=== PATIENT | male | born 1945 | race American Indian/Alaskan Native ===

== ENCOUNTER 2018-04-28 20:07 | Inpatient (IN) | payer MEDICARE, OTHER ==
--- NOTE | 2018-04-28 20:40 | ED PDOC ---
Arrival/HPI - General Chief Complaint: Weakness/Neurological Deficit Time Seen by Provider: 04/28/18 20:16 Historian: Patient, Family - History of Present Illness Narrative History of Present Illness (Text): 04/28/18 20:34 72 year old male, whose past medical history includes alzheimers disease and thyroid disease, who presents to the emergency department via EMS for evaluation of decreased appetite, poor oral intake, and generalized weakness. Patient's family states the patient has been losing weight. Patient family also notes patient saw his PMD earlier in the week, who said he might be dehydrated. Patient denies any fever, chills, chest pain, shortness of breath, nausea, vomiting, diarrhea, back pain, neck pain, headache, dizziness, or any other complaints. Symptom Onset: Gradual Symptom Course: Worsening Activities at Onset: Light Context: Home Past Medical History - Provider Review Nursing Documentation Reviewed: Yes - Cardiac Hx Cardiac Disorders: No - Pulmonary Hx Respiratory Disorders: No - Neurological Hx Neurological Disorder: Yes Hx Alzheimer's Disease: Yes - HEENT Hx HEENT Disorder: No - Renal Hx Renal Disorder: No - Endocrine/Metabolic Hx Endocrine Disorders: Yes Hx Hypothyroidism: Yes - Hematological/Oncological Hx Blood Disorders: No - Integumentary Hx Dermatological Disorder: No - Musculoskeletal/Rheumatological Hx Musculoskeletal Disorders: Yes Hx Falls: Yes - Gastrointestinal Hx Gastrointestinal Disorders: No - Genitourinary/Gynecological Hx Genitourinary Disorders: No - Psychiatric Hx Psychophysiologic Disorder: No Hx Substance Use: No Family/Social History - Physician Review Nursing Documentation Reviewed: Yes Family/Social History: Unknown Family HX Smoking Status: Former Smoker Hx Alcohol Use: Yes (former) Frequency of alcohol use: Socially Hx Substance Use: No Allergies/Home Meds Allergies/Adverse Reactions: Allergies No Known Allergies Allergy (Verified 04/28/18 20:15) Home Medications: Home Meds Medication Instructions Recorded Confirmed Unobtainable 04/28/18 04/28/18 Review of Systems - Physician Review All systems were reviewed & negative as marked: Yes - Review of Systems Constitutional: Fatigue Eyes: Normal ENT: Normal Respiratory: Normal. absent: SOB, Cough Cardiovascular: Normal. absent: Chest Pain Gastrointestinal: Normal. absent: Abdominal Pain, Diarrhea, Nausea, Vomiting Genitourinary Male: Normal. absent: Dysuria, Frequency, Hematuria, Urinary Output Changes Musculoskeletal: Normal. absent: Back Pain, Neck Pain Skin: Normal. absent: Rash Neurological: Normal. absent: Headache, Dizziness Endocrine: Normal Hemo/Lymphatic: Normal Psychiatric: Normal Physical Exam Vital Signs Reviewed: Yes Vital Signs Temp Pulse Resp BP Pulse Ox 04/28/18 20:16 98.1 F 87 18 104/67 97 Temperature: Afebrile Blood Pressure: Normal Pulse: Regular Respiratory Rate: Normal Appearance: Positive for: Well-Appearing, Non-Toxic, Comfortable Pain Distress: None Mental Status: Positive for: Alert and Oriented X 3 - Systems Exam Head: Present: Atraumatic, Normocephalic Pupils: Present: PERRL Extroacular Muscles: Present: EOMI Conjunctiva: Present: Normal Mouth: Present: Dry Neck: Present: Normal Range of Motion. No: Meningeal Signs, MIDLINE TENDERNESS Respiratory/Chest: Present: Clear to Auscultation, Good Air Exchange. No: Respiratory Distress, Accessory Muscle Use Cardiovascular: Present: Regular Rate and Rhythm, Normal S1, S2. No: Murmurs Abdomen: No: Tenderness, Distention, Peritoneal Signs Back: Present: Normal Inspection. No: CVA Tenderness, Midline Tenderness, Paraspinal Tenderness Upper Extremity: Present: Normal Inspection. No: Cyanosis, Edema Lower Extremity: Present: Normal Inspection. No: Edema Neurological: Present: GCS=15, CN II-XII Intact, Speech Normal Skin: Present: Warm, Dry, Normal Color. No: Rashes Psychiatric: Present: Alert, Oriented x 3, Normal Insight, Other (poor communication) Medical Decision Making ED Course and Treatment: 04/28/18 20:43 Impression: 72 year old male who presents to the emergency department via EMS for decreased appetite, poor oral intake, and generalized weakness. Plan: -- CT Head -- EKG -- Labs -- Chest X-ray -- Urinalysis -- Reassess and disposition Progress Notes: 04/28/18 20:55 EKG reviewed, shows NSR at [address]/T wave changes. Inferior lateral leads. Early repolarization. 04/28/18 21:41 Chest X-ray reviewed, shows no acute processes. 04/28/18 21:46 Case discussed with biomedical engineering internship food preparation kitchen aide, who is aware and agrees with plan. 04/28/18 21:[address] Townsend, who is aware and agrees with plan. Accepts pt in to hospitalist service. Pt will be admitted to [facility] for dehydration. 04/28/18 23:12 CT Head shows: Brain: Ventricles are mildly dilated. There is prominence of sulci and gyri. The. There is no midline shift. There is decreased attenuation in periventricular white matter. There is an old lacunar infarct in the right basal ganglia. There is a lacunar infarct in the genuine of the corpus callosum. There are no focal masses. There are no focal hemorrhages. Mcneal-white differentiation is visualized. Ventricles: See above Bones: Cranial vault is intact. Soft tissues: unremarkable Sinuses: There is no acute sinusitis. Ears and mastoids: Middle ears and mastoids are unremarkable. Orbits: Orbital contents are unremarkable. IMPRESSION: Atrophy and small vessel disease; lacunar infarcts in the basal ganglia corpus callosum; no bleed - Lab Interpretations Lab Results: 04/28/18 20:50 04/28/18 20:50 Lab Results 04/28/18 20:50: Iron 63, TIBC 231 L, % Saturation 27 04/28/18 20:50: Phosphorus 3.7, Magnesium 2.5 H, Ferritin Cancelled, Vitamin B12 Cancelled, Folate Cancelled 04/28/18 20:50: Free T4 1.13, TSH 3rd Generation 4.58 04/28/18 20:50: PT 14.2 H, INR 1.24 H, APTT 27.6 04/28/18 20:50: WBC 5.9, RBC 5.15, Hgb 11.9 L, Hct 35.8 L, MCV 69.5 L, MCH 23.1 L, MCHC 33.2, RDW 16.5 H, Plt Count 281 04/28/18 20:50: Sodium 145, Potassium 4.3, Chloride 101, Carbon Dioxide 32, Anion Gap 16, BUN 32 H, Creatinine 1.0, Est GFR ( Amer) > 60, Est GFR ( Non-Af Amer) > 60, Random Glucose 95, Calcium 9.0, Total Bilirubin 0.3, AST 45, ALT 31, Alkaline Phosphatase 53, Lactate Dehydrogenase 754 H, Total Creatine Kinase 470 H, CK-MB (CK-2) 1.7, CK-MB (CK-2) % Cancelled, Troponin I < 0.01, Total Protein 7.4, Albumin 4.0, Globulin 3.4, Albumin/Globulin Ratio 1.2 I have reviewed the lab results: Yes - RAD Interpretation Radiology Orders: 04/28/18 20:30 HEAD W/O CONTRAST [CT] Stat 04/28/18 20:31 CHEST PORTABLE [RAD] Stat Shuttle Spotter: ED Physician, Radiologist - EKG Interpretation Interpreted by ED Physician: Yes Type: 12 lead EKG - Medication Orders Current Medication Orders: Famotidine (Pepcid) 20 mg IVP DAILY NALDO Heparin Sodium (Porcine) (Heparin) 5,000 units SC Q12 NALDO PRN Reason: Protocol Sodium Chloride (Sodium Chloride 0.9%) 1,000 mls @ 150 mls/hr IV .Q6H40M NALDO Last Admin: 04/29/18 04:39 Dose: eMAR Start Stop Document 04/29/18 04:39 MP (Rec: 04/29/18 04:40 MP [facility] [id number][place] Intravenous Solution Start Date 04/29/18 Start Time 04:40 Discontinued Medications Famotidine (Pepcid) 40 mg PO HS NALDO Last Admin: 04/28/18 22:21 Dose: Sodium Chloride (Sodium Chloride 0.9%) 1,000 mls @ 100 mls/hr IV .Q10H NALDO Last Admin: 04/28/18 21:49 Dose: 100 mls/hr eMAR Start Stop Document 04/28/18 21:49 CNR (Rec: 04/28/18 21:49 CNR [id number]) Intravenous Solution Start Date 04/28/18 Start Time 21:49 Sodium Chloride (Sodium Chloride 0.9%) 500 mls @ 500 mls/hr IV .Q1H STA Stop: 04/28/18 22:47 Last Admin: 04/28/18 21:50 Dose: 500 mls/hr eMAR Start Stop Document 04/28/18 21:50 CNR (Rec: 04/28/18 21:50 CNR [id number]) Intravenous Solution Start Date 04/28/18 Start Time 21:50 - Scribe Statement The provider has reviewed the documentation as recorded by the Scribslim Kincaid All medical record entries made by the Scribe were at my direction and personally dictated by me. I have reviewed the chart and agree that the record accurately reflects my personal performance of the history, physical exam, medical decision making, and the department course for this patient. I have also personally directed, reviewed, and agree with the discharge instructions and disposition. Disposition/Present on Arrival - Present on Arrival Any Indicators Present on Arrival: No History of DVT/PE: No History of Uncontrolled Diabetes: No Urinary Catheter: No History of Decub. Ulcer: No History Surgical Site Infection Following: None - Disposition Have Diagnosis and Disposition been Completed?: Yes Diagnosis: Dehydration, Failure to thrive in adult Disposition: HOSPITALIZED Disposition Time: 21:55 Patient Plan: Admission, Observation Patient Problems: Current Active Problems Problem Status Onset Dehydration Acute Failure to thrive in adult Acute Condition: STABLE
[2018-04-28 21:07] LABS: HEMOGLOBIN 11.9 g/dL (14.0-18.0); MEAN CELL VOLUME 69.5 fl (80.0-105.0); MEAN CORPUSCULAR HEMOGLOBIN 23.1 pg (25.0-35.0); MEAN CORPUSCULAR HGB CONC 33.2 g/dl (31.0-37.0); PLATELET COUNT 281 10^3/uL (120.0-450.0); RBC 5.15 10^6/uL (3.5-6.1); RED CELL DISTRIBUTION WIDTH 16.5 % (11.5-14.5); WHITE BLOOD COUNT 5.9 10^3/ul (4.5-11.0)
[2018-04-28 21:17] LABS: ALB/GLOB RATIO 1.2 (1.1-1.8); ALT/SGPT 31 U/L (7-56); AST/SGOT 45 U/L (17-59); BLOOD UREA NITROGEN 32 mg/dL (7-21); GFR AFRICAN-AMERICAN > 60; GFR NON-AFRICAN AMERICAN > 60
[2018-04-28 21:22] LABS: INR 1.24 (0.93-1.08); PARTIAL THROMBOPLASTIN TIME 27.6 Seconds (25.1-36.5); PROTHROMBIN TIME 14.2 SECONDS (9.4-12.5)
[2018-04-28 21:28] LABS: TROPONIN I < 0.01 ng/mL
[2018-04-28 21:34] LABS: FREE T4 1.13 ng/dL (0.78-2.19)
[2018-04-28 21:41] LABS: CK-MB 1.7 ng/mL (0.0-3.6)
[2018-04-28] MEDS ORDERED: Sodium Chloride 0.9% 1,000 ML IV SCH (21:45)
[2018-04-28] MEDS ORDERED: Sodium Chloride 0.9% 500 ML IV STA (21:48)
--- NOTE | 2018-04-28 22:22 | CT ---
EXAM: CT Head Without Intravenous Contrast EXAM DATE/TIME: 04/28/2018 8:30 PM CLINICAL HISTORY: 72 years old, male; Signs and symptoms; Altered mental status/memory loss; Patient HX: Confused/hx. Alzheimers TECHNIQUE: Axial computed tomography images of the head/brain without intravenous contrast. All CT scans at this facility use one or more dose reduction techniques, viz.: automated exposure control; ma/kV adjustment per patient size (including targeted exams where dose is matched to indication; i.e. head); or iterative reconstruction technique. Coronal and sagittal reformatted images were created and reviewed. COMPARISON: There are no prior studies for comparison. FINDINGS: Brain: Ventricles are mildly dilated. There is prominence of sulci and gyri. The. There is no midline shift. There is decreased attenuation in periventricular white matter. There is an old lacunar infarct in the right basal ganglia. There is a lacunar infarct in the genuine of the corpus callosum. There are no focal masses. There are no focal hemorrhages. Mcneal-white differentiation is visualized. Ventricles: See above Bones: Cranial vault is intact. Soft tissues: unremarkable Sinuses: There is no acute sinusitis. Ears and mastoids: Middle ears and mastoids are unremarkable. Orbits: Orbital contents are unremarkable. IMPRESSION: Atrophy and small vessel disease; lacunar infarcts in the basal ganglia corpus callosum; no bleed
[2018-04-28 22:23] LABS: IRON 63 ug/dL (45-180)
[2018-04-28 22:32] LABS: % IRON SATURATION 27 % (20-55); TOTAL IRON BINDING CAPACITY 231 ug/dL (261-462)
[2018-04-28 23:25] LABS: URINE BILIRUBIN SMALL (NEGATIVE); URINE BLOOD TRACE-INTACT (NEGATIVE); URINE GLUCOSE (UA) NEGATIVE (NEGATIVE); URINE LEUKOCYTE ESTERASE NEGATIVE Leu/uL (NEGATIVE); URINE PROTEIN 30 mg/dL (<30 mg/dL)
[2018-04-28 23:46] LABS: BARBITURATES, UR NEGATIVE (NEGATIVE); BENZODIAZEPINES, UR POSITIVE (NEGATIVE); OPIATES, UR NEGATIVE (NEGATIVE); PHENCYCLIDINE, UR NEGATIVE (NEGATIVE)
[2018-04-28 23:58] LABS: URINE APPEARANCE SL CLOUDY (CLEAR); URINE COLOR YELLOW (YELLOW); URINE EPITHELIAL CELLS 0 - 2 /hpf (0-5); URINE RBC 0 - 2 /hpf (0-2); URINE WBC 0 - 2 /hpf (0-6)
[2018-04-28 23:59] VITALS: BMI 18.8
[2018-04-28 23:59] LABS: URINE BACTERIA FEW (NEG)
--- NOTE | 2018-04-29 00:28 | CP.PCM.HP ---
<Pito Robert - Last Filed: 04/29/18 01:16> History of Present Illness - History of Present Illness History of Present Illness: Mr. Parish is a 72 year old male with a past medical history significant for severe dementia, prior CVA, and hypothyroidism who presents with two months of baseline changes in functional capacity, dehydration and decreased PO intake. HPI obtained from patients sister and who were present at baseline as patient is uncooperative/disoriented. Patients sister reports that she is in town visiting from [place] and while here she has noticed that patient is refusing PO intake, both solid and liquid. She placed a call to Dr. Wilson for instructions and was instructed to bring him to the hospital for further evaluation. She also notes that patients is no longer able to meet the demands of day to day care for the patient, particularly over the past two months. Patients reports that over the course of the past two months the patient has had increasing weakness and worsening of his dementia symptoms. She notes several falls that have happened during that period that were medically unevaluated as well as several episodes of the patient leaving the house in the middle of the night and having to be returned by the police. She endorses that it is becoming increasingly difficult for her to manage his day to day care, citing worsening of her own medical conditions as the reason. She reports that the patient does not make any complaints and further ROS is unobtainable at this time due to patients disorientation/lack of cooperation. 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 Mena Present on Admission - Present on Admission Any Indicators Present on Admission: No Review of Systems - Review of Systems Systems not reviewed;Unavailable: Dementia, Uncooperative Past Patient History - Infectious Disease Hx of Infectious Diseases: None - Tetanus Immunizations Tetanus Immunization: Unknown - Past Social History Smoking Status: Former Smoker - CARDIAC Hx Cardiac Disorders: No Hx Angina: No Hx Cardia Arrhythmia: No Hx Circulatory Problems: No Hx Congestive Heart Failure: No Hx Heart Murmur: No Hx Heart Transplant: No Hx Hypercholesterolemia: No Hx Hypertension: No Hx Internal Defibrillator: No Hx Mitral Valve Prolapse: No Hx Pacemaker: No Hx Peripheral Edema: No Hx Peripheral Vascular Disease: No - PULMONARY Hx Respiratory Disorders: No Hx Asthma: No Hx Bronchitis: No Hx Chronic Obstructive Pulmonary Disease (COPD): No Hx Emphysema: No Hx Pneumonia: No Hx Respiratory Aspiration: No Hx Respiratory Tract Infection: No Hx Sleep Apnea: No Hx Tuberculosis: No - NEUROLOGICAL Hx Neurological Disorder: Yes Hx Alzheimer's Disease: Yes HX Cerebrovascular Accident: No Hx Dementia: No Hx Dizziness: No Hx Meningitis: No Hx Migraine: No Hx Parkinson's Disease: No Hx Seizures: No Hx Transient Ischemic Attacks (TIA): No - HEENT Hx HEENT Problems: No Hx Blind: No Hx Cataracts: Yes Hx Deafness: No Hx Difficulty Chewing: Yes Hx Epistaxis: No Hx Glaucoma: No Hx Macular Degeneration: No - RENAL Hx Chronic Kidney Disease: No Hx Dialysis: No Hx Kidney Stones: No Hx Neurogenic Bladder: No Hx Pyelonephritis: No Hx Renal (Kidney) Cancer: No Hx Renal Failure: No - ENDOCRINE/METABOLIC Hx Endocrine Disorders: No Hx Adrenal Cancer: No Hx Diabetes Insipidus: No Hx Diabetes Mellitus Type 1: No Hx Diabetes Mellitus Type 2: No Hx Systemic Lupus Erythematosus: No - HEMATOLOGICAL/ONCOLOGICAL Hx Blood Disorders: No Hx AIDS: No Hx Anemia: No Hx Cancer: No Hx Chemotherapy: No Hx Cirrhosis: No Hx Hemophilia: No Hx Hepatitis A: No Hx Hepatitis B: No Hx Hepatitis C: No Hx Human Immunodeficiency Virus (HIV): No Hx Metastesis: No Hx Shingles: No Hx Sickle Cell Disease: No Hx Unexplained Bleeding: No - INTEGUMENTARY Hx Dermatological Problems: No Hx Basil Cell: No Hx Eczema: No Hx Melanoma: No Hx Psoriasis: No Hx Squamous Cell: No - MUSCULOSKELETAL/RHEUMATOLOGICAL Hx Musculoskeletal Disorders: No Hx Arthritis: No Hx Back Pain: No Hx Degenerative Joint Disease: No Hx Falls: No Hx Fractures: No Hx Gout: No Hx Herniated Disk: No Hx Myasthenia Gravis: No Hx Osteoarthritis: No Hx Osteomyelitis: No Hx Osteoporosis: No Hx Rhabdomyolysis: No Hx Spinal Stenosis: No Hx Unsteady Gait: Yes Other/Comment: unsteady gait s/p fall at home x2 - GASTROINTESTINAL Hx Gastrointestinal Disorders: No Hx Colostomy: No Hx Crohn's Disease: No Hx Diverticulitis: No Hx Gall Bladder Disease: No Hx Gastroesophageal Reflux: No Hx Ileostomy: No Hx Liver Failure: No Hx Pancreatitis: No HX Swallowing Problems: No Hx Ulcer: No - GENITOURINARY/GYNECOLOGICAL Hx Genitourinary Disorders: No Hx Hematuria: No Hx Incontinence: No Hx Prostate Problems: No Hx Sexually Transmitted Disorders: No Hx Urinary Tract Infection: No - PSYCHIATRIC Hx Psychophysiologic Disorder: No Hx Anxiety: No Hx Bipolar Disorder: No Hx Depression: No Hx Emotional Abuse: No Hx Hallucinations: No Hx Panic Symptoms: No Hx Paranoia: No Hx Post Traumatic Stress Disorder: No Hx Psychosis: No Hx Physical Abuse: No Hx Schizophrenia: No Hx Sexual Abuse: No Hx Substance Use: No - SURGICAL HISTORY Hx Surgeries: No Hx Amputation: No Hx Appendectomy: No Hx Cardiac Catheterization: No Hx Cholecystectomy: No Hx Coronary Stent: No Hx Gastric Bypass Surgery: No Hx Hysterectomy: No Hx Joint Replacement: No Hx Kidney Transplant: No Hx Liver Transplant: No Hx Mastectomy: No Hx Musculoskeletal Surgery: No Hx Open Heart Surgery: No Hx Orthopedic Surgery: No Hx Splenectomy: No Hx Valve Replacement: No Meds Allergies/Adverse Reactions: Allergies Allergy/AdvReac Type Severity Reaction Status Date / Time No Known Allergies Allergy Verified 04/28/18 20:15 Physical Exam - Constitutional Appears: Confused - Head Exam Head Exam: ATRAUMATIC, NORMOCEPHALIC - Eye Exam Eye Exam: EOMI, Normal appearance, PERRL. absent: Conjunctival injection, Nystagmus, Periorbital swelling, Periorbital tenderness, Scleral icterus Pupil Exam: NORMAL ACCOMODATION, PERRL. absent: Fixed, Irregular, Miosis, Mydriatic, Unequal - ENT Exam ENT Exam: Mucous Membranes Dry - Neck Exam Neck exam: Positive for: Full Rom. Negative for: Lymphadenopathy, Meningismus, Tenderness, Thyromegaly - Respiratory Exam Respiratory Exam: Clear to Auscultation Bilateral, NORMAL BREATHING PATTERN. absent: Accessory Muscle Use, Chest Wall Tenderness, Decreased Breath Sounds, Prolonged Expiratory Phase, Rales, Rhonchi, Wheezes, Respiratory Distress, Stridor - Cardiovascular Exam Cardiovascular Exam: REGULAR RHYTHM, RRR, +S1, +S2. absent: Bradycardia, Tachycardia, Clicks, Diastolic murmur, Gallop, Irregular Rhythm, JVD, Rubs, +S4 , Systolic Murmur - GI/Abdominal Exam GI & Abdominal Exam: Normal Bowel Sounds, Soft. absent: Bruit, Diminished Bowel Sounds, Distended, Firm, Guarding, Hernia, Hyperactive Bowel Sounds, Hypoactive Bowel Sounds, Mass, Organomegaly, Pulsatile Mass, Rebound, Rigid, Tenderness - Extremities Exam Extremities exam: Positive for: full ROM, normal capillary refill, pedal pulses present. Negative for: calf tenderness, joint swelling, pedal edema, tenderness - Back Exam Back exam: absent: CVA tenderness (L), CVA tenderness (R) - Skin Skin Exam: Dry, Intact, Normal Color, Warm Results - Vital Signs Recent Vital Signs: Last Vital Signs Temp 98.2 F 04/28/18 23:36 Pulse 83 04/28/18 23:36 Resp 18 04/28/18 23:36 BP 124/73 04/28/18 23:36 Pulse Ox 97 04/28/18 23:13 - Labs Result Diagrams: 04/28/18 20:50 04/28/18 20:50 Labs: Laboratory Results - last 24 hr 04/28/18 04/28/18 23:00 23:00 Urine Color Yellow Urine Appearance Sl cloudy Urine pH 6.0 Ur Specific [place] 1.025 Urine Protein 30 H Urine Glucose (UA) Negative Urine Ketones 15 H Urine Blood Trace-intact H Urine Nitrate Negative Urine Bilirubin Small H Urine Urobilinogen 1.0 H Ur Leukocyte Esterase Negative Urine RBC 0 - 2 Urine WBC 0 - 2 Ur Epithelial Cells 0 - 2 Urine Bacteria Few Urine Opiates Screen Negative Urine Methadone Screen Negative Ur Barbiturates Screen Negative Ur Phencyclidine Scrn Negative Ur Amphetamines Screen Negative U Benzodiazepines Scrn Positive H U Oth Cocaine Metabols Negative U Cannabinoids Screen Negative Assessment & Plan - Assessment and Plan (Free Text) Assessment: 72 year old male with a past medical history significant for severe dementia, prior CVA, and hypothyroidism who presents with two months of baseline changes in functional capacity, dehydration and decreased PO intake. Patient was found to have changes consistent with possible pericardial pathology on repeat EKG in ED. Patient will be admitted for failure to thrive. Plan: 1. Failure to Thrive/Worsening Dementia -CT Head negative for acute pathology with chronic vascular changes and chronic lacunar infarcts -Chest X-Ray pending official pathology -CK elevated at 470 -Normal Saline at 150mls/hour -NPO Diet (failed nursing bedside swallow eval) -LADIES LOCKER ROOM ATTENDANT Swallow Evaluation and Treatment pending -Fall and Aspiration precautions -PT, OT and Index Clerk evaluations pending -SW/CM referral for discharge planning 2. EKG Changes -Initial EKG showing sinus arrhythmia -Repeat showed ST elevations suspicious for pericardial pathology -Initial troponin negative; Two Q6H serial repeats pending -Echo pending -EKG in AM pending -Cardiology consulted, all recommendations appreciated 3. Hypothyroidism -TSH and free T4 WNL - to bring home medication in the AM 4. Mild Microcytic Anemia -Negative EGD (one year ago) and Colonoscopy (five years ago) -Iron, TIBC, Ferritin, Transferrin, Vit. B12, and Folate pending -Daily CBC's GI Prophylaxis: Pepcid DVT Prophylaxis: Heparin Patient seen and case discussed with attending, Dr. Townsend. Chinyere PGY1 - Date & Time Date: 04/29/18 Time: 00:28 Decision To Admit - Pt Status Changed To: Hospital Disposition Of: Inpatient Admission - Admit Certification Admit to Inpatient:: After my assessment, the patient will require hospitalization for at least two midnights. This is because of the severity of symptoms shown, intensity of services needed, and/or the medical risk in this patient being treated as an outpatient. - . Bed Request Type: Med/Surg <Alea Townsend - Last Filed: 04/29/18 03:35> Results - Vital Signs Recent Vital Signs: Last Vital Signs Temp 98.2 F 04/28/18 23:36 Pulse 83 04/28/18 23:36 Resp 18 04/28/18 23:36 BP 124/73 04/28/18 23:36 Pulse Ox 97 04/28/18 23:13 - Labs Result Diagrams: 04/28/18 20:50 04/28/18 20:50 Labs: Laboratory Results - last 24 hr 04/28/18 04/28/18 23:00 23:00 Urine Color Yellow Urine Appearance Sl cloudy Urine pH 6.0 Ur Specific [place] 1.025 Urine Protein 30 H Urine Glucose (UA) Negative Urine Ketones 15 H Urine Blood Trace-intact H Urine Nitrate Negative Urine Bilirubin Small H Urine Urobilinogen 1.0 H Ur Leukocyte Esterase Negative Urine RBC 0 - 2 Urine WBC 0 - 2 Ur Epithelial Cells 0 - 2 Urine Bacteria Few Urine Opiates Screen Negative Urine Methadone Screen Negative Ur Barbiturates Screen Negative Ur Phencyclidine Scrn Negative Ur Amphetamines Screen Negative U Benzodiazepines Scrn Positive H U Oth Cocaine Metabols Negative U Cannabinoids Screen Negative Attending/Attestation - Attestation I have personally seen and examined this patient.: Yes I have fully participated in the care of the patient.: Yes I have reviewed all pertinent clinical information: Yes Notes (Text): 04/29/18 03:34 Patient was seen when he was in bed # 3 in the ER. Agree with history , physical examination, assessment and plan.
[2018-04-29] MEDS: Sodium Chloride 0.9% 1,000 ML IV SCH ×2 (01:09→04:39)
[2018-04-29 05:10] LABS: BASO # 0.05 K/mm3 (0.0-2.0); BASO % 0.8 % (0.0-3.0); EOS # 0.1 (0.0-0.7); EOS % 1.9 % (1.5-5.0); GRAN # 3.04 (1.4-6.5); GRAN % 48.9 % (50.0-68.0); HEMOGLOBIN 10.5 g/dL (14.0-18.0); LYMPH # 2.4 (1.2-3.4); LYMPH % 38.1 % (22.0-35.0); MEAN CELL VOLUME 69.8 fl (80.0-105.0); MEAN CORPUSCULAR HEMOGLOBIN 22.3 pg (25.0-35.0); MEAN PLATELET VOLUME 10.7 fl (7.0-11.0); MONO # 0.6 (0.1-0.6); MONO % 10.3 % (1.0-6.0); RBC 4.7 10^6/uL (3.5-6.1); RED CELL DISTRIBUTION WIDTH 16.5 % (11.5-14.5); WHITE BLOOD COUNT 6.2 10^3/ul (4.5-11.0)
[2018-04-29 05:15] LABS: ALB/GLOB RATIO 1.1 (1.1-1.8); ALBUMIN 3.3 g/dL (3.0-4.8); ALT/SGPT 33 U/L (7-56); AST/SGOT 36 U/L (17-59); BLOOD UREA NITROGEN 27 mg/dL (7-21); CALCIUM 8.5 mg/dL (8.4-10.5); GFR AFRICAN-AMERICAN > 60; GFR NON-AFRICAN AMERICAN > 60
[2018-04-29 09:12] LABS: HDL CHOLESTEROL 45 mg/dL (29-60)
[2018-04-29 09:23] LABS: LDL CHOLESTEROL 94 mg/dL (0-129)
--- NOTE | 2018-04-29 10:14 | RAD ---
HISTORY: Weakness COMPARISON: No prior. FINDINGS: LUNGS: Mild biapical pleural thickening. There may also be some linear atelectasis and or scarring changes in the left mid lung field. PLEURA: No significant pleural effusion identified, no pneumothorax apparent. CARDIOVASCULAR: Heart size upper limits of normal. OSSEOUS STRUCTURES: No significant abnormalities. VISUALIZED UPPER ABDOMEN: Normal. OTHER FINDINGS: None. IMPRESSION: Mild biapical pleural thickening. There may also be some linear atelectasis and or scarring changes in the left mid lung field.
[2018-04-29 12:03] LABS: FOLATE 4.8 ng/mL
--- NOTE | 2018-04-29 15:37 | CARD ---
APPROVED REPORT EKG Measurement Heart [id number] <Conclusion> Normal sinus rhythm Normal ECG
--- NOTE | 2018-04-29 15:43 | CARD ---
APPROVED REPORT EKG Measurement Heart [id number] <Conclusion> Normal sinus rhythm ST elevation, consider early repolarization, pericarditis, or injury Abnormal ECG
[2018-04-30 07:03] LABS: BASO # 0.04 K/mm3 (0.0-2.0); BASO % 0.7 % (0.0-3.0); EOS # 0.1 (0.0-0.7); EOS % 2.3 % (1.5-5.0); GRAN # 2.91 (1.4-6.5); GRAN % 47.2 % (50.0-68.0); HEMOGLOBIN 10.4 g/dL (14.0-18.0); LYMPH # 2.3 (1.2-3.4); LYMPH % 37.9 % (22.0-35.0); MEAN CELL VOLUME 69.6 fl (80.0-105.0); MEAN CORPUSCULAR HEMOGLOBIN 22.6 pg (25.0-35.0); MEAN CORPUSCULAR HGB CONC 32.4 g/dl (31.0-37.0); MEAN PLATELET VOLUME 10.4 fl (7.0-11.0); MONO # 0.7 (0.1-0.6); MONO % 11.9 % (1.0-6.0); RBC 4.61 10^6/uL (3.5-6.1); RED CELL DISTRIBUTION WIDTH 16.9 % (11.5-14.5); WHITE BLOOD COUNT 6.2 10^3/ul (4.5-11.0)
[2018-04-30 07:59] LABS: ALB/GLOB RATIO 1.1 (1.1-1.8); ALBUMIN 3.2 g/dL (3.0-4.8); ALT/SGPT 32 U/L (7-56); AST/SGOT 34 U/L (17-59); BLOOD UREA NITROGEN 11 mg/dL (7-21); CALCIUM 8.2 mg/dL (8.4-10.5); GFR AFRICAN-AMERICAN > 60; GFR NON-AFRICAN AMERICAN > 60
--- NOTE | 2018-04-30 09:26 | CON ---
DATE: 04/29/2018 REASON FOR CONSULTATION: Abnormal EKG. HISTORY OF PRESENT ILLNESS: The patient is a 72-year-old male, who has Alzheimer, who was brought in by EMS because of poor appetite and generalized weakness as well as progressive loss of weight as per the family. The patient was evaluated earlier by his primary physician and informed the family that the patient is dehydrated. There was no history obtained for fever or chills. At the time of my evaluation, the patient gave no reliable answers to me, and the was on her way to visit him. Consultation was called because of subtle diffuse ST elevation on EKG. SOCIAL HISTORY: The patient is , lives with his . MEDICATIONS: Aricept 5 mg at bedtime, heparin 5000 units subcutaneous twice a day, Namenda 5 mg once a day, Pepcid 20 mg daily, normal saline at 250 mL an hour. REVIEW OF SYSTEMS: No reported hypotension. No reported seizures, and no reported fever. HOME MEDICATIONS: Are unobtainable according to the hospital records. PHYSICAL EXAMINATION: GENERAL: The patient is an elderly male, who does not appear to be in acute distress. VITAL SIGNS: Blood pressure 124/76, heart rate 78, temperature 98, respirations 18. HEENT: Pale conjunctivae. CHEST: Diminished breath sounds bilaterally. HEART: S1 and S2 regular. ABDOMEN: Soft. EXTREMITIES: Significant muscle wasting. LABORATORY DATA: Urine drug screen is positive for benzodiazepines. SMA-7, sodium 146, potassium 4.1, chloride 107, CO2 of 30, glucose 92, BUN 27, creatinine 0.9. Three sets of troponins are negative. TSH level and free T4 are within normal limits. INR is 1.24, PTT 26.7. Hemoglobin and hematocrit 10.5 and 32.8; white count and platelet count are within normal limits. Chest x-ray was unremarkable. Head CT scan without contrast, atrophy, small vessel disease, lacunar infarcts in the basal ganglia, corpus callosum, no bleeding. EKG revealed sinus rhythm, ST elevation, repolarization, pericarditis, injury; however, in my opinion and in view of the clinical scenario, they are more consistent with early repolarization changes which is unusual for this patient's age. Subsequent EKG today revealed a similar picture with less of the ST elevation. ASSESSMENT: 1. Dehydration. 2. 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 3. Abnormal EKG with evidence of anterior ST elevation. There are no clinical evidence of pericarditis such as pericardial rub or other EKG changes. RECOMMENDATIONS: Continue current subcutaneous heparin, Aricept and intravenous hydration. Obtain culture, urine culture and an echocardiogram. Demarcus Rao MD
--- NOTE | 2018-04-30 11:15 | CP.PCM.PN ---
<Boom Cazares - Last Filed: 04/30/18 13:41> Subjective - Date & Time of Evaluation Date of Evaluation: 04/30/18 Time of Evaluation: 07:30 - Subjective Subjective: Patient seen and examined at bedside in no acute distress. Patient is unaware of his surroundings. Is able to state he has a and children as well as grandchildren. Denies abdominal pain, nausea, vomiting, diarrhea, fevers, chills , however review of systems is limited due to altered mental status and severe dementia. Objective - Vital Signs/Intake and Output Vital Signs (last 24 hours): Temp Pulse Resp BP Pulse Ox 97.7 F 69 18 100/65 100 04/30/18 06:00 04/30/18 06:00 04/30/18 06:00 04/30/18 06:00 04/30/18 06:00 Intake and Output: 04/30/18 04/30/18 06:59 18:59 Intake Total 2340 Balance 2340 - Medications Medications: Current Medications Aspirin (Ecotrin) 81 mg PO DAILY [facility] Last Admin: 04/30/18 09:48 Dose: 81 mg Atorvastatin Calcium (Lipitor) 10 mg PO DIN [facility] Donepezil HCl (Aricept) 5 mg PO HS [facility] Last Admin: 04/29/18 22:07 Dose: 5 mg Famotidine (Pepcid) 20 mg IVP DAILY [facility] Last Admin: 04/30/18 09:47 Dose: 20 mg Heparin Sodium (Porcine) (Heparin) 5,000 units SC Q12 [facility] PRN Reason: Protocol Last Admin: 04/30/18 09:47 Dose: 5,000 units Sodium Chloride (Sodium Chloride 0.9%) 1,000 mls @ 150 mls/hr IV .Q6H40M [facility] Last Admin: 04/29/18 04:39 Dose: Not Given Memantine (Namenda) 5 mg PO DAILY [facility] Last Admin: 04/30/18 09:48 Dose: 5 mg - Labs Labs: 04/30/18 06:40 04/30/18 06:40 PT 14.2 SECONDS (9.4-12.5) H 04/28/18 20:50 INR 1.24 (0.93-1.08) H 04/28/18 20:50 APTT 29.8 Seconds (25.1-36.5) 04/30/18 06:40 - Head Exam Head Exam: ATRAUMATIC, NORMAL INSPECTION, NORMOCEPHALIC - Eye Exam Eye Exam: EOMI, Normal appearance - ENT Exam ENT Exam: Mucous Membranes Moist, Normal Exam - Respiratory Exam Respiratory Exam: Clear to Ausculation Bilateral. absent: Rhonchi, Wheezes - Cardiovascular Exam Cardiovascular Exam: REGULAR RHYTHM, +S1, +S2 - GI/Abdominal Exam GI & Abdominal Exam: Soft, Normal Bowel Sounds - Neurological Exam Neurological Exam: Alert, Awake. absent: Oriented x3 - Psychiatric Exam Psychiatric exam: Normal Affect, Normal Mood - Skin Skin Exam: Intact, Normal Color, Warm Assessment and Plan - Assessment and Plan (Free Text) Assessment: 72 year old male with a past medical history significant for severe dementia, prior CVA, and hypothyroidism who presents with two months of baseline changes in functional capacity, dehydration and decreased PO intake admitted for failure to thrive and [facility] placement. Plan: 1. Failure to Thrive/Worsening Dementia -CT Head negative for acute pathology with chronic vascular changes and chronic lacunar infarcts -Chest X-Ray reveals mild biapical pleural thickening. There may also be some linear atelectasis and or scarring changes in the left mid lung field. -CK was initially elevated at 470, will repeat in morning; Normal Saline decreased to 100mls/hour -Change from NPO to thin liquids, pureed for solids. -As per Swallow Evaluation and Treatment;Pt. demonstrates moderate oropharyngeal dysphagia with risk for aspiration with recommended thin liquids for diet -Continue with Fall and Aspiration precautions, HOB during meals -PT, OT pending still, will follow up with SW once PT has recommendations -Follow up with SW/CM referral for discharge planning 2. EKG Changes -Initial EKG showing sinus arrhythmia -Repeat showed ST elevations suspicious for pericardial pathology; as per cardiology patient is cleared for acute pathology considering negative troponins -Echo pending 3. Hypothyroidism -TSH and free T4 WNL -Will discuss with regarding starting thyroid medication 4. Mild Microcytic Anemia -Negative past EGD and Colonoscopy -Continue to monitor H&H GI Prophylaxis: Pepcid DVT Prophylaxis: Heparin <Jessica Calle - Last Filed: 04/30/18 14:01> Objective - Vital Signs/Intake and Output Vital Signs (last 24 hours): Temp Pulse Resp BP Pulse Ox 97.7 F 69 18 100/65 100 04/30/18 06:00 04/30/18 06:00 04/30/18 06:00 04/30/18 06:00 04/30/18 06:00 Intake and Output: 04/30/18 04/30/18 06:59 18:59 Intake Total 2340 Balance 2340 - Medications Medications: Current Medications Aspirin (Ecotrin) 81 mg PO DAILY [facility] Last Admin: 04/30/18 09:48 Dose: 81 mg Atorvastatin Calcium (Lipitor) 10 mg PO DIN [facility] Donepezil HCl (Aricept) 5 mg PO HS [facility] Last Admin: 04/29/18 22:07 Dose: 5 mg Famotidine (Pepcid) 20 mg IVP DAILY [facility] Last Admin: 04/30/18 09:47 Dose: 20 mg Heparin Sodium (Porcine) (Heparin) 5,000 units SC Q12 [facility] PRN Reason: Protocol Last Admin: 04/30/18 09:47 Dose: 5,000 units Sodium Chloride (Sodium Chloride 0.9%) 1,000 mls @ 100 mls/hr IV .Q10H [facility] Last Admin: 04/30/18 11:35 Dose: 100 mls/hr Memantine (Namenda) 5 mg PO DAILY [facility] Last Admin: 04/30/18 09:48 Dose: 5 mg - Labs Labs: 04/30/18 06:40 04/30/18 06:40 PT 14.2 SECONDS (9.4-12.5) H 04/28/18 20:50 INR 1.24 (0.93-1.08) H 04/28/18 20:50 APTT 29.8 Seconds (25.1-36.5) 04/30/18 06:40 Attending/Attestation - Attestation I have personally seen and examined this patient.: Yes I have fully participated in the care of the patient.: Yes I have reviewed all pertinent clinical information, including history, physical exam and plan: Yes Notes (Text): 04/30/18 13:55 72 year old male with past medical history of dementia, CVA and hypothyroidism who presented worsening dementia and two month baseline changes in functional capacity as per family. CT head showed chronic vascular changes and chronic lacunar infarcts; negative for acute findings. Patient is on aricept and namenda. Continue with aspirin and statin. Awaiting for PT recommendations for possible rehab placement. Cardiology evaluation was also requested for EKG findings suggestive of possible pericarditis. Cardiac enzymes are negative. Patient denies any chest pain or shortness of breath. Case was discussed with Dr. Rao; awaiting echocardiogram. Jessica Calle MD Hospitalist.
[2018-04-30] MEDS: Sodium Chloride 0.9% 1,000 ML IV SCH ×2 (11:35→17:39)
--- NOTE | 2018-04-30 16:02 | PN ---
DATE: 04/30/2018 SUBJECTIVE: The patient is confused, unable to answer any question appropriately. He is sitting on a chair, does not appears to be in any respiratory distress. PHYSICAL EXAMINATION: VITAL SIGNS: Blood pressure 100/65, heart rate 69, temperature 97.7, respirations 18. HEENT: Normocephalic. CHEST: Clear. HEART: S1 and S2 regular. No pericardial rub. ABDOMEN: Soft. EXTREMITIES: No edema. LABORATORY DATA: Hemoglobin and hematocrit 10.4 and 32.1, white count and platelet count are within normal limits. Today's SMA-7 is within normal limits except for creatinine of 0.7, calcium slightly below normal at 8.2. ASSESSMENT: 1. Dehydration. 2. Multi-Infarct dementia. 3. Abnormal EKG with evidence of acute ST elevation, most likely consistent with early repolarization pattern which is untypical for this age. Less likely pericarditis. CONDITIONS: Continue current Aricept, aspirin, subcutaneous heparin 5000 units twice a day, Lipitor 10 mg once a day, Namenda 5 mg once a day, normal saline infusion at 100 mL an hour. I will follow echocardiographic study scheduled for today. Demarcus Rao MD
[2018-05-01] MEDS: Sodium Chloride 0.9% 1,000 ML IV SCH (05:54)
[2018-05-01 08:03] LABS: CK-MB 3.5 ng/mL (0.0-3.6)
--- NOTE | 2018-05-01 08:58 | CP.PCM.PN ---
<Boom Cazares - Last Filed: 05/01/18 13:38> Subjective - Date & Time of Evaluation Date of Evaluation: 05/01/18 Time of Evaluation: 08:55 - Subjective Subjective: Patient seen and examined at bedside in no acute distress. Patient repeating what I say to him. ROS limited due to severe dementia. No acute events overnight as per nursing staff. Objective - Vital Signs/Intake and Output Vital Signs (last 24 hours): Temp Pulse Resp BP Pulse Ox 97.8 F 64 18 123/76 98 05/01/18 06:00 05/01/18 06:00 05/01/18 06:00 05/01/18 06:00 05/01/18 06:00 Intake and Output: 05/01/18 05/01/18 06:59 18:59 Intake Total 360 Balance 360 - Medications Medications: Current Medications Aspirin (Ecotrin) 81 mg PO DAILY [facility] Last Admin: 04/30/18 09:48 Dose: 81 mg Atorvastatin Calcium (Lipitor) 10 mg PO DIN [facility] Last Admin: 04/30/18 17:36 Dose: 10 mg Donepezil HCl (Aricept) 5 mg PO HS [facility] Last Admin: 04/30/18 21:51 Dose: 5 mg Famotidine (Pepcid) 20 mg IVP DAILY [facility] Last Admin: 04/30/18 09:47 Dose: 20 mg Heparin Sodium (Porcine) (Heparin) 5,000 units SC Q12 [facility] PRN Reason: Protocol Last Admin: 04/30/18 21:50 Dose: 5,000 units Sodium Chloride (Sodium Chloride 0.9%) 1,000 mls @ 100 mls/hr IV .Q10H [facility] Last Admin: 05/01/18 05:54 Dose: 100 mls/hr Memantine (Namenda) 5 mg PO DAILY [facility] Last Admin: 04/30/18 09:48 Dose: 5 mg - Labs Labs: 04/30/18 06:40 04/30/18 06:40 PT 14.2 SECONDS (9.4-12.5) H 04/28/18 20:50 INR 1.24 (0.93-1.08) H 04/28/18 20:50 APTT 29.8 Seconds (25.1-36.5) 04/30/18 06:40 - Head Exam Head Exam: ATRAUMATIC, NORMAL INSPECTION, NORMOCEPHALIC - Eye Exam Eye Exam: EOMI - ENT Exam ENT Exam: Mucous Membranes Moist - Respiratory Exam Respiratory Exam: Clear to Ausculation Bilateral - Cardiovascular Exam Cardiovascular Exam: REGULAR RHYTHM, +S1, +S2 - GI/Abdominal Exam GI & Abdominal Exam: Soft, Normal Bowel Sounds - Neurological Exam Neurological Exam: Alert, Awake, Oriented x3 - Skin Skin Exam: Normal Color, Warm Assessment and Plan - Assessment and Plan (Free Text) Assessment: 72 year old male with a past medical history significant for severe dementia, prior CVA, and hypothyroidism who presents with two months of baseline changes in functional capacity, dehydration and decreased PO intake admitted for failure to thrive and 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 Plan: 1. Failure to Thrive/Worsening Dementia -CT Head negative for acute pathology with chronic vascular changes and chronic lacunar infarcts -Chest X-Ray reveals mild biapical pleural thickening. There may also be some linear atelectasis and or scarring changes in the left mid lung field. -CK was initially elevated at 470, now 239; will continue with IVF@100 -Continue with liquid diet -As per Swallow Evaluation and Treatment;Pt. demonstrates moderate oropharyngeal dysphagia with risk for aspiration with recommended thin liquids for diet -Continue with Fall and Aspiration precautions, HOB during meals 2. EKG Changes -Initial EKG showing sinus arrhythmia -Repeat showed ST elevations suspicious for pericardial pathology; as per cardiology patient is cleared for acute pathology considering negative troponins -Echo still pending 3. Hypothyroidism -TSH and free T4 WNL -Will start thyroid medication today 4. Mild Microcytic Anemia -Negative past EGD and Colonoscopy -Continue to monitor H&H GI Prophylaxis: Pepcid DVT Prophylaxis: Heparin <Jessica Calle - Last Filed: 05/01/18 16:02> Objective - Vital Signs/Intake and Output Vital Signs (last 24 hours): Temp Pulse Resp BP Pulse Ox 98 F 80 20 130/80 96 05/01/18 14:00 05/01/18 14:00 05/01/18 14:00 05/01/18 14:00 05/01/18 14:00 Intake and Output: 05/01/18 05/01/18 06:59 18:59 Intake Total 360 480 Balance 360 480 - Medications Medications: Current Medications Aspirin (Ecotrin) 81 mg PO DAILY [facility] Last Admin: 05/01/18 10:28 Dose: 81 mg Atorvastatin Calcium (Lipitor) 10 mg PO DIN [facility] Last Admin: 04/30/18 17:36 Dose: 10 mg Donepezil HCl (Aricept) 5 mg PO HS [facility] Last Admin: 04/30/18 21:51 Dose: 5 mg Famotidine (Pepcid) 20 mg PO DAILY [facility] Heparin Sodium (Porcine) (Heparin) 5,000 units SC Q12 [facility] PRN Reason: Protocol Last Admin: 05/01/18 10:28 Dose: 5,000 units Sodium Chloride (Sodium Chloride 0.9%) 1,000 mls @ 100 mls/hr IV .Q10H [facility] Last Admin: 05/01/18 05:54 Dose: 100 mls/hr Memantine (Namenda) 5 mg PO DAILY [facility] Last Admin: 05/01/18 10:29 Dose: 5 mg - Labs Labs: 04/30/18 06:40 04/30/18 06:40 PT 14.2 SECONDS (9.4-12.5) H 04/28/18 20:50 INR 1.24 (0.93-1.08) H 04/28/18 20:50 APTT 29.8 Seconds (25.1-36.5) 04/30/18 06:40 Attending/Attestation - Attestation I have personally seen and examined this patient.: Yes I have fully participated in the care of the patient.: Yes I have reviewed all pertinent clinical information, including history, physical exam and plan: Yes Notes (Text): 05/01/18 16:00 72 year old male with past medical history of dementia, CVA and hypothyroidism who presented worsening dementia and two month baseline changes in functional capacity as per family. CT head showed chronic vascular changes and chronic lacunar infarcts; negative for acute findings. Patient is on aricept and namenda. Continue with aspirin and statin. Will follow up with PT recommendations and discuss with the for possible rehab placement vs home with home services. Cardiology evaluation was appreciated EKG findings likely suggestive of early repolarization rather than pericarditis. Cardiac enzymes are negative. Patient denies any chest pain or shortness of breath. Echocardiogram was done with pending report. Jessica Calle MD Hospitalist.
--- NOTE | 2018-05-01 18:58 | CARD ---
APPROVED REPORT EXAM: Two-dimensional and M-mode echocardiogram with Doppler and color Doppler. INDICATION 2D DIMENSIONS IVSd1.1 (0.7-1.1cm)LVDd4.9 (3.9-5.9cm) PWd0.9 (0.7-1.1cm)LVDs3.1 (2.5-4.0cm) FS (%) 38.3 %LVEF (%)68.3 (>50%) M-Mode DIMENSIONS Left Atrium (MM)3.30 (2.5-4.0cm)Aortic Root3.10 (2.2-3.7cm) Aortic Cusp Exc.1.30 (1.5-2.0cm) Aortic Valve AoV Peak Ahcttmig882.0cm/Kelsey Peak GR.7mmHg Mitral Valve MV E Rqxpkatx74.5cm/sMV A Pnvkrlwt80.1cm/sE/A ratio1.1 TDI Lateral E' Peak V8.66cm/sMedial E' Peak V6.63cm/sE/Lateral E'10.3 E/Medial E'13.5 Tricuspid Valve TR Peak [id number]/sRAP [id number] Peak Gr.30mmHg [id number] LEFT VENTRICLE The left ventricle is normal size. There is normal left ventricular wall thickness. The left ventricular function is normal. The left ventricular ejection fraction is within the normal range. There is normal LV segmental wall motion. RIGHT VENTRICLE The right ventricle is normal size. The right ventricular systolic function is normal. ATRIA The left atrium size is normal. The right atrium size is normal. The interatrial septum is intact with no evidence for an atrial septal defect. AORTIC VALVE The aortic valve is normal in structure. No aortic regurgitation is present. There is no aortic valvular stenosis. MITRAL VALVE The mitral valve is normal in structure. Mitral regurgitation is mild. TRICUSPID VALVE The tricuspid valve is normal in structure. There is moderate tricuspid regurgitation. PULMONIC VALVE The pulmonary valve is normal in structure. There is trace pulmonic valvular regurgitation. GREAT VESSELS The aortic root is normal in size. The IVC is normal in size and collapses >50% with inspiration. PERICARDIAL EFFUSION There is no pleural effusion. There is no pericardial effusion. <Conclusion> Normal chamber size. Normal LV systolic function. Mild mitral regurgitation. Moderate tricuspid regurgitation.
[2018-05-01 23:20] VITALS: RESP 18
[2018-05-02 07:10] LABS: BASO # 0.06 K/mm3 (0.0-2.0); BASO % 0.9 % (0.0-3.0); EOS # 0.3 (0.0-0.7); EOS % 4.4 % (1.5-5.0); GRAN # 2.98 (1.4-6.5); GRAN % 45.5 % (50.0-68.0); HEMOGLOBIN 11.1 g/dL (14.0-18.0); LYMPH # 2.5 (1.2-3.4); LYMPH % 37.3 % (22.0-35.0); MEAN CELL VOLUME 68.8 fl (80.0-105.0); MEAN CORPUSCULAR HEMOGLOBIN 22.2 pg (25.0-35.0); MEAN CORPUSCULAR HGB CONC 32.3 g/dl (31.0-37.0); MONO # 0.8 (0.1-0.6); MONO % 11.9 % (1.0-6.0); PLATELET COUNT 312 10^3/uL (120.0-450.0); WHITE BLOOD COUNT 6.6 10^3/ul (4.5-11.0)
[2018-05-02 07:42] LABS: ALB/GLOB RATIO 1.1 (1.1-1.8); ALBUMIN 3.4 g/dL (3.0-4.8); ALT/SGPT 36 U/L (7-56); AST/SGOT 48 U/L (17-59); BLOOD UREA NITROGEN 6 mg/dL (7-21); CALCIUM 8.7 mg/dL (8.4-10.5); GFR AFRICAN-AMERICAN > 60; GFR NON-AFRICAN AMERICAN > 60
[2018-05-02 08:39] VITALS: BP 146/88; PULSE 64; TEMP 98; O2SAT 100
--- NOTE | 2018-05-04 05:07 | CP.PCM.DIS ---
<Boom Cazares - Last Filed: 05/04/18 05:08> Provider - Provider Date of Admission: 04/28/18 21:51 Attending physician: Jessica Calle MD Primary care physician: Debra Wilson Time Spent in preparation of Discharge (in minutes): 60 Diagnosis - Discharge Diagnosis (1) Dementia Status: Chronic Priority: High (2) Failure to thrive in adult Status: Acute Priority: Medium Hospital Course - Lab Results Lab Results: Micro Results 04/29/18 13:10 Blood-Venous Blood Culture - Preliminary NO GROWTH AFTER 4 DAYS Most Recent Lab Values WBC 6.6 10^3/ul (4.5-11.0) 05/02/18 06:40 RBC 5.00 10^6/uL (3.5-6.1) 05/02/18 06:40 Hgb 11.1 g/dL (14.0-18.0) L 05/02/18 06:40 Hct 34.4 % (42.0-52.0) L 05/02/18 06:40 MCV 68.8 fl (80.0-105.0) L 05/02/18 06:40 MCH 22.2 pg (25.0-35.0) L 05/02/18 06:40 MCHC 32.3 g/dl (31.0-37.0) 05/02/18 06:40 RDW 17.0 % (11.5-14.5) H 05/02/18 06:40 Plt Count 312 10^3/uL (120.0-450.0) 05/02/18 06:40 MPV 10.4 fl (7.0-11.0) 04/30/18 06:40 Gran % 45.5 % (50.0-68.0) L 05/02/18 06:40 Lymph % (Auto) 37.3 % (22.0-35.0) H 05/02/18 06:40 [place] % (Auto) 11.9 % (1.0-6.0) H 05/02/18 06:40 Eos % (Auto) 4.4 % (1.5-5.0) 05/02/18 06:40 Baso % (Auto) 0.9 % (0.0-3.0) 05/02/18 06:40 Gran # 2.98 (1.4-6.5) 05/02/18 06:40 Lymph # (Auto) 2.5 (1.2-3.4) 05/02/18 06:40 [place] # (Auto) 0.8 (0.1-0.6) H 05/02/18 06:40 Eos # (Auto) 0.3 (0.0-0.7) 05/02/18 06:40 Baso # (Auto) 0.06 K/mm3 (0.0-2.0) 05/02/18 06:40 PT 14.2 SECONDS (9.4-12.5) H 04/28/18 20:50 INR 1.24 (0.93-1.08) H 04/28/18 20:50 APTT 29.8 Seconds (25.1-36.5) 04/30/18 06:40 Sodium 140 mmol/L (132-148) 05/02/18 06:40 Potassium 4.1 mmol/L (3.6-5.0) 05/02/18 06:40 Chloride 101 mmol/L (98-107) 05/02/18 06:40 Carbon Dioxide 31 mmol/L (21-33) 05/02/18 06:40 Anion Gap 12 (10-20) 05/02/18 06:40 BUN 6 mg/dL (7-21) L 05/02/18 06:40 Creatinine 0.7 mg/dl (0.8-1.5) L 05/02/18 06:40 Est GFR ( Amer) > 60 05/02/18 06:40 Est GFR (Non-Af Amer) > 60 05/02/18 06:40 Random Glucose 95 mg/dL (70-110) 05/02/18 06:40 Calcium 8.7 mg/dL (8.4-10.5) 05/02/18 06:40 Phosphorus 3.7 mg/dL (2.5-4.5) 04/28/18 20:50 Magnesium 2.5 mg/dL (1.7-2.2) H 04/28/18 20:50 Iron 63 ug/dL (45-180) 04/28/18 20:50 TIBC 231 ug/dL (261-462) L 04/28/18 20:50 % Saturation 27 % (20-55) 04/28/18 20:50 Transferrin 140.63 mg/dL (206-381) L 04/29/18 05:00 Ferritin 271.0 ng/mL 04/29/18 05:00 Total Bilirubin 0.2 mg/dL (0.2-1.3) 05/02/18 06:40 AST 48 U/L (17-59) 05/02/18 06:40 ALT 36 U/L (7-56) 05/02/18 06:40 Alkaline Phosphatase 48 U/L (38-126) 05/02/18 06:40 Lactate Dehydrogenase 754 U/L (333-699) H 04/28/18 20:50 Total Creatine Kinase 239 U/L (35-230) H 05/01/18 06:30 CK-MB (CK-2) 3.5 ng/mL (0.0-3.6) 05/01/18 06:30 CK-MB (CK-2) % Cancelled 04/28/18 20:50 Troponin I < 0.01 ng/mL 04/29/18 08:15 Total Protein 6.7 g/dL (5.8-8.3) 05/02/18 06:40 Albumin 3.4 g/dL (3.0-4.8) 05/02/18 06:40 Globulin 3.2 gm/dL 05/02/18 06:40 Albumin/Globulin Ratio 1.1 (1.1-1.8) 05/02/18 06:40 Triglycerides 61 mg/dL (35-160) 04/29/18 08:50 Cholesterol 166 mg/dL (130-200) 04/29/18 08:50 LDL Cholesterol Direct 94 mg/dL (0-129) 04/29/18 08:50 HDL Cholesterol 45 mg/dL (29-60) 04/29/18 08:50 Vitamin B12 919 pg/mL (239-931) 04/29/18 05:00 Folate 4.8 ng/mL 04/29/18 05:00 Free T4 1.13 ng/dL (0.78-2.19) 04/28/18 20:50 TSH 3rd Generation 4.58 mIU/mL (0.46-4.68) 04/28/18 20:50 Urine Color Yellow (YELLOW) 04/28/18 23:00 Urine Appearance Sl cloudy (CLEAR) 04/28/18 23:00 Urine pH 6.0 (4.7-8.0) 04/28/18 23:00 Ur Specific [place] 1.025 (1.005-1.035) 04/28/18 23:00 Urine Protein 30 mg/dL (<30 mg/dL) H 04/28/18 23:00 Urine Glucose (UA) Negative mg/dL (NEGATIVE) 04/28/18 23:00 Urine Ketones 15 mg/dL (NEGATIVE) H 04/28/18 23:00 Urine Blood Trace-intact (NEGATIVE) H 04/28/18 23:00 Urine Nitrate Negative (NEGATIVE) 04/28/18 23:00 Urine Bilirubin Small (NEGATIVE) H 04/28/18 23:00 Urine Urobilinogen 1.0 E.U./dL (<1 E.U./dL) H 04/28/18 23:00 Ur Leukocyte Esterase Negative Renny/uL (NEGATIVE) 04/28/18 23:00 Urine RBC 0 - 2 /hpf (0-2) 04/28/18 23:00 Urine WBC 0 - 2 /hpf (0-6) 04/28/18 23:00 Ur Epithelial Cells 0 - 2 /hpf (0-5) 04/28/18 23:00 Urine Bacteria Few (NEG) 04/28/18 23:00 Urine Opiates Screen Negative (NEGATIVE) 04/28/18 23:00 Urine Methadone Screen Negative (NEGATIVE) 04/28/18 23:00 Ur Barbiturates Screen Negative (NEGATIVE) 04/28/18 23:00 Ur Phencyclidine Scrn Negative (NEGATIVE) 04/28/18 23:00 Ur Amphetamines Screen Negative (NEGATIVE) 04/28/18 23:00 U Benzodiazepines Scrn Positive (NEGATIVE) H 04/28/18 23:00 U Oth Cocaine Metabols Negative (NEGATIVE) 04/28/18 23:00 U Cannabinoids Screen Negative (NEGATIVE) 04/28/18 23:00 - Hospital Course Hospital Course: Mr. Parish is a 72 year old male with a past medical history significant for severe dementia, prior CVA, and hypothyroidism who presents with two months of baseline changes in functional capacity, dehydration and decreased PO intake. As per patient's , she is no longer able to take care of patient on her own. Patient's then went to Dr. Wilson, the PMD for further assistance who recommended bringing the patient to the emergency department for further evaluation. CT head showed chronic vascular changes and chronic lacunar infarcts ; negative for acute findings. However labs revealed a mild rhabdomyolysis for which patient was admitted and treated with aggressive fluids. During course of hospital stay patient was evaluated by physical therapy which recommended home with services. Medication list was verified with pharmacy and synthroid prescription was given since she did not fill this at the pharmacy. was in agreement with plan and patient was then discharged. Case discussed with Dr. Luc Cazares PGY1 Discharge Exam - Head Exam Head Exam: ATRAUMATIC, NORMAL INSPECTION, NORMOCEPHALIC - Eye Exam Eye Exam: Normal appearance Pupil Exam: NORMAL ACCOMODATION - ENT Exam ENT Exam: Normal Exam - Neck Exam Neck exam: Normal Inspection - Respiratory Exam Respiratory Exam: NORMAL BREATHING PATTERN, UNREMARKABLE - Cardiovascular Exam Cardiovascular Exam: REGULAR RHYTHM, +S1, +S2 - GI/Abdominal Exam GI & Abdominal Exam: Normal Bowel Sounds, Unremarkable - Extremities Exam Extremities exam: normal inspection - Back Exam Back exam: NORMAL INSPECTION - Neurological Exam Neurological exam: Alert - Psychiatric Exam Psychiatric exam: Normal Affect, Normal Mood - Skin Skin Exam: Normal Color, Warm Discharge Plan - Discharge Medications Prescriptions: Levothyroxine [Synthroid] 50 mcg PO DAILY #14 tab - Follow Up Plan Condition: STABLE Disposition: HOME/ ROUTINE Instructions: Dementia (Including Alzheimer Disease), Dehydration, Adult (DC), Failure to Thrive, Adult Additional Instructions: Follow up with primary care Doctor within one week Take medications as prescribed: Synthroid 1 tab Daily If symptoms worsen or return please come back to the ED Referrals: Debra Wilson MD [Primary Care Provider] - <Jessica Calle - Last Filed: 05/04/18 07:56> Provider - Provider Date of Admission: 04/28/18 21:51 Attending physician: Jessica Calle MD Primary care physician: Debra Wilson [facility] Course - Lab Results Lab Results: Micro Results 04/29/18 13:10 Blood-Venous Blood Culture - Preliminary NO GROWTH AFTER 4 DAYS Most Recent Lab Values WBC 6.6 10^3/ul (4.5-11.0) 05/02/18 06:40 RBC 5.00 10^6/uL (3.5-6.1) 05/02/18 06:40 Hgb 11.1 g/dL (14.0-18.0) L 05/02/18 06:40 Hct 34.4 % (42.0-52.0) L 05/02/18 06:40 MCV 68.8 fl (80.0-105.0) L 05/02/18 06:40 MCH 22.2 pg (25.0-35.0) L 05/02/18 06:40 MCHC 32.3 g/dl (31.0-37.0) 05/02/18 06:40 RDW 17.0 % (11.5-14.5) H 05/02/18 06:40 Plt Count 312 10^3/uL (120.0-450.0) 05/02/18 06:40 MPV 10.4 fl (7.0-11.0) 04/30/18 06:40 Gran % 45.5 % (50.0-68.0) L 05/02/18 06:40 Lymph % (Auto) 37.3 % (22.0-35.0) H 05/02/18 06:40 [place] % (Auto) 11.9 % (1.0-6.0) H 05/02/18 06:40 Eos % (Auto) 4.4 % (1.5-5.0) 05/02/18 06:40 Baso % (Auto) 0.9 % (0.0-3.0) 05/02/18 06:40 Gran # 2.98 (1.4-6.5) 05/02/18 06:40 Lymph # (Auto) 2.5 (1.2-3.4) 05/02/18 06:40 [place] # (Auto) 0.8 (0.1-0.6) H 05/02/18 06:40 Eos # (Auto) 0.3 (0.0-0.7) 05/02/18 06:40 Baso # (Auto) 0.06 K/mm3 (0.0-2.0) 05/02/18 06:40 PT 14.2 SECONDS (9.4-12.5) H 04/28/18 20:50 INR 1.24 (0.93-1.08) H 04/28/18 20:50 APTT 29.8 Seconds (25.1-36.5) 04/30/18 06:40 Sodium 140 mmol/L (132-148) 05/02/18 06:40 Potassium 4.1 mmol/L (3.6-5.0) 05/02/18 06:40 Chloride 101 mmol/L (98-107) 05/02/18 06:40 Carbon Dioxide 31 mmol/L (21-33) 05/02/18 06:40 Anion Gap 12 (10-20) 05/02/18 06:40 BUN 6 mg/dL (7-21) L 05/02/18 06:40 Creatinine 0.7 mg/dl (0.8-1.5) L 05/02/18 06:40 Est GFR ( Amer) > 60 05/02/18 06:40 Est GFR (Non-Af Amer) > 60 05/02/18 06:40 Random Glucose 95 mg/dL (70-110) 05/02/18 06:40 Calcium 8.7 mg/dL (8.4-10.5) 05/02/18 06:40 Phosphorus 3.7 mg/dL (2.5-4.5) 04/28/18 20:50 Magnesium 2.5 mg/dL (1.7-2.2) H 04/28/18 20:50 Iron 63 ug/dL (45-180) 04/28/18 20:50 TIBC 231 ug/dL (261-462) L 04/28/18 20:50 % Saturation 27 % (20-55) 04/28/18 20:50 Transferrin 140.63 mg/dL (206-381) L 04/29/18 05:00 Ferritin 271.0 ng/mL 04/29/18 05:00 Total Bilirubin 0.2 mg/dL (0.2-1.3) 05/02/18 06:40 AST 48 U/L (17-59) 05/02/18 06:40 ALT 36 U/L (7-56) 05/02/18 06:40 Alkaline Phosphatase 48 U/L (38-126) 05/02/18 06:40 Lactate Dehydrogenase 754 U/L (333-699) H 04/28/18 20:50 Total Creatine Kinase 239 U/L (35-230) H 05/01/18 06:30 CK-MB (CK-2) 3.5 ng/mL (0.0-3.6) 05/01/18 06:30 CK-MB (CK-2) % Cancelled 04/28/18 20:50 Troponin I < 0.01 ng/mL 04/29/18 08:15 Total Protein 6.7 g/dL (5.8-8.3) 05/02/18 06:40 Albumin 3.4 g/dL (3.0-4.8) 05/02/18 06:40 Globulin 3.2 gm/dL 05/02/18 06:40 Albumin/Globulin Ratio 1.1 (1.1-1.8) 05/02/18 06:40 Triglycerides 61 mg/dL (35-160) 04/29/18 08:50 Cholesterol 166 mg/dL (130-200) 04/29/18 08:50 LDL Cholesterol Direct 94 mg/dL (0-129) 04/29/18 08:50 HDL Cholesterol 45 mg/dL (29-60) 04/29/18 08:50 Vitamin B12 919 pg/mL (239-931) 04/29/18 05:00 Folate 4.8 ng/mL 04/29/18 05:00 Free T4 1.13 ng/dL (0.78-2.19) 04/28/18 20:50 TSH 3rd Generation 4.58 mIU/mL (0.46-4.68) 04/28/18 20:50 Urine Color Yellow (YELLOW) 04/28/18 23:00 Urine Appearance Sl cloudy (CLEAR) 04/28/18 23:00 Urine pH 6.0 (4.7-8.0) 04/28/18 23:00 Ur Specific [place] 1.025 (1.005-1.035) 04/28/18 23:00 Urine Protein 30 mg/dL (<30 mg/dL) H 04/28/18 23:00 Urine Glucose (UA) Negative mg/dL (NEGATIVE) 04/28/18 23:00 Urine Ketones 15 mg/dL (NEGATIVE) H 04/28/18 23:00 Urine Blood Trace-intact (NEGATIVE) H 04/28/18 23:00 Urine Nitrate Negative (NEGATIVE) 04/28/18 23:00 Urine Bilirubin Small (NEGATIVE) H 04/28/18 23:00 Urine Urobilinogen 1.0 E.U./dL (<1 E.U./dL) H 04/28/18 23:00 Ur Leukocyte Esterase Negative Renny/uL (NEGATIVE) 04/28/18 23:00 Urine RBC 0 - 2 /hpf (0-2) 04/28/18 23:00 Urine WBC 0 - 2 /hpf (0-6) 04/28/18 23:00 Ur Epithelial Cells 0 - 2 /hpf (0-5) 04/28/18 23:00 Urine Bacteria Few (NEG) 04/28/18 23:00 Urine Opiates Screen Negative (NEGATIVE) 04/28/18 23:00 Urine Methadone Screen Negative (NEGATIVE) 04/28/18 23:00 Ur Barbiturates Screen Negative (NEGATIVE) 04/28/18 23:00 Ur Phencyclidine Scrn Negative (NEGATIVE) 04/28/18 23:00 Ur Amphetamines Screen Negative (NEGATIVE) 04/28/18 23:00 U Benzodiazepines Scrn Positive (NEGATIVE) H 04/28/18 23:00 U Oth Cocaine Metabols Negative (NEGATIVE) 04/28/18 23:00 U Cannabinoids Screen Negative (NEGATIVE) 04/28/18 23:00 Attending/Attestation - Attestation I have personally seen and examined this patient.: Yes I have fully participated in the care of the patient.: Yes I have reviewed all pertinent clinical information, including history, physical exam and plan: Yes Notes (Text): 05/02/18 72 year old male with past medical history of dementia, CVA and hypothyroidism who presented worsening dementia and two month baseline changes in functional capacity as per family. CT head showed chronic vascular changes and chronic lacunar infarcts; negative for acute findings. Patient was on aricept and namenda. He was on aspirin and statin. He was seen by PT who recommended home with services. He was seen by cardiology for EKG findings likely suggestive of early repolarization rather than pericarditis. Cardiac enzymes were negative. Echocardiogram was reviewed. Patient is discharged home with home services. Follow up with pmd. Jessica Calle MD Hospitalist.
== END 2018-05-02 20:30 | disposition home or self-care (01) | DRG 641 ==
LOC: ED 20:07 → MERGE 21:51 → ERH 21:51 → 5RSO 23:18
PROVIDERS: ADMIT Internal Medicine; ATTEND Internal Medicine
DX: E86.0 Dehydration (principal); R62.7 Adult failure to thrive; G30.9 Alzheimer's disease, unspecified; F02.80 Dementia in other diseases classified elsewhere, unspecified severity, without behavioral disturbance, psychotic disturbance, mood disturbance, and anxiety; F01.50 Vascular dementia, unspecified severity, without behavioral disturbance, psychotic disturbance, mood disturbance, and anxiety; I69.311 Memory deficit following cerebral infarction; E03.9 Hypothyroidism, unspecified; R13.12 Dysphagia, oropharyngeal phase; D50.9 Iron deficiency anemia, unspecified

== ENCOUNTER 2018-06-25 17:37 | Inpatient (IN) | payer MEDICARE, OTHER ==
[2018-06-25] MEDS ORDERED: Sodium Chloride 0.9% 1,000 ML IV STA (17:52)
[2018-06-25 18:11] VITALS: BMI 14.9
--- NOTE | 2018-06-25 18:13 | ED PDOC ---
Arrival/HPI - General Time Seen by Provider: 06/25/18 17:42 Historian: Spouse EM Caveat: Other (Alzheimer's disease) - History of Present Illness Narrative History of Present Illness (Text): 06/25/18 18:11 A 73 year old male, whose past medical history includes Alzheimer's disease and thyroid disease is brought into the emergency department via EMS with for decreased PO intake and inability to ambulate. As per his , the patient has been eating and drinking less than he usually does. She also notes that he can not stand or walk on his own like he used to. She also reports that the patient has a decubitus ulcer on the left that is getting worse and red. The patient is a poor historian. HPI/ROS is limited due to Alzheimer's disease . PMD: Dr. Wilson Time/Duration: Other (Several Days) Symptom Onset: Sudden Symptom Course: Unchanged Activities at Onset: Rest, Light Context: Home Past Medical History - Provider Review Nursing Documentation Reviewed: Yes - Infectious Disease Hx of Infectious Diseases: None - Tetanus Immunization Tetanus Immunization: Unknown - Cardiac Hx Cardiac Disorders: No - Pulmonary Hx Respiratory Disorders: No - Neurological Hx Neurological Disorder: Yes Hx Alzheimer's Disease: Yes - HEENT Hx HEENT Disorder: No - Renal Hx Renal Disorder: No - Endocrine/Metabolic Hx Hypothyroidism: Yes - Hematological/Oncological Hx Blood Disorders: No - Integumentary Hx Dermatological Disorder: No - Musculoskeletal/Rheumatological Hx Musculoskeletal Disorders: Yes Hx Falls: Yes - Gastrointestinal Hx Gastrointestinal Disorders: No - Genitourinary/Gynecological Hx Genitourinary Disorders: No - Psychiatric Hx Psychophysiologic Disorder: No Hx Substance Use: No - Surgical History Hx Amputation: No Hx Appendectomy: No Hx Cardiac Catheterization: No Hx Cholecystectomy: No Hx Coronary Stent: No Hx Gastric Bypass Surgery: No Hx Hysterectomy: No Hx Joint Replacement: No Hx Kidney Transplant: No Hx Liver Transplant: No Hx Mastectomy: No Hx Musculoskeletal Surgery: No Hx Open Heart Surgery: No Hx Orthopedic Surgery: No Hx Splenectomy: No Hx Valve Replacement: No - Anesthesia Hx Anesthesia: No Family/Social History - Physician Review Nursing Documentation Reviewed: Yes Family/Social History: No Known Family HX Smoking Status: Unknown If Ever Smoked Hx Alcohol Use: No Hx Substance Use: No Allergies/Home Meds Allergies/Adverse Reactions: Allergies No Known Allergies Allergy (Unverified 02/06/18 14:18) Review of Systems - Physician Review All systems were reviewed & negative as marked: Yes - Review of Systems Systems not reviewed;Unavailable: Other (Alzheimer's disease) Physical Exam - Physical Exam Physical Exam Limitations: Other (Alzheimer's disease) Vital Signs Reviewed: Yes Vital Signs Temp Pulse Resp BP Pulse Ox 06/25/18 20:26 89 18 110/73 99 06/25/18 18:19 98.7 F 06/25/18 17:56 104 H 18 101/56 L 100 Temperature: Afebrile Blood Pressure: Hypotensive Pulse: Tachycardic Respiratory Rate: Normal Appearance: Positive for: Non-Toxic, Comfortable, Other (Dehydrated) Pain Distress: None Mental Status: Positive for: Confused. No: Alert and Oriented X 3 (Alert to name) - Systems Exam Head: Present: Atraumatic, Normocephalic Pupils: Present: PERRL Extroacular Muscles: Present: EOMI Conjunctiva: Present: Normal Mouth: Present: Dry Neck: Present: Normal Range of Motion Respiratory/Chest: Present: Clear to Auscultation, Good Air Exchange. No: Respiratory Distress, Accessory Muscle Use Cardiovascular: Present: Regular Rate and Rhythm, Normal S1, S2. No: Murmurs Abdomen: No: Tenderness, Distention, Peritoneal Signs Back: Present: Normal Inspection, Decubitus Ulcer (left sided with redness and mild warmth) Upper Extremity: Present: Normal Inspection. No: Cyanosis, Edema Lower Extremity: Present: Normal Inspection. No: Edema Neurological: Present: GCS=15, CN II-XII Intact, Speech Normal Skin: Present: Warm, Dry, Normal Color, Other (Skin tenting). No: Rashes Psychiatric: Present: Alert (Alert to name), Normal Insight, Normal Concentration Medical Decision Making ED Course and Treatment: 06/25/18 18:15 Impression: A 73 year old male is brought into the emergency department with for complaint of decreased PO intake and inability to stand/ambulate on his own. Also a left decubitus ulcer probably cellulitic Plan: -- EKG -- Chest X-ray -- Labs -- Blood/ Urine Culture -- Urinalysis -- IV Fluids -- Reassess and disposition Progress Notes: EKG: Ordered, reviewed, and independently interpreted the EKG. Rate : 100 BPM Rhythm : NSR 06/25/18 19:59: Chest X-ray read and interpreted by me shows no acute findings. 06/25/18 22:08: Patient noted to have elevated WBC. CXR nl. UA negative. Consider left decubitus ulcer as source so will give Vancomycin IV. Also consider that WBC elevation could be from dehydration. Case discussed in detail with Dr. Campos who accepts patient to the hospitalist's service. Will come evaluate patient in the emergency department. - Lab Interpretations Lab Results: 06/25/18 18:15 06/25/18 18:45 Lab Results 06/25/18 21:18: Urine Color Yellow, Urine Appearance Clear, Urine pH 6.0, Ur Specific [place] 1.025, Urine Protein 30 H, Urine Glucose (UA) Negative, Urine Ketones Trace H, Urine Blood Trace-lysed H, Urine Nitrate Negative, Urine Bilirubin Negative, Urine Urobilinogen 4.0 H, Ur Leukocyte Esterase Negative, Urine RBC 5 - 10, Urine WBC 2 - 5, Ur Epithelial Cells 6 - 8 06/25/18 18:45: Sodium 141, Chloride 100, Potassium 4.6, Carbon Dioxide 32, Anion Gap 14, BUN 19, Creatinine 0.8, Est GFR ( Amer) > 60, Est GFR (Non- Af Amer) > 60, Random Glucose 130 H, Calcium 9.1, Phosphorus 4.1, Magnesium 2.3 H, Total Bilirubin 0.4, AST 77 H D, ALT 30, Alkaline Phosphatase 51, Total Protein 6.7, Albumin 3.4, Globulin 3.3, Albumin/Globulin Ratio 1.0 L 06/25/18 18:15: pO2 33, VBG pH 7.37, VBG pCO2 56.0, VBG HCO3 32.4 H, VBG Total CO2 34.1 H, VBG O2 Sat (Calc) 66.6 H, VBG Base Excess 5.5 H, VBG Potassium 4.5, Sodium 138.0, Chloride 103.0, Glucose 130 H, Lactate 2.0, FiO2 21.0, Venous Blood Potassium 4.5 06/25/18 18:15: PT 14.8, INR 1.29, APTT 24.6 06/25/18 18:15: WBC 12.3 H D, RBC 4.37, Hgb 9.8 L, Hct 29.9 L, MCV 68.4 L, MCH 22.4 L, MCHC 32.8, RDW 17.0 H, Plt Count 513 H, MPV 9.8, Gran % 73.6 H, Lymph % (Auto) 17.3 L, [place] % (Auto) 8.2 H, Eos % (Auto) 0.7 L, Baso % (Auto) 0.2, Gran # 9.03 H, Lymph # (Auto) 2.1, [place] # (Auto) 1.0 H, Eos # (Auto) 0.1, Baso # ( Auto) 0.03 I have reviewed the lab results: Yes - RAD Interpretation Radiology Orders: 06/25/18 17:51 CHEST PORTABLE [RAD] Stat - EKG Interpretation Interpreted by ED Physician: Yes Type: 12 lead EKG - Medication Orders Current Medication Orders: Aspirin (Ecotrin) 81 mg PO DAILY NALDO Atorvastatin Calcium (Lipitor) 10 mg PO DIN NALDO Donepezil HCl (Aricept) 5 mg PO HS NALDO Vancomycin HCl (Vancomycin 1gm) 1 gm in 250 mls @ 167 mls/hr IVPB STAT STA PRN Reason: Protocol Stop: 06/25/18 23:37 Sodium Chloride (Sodium Chloride 0.9%) 1,000 mls @ 100 mls/hr IV .Q10H NALDO Levothyroxine Sodium (Synthroid) 50 mcg PO DAILY NALDO Memantine (Namenda) 5 mg PO BID NALDO Discontinued Medications Sodium Chloride (Sodium Chloride 0.9%) 1,000 mls @ 999 mls/hr IV .Q1H1M STA Stop: 06/25/18 18:52 Last Admin: 06/25/18 18:49 Dose: 999 mls/hr eMAR Start Stop Document 06/25/18 18:49 [facility] (Rec: 06/25/18 18:49 [facility] [id number]) Intravenous Solution Start Date 06/25/18 Start Time 18:49 End Date 06/25/18 End time 19:50 Total Infusion Time 61 - Scribe Statement The provider has reviewed the documentation as recorded by the Justin Lopez Provider Scribe Attestation: All medical record entries made by the Scribe were at my direction and personally dictated by me. I have reviewed the chart and agree that the record accurately reflects my personal performance of the history, physical exam, medical decision making, and the department course for this patient. I have also personally directed, reviewed, and agree with the discharge instructions and disposition. Disposition/Present on Arrival - Present on Arrival Any Indicators Present on Arrival: Yes History of DVT/PE: No History of Uncontrolled Diabetes: No Urinary Catheter: No History of Decub. Ulcer: Yes History Surgical Site Infection Following: None - Disposition Have Diagnosis and Disposition been Completed?: Yes Diagnosis: Dehydration, Failure to thrive in adult, Sacral decubitus ulcer, stage II, Cellulitis Disposition Time: 22:09 Patient Plan: Admission Condition: FAIR
[2018-06-25 18:52] LABS: VENOUS BLOOD GAS BASE EXCESS 5.5 mmol/L (0.0-2.0); VENOUS BLOOD GAS PO2 33 mm/Hg (30-55); VENOUS BLOOD PH 7.37 (7.32-7.43)
[2018-06-25 18:59] LABS: BASO # 0.03 K/mm3 (0.0-2.0); BASO % 0.2 % (0.0-3.0); EOS # 0.1 (0.0-0.7); EOS % 0.7 % (1.5-5.0); GRAN # 9.03 (1.4-6.5); GRAN % 73.6 % (50.0-68.0); HEMOGLOBIN 9.8 g/dL (14.0-18.0); LYMPH # 2.1 (1.2-3.4); LYMPH % 17.3 % (22.0-35.0); MEAN CELL VOLUME 68.4 fl (80.0-105.0); MEAN CORPUSCULAR HEMOGLOBIN 22.4 pg (25.0-35.0); MEAN CORPUSCULAR HGB CONC 32.8 g/dl (31.0-37.0); MEAN PLATELET VOLUME 9.8 fl (7.0-11.0); MONO % 8.2 % (1.0-6.0); RBC 4.37 10^6/uL (3.5-6.1); WHITE BLOOD COUNT 12.3 10^3/ul (4.5-11.0)
[2018-06-25 19:07] LABS: INR 1.29; PROTHROMBIN TIME 14.8 SECONDS
[2018-06-25 19:10] LABS: PARTIAL THROMBOPLASTIN TIME 24.6 Seconds
[2018-06-25 19:41] LABS: ALBUMIN 3.4 g/dL (3.0-4.8); ALT/SGPT 30 U/L (7-56); AST/SGOT 77 U/L (17-59); BLOOD UREA NITROGEN 19 mg/dL (7-21); CALCIUM 9.1 mg/dL (8.4-10.5); GFR AFRICAN-AMERICAN > 60; GFR NON-AFRICAN AMERICAN > 60
[2018-06-25 21:46] LABS: URINE BILIRUBIN NEGATIVE (NEGATIVE); URINE BLOOD TRACE-LYSED (NEGATIVE); URINE GLUCOSE (UA) NEGATIVE (NEGATIVE); URINE LEUKOCYTE ESTERASE NEGATIVE Leu/uL (NEGATIVE); URINE PROTEIN 30 mg/dL (<30 mg/dL)
[2018-06-25 21:48] LABS: URINE APPEARANCE CLEAR (CLEAR); URINE COLOR YELLOW (YELLOW)
[2018-06-25] MEDS ORDERED: Vancomycin 1gm in NS 250ml 1 GM/250 ML BAG IVPB STA (22:08)
[2018-06-25 22:29] LABS: VENOUS BLOOD GAS BASE EXCESS 5.1 mmol/L (0.0-2.0); VENOUS BLOOD GAS PO2 43 mm/Hg (30-55); VENOUS BLOOD PH 7.42 (7.32-7.43)
[2018-06-25] MEDS ORDERED: Sodium Chloride 0.9% 1,000 ML IV SCH (22:30)
[2018-06-25] MEDS: Dextrose 5%/0.9% NS 1,000 ML IV SCH (23:15)
--- NOTE | 2018-06-25 23:23 | CP.PCM.HP ---
<Reed Campos P - Last Filed: 06/26/18 03:59> Meds Allergies/Adverse Reactions: Allergies Allergy/AdvReac Type Severity Reaction Status Date / Time No Known Allergies Allergy Unverified 01/02/18 14:18 Results - Vital Signs Recent Vital Signs: Last Vital Signs Temp 99.4 F 06/25/18 22:50 Pulse 67 06/26/18 01:03 Resp 14 06/26/18 01:03 BP 107/72 06/26/18 01:03 Pulse Ox 100 06/26/18 01:03 - Labs Result Diagrams: 06/25/18 18:15 06/25/18 18:45 Labs: Laboratory Results - last 24 hr 06/25/18 22:21 pO2 43 VBG pH 7.42 VBG pCO2 47.0 VBG HCO3 30.5 H VBG Total CO2 31.9 H VBG O2 Sat (Calc) 82.0 H VBG Base Excess 5.1 H VBG Potassium 4.1 Sodium 139.0 Chloride 106.0 Glucose 99 Lactate 1.0 FiO2 21.0 Venous Blood Potassium 4.1 Attending/Attestation - Attestation I have personally seen and examined this patient.: Yes I have fully participated in the care of the patient.: Yes I have reviewed all pertinent clinical information: Yes Notes (Text): 06/26/18 03:59 Assessment Failure to thrive, poor intake, dehydration from advanced dementia Cachexia Left trochanteric decubti early stage 2 infection with surrounding cellulitis, clear drainage Alzheimer's vs multiinfarct dementia Plan D/w family goals of care Recommend palliative care due to advanced dementia If not above feeding tube may prevent recurrent episodes Empiric abx for the decub Palliative care consult, social service consult, swallow eval DVT prophylaxis. <Evan Villalba - Last Filed: 06/26/18 08:05> History of Present Illness - History of Present Illness History of Present Illness: HISTORY & PHYSICAL NOTE FOR HOSPITALIST TEAM Evan Villalba PGY1 CC: Decreased appetite, cellulitis and decubitus ulcer HPI: 73 y/o M pmhx alzheimers dementia, CVA, hypothyroidism brought to ED by for decreased po intake, difficulty ambulating, decrease in functional capacity. Pt is a poor historian, history obtained per chart and . Per , pt has been eating less than usual, can not stand or walk. Pt has sacral decubitus ulcer and L hip ulcer. He was found in ED to have mild leukocytosis. ROS is limited due to dementia. 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; Lives at home on first floor in two story condo with and two grandchildren Meds: See MAR Present on Admission - Present on Admission Any Indicators Present on Admission: Yes Decubitus Ulcer Present: Yes Decubitus Ulcer Stage: II Past Patient History - Infectious Disease Hx of Infectious Diseases: None - Tetanus Immunizations Tetanus Immunization: Unknown - Past Medical History & Family History Past Medical History?: No - Past Social History Smoking Status: Unknown If Ever Smoked - CARDIAC Hx Cardiac Disorders: No - PULMONARY Hx Respiratory Disorders: No - NEUROLOGICAL Hx Neurological Disorder: Yes Hx Alzheimer's Disease: Yes - HEENT Hx HEENT Problems: No - RENAL Hx Chronic Kidney Disease: No - ENDOCRINE/METABOLIC Hx Hypothyroidism: Yes - HEMATOLOGICAL/ONCOLOGICAL Hx Blood Disorders: No - INTEGUMENTARY Hx Dermatological Problems: No - MUSCULOSKELETAL/RHEUMATOLOGICAL Hx Musculoskeletal Disorders: Yes Hx Falls: Yes - GASTROINTESTINAL Hx Gastrointestinal Disorders: No - GENITOURINARY/GYNECOLOGICAL Hx Genitourinary Disorders: No - PSYCHIATRIC Hx Psychophysiologic Disorder: No Hx Substance Use: No - SURGICAL HISTORY Hx Amputation: No Hx Appendectomy: No Hx Cardiac Catheterization: No Hx Cholecystectomy: No Hx Coronary Stent: No Hx Gastric Bypass Surgery: No Hx Hysterectomy: No Hx Joint Replacement: No Hx Kidney Transplant: No Hx Liver Transplant: No Hx Mastectomy: No Hx Musculoskeletal Surgery: No Hx Open Heart Surgery: No Hx Orthopedic Surgery: No Hx Splenectomy: No Hx Valve Replacement: No - ANESTHESIA Hx Anesthesia: No Results - Vital Signs Recent Vital Signs: Last Vital Signs Temp 98.7 F 06/25/18 18:19 Pulse 108 H 06/25/18 21:41 Resp 18 06/25/18 21:41 BP 127/52 L 06/25/18 21:41 Pulse Ox 97 06/25/18 21:41 - Labs Result Diagrams: 06/26/18 07:00 06/26/18 07:00 Labs: Laboratory Results - last 24 hr 06/25/18 22:21 pO2 43 VBG pH 7.42 VBG pCO2 47.0 VBG HCO3 30.5 H VBG Total CO2 31.9 H VBG O2 Sat (Calc) 82.0 H VBG Base Excess 5.1 H VBG Potassium 4.1 Sodium 139.0 Chloride 106.0 Glucose 99 Lactate 1.0 FiO2 21.0 Venous Blood Potassium 4.1 Assessment & Plan - Assessment and Plan (Free Text) Assessment: 73 y/o M presents to ED with leukocytosis, L hip cellulitis, stage 2 sacral decubitus ulcer Plan: Failure to thrive, poor intake, dehydration deconditioning - PT/OT eval, speech/swallow eval, palliative care consult, social service - Discuss goals of care with family. Recommend palliative care due to advanced dementia - Palliative care consult, social service consult - feeding tube may be necessary Leukocytosis - Likekly secondary to stage 2 sacral decubitus ulcer- wound care consulted, will appreciate recommendations - L trochanteric hip cellulitis w/ clear drainage. Empiric antibiotics, ID Consult: Draper - Chest xray normal Hypothyroidism - continue home levothyroxine Alzheimers Dementia - Continue home Namenda, Donepezil Hyperlipidemia - continue home atorvastatin Diet: Liquid DVT: Heparin SC Q12h Patient seen, case reviewed and plan approved by attending physician, Dr. Campos
[2018-06-26 07:38] LABS: BASO # 0.03 K/mm3 (0.0-2.0); BASO % 0.3 % (0.0-3.0); EOS # 0.2 (0.0-0.7); EOS % 2.5 % (1.5-5.0); GRAN # 6.15 (1.4-6.5); GRAN % 67.6 % (50.0-68.0); HEMOGLOBIN 9.2 g/dL (14.0-18.0); LYMPH % 21.4 % (22.0-35.0); MEAN CELL VOLUME 68.4 fl (80.0-105.0); MEAN CORPUSCULAR HEMOGLOBIN 22.4 pg (25.0-35.0); MEAN CORPUSCULAR HGB CONC 32.7 g/dl (31.0-37.0); MEAN PLATELET VOLUME 8.9 fl (7.0-11.0); MONO # 0.8 (0.1-0.6); MONO % 8.2 % (1.0-6.0); RBC 4.11 10^6/uL (3.5-6.1); RED CELL DISTRIBUTION WIDTH 16.8 % (11.5-14.5); WHITE BLOOD COUNT 9.1 10^3/ul (4.5-11.0)
[2018-06-26 07:51] LABS: ALB/GLOB RATIO 0.9 (1.1-1.8); ALBUMIN 2.9 g/dL (3.0-4.8); ALT/SGPT 35 U/L (7-56); AST/SGOT 48 U/L (17-59); BLOOD UREA NITROGEN 13 mg/dL (7-21); CALCIUM 8.4 mg/dL (8.4-10.5); GFR AFRICAN-AMERICAN > 60; GFR NON-AFRICAN AMERICAN > 60
[2018-06-26] MEDS ORDERED: Sodium Chloride 0.9% 1,000 ML IV SCH (09:00)
--- NOTE | 2018-06-26 09:05 | CARD ---
APPROVED REPORT Date of service: 06/25/2018 EKG Measurement Heart [id number] <Conclusion> Poor data quality, interpretation may be adversely affected Normal sinus rhythm Normal ECG
[2018-06-26] MEDS ORDERED: cefTRIAXone 1 gm 1 GM/100 ML BAG IVPB SCH (10:00)
--- NOTE | 2018-06-26 10:20 | RAD ---
Date of service: 06/25/2018 HISTORY: Sepsis Patient COMPARISON: 04/28/2018 FINDINGS: LUNGS: No active pulmonary disease. PLEURA: No significant pleural effusion identified, no pneumothorax apparent. CARDIOVASCULAR: Normal. OSSEOUS STRUCTURES: No significant abnormalities. VISUALIZED UPPER ABDOMEN: Normal. OTHER FINDINGS: None. IMPRESSION: No active disease.
--- NOTE | 2018-06-26 10:59 | CP.PCM.CON ---
History of Present Illness - History of Present Illness History of Present Illness: Palliative consult requested by Dr. Lance Calle Reason: Goals of care and Advance Care Planning 73 year old male with history of HTN, Alzheimer's dementia, thyroid disease who cme form home with decreased oral intake and difficulty ambulating. Family reports that patient was able to stand and ambulate on his own but getting progressively weaker. Also has left hip decubiti stage 2. family denied nausea, vomiting,chills, diarrhea, chest/abdominal pain. Chest x ray showed no active disease. PMHx: Alzheimer dementia, hypothyroidism,CVA,deconditioning. Social History:Former smoker, no alcohol or drug use. Lives with spouse. Family History: Non contributory. Advance Care Planning: The patient does not have an Advanced Directive. Review of Systems: As per HPI, unable to obtain review patient is altered. Vital Signs: T 97.7, P 77, BP 140/82, R 18, 02 sat 99% on room air. Past Patient History - Infectious Disease Hx of Infectious Diseases: None - Tetanus Immunizations Tetanus Immunization: Unknown - Past Medical History & Family History Past Medical History?: No - Past Social History Smoking Status: Unknown If Ever Smoked - CARDIAC Hx Cardiac Disorders: No - PULMONARY Hx Respiratory Disorders: No - NEUROLOGICAL Hx Neurological Disorder: Yes Hx Alzheimer's Disease: Yes - HEENT Hx HEENT Problems: No - RENAL Hx Chronic Kidney Disease: No - ENDOCRINE/METABOLIC Hx Hypothyroidism: Yes - HEMATOLOGICAL/ONCOLOGICAL Hx Blood Disorders: No - INTEGUMENTARY Hx Dermatological Problems: No - MUSCULOSKELETAL/RHEUMATOLOGICAL Hx Musculoskeletal Disorders: Yes Hx Falls: Yes - GASTROINTESTINAL Hx Gastrointestinal Disorders: No - GENITOURINARY/GYNECOLOGICAL Hx Genitourinary Disorders: No - PSYCHIATRIC Hx Psychophysiologic Disorder: No Hx Substance Use: No - SURGICAL HISTORY Hx Amputation: No Hx Appendectomy: No Hx Cardiac Catheterization: No Hx Cholecystectomy: No Hx Coronary Stent: No Hx Gastric Bypass Surgery: No Hx Hysterectomy: No Hx Joint Replacement: No Hx Kidney Transplant: No Hx Liver Transplant: No Hx Mastectomy: No Hx Musculoskeletal Surgery: No Hx Open Heart Surgery: No Hx Orthopedic Surgery: No Hx Splenectomy: No Hx Valve Replacement: No - ANESTHESIA Hx Anesthesia: No Meds Allergies/Adverse Reactions: Allergies Allergy/AdvReac Type Severity Reaction Status Date / Time No Known Allergies Allergy Unverified 01/02/18 14:18 - Medications Medications: Current Medications Aspirin (Ecotrin) 81 mg PO DAILY [facility] Atorvastatin Calcium (Lipitor) 10 mg PO DIN [facility] Donepezil HCl (Aricept) 5 mg PO HS [facility] Heparin Sodium (Porcine) (Heparin) 5,000 units SC Q12 [facility] PRN Reason: Protocol Dextrose/Sodium Chloride (Dextrose 5%/0.9% Ns 1000 Ml) 1,000 mls @ 100 mls/hr IV .Q10H [facility] Last Admin: 06/25/18 23:15 Dose: 100 mls/hr Ceftriaxone Sodium (Rocephin 1 Gram Ivpb) 1 gm in 100 mls @ 100 mls/hr IVPB DAILY [facility] PRN Reason: Protocol Vancomycin HCl (Vancomycin 750 Mg In Ns) 750 mg in 250 mls @ 167 mls/hr IVPB Q12H [facility] PRN Reason: Protocol Potassium Chloride (Potassium Chloride 20 Meq/100 Ml) 20 meq in 100 mls @ 50 mls/hr IVPB Q2H [facility] Stop: 06/26/18 12:44 Sodium Chloride (Sodium Chloride 0.9%) 1,000 mls @ 100 mls/hr IV .Q10H [facility] Levothyroxine Sodium (Synthroid) 50 mcg PO DAILY [facility] Memantine (Namenda) 5 mg PO BID [facility] Physical Exam - Constitutional Appears: Cachectic, Chronically Ill - Head Exam Head Exam: NORMAL INSPECTION - Eye Exam Eye Exam: Normal appearance, PERRL - ENT Exam ENT Exam: Mucous Membranes Moist, Normal Oropharynx - Neck Exam Neck exam: Positive for: Normal Inspection - Respiratory Exam Respiratory Exam: Decreased Breath Sounds, NORMAL BREATHING PATTERN - Cardiovascular Exam Cardiovascular Exam: REGULAR RHYTHM, +S1, +S2 - GI/Abdominal Exam GI & Abdominal Exam: Hypoactive Bowel Sounds, Soft - Extremities Exam Extremities exam: Positive for: pedal pulses present - Neurological Exam Neurological exam: Alert Additional comments: oriented to self - Skin Skin Exam: Dry, Warm - Additional Findings Additional findings: Palliative performance scale rating 40% Results - Vital Signs Recent Vital Signs: Last Vital Signs Temp 97.7 F 06/26/18 08:12 Pulse 77 06/26/18 08:12 Resp 20 06/26/18 08:12 BP 138/80 06/26/18 08:12 Pulse Ox 99 06/26/18 08:12 - Labs Result Diagrams: 06/26/18 07:00 06/26/18 07:00 Labs: Laboratory Results - last 24 hr 06/25/18 06/26/18 06/26/18 22:21 07:00 07:00 WBC 9.1 D RBC 4.11 Hgb 9.2 L Hct 28.1 L MCV 68.4 L MCH 22.4 L MCHC 32.7 RDW 16.8 H Plt Count 468 H MPV 8.9 Gran % 67.6 Lymph % (Auto) 21.4 L Wright % (Auto) 8.2 H Eos % (Auto) 2.5 Baso % (Auto) 0.3 Gran # 6.15 Lymph # (Auto) 2.0 Wright # (Auto) 0.8 H Eos # (Auto) 0.2 Baso # (Auto) 0.03 pO2 43 VBG pH 7.42 VBG pCO2 47.0 VBG HCO3 30.5 H VBG Total CO2 31.9 H VBG O2 Sat (Calc) 82.0 H VBG Base Excess 5.1 H VBG Potassium 4.1 Sodium 139.0 141 Chloride 106.0 105 Glucose 99 Lactate 1.0 FiO2 21.0 Potassium 3.4 L Carbon Dioxide 30 Anion Gap 10 BUN 13 Creatinine 0.6 L Est GFR ( Amer) > 60 Est GFR (Non-Af Amer) > 60 Random Glucose 112 H Calcium 8.4 Phosphorus 3.4 Magnesium 2.0 Total Bilirubin 0.4 AST 48 ALT 35 Alkaline Phosphatase 44 Total Protein 6.1 Albumin 2.9 L Globulin 3.2 Albumin/Globulin Ratio 0.9 L Venous Blood Potassium 4.1 Assessment & Plan - Assessment and Plan (Free Text) Assessment: 73 year old male with history of advanced dementia, hypothyroidism, HTN and CVA who is admitted with failure to thrive,left hip decubiti, anorexia, cachexia and deconditioning. The patient is alert, oriented to self. Offers no complaints. I spoke with patients Svitlana via phone. Briefly discussed goals of care and advanced care planning. states she is interested in advance care planning but unable to continue conversation today because she is not feeling well. She intends to visit he tomorrow and intends to meet with me for further discussion regarding goals of care at that time. Alaina spent in goals of care discussion with family member, 10 minutes. Plan: Failure to thrive: Dietary consult, supplements, swallow eval? Left Hip Decubiti: Wound care, on Rocephin and Vancomycin ,ID following . Dementia; Continue Namenda and Aricept. Deconditioning: PT/OT Hypothyroidism: Check TSH, T3,T4. Continue Synthroid may need to adjust dosing. Goals of care and advance care palnning
[2018-06-26] MEDS: Levothyroxine 50 MCG TAB PO SCH (12:03)
[2018-06-26] MEDS: Vancomycin 750mg 750 MG/250 ML BAG IVPB SCH ×2 (13:11→22:18)
--- NOTE | 2018-06-26 16:57 | CP.PCM.PN ---
<Luís Holt - Last Filed: 06/26/18 17:39> Subjective - Date & Time of Evaluation Date of Evaluation: 06/26/18 Time of Evaluation: 08:00 - Subjective Subjective: Luís Holt PGY-1 Progress Note for Hospitalist Service Patient seen and evaluated at bedside. Patient denies acute pain currently. Patient is somnolent but arousable. Objective - Vital Signs/Intake and Output Vital Signs (last 24 hours): Temp Pulse Resp BP Pulse Ox 97.7 F 77 20 138/80 99 06/26/18 08:12 06/26/18 08:12 06/26/18 08:12 06/26/18 08:12 06/26/18 08:12 - Medications Medications: Current Medications Aspirin (Ecotrin) 81 mg PO DAILY [facility] Last Admin: 06/26/18 12:03 Dose: 81 mg Atorvastatin Calcium (Lipitor) 10 mg PO DIN [facility] Donepezil HCl (Aricept) 5 mg PO HS [facility] Heparin Sodium (Porcine) (Heparin) 5,000 units SC Q12 [facility] PRN Reason: Protocol Last Admin: 06/26/18 12:03 Dose: 5,000 units Dextrose/Sodium Chloride (Dextrose 5%/0.9% Ns 1000 Ml) 1,000 mls @ 100 mls/hr IV .Q10H [facility] Last Admin: 06/25/18 23:15 Dose: 100 mls/hr Vancomycin HCl (Vancomycin 750 Mg In Ns) 750 mg in 250 mls @ 167 mls/hr IVPB Q12H [facility] PRN Reason: Protocol Last Admin: 06/26/18 13:11 Dose: 167 mls/hr Sodium Chloride (Sodium Chloride 0.9%) 1,000 mls @ 100 mls/hr IV .Q10H [facility] Levothyroxine Sodium (Synthroid) 50 mcg PO DAILY [facility] Last Admin: 06/26/18 12:03 Dose: 50 mcg Memantine (Namenda) 5 mg PO BID [facility] Last Admin: 06/26/18 12:03 Dose: 5 mg - Labs Labs: 06/26/18 07:00 06/26/18 07:00 PT 14.8 SECONDS 06/25/18 18:15 INR 1.29 06/25/18 18:15 APTT 24.6 Seconds 06/25/18 18:15 - Constitutional Appears: No Acute Distress, Cachectic - Head Exam Head Exam: ATRAUMATIC, NORMOCEPHALIC - Eye Exam Eye Exam: EOMI, Normal appearance Pupil Exam: PERRL - ENT Exam ENT Exam: Mucous Membranes Dry - Respiratory Exam Respiratory Exam: Decreased Breath Sounds, Clear to Ausculation Bilateral. absent: Chest Wall Tenderness, Respiratory Distress - Cardiovascular Exam Cardiovascular Exam: RRR, +S1, +S2 - GI/Abdominal Exam GI & Abdominal Exam: Soft, Normal Bowel Sounds. absent: Tenderness - Extremities Exam Extremities Exam: absent: Calf Tenderness, Joint Swelling, Pedal Edema - Neurological Exam Neurological Exam: Alert, Awake Additional comments: [id number] - Psychiatric Exam Psychiatric exam: Flat Affect - Skin Additional comments: L posterior hip sacral ulcer- unstageable with eschar present Assessment and Plan - Assessment and Plan (Free Text) Assessment: Assessment: 73 y/o M presents with leukocytosis, L hip cellulitis, unstageable sacral decubitus ulcer. Plan: Failure to thrive, poor intake, dehydration deconditioning - OT eval, f/u speech/swallow eval - Discuss goals of care with family - Palliative care consult, social service consult - feeding tube may be necessary. f/u telecommunications technician referral and calorie count - f/u blood and urine cx - not a candidate for PT at this time per PT recs - f/u AM labs Leukocytosis - Likekly secondary to unstageable sacral decubitus ulcer- wound care consulted , will appreciate recommendations - L trochanteric hip cellulitis w/ clear drainage. Vanc 750 BID per ID Consult Dr. Gutierrez - f/u recommendations - Chest xray normal Hypothyroidism - TSH 8.8 - f/u repeat TSH and free T4 in AM - continue home levothyroxine Alzheimers Dementia - Continue home Namenda, Donepezil Hyperlipidemia - continue home atorvastatin Diet: Liquid DVT: Heparin SC Q12h Disposition: f/u medicaid application Patient seen, case reviewed and plan discussed with Dr. Calle. Luís Holt, PGY-1 <Jessica Calle - Last Filed: 06/26/18 18:41> Objective - Vital Signs/Intake and Output Vital Signs (last 24 hours): Temp Pulse Resp BP Pulse Ox 97.6 F 78 20 140/76 98 06/26/18 16:55 06/26/18 16:55 06/26/18 16:55 06/26/18 16:55 06/26/18 16:55 - Medications Medications: Current Medications Aspirin (Ecotrin) 81 mg PO DAILY [facility] Last Admin: 06/26/18 12:03 Dose: 81 mg Atorvastatin Calcium (Lipitor) 10 mg PO DIN [facility] Donepezil HCl (Aricept) 5 mg PO HS [facility] Heparin Sodium (Porcine) (Heparin) 5,000 units SC Q12 [facility] PRN Reason: Protocol Last Admin: 06/26/18 12:03 Dose: 5,000 units Dextrose/Sodium Chloride (Dextrose 5%/0.9% Ns 1000 Ml) 1,000 mls @ 100 mls/hr IV .Q10H [facility] Last Admin: 06/25/18 23:15 Dose: 100 mls/hr Vancomycin HCl (Vancomycin 750 Mg In Ns) 750 mg in 250 mls @ 167 mls/hr IVPB Q12H [facility] PRN Reason: Protocol Last Admin: 06/26/18 13:11 Dose: 167 mls/hr Sodium Chloride (Sodium Chloride 0.9%) 1,000 mls @ 100 mls/hr IV .Q10H [facility] Levothyroxine Sodium (Synthroid) 50 mcg PO DAILY [facility] Last Admin: 06/26/18 12:03 Dose: 50 mcg Memantine (Namenda) 5 mg PO BID [facility] Last Admin: 06/26/18 12:03 Dose: 5 mg - Labs Labs: 06/26/18 07:00 06/26/18 07:00 PT 14.8 SECONDS 06/25/18 18:15 INR 1.29 06/25/18 18:15 APTT 24.6 Seconds 06/25/18 18:15 Attending/Attestation - Attestation I have personally seen and examined this patient.: Yes I have fully participated in the care of the patient.: Yes I have reviewed all pertinent clinical information, including history, physical exam and plan: Yes Notes (Text): 06/26/18 18:36 73 year old male with past medical history of dementia, hypothyroidism and dyslipidemia who is admitted with left hip cellulitis and sacral decubitus ulcer. Continue with iv antibiotics. Leukocytosis has improved. ID evaluation was requested. He also presented with poor po intake as per family. Dietitian/nutrition evaluation requested. Palliative care evaluation was appreciated. Will also discuss with family goals of care. Continue with synthroid for hypothyroidism. TSH and free T4 ordered for AM. Continue with home medications for dementia and dyslipidemia. Jessica Calle MD Hospitalist.
--- NOTE | 2018-06-27 01:27 | CON ---
Copied To: Raul Mo MD Attending MD: Raul Mo MD. DATE: 06/26/2018 LOCATION: The patient is seen in room 368, bed 1. CHIEF COMPLAINT: Weakness times several days. HISTORY OF PRESENT ILLNESS: This is a 73-year-old male, who has past medical history of Alzheimer's and thyroid disease, who was brought in by his to the emergency room because of poor eating and unable to drink and failure to thrive. The patient is a poor historian, able to communicate somewhat. There has been no fevers and chills reported. No nausea and vomiting. No abdominal pain or diarrhea. No dysuria or frequency. No headaches or blurred vision. PAST MEDICAL HISTORY: Significant for Alzheimer's dementia, thyroid disease, cerebrovascular accident, . PAST SURGICAL HISTORY: Noncontributory. ALLERGIES: THE PATIENT HAS NO KNOWN ALLERGIES. MEDICATIONS AT HOME: Include Pepcid, Namenda, Synthroid, Aricept, Lipitor, aspirin. PHYSICAL EXAMINATION: VITAL SIGNS: The patient's temperature is 99.4; pulse of 63, it was up to 104; respiratory rate of 16, it was up to 20; blood pressure is 107/78; the patient's oxygenation on room air 97% to 100%. HEENT: Unremarkable. NECK: Supple. LUNGS: Have decreased breath sounds. HEART: Normal S1, S2. ABDOMEN: Soft, nontender. No rebound or guarding. EXTREMITIES: Examination of the left hip, there is mild erythema. Minimal discharge. Warm to touch. LABORATORY DATA: Laboratory examination reveals a white count of 12,300, hemoglobin of 9, platelets of 513, 73% granulocytosis. BUN of 19, creatinine of 0.8. Urinalysis is noted, unremarkable. AST 77. The patient had a chest x-ray with no active disease. Lucretia Brown's consultation is appreciated, who states that the advanced care planning is noted. history and physical examination is reviewed. ER documentation by Dr. Néstor Vogel is reviewed. ASSESSMENT AND PLAN: This is a 73-year-old male with Alzheimer's, thyroid disease, dementia, cerebrovascular accident, high cholesterol with low-grade fevers, mild tachycardia and leukocytosis and mild erythema of the left hip area with number one is sepsis with left hip area cellulitis. We will treat the patient with vancomycin, may be able to switch to switch to p.o. upon discharge. No need for ceftriaxone. We will discontinue ceftriaxone. Recommend a vancomycin trough level on the fourth dose. Wound cultures from the left hip area. Supportive care in this patient. Raul Mo MD
[2018-06-27] MEDS: Dextrose 5%/0.9% NS 1,000 ML IV SCH ×2 (01:43→17:04)
[2018-06-27 07:06] LABS: ALT/SGPT 26 U/L (7-56); AST/SGOT 36 U/L (17-59); BLOOD UREA NITROGEN 8 mg/dL (7-21); CALCIUM 8.6 mg/dL (8.4-10.5); GFR AFRICAN-AMERICAN > 60; GFR NON-AFRICAN AMERICAN > 60
[2018-06-27 07:08] LABS: FREE T4 1.17 ng/dL (0.78-2.19)
[2018-06-27 07:58] LABS: BASO # 0.05 K/mm3 (0.0-2.0); BASO % 0.6 % (0.0-3.0); EOS # 0.2 (0.0-0.7); EOS % 2.8 % (1.5-5.0); GRAN # 4.9 (1.4-6.5); GRAN % 58.7 % (50.0-68.0); HEMOGLOBIN 9.5 g/dL (14.0-18.0); LYMPH # 2.6 (1.2-3.4); LYMPH % 30.7 % (22.0-35.0); MEAN CELL VOLUME 68.9 fl (80.0-105.0); MEAN CORPUSCULAR HEMOGLOBIN 22.4 pg (25.0-35.0); MEAN CORPUSCULAR HGB CONC 32.5 g/dl (31.0-37.0); MEAN PLATELET VOLUME 9.3 fl (7.0-11.0); MONO # 0.6 (0.1-0.6); MONO % 7.2 % (1.0-6.0); RBC 4.24 10^6/uL (3.5-6.1); WHITE BLOOD COUNT 8.3 10^3/ul (4.5-11.0)
[2018-06-27] MEDS: Levothyroxine 50 MCG TAB PO SCH (10:10)
[2018-06-27] MEDS: Vancomycin 750mg 750 MG/250 ML BAG IVPB SCH ×2 (10:10→21:16)
--- NOTE | 2018-06-27 10:34 | PN ---
Copied To: Raul Mo MD Attending MD: Raul Mo MD DATE: 06/27/2018 SUBJECTIVE: The patient is in bed, in no acute distress, nontoxic. PHYSICAL EXAMINATION: VITAL SIGNS: On exam, temperature is 97, blood pressure is 140/70, respiratory rate 20. HEENT: Examination of HEENT is unremarkable. NECK: Supple. LUNGS: Have decreased breath sounds. HEART: Normal S1, S2. ABDOMEN: Soft. LABORATORY DATA: Laboratory examination reveals a white count of 9.1, hemoglobin of 9.2, platelets of 468. BUN of 8, creatinine of 0.5 and chemistries are noted. Urinalysis is noted. Microbiology reveals the blood cultures are negative. The hip culture is pending. ASSESSMENT AND PLAN: A 73-year-old male with Alzheimer's, thyroid disease, dementia, cerebrovascular accident, high cholesterol, low-grade fevers, mild tachycardia, leukocytosis, mild erythema of the left hip, sepsis with left hip area cellulitis, on vancomycin, and we will check on the wound culture, may be able to switch to p.o. antibiotics. Raul Mo MD
--- NOTE | 2018-06-27 20:34 | CP.PCM.PN ---
<Luís Holt - Last Filed: 06/27/18 20:31> Subjective - Date & Time of Evaluation Date of Evaluation: 06/27/18 Time of Evaluation: 09:00 - Subjective Subjective: Luís Holt PGY-1 Progress Note for Hospitalist Service Patient seen and evaluated at bedside. Patient opened eyes but responds to questions inappropriately. Patient seems to be at his baseline. Patient ate breakfast without issue. Objective - Vital Signs/Intake and Output Vital Signs (last 24 hours): Temp Pulse Resp BP Pulse Ox 97.4 F L 86 18 131/80 95 06/27/18 17:15 06/27/18 17:15 06/27/18 17:15 06/27/18 17:15 06/27/18 17:15 Intake and Output: 06/27/18 06/28/18 18:59 06:59 Intake Total 2170 Output Total 0 Balance 2170 - Medications Medications: Current Medications Aspirin (Ecotrin) 81 mg PO DAILY [facility] Last Admin: 06/27/18 10:09 Dose: 81 mg Atorvastatin Calcium (Lipitor) 10 mg PO DIN [facility] Last Admin: 06/27/18 17:06 Dose: 10 mg Donepezil HCl (Aricept) 5 mg PO HS [facility] Last Admin: 06/26/18 22:17 Dose: 5 mg Heparin Sodium (Porcine) (Heparin) 5,000 units SC Q12 [facility] PRN Reason: Protocol Last Admin: 06/27/18 10:09 Dose: 5,000 units Dextrose/Sodium Chloride (Dextrose 5%/0.9% Ns 1000 Ml) 1,000 mls @ 100 mls/hr IV .Q10H [facility] Last Admin: 06/27/18 17:04 Dose: 100 mls/hr Vancomycin HCl (Vancomycin 750 Mg In Ns) 750 mg in 250 mls @ 167 mls/hr IVPB Q12H [facility] PRN Reason: Protocol Last Admin: 06/27/18 10:10 Dose: 167 mls/hr Levothyroxine Sodium (Synthroid) 50 mcg PO DAILY [facility] Last Admin: 06/27/18 10:10 Dose: 50 mcg Memantine (Namenda) 5 mg PO BID [facility] Last Admin: 06/27/18 17:06 Dose: 5 mg - Labs Labs: 06/27/18 06:15 06/27/18 06:15 PT 14.8 SECONDS 06/25/18 18:15 INR 1.29 06/25/18 18:15 APTT 24.6 Seconds 06/25/18 18:15 - Constitutional Appears: No Acute Distress, Cachectic - Head Exam Head Exam: ATRAUMATIC, NORMOCEPHALIC - Eye Exam Eye Exam: EOMI, Normal appearance Pupil Exam: PERRL - ENT Exam ENT Exam: Mucous Membranes Dry - Respiratory Exam Respiratory Exam: Decreased Breath Sounds, Clear to Ausculation Bilateral. absent: Chest Wall Tenderness, Respiratory Distress - Cardiovascular Exam Cardiovascular Exam: RRR, +S1, +S2 - GI/Abdominal Exam GI & Abdominal Exam: Soft, Normal Bowel Sounds. absent: Tenderness - Extremities Exam Extremities Exam: absent: Calf Tenderness, Joint Swelling, Pedal Edema - Neurological Exam Neurological Exam: Alert, Awake Additional comments: [id number] - Psychiatric Exam Psychiatric exam: Flat Affect - Skin Additional comments: L posterior trochanteric ulcer- unstageable with eschar present Assessment and Plan - Assessment and Plan (Free Text) Assessment: Assessment: 73 y/o M presents with leukocytosis, L hip cellulitis, unstageable sacral decubitus ulcer. Plan: Failure to thrive, poor intake, dehydration deconditioning - Discuss goals of care with family - Palliative care consult, social service consult - feeding tube may be necessary. f/u scale agent referral and calorie count - Hgb 9.5 and albumin 3.0 - will monitor and follow up Leukocytosis- improving - 8.3 today (9.1 yesterday) - Likely secondary to unstageable sacral decubitus ulcer- wound care consulted, will appreciate recommendations - L trochanteric hip cellulitis w/ clear drainage. Vanc 750 BID day [address] Mo - f/u Vanc trough in AM - blood cx neg 2/ day 2 - urine cx negative final - Wound cx + for gram negative rods, f/u final read - Chest xray normal - f/u AM labs Hypothyroidism - TSH 6.85 today (8.8 yesterday) - Free T4 1.17 - continue home levothyroxine - will monitor Alzheimers Dementia - Continue home Namenda, Donepezil Hyperlipidemia - continue home atorvastatin Diet: Heart healthy, pureed thin Liquid diet DVT: Heparin SC Q12h Disposition: f/u medicaid application. Per notes, patient is not candidate for PT or OT services. Patient seen, case reviewed and plan discussed with Dr. Calle. Luís Holt, PGY-1 <Jessica Calle - Last Filed: 06/28/18 07:10> Objective - Vital Signs/Intake and Output Vital Signs (last 24 hours): Temp Pulse Resp BP Pulse Ox 97.4 F L 86 18 131/80 95 06/27/18 17:15 06/27/18 17:15 06/27/18 17:15 06/27/18 17:15 06/27/18 17:15 Intake and Output: 06/28/18 06/28/18 06:59 18:59 Intake Total 1440 Balance 1440 - Medications Medications: Current Medications Aspirin (Ecotrin) 81 mg PO DAILY [facility] Last Admin: 06/27/18 10:09 Dose: 81 mg Atorvastatin Calcium (Lipitor) 10 mg PO DIN [facility] Last Admin: 06/27/18 17:06 Dose: 10 mg Donepezil HCl (Aricept) 5 mg PO HS [facility] Last Admin: 06/27/18 21:15 Dose: 5 mg Heparin Sodium (Porcine) (Heparin) 5,000 units SC Q12 [facility] PRN Reason: Protocol Last Admin: 06/27/18 21:15 Dose: 5,000 units Dextrose/Sodium Chloride (Dextrose 5%/0.9% Ns 1000 Ml) 1,000 mls @ 100 mls/hr IV .Q10H [facility] Last Admin: 06/28/18 04:37 Dose: 100 mls/hr Vancomycin HCl (Vancomycin 750 Mg In Ns) 750 mg in 250 mls @ 167 mls/hr IVPB Q12H [facility] PRN Reason: Protocol Last Admin: 06/27/18 21:16 Dose: 167 mls/hr Levothyroxine Sodium (Synthroid) 50 mcg PO DAILY [facility] Last Admin: 06/27/18 10:10 Dose: 50 mcg Memantine (Namenda) 5 mg PO BID [facility] Last Admin: 06/27/18 17:06 Dose: 5 mg - Labs Labs: 06/28/18 06:00 06/28/18 06:00 PT 14.8 SECONDS 06/25/18 18:15 INR 1.29 06/25/18 18:15 APTT 24.6 Seconds 06/25/18 18:15 Attending/Attestation - Attestation I have personally seen and examined this patient.: Yes I have fully participated in the care of the patient.: Yes I have reviewed all pertinent clinical information, including history, physical exam and plan: Yes Notes (Text): 06/27/18 73 year old male with past medical history of dementia, hypothyroidism and dyslipidemia who is admitted with left hip cellulitis and sacral decubitus ulcer. Continue with iv antibiotics. Leukocytosis has improved. ID is following. Wound culture is growing gram negative rods. He also presented with poor po intake as per family. Dietitian/nutrition evaluation requested. Palliative care evaluation was appreciated. Will also discuss with family goals of care. Continue with synthroid for hypothyroidism. TSH was elevated with normal Free T4. Recommended to repeat in 4-6 weeks. Continue with home medications for dementia and dyslipidemia. Jessica Calle MD Hospitalist.
[2018-06-28] MEDS: Dextrose 5%/0.9% NS 1,000 ML IV SCH ×2 (04:37→21:37)
[2018-06-28 06:24] LABS: BASO # 0.06 K/mm3 (0.0-2.0); BASO % 0.6 % (0.0-3.0); EOS # 0.2 (0.0-0.7); EOS % 2.3 % (1.5-5.0); GRAN # 5.39 (1.4-6.5); GRAN % 58.1 % (50.0-68.0); HEMOGLOBIN 9.1 g/dL (14.0-18.0); LYMPH # 2.7 (1.2-3.4); MEAN CELL VOLUME 68.3 fl (80.0-105.0); MEAN CORPUSCULAR HEMOGLOBIN 22.8 pg (25.0-35.0); MEAN CORPUSCULAR HGB CONC 33.3 g/dl (31.0-37.0); MEAN PLATELET VOLUME 9.3 fl (7.0-11.0); MONO # 0.9 (0.1-0.6); RED CELL DISTRIBUTION WIDTH 17.1 % (11.5-14.5); WHITE BLOOD COUNT 9.3 10^3/ul (4.5-11.0)
[2018-06-28 06:56] LABS: ALB/GLOB RATIO 0.9 (1.1-1.8); ALBUMIN 2.8 g/dL (3.0-4.8); ALT/SGPT 33 U/L (7-56); AST/SGOT 33 U/L (17-59); BLOOD UREA NITROGEN 5 mg/dL (7-21); CALCIUM 8.4 mg/dL (8.4-10.5); GFR AFRICAN-AMERICAN > 60; GFR NON-AFRICAN AMERICAN > 60
[2018-06-28] MEDS ORDERED: Potassium Chloride 20 mEq ER Tab PO STA (07:05)
[2018-06-28 08:38] VITALS: RESP 20
[2018-06-28] MEDS: Levothyroxine 50 MCG TAB PO SCH (11:16)
--- NOTE | 2018-06-28 11:45 | PN ---
Copied To: Raul Mo MD Attending MD: Raul Mo MD DATE: 06/28/2018 SUBJECTIVE: The patient is in bed, in no acute distress, nontoxic. PHYSICAL EXAMINATION: VITAL SIGNS: Temperature is 98, blood pressure is 140/80, respiratory rate of 20. HEENT: Examination of HEENT is unremarkable. NECK: Supple. LUNGS: Have decreased breath sounds. HEART: Normal S1, S2. ABDOMEN: Soft. LABORATORY DATA: Laboratory examination reveals a white count of 9.3, hemoglobin of 9, platelets of 495. Chemistries reveals a BUN of 5, creatinine of 0.5, procalcitonin is 0.23. Urinalysis is noted. Vanco trough is 11.9. Microbiology reveals a gram-negative antonella from the hip. The blood cultures are negative. Urine cultures are negative. ASSESSMENT AND PLAN: A 73-year-old male, seen in [facility], bed 1, who has Alzheimer's and thyroid disease, dementia, cerebrovascular accident, high cholesterol, low-grade fevers, mild tachycardia, leukocytosis with sepsis with the left hip area cellulitis actually is improved with gram-negative antonella. Waiting for the identification of gram-negative antonella. The patient's leukocytosis is resolved. The wound is much improved and just local wound care. We will discontinue the vancomycin. Most likely the gram-negative antonella is a colonizer, not a true pathogen, not requiring treatment. We will check on the identification and sensitivity. We will discontinue vancomycin. Local wound care. No further intravenous antibiotics at this point. We will follow with you. Raul Mo MD
--- NOTE | 2018-06-28 14:24 | CP.PCM.PN ---
<Luís Holt - Last Filed: 06/28/18 14:21> Subjective - Date & Time of Evaluation Date of Evaluation: 06/28/18 Time of Evaluation: 07:30 - Subjective Subjective: Luís Holt PGY-1 Progress Note for Hospitalist Service Patient seen and evaluated at bedside. Patient was arousable but mumbled responses to my questions. Patient seems to be at baseline. Nursing reports no acute complaints overnight. No documented bowel movements over last 3 days. Objective - Vital Signs/Intake and Output Vital Signs (last 24 hours): Temp Pulse Resp BP Pulse Ox 98.2 F 87 20 143/83 95 06/28/18 08:37 06/28/18 08:37 06/28/18 08:37 06/28/18 08:37 06/28/18 08:37 Intake and Output: 06/28/18 06/28/18 06:59 18:59 Intake Total 1440 Balance 1440 - Medications Medications: Current Medications Aspirin (Ecotrin) 81 mg PO DAILY [facility] Last Admin: 06/28/18 11:16 Dose: 81 mg Atorvastatin Calcium (Lipitor) 10 mg PO DIN [facility] Last Admin: 06/27/18 17:06 Dose: 10 mg Donepezil HCl (Aricept) 5 mg PO HS [facility] Last Admin: 06/27/18 21:15 Dose: 5 mg Heparin Sodium (Porcine) (Heparin) 5,000 units SC Q12 [facility] PRN Reason: Protocol Last Admin: 06/28/18 11:16 Dose: 5,000 units Dextrose/Sodium Chloride (Dextrose 5%/0.9% Ns 1000 Ml) 1,000 mls @ 100 mls/hr IV .Q10H [facility] Last Admin: 06/28/18 04:37 Dose: 100 mls/hr Levothyroxine Sodium (Synthroid) 50 mcg PO DAILY [facility] Last Admin: 06/28/18 11:16 Dose: 50 mcg Memantine (Namenda) 5 mg PO BID [facility] Last Admin: 06/28/18 11:16 Dose: 5 mg - Labs Labs: 06/28/18 06:00 06/28/18 06:00 PT 14.8 SECONDS 06/25/18 18:15 INR 1.29 06/25/18 18:15 APTT 24.6 Seconds 06/25/18 18:15 - Constitutional Appears: No Acute Distress, Cachectic - Head Exam Head Exam: ATRAUMATIC, NORMOCEPHALIC - Eye Exam Eye Exam: Patient unwilling to open eyes this morning. Normal appearance Pupil Exam: Unable to ascertain - ENT Exam ENT Exam: Mucous Membranes Dry - Respiratory Exam Respiratory Exam: Decreased Breath Sounds, Clear to Ausculation Bilateral. absent: Chest Wall Tenderness, Respiratory Distress - Cardiovascular Exam Cardiovascular Exam: RRR, +S1, +S2 - GI/Abdominal Exam GI & Abdominal Exam: Soft, Normal Bowel Sounds. absent: Tenderness - Extremities Exam Extremities Exam: absent: Calf Tenderness, Joint Swelling, Pedal Edema - Neurological Exam Neurological Exam: Alert, Awake Additional comments: [id number] - Psychiatric Exam Psychiatric exam: Flat Affect - Skin Additional comments: L posterior trochanteric ulcer- unstageable with eschar present Assessment and Plan - Assessment and Plan (Free Text) Assessment: Assessment: 73 y/o M presents with leukocytosis, L posterior trochnateric unstageable ulcer and dementia for failure to thrive and leukocytosis. 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 Vanc discontinued per ID Dr. Mo - Vanc trough 11.9 - appropriate - blood cx neg 2/2 day 2 - urine cx negative final - Wound cx + for Pseudomonas, resistant to cefazolin. Appreciate ID recs - Chest xray normal - f/u AM labs Constipation No BM over last few days started on colace 100 daily will monitor Hypothyroidism - TSH 6.85 - Free T4 1.17 - continue home levothyroxine - f/u TSH in 4-6 weeks Alzheimers Dementia - Continue home Namenda, Donepezil Hyperlipidemia - continue home atorvastatin Diet: Heart healthy, pureed thin Liquid diet DVT: Heparin SC Q12h Disposition: f/u medicaid application. Per notes, patient is not candidate for PT or OT services. Patient seen, case reviewed and plan discussed with Dr. Calle. Luís Holt, PGY-1 <Jessica Calle - Last Filed: 06/29/18 06:34> Objective - Vital Signs/Intake and Output Vital Signs (last 24 hours): Temp Pulse Resp BP Pulse Ox 97.4 F L 80 20 148/80 97 06/28/18 18:00 18 18:00 06/28/18 18:00 06/28/18 18:00 06/28/18 18:00 - Medications Medications: Current Medications Aspirin (Ecotrin) 81 mg PO DAILY [facility] Last Admin: 06/28/18 11:16 Dose: 81 mg Atorvastatin Calcium (Lipitor) 10 mg PO DIN [facility] Last Admin: 06/28/18 18:15 Dose: 10 mg Docusate Sodium (Colace) 100 mg PO DAILY [facility] Last Admin: 06/28/18 15:42 Dose: 100 mg Donepezil HCl (Aricept) 5 mg PO HS [facility] Last Admin: 06/28/18 21:27 Dose: 5 mg Heparin Sodium (Porcine) (Heparin) 5,000 units SC Q12 [facility] PRN Reason: Protocol Last Admin: 06/28/18 21:27 Dose: 5,000 units Dextrose/Sodium Chloride (Dextrose 5%/0.9% Ns 1000 Ml) 1,000 mls @ 100 mls/hr IV .Q10H [facility] Last Admin: 06/28/18 21:37 Dose: 100 mls/hr Levothyroxine Sodium (Synthroid) 50 mcg PO DAILY [facility] Last Admin: 06/28/18 11:16 Dose: 50 mcg Memantine (Namenda) 5 mg PO BID [facility] Last Admin: 06/28/18 18:15 Dose: 5 mg - Labs Labs: 06/28/18 06:00 06/28/18 06:00 PT 14.8 SECONDS 06/25/18 18:15 INR 1.29 06/25/18 18:15 APTT 24.6 Seconds 06/25/18 18:15 Attending/Attestation - Attestation I have personally seen and examined this patient.: Yes I have fully participated in the care of the patient.: Yes I have reviewed all pertinent clinical information, including history, physical exam and plan: Yes Notes (Text): 06/28/18 73 year old male with past medical history of dementia, hypothyroidism and dyslipidemia who was admitted with left hip cellulitis and sacral decubitus ulcer. Cellulitis and leukocytosis improved with iv antibiotics. ID is following. He also presented with poor po intake as per family. Will follow up with dietitian/nutrition recommendations. Palliative care evaluation was appreciated. Will also discuss with family goals of care. Continue with synthroid for hypothyroidism. TSH was elevated with normal Free T4. Recommended to repeat in 4-6 weeks. Continue with home medications for dementia and dyslipidemia. Will discuss with family and upper caser regarding d/c planning. Jessica Calle MD Hospitalist.
--- NOTE | 2018-06-28 15:57 | CP.PCM.PN ---
<Lyn Uriarte - Last Filed: 06/28/18 16:02> Subjective - Date & Time of Evaluation Date of Evaluation: 06/28/18 Time of Evaluation: 14:50 - Subjective Subjective: Palliative care progress note for Lucretia Kevin. Mr Parish is lying comfortably on the hospital bed, not in any acute distress. No acute overnight events. Patient is drowsy, and sleepy, however is arousable to verbal commands. Patient with no significant complaints. No fever or chills, No complaints of pain, tolerating puree diet. Objective - Vital Signs/Intake and Output Vital Signs (last 24 hours): Temp Pulse Resp BP Pulse Ox 98.2 F 87 20 143/83 95 06/28/18 08:37 06/28/18 08:37 06/28/18 08:37 06/28/18 08:37 06/28/18 08:37 Intake and Output: 06/28/18 06/28/18 06:59 18:59 Intake Total 1440 Balance 1440 - Medications Medications: Current Medications Aspirin (Ecotrin) 81 mg PO DAILY [facility] Last Admin: 06/28/18 11:16 Dose: 81 mg Atorvastatin Calcium (Lipitor) 10 mg PO DIN [facility] Last Admin: 06/27/18 17:06 Dose: 10 mg Docusate Sodium (Colace) 100 mg PO DAILY [facility] Last Admin: 06/28/18 15:42 Dose: 100 mg Donepezil HCl (Aricept) 5 mg PO HS [facility] Last Admin: 06/27/18 21:15 Dose: 5 mg Heparin Sodium (Porcine) (Heparin) 5,000 units SC Q12 [facility] PRN Reason: Protocol Last Admin: 06/28/18 11:16 Dose: 5,000 units Dextrose/Sodium Chloride (Dextrose 5%/0.9% Ns 1000 Ml) 1,000 mls @ 100 mls/hr IV .Q10H [facility] Last Admin: 06/28/18 04:37 Dose: 100 mls/hr Levothyroxine Sodium (Synthroid) 50 mcg PO DAILY [facility] Last Admin: 06/28/18 11:16 Dose: 50 mcg Memantine (Namenda) 5 mg PO BID [facility] Last Admin: 06/28/18 11:16 Dose: 5 mg - Labs Labs: 06/28/18 06:00 08/02/18 06:00 PT 14.8 SECONDS 06/25/18 18:15 INR 1.29 06/25/18 18:15 APTT 24.6 Seconds 06/25/18 18:15 - Constitutional Appears: No Acute Distress, Cachectic, Chronically Ill - Head Exam Head Exam: ATRAUMATIC, NORMAL INSPECTION, NORMOCEPHALIC - Eye Exam Eye Exam: Normal appearance - ENT Exam ENT Exam: Mucous Membranes Moist - Neck Exam Neck Exam: Normal Inspection - Respiratory Exam Respiratory Exam: Clear to Ausculation Bilateral, NORMAL BREATHING PATTERN. absent: Rhonchi, Wheezes, Respiratory Distress, Stridor - Cardiovascular Exam Cardiovascular Exam: REGULAR RHYTHM, +S1, +S2 - GI/Abdominal Exam GI & Abdominal Exam: Soft, Normal Bowel Sounds. absent: Distended, Firm, Guarding, Rigid, Tenderness - Extremities Exam Extremities Exam: absent: Pedal Edema - Neurological Exam Additional comments: Drowsy, awaken to verbal command. - Psychiatric Exam Psychiatric exam: Normal Affect, Normal Mood - Skin Additional comments: + unstagable left hip wound, with erythema, black eschar. Assessment and Plan - Assessment and Plan (Free Text) Assessment: Patient is a 73 y/o with pmhx of advanced dementia, hypothyroidism, HTN and CVA who is admitted with failure to thrive, left hip decubiti, anorexia, cachexia and deconditioning. Palliative care was consulted for goal of care planning and advance directives. Patient's and other family members were at the bed side today, Mrs Brown had discussion with the regarding goal of care and advance directive, however patient's is doesn't want to talk about the advance directives right now. is more worried about how she's not going to be able to take of the patient at home when he gets discharged. Plan: Goals of care and advance care: Patient's not receptive to advance directives at this time. Palliative care will continue to be available for the patient and family, and help with any questions and future care plans. Failure to thrive: Continue with puree diet and nutritional supplements Left Hip Decubiti: wound culture growing pseudomona. Continue with wound care, off of antibiotics as per ID. Dementia: Continue Namenda and Aricept. Hypothyroidism: Continue Synthroid Pending placement. Patient seen, examined and case discussed with Lucretia Brown. <Lucretia Brown F - Last Filed: 06/29/18 10:32> Objective - Vital Signs/Intake and Output Vital Signs (last 24 hours): Temp Pulse Resp BP Pulse Ox 98.3 F 92 H 20 128/83 100 06/29/18 07:39 06/29/18 07:39 06/29/18 07:39 06/29/18 07:39 06/29/18 07:39 Intake and Output: 06/29/18 06/29/18 06:59 18:59 Intake Total 120 Balance 120 - Medications Medications: Current Medications Aspirin (Ecotrin) 81 mg PO DAILY [facility] Last Admin: 06/29/18 09:52 Dose: 81 mg Atorvastatin Calcium (Lipitor) 10 mg PO DIN [facility] Last Admin: 06/28/18 18:15 Dose: 10 mg Docusate Sodium (Colace) 100 mg PO DAILY [facility] Last Admin: 06/29/18 09:51 Dose: 100 mg Donepezil HCl (Aricept) 5 mg PO HS [facility] Last Admin: 06/28/18 21:27 Dose: 5 mg Heparin Sodium (Porcine) (Heparin) 5,000 units SC Q12 [facility] PRN Reason: Protocol Last Admin: 06/29/18 09:52 Dose: 5,000 units Dextrose/Sodium Chloride (Dextrose 5%/0.9% Ns 1000 Ml) 1,000 mls @ 100 mls/hr IV .Q10H [facility] Last Admin: 06/29/18 09:52 Dose: 100 mls/hr Levothyroxine Sodium (Synthroid) 50 mcg PO DAILY [facility] Last Admin: 06/29/18 09:52 Dose: 50 mcg Memantine (Namenda) 5 mg PO BID [facility] Last Admin: 06/29/18 09:52 Dose: 5 mg - Labs Labs: 06/29/18 05:30 06/29/18 05:30 PT 14.8 SECONDS 06/25/18 18:15 INR 1.29 06/25/18 18:15 APTT 24.6 Seconds 06/25/18 18:15 Attending/Attestation - Attestation I have personally seen and examined this patient.: Yes I have fully participated in the care of the patient.: Yes I have reviewed all pertinent clinical information, including history, physical exam and plan: Yes
[2018-06-29 06:30] LABS: BASO # 0.05 K/mm3 (0.0-2.0); BASO % 0.6 % (0.0-3.0); EOS # 0.3 (0.0-0.7); EOS % 3.6 % (1.5-5.0); GRAN # 4.79 (1.4-6.5); GRAN % 58.8 % (50.0-68.0); HEMOGLOBIN 9.6 g/dL (14.0-18.0); LYMPH # 2.4 (1.2-3.4); LYMPH % 28.8 % (22.0-35.0); MEAN CELL VOLUME 68.8 fl (80.0-105.0); MEAN CORPUSCULAR HEMOGLOBIN 22.7 pg (25.0-35.0); MEAN PLATELET VOLUME 9.6 fl (7.0-11.0); MONO # 0.7 (0.1-0.6); MONO % 8.2 % (1.0-6.0); RBC 4.23 10^6/uL (3.5-6.1); RED CELL DISTRIBUTION WIDTH 17.1 % (11.5-14.5); WHITE BLOOD COUNT 8.2 10^3/ul (4.5-11.0)
[2018-06-29 07:05] LABS: ALBUMIN 3.1 g/dL (3.0-4.8); ALT/SGPT 26 U/L (7-56); AST/SGOT 31 U/L (17-59); BLOOD UREA NITROGEN 7 mg/dL (7-21); CALCIUM 8.4 mg/dL (8.4-10.5); GFR AFRICAN-AMERICAN > 60; GFR NON-AFRICAN AMERICAN > 60
[2018-06-29 07:40] VITALS: BP 128/83; PULSE 92; TEMP 98.3; O2SAT 100
[2018-06-29] MEDS: Dextrose 5%/0.9% NS 1,000 ML IV SCH (09:52)
[2018-06-29] MEDS: Levothyroxine 50 MCG TAB PO SCH (09:52)
--- NOTE | 2018-06-29 15:21 | CP.PCM.PN ---
Subjective - Date & Time of Evaluation Date of Evaluation: 06/29/18 Time of Evaluation: 12:35 - Subjective Subjective: Comfortable, no fevers. Objective - Vital Signs/Intake and Output Vital Signs (last 24 hours): Temp Pulse Resp BP Pulse Ox 98.3 F 92 H 20 128/83 100 06/29/18 07:39 06/29/18 07:39 06/29/18 07:39 06/29/18 07:39 06/29/18 07:39 Intake and Output: 06/29/18 06/29/18 06:59 18:59 Intake Total 120 Balance 120 - Medications Medications: Current Medications Aspirin (Ecotrin) 81 mg PO DAILY [facility] Last Admin: 06/29/18 09:52 Dose: 81 mg Atorvastatin Calcium (Lipitor) 10 mg PO DIN [facility] Last Admin: 06/28/18 18:15 Dose: 10 mg Docusate Sodium (Colace) 100 mg PO DAILY [facility] Last Admin: 06/29/18 09:51 Dose: 100 mg Donepezil HCl (Aricept) 5 mg PO HS [facility] Last Admin: 06/28/18 21:27 Dose: 5 mg Heparin Sodium (Porcine) (Heparin) 5,000 units SC Q12 [facility] PRN Reason: Protocol Last Admin: 06/29/18 09:52 Dose: 5,000 units Dextrose/Sodium Chloride (Dextrose 5%/0.9% Ns 1000 Ml) 1,000 mls @ 100 mls/hr IV .Q10H [facility] Last Admin: 06/29/18 09:52 Dose: 100 mls/hr Levothyroxine Sodium (Synthroid) 50 mcg PO DAILY [facility] Last Admin: 06/29/18 09:52 Dose: 50 mcg Memantine (Namenda) 5 mg PO BID [facility] Last Admin: 06/29/18 09:52 Dose: 5 mg - Labs Labs: 06/29/18 05:30 06/29/18 05:30 PT 14.8 SECONDS 06/25/18 18:15 INR 1.29 06/25/18 18:15 APTT 24.6 Seconds 06/25/18 18:15 - Constitutional Appears: Chronically Ill - Head Exam Head Exam: NORMAL INSPECTION - Respiratory Exam Respiratory Exam: Decreased Breath Sounds - Cardiovascular Exam Cardiovascular Exam: +S1, +S2 - GI/Abdominal Exam GI & Abdominal Exam: Soft. absent: Tenderness Assessment and Plan - Assessment and Plan (Free Text) Plan: Assessment S/P treatment for left hip area cellulitis, with Pseudomonas as a probable colonizer on the wound dementia CVA thyroid disease Plan Continue to monitor off antibiotics and continue local wound care
--- NOTE | 2018-06-29 16:08 | CP.PCM.DIS ---
<Luís Holt - Last Filed: 06/29/18 17:25> Provider - Provider Date of Admission: 06/25/18 22:09 Attending physician: Jessica Calle MD Primary care physician: None Consults: ID: [email or web address] Time Spent in preparation of Discharge (in minutes): 45 Hospital Course - Lab Results Lab Results: Micro Results 06/26/18 15:20 Hip - Left Gram Stain - Final 06/26/18 15:20 Hip - Left Wound Culture - Final Pseudomonas Aeruginosa Most Recent Lab Values WBC 8.2 10^3/ul (4.5-11.0) 06/29/18 05:30 RBC 4.23 10^6/uL (3.5-6.1) 06/29/18 05:30 Hgb 9.6 g/dL (14.0-18.0) L 06/29/18 05:30 Hct 29.1 % (42.0-52.0) L 06/29/18 05:30 MCV 68.8 fl (80.0-105.0) L 06/29/18 05:30 MCH 22.7 pg (25.0-35.0) L 06/29/18 05:30 MCHC 33.0 g/dl (31.0-37.0) 06/29/18 05:30 RDW 17.1 % (11.5-14.5) H 06/29/18 05:30 Plt Count 459 10^3/uL (120.0-450.0) H 06/29/18 05:30 MPV 9.6 fl (7.0-11.0) 06/29/18 05:30 Gran % 58.8 % (50.0-68.0) 06/29/18 05:30 Lymph % (Auto) 28.8 % (22.0-35.0) 06/29/18 05:30 [place] % (Auto) 8.2 % (1.0-6.0) H 06/29/18 05:30 Eos % (Auto) 3.6 % (1.5-5.0) 06/29/18 05:30 Baso % (Auto) 0.6 % (0.0-3.0) 06/29/18 05:30 Gran # 4.79 (1.4-6.5) 06/29/18 05:30 Lymph # (Auto) 2.4 (1.2-3.4) 06/29/18 05:30 [place] # (Auto) 0.7 (0.1-0.6) H 06/29/18 05:30 Eos # (Auto) 0.3 (0.0-0.7) 06/29/18 05:30 Baso # (Auto) 0.05 K/mm3 (0.0-2.0) 06/29/18 05:30 PT 14.8 SECONDS 06/25/18 18:15 INR 1.29 06/25/18 18:15 APTT 24.6 Seconds 06/25/18 18:15 pO2 43 mm/Hg (30-55) 06/25/18 22:21 VBG pH 7.42 (7.32-7.43) 06/25/18 22:21 VBG pCO2 47.0 (40-60) 06/25/18 22:21 VBG HCO3 30.5 mmol/l (21-28) H 06/25/18 22:21 VBG Total CO2 31.9 mmol.L (22-28) H 06/25/18 22:21 VBG O2 Sat (Calc) 82.0 % (40-65) H 06/25/18 22:21 VBG Base Excess 5.1 mmol/L (0.0-2.0) H 06/25/18 22:21 VBG Potassium 4.1 mmol/L (3.6-5.2) 06/25/18 22:21 Sodium 139.0 mmol/L (132-148) 06/25/18 22:21 Chloride 106.0 mmol/L (98-107) 06/25/18 22:21 Glucose 99 mg/dl (75-110) 06/25/18 22:21 Lactate 1.0 mmol/L (0.7-2.1) 06/25/18 22:21 FiO2 21.0 % 06/25/18 22:21 Sodium 139 mmol/L (132-148) 06/29/18 05:30 Potassium 3.7 mmol/L (3.6-5.0) 06/29/18 05:30 Chloride 103 mmol/L (98-107) 06/29/18 05:30 Carbon Dioxide 29 mmol/L (21-33) 06/29/18 05:30 Anion Gap 11 (10-20) 06/29/18 05:30 BUN 7 mg/dL (7-21) 06/29/18 05:30 Creatinine 0.5 mg/dl (0.8-1.5) L 06/29/18 05:30 Est GFR ( Amer) > 60 06/29/18 05:30 Est GFR (Non-Af Amer) > 60 06/29/18 05:30 Random Glucose 91 mg/dL (70-110) 06/29/18 05:30 Calcium 8.4 mg/dL (8.4-10.5) 06/29/18 05:30 Phosphorus 3.4 mg/dL (2.5-4.5) 06/26/18 07:00 Magnesium 2.0 mg/dL (1.7-2.2) 06/26/18 07:00 Total Bilirubin 0.3 mg/dL (0.2-1.3) 06/29/18 05:30 AST 31 U/L (17-59) 06/29/18 05:30 ALT 26 U/L (7-56) 06/29/18 05:30 Alkaline Phosphatase 48 U/L (38-126) 06/29/18 05:30 Total Protein 6.3 g/dL (5.8-8.3) 06/29/18 05:30 Albumin 3.1 g/dL (3.0-4.8) 06/29/18 05:30 Globulin 3.1 gm/dL 06/29/18 05:30 Albumin/Globulin Ratio 1.0 (1.1-1.8) L 06/29/18 05:30 Procalcitonin 0.23 NG/ML (0.19-0.49) 06/25/18 18:15 Free T4 1.17 ng/dL (0.78-2.19) 06/27/18 06:15 TSH 3rd Generation 6.85 mIU/mL (0.46-4.68) H 06/27/18 06:15 Venous Blood Potassium 4.1 mmol/L (3.6-5.2) 06/25/18 22:21 Urine Color Yellow (YELLOW) 06/25/18 21:18 Urine Appearance Clear (CLEAR) 06/25/18 21:18 Urine pH 6.0 (4.7-8.0) 06/25/18 21:18 Ur Specific [place] 1.025 (1.005-1.035) 06/25/18 21:18 Urine Protein 30 mg/dL (<30 mg/dL) H 06/25/18 21:18 Urine Glucose (UA) Negative mg/dL (NEGATIVE) 06/25/18 21:18 Urine Ketones Trace mg/dL (NEGATIVE) H 06/25/18 21:18 Urine Blood Trace-lysed (NEGATIVE) H 06/25/18 21:18 Urine Nitrate Negative (NEGATIVE) 06/25/18 21:18 Urine Bilirubin Negative (NEGATIVE) 06/25/18 21:18 Urine Urobilinogen 4.0 E.U./dL (<1 E.U./dL) H 06/25/18 21:18 Ur Leukocyte Esterase Negative Renny/uL (NEGATIVE) 06/25/18 21:18 Urine RBC 5 - 10 /hpf (0-2) 06/25/18 21:18 Urine WBC 2 - 5 /hpf (0-6) 06/25/18 21:18 Ur Epithelial Cells 6 - 8 /hpf (0-5) 06/25/18 21:18 Vancomycin Trough 11.9 ug/mL (5.0-10.0) H 06/28/18 06:00 - Hospital Course Hospital Course: Luís Holt, PGY-1 Discharge Summary for Hospitalist Service Admitting Diagnosis: Decreased appetite, cellulitis and decubitus ulcer Discharge Diagnosis: Failure to thrive, poor intake, cellulitis History of Present Illness: 73 y/o M pmhx alzheimers dementia, CVA, hypothyroidism brought to ED by for decreased po intake, difficulty ambulating, decrease in functional capacity. Pt is a poor historian, history obtained per chart and . Per , pt has been eating less than usual, can not stand or walk and is demented at baseline. Patient has L hip ulcer. He was found in ED to have mild leukocytosis. ROS is limited due to dementia. Hospital Course: This is a 73 year old male patient with past medical history of dementia (AAox1) , hypothyroidism and dyslipidemia who was admitted with left hip cellulitis and sacral decubitus ulcer. He was febrile and showed signs of confusion. We discussed the goals of care with family, as well as consulted palliative care and bilingual social worker. Patients leukocytosis was likely secondary to unstageable trochanteric ulcer. ID was consulted and wound cultures came back positive for Cefazolin resistant pseudomonas aeruginosa. Patient was put on vancomycin and finished his 3 day course. Patients blood and urine cultures came back negative, and chest x-rays were normal. Patient hadnt had bowel movements over few days, and was started on Colace 100 daily. Original TSH was 8.80, and follow up TSH and T4 were 6.85 and 1.17 respectively, for which the patient is on Levothyroxine for his hypothyroidism. The patients Alzheimers dementia was treated with Namenda and Donepezil. In order to treat his hyperlipidemia, patient was instructed to continue with his home medication Atorvastatin. We also had the patient on a DVT prophylaxis which includes Heparin SC Q12. Upon discharge, patient was found to be somewhat conversant and at his normal baseline. Leukocytosis had resolved, patient was off antibiotics, and calorie count came back with 2000 showing appropriate intake and appetite. Patient was not a candidate for physical therapy. Communication was made with and daughter regarding transfer home and nursing services for care of unstageable ulcer with Syntal, optifoam, serial cleanings and tape. Discharge Medications: Famotidine 20mg PO, Memantine 5mg PO, Levothyroxine 50mcg PO, Donepezil 5mg PO, Atorvastatin 10mg PO, Aspirin 81mg PO, Syntal 15 units BID. Patient seen, case reviewed, and plan discussed with Dr. Calle. Discharge Exam - Head Exam Head Exam: NORMAL INSPECTION, NORMOCEPHALIC - Eye Exam Eye Exam: EOMI, Normal appearance - ENT Exam ENT Exam: Mucous Membranes Moist - Neck Exam Neck exam: Normal Inspection - Respiratory Exam Respiratory Exam: NORMAL BREATHING PATTERN, UNREMARKABLE. absent: Chest Wall Tenderness, Prolonged Expiratory Phase, Respiratory Distress, Stridor - Cardiovascular Exam Cardiovascular Exam: REGULAR RHYTHM, RRR, +S1, +S2 - GI/Abdominal Exam GI & Abdominal Exam: Normal Bowel Sounds, Soft, Unremarkable. absent: Distended , Firm, Guarding, Tenderness - Extremities Exam Additional comments: L hip unstageable ulcer with clear discharge. Bandaged. Discharge Plan - Discharge Medications Prescriptions: Collagenase [Santyl] 15 units EXT DAILY #1 tube - Follow Up Plan Condition: FAIR Disposition: HOME/ ROUTINE Patient education suggested?: Yes Instructions: Dehydration, Adult (DC), How to Prevent Pressure Sores, Failure to Thrive, Adult, Cellulitis (DC), Cellulitis (GEN) Additional Instructions: Patient should take all medications as prescribed. Patient should follow up in [facility] clinic in [facility] on July 06 at 3 pm. Left hip wound should be cleaned three multiple times a day with NS, Santyl applied twice a day. Dressing Santyl, Guaze, Paper Tape. Please keep surrounding area clean and dry. Should symptoms reoccur or worsen, please return to your closest emergency department. [place] [facility] [place] [facility] [place] <Jessica Calle - Last Filed: 06/30/18 08:19> Provider - Provider Date of Admission: 06/25/18 22:09 Attending physician: Jessica Calle MD Hospital Course - Lab Results Lab Results: Micro Results 06/26/18 15:20 Hip - Left Gram Stain - Final 06/26/18 15:20 Hip - Left Wound Culture - Final Pseudomonas Aeruginosa Most Recent Lab Values WBC 8.2 10^3/ul (4.5-11.0) 06/29/18 05:30 RBC 4.23 10^6/uL (3.5-6.1) 06/29/18 05:30 Hgb 9.6 g/dL (14.0-18.0) L 06/29/18 05:30 Hct 29.1 % (42.0-52.0) L 06/29/18 05:30 MCV 68.8 fl (80.0-105.0) L 06/29/18 05:30 MCH 22.7 pg (25.0-35.0) L 06/29/18 05:30 MCHC 33.0 g/dl (31.0-37.0) 06/29/18 05:30 RDW 17.1 % (11.5-14.5) H 06/29/18 05:30 Plt Count 459 10^3/uL (120.0-450.0) H 06/29/18 05:30 MPV 9.6 fl (7.0-11.0) 06/29/18 05:30 Gran % 58.8 % (50.0-68.0) 06/29/18 05:30 Lymph % (Auto) 28.8 % (22.0-35.0) 06/29/18 05:30 [place] % (Auto) 8.2 % (1.0-6.0) H 06/29/18 05:30 Eos % (Auto) 3.6 % (1.5-5.0) 06/29/18 05:30 Baso % (Auto) 0.6 % (0.0-3.0) 06/29/18 05:30 Gran # 4.79 (1.4-6.5) 06/29/18 05:30 Lymph # (Auto) 2.4 (1.2-3.4) 06/29/18 05:30 [place] # (Auto) 0.7 (0.1-0.6) H 06/29/18 05:30 Eos # (Auto) 0.3 (0.0-0.7) 06/29/18 05:30 Baso # (Auto) 0.05 K/mm3 (0.0-2.0) 06/29/18 05:30 PT 14.8 SECONDS 06/25/18 18:15 INR 1.29 06/25/18 18:15 APTT 24.6 Seconds 06/25/18 18:15 pO2 43 mm/Hg (30-55) 06/25/18 22:21 VBG pH 7.42 (7.32-7.43) 06/25/18 22:21 VBG pCO2 47.0 (40-60) 06/25/18 22:21 VBG HCO3 30.5 mmol/l (21-28) H 06/25/18 22:21 VBG Total CO2 31.9 mmol.L (22-28) H 06/25/18 22:21 VBG O2 Sat (Calc) 82.0 % (40-65) H 06/25/18 22:21 VBG Base Excess 5.1 mmol/L (0.0-2.0) H 06/25/18 22:21 VBG Potassium 4.1 mmol/L (3.6-5.2) 06/25/18 22:21 Sodium 139.0 mmol/L (132-148) 06/25/18 22:21 Chloride 106.0 mmol/L (98-107) 06/25/18 22:21 Glucose 99 mg/dl (75-110) 06/25/18 22:21 Lactate 1.0 mmol/L (0.7-2.1) 06/25/18 22:21 FiO2 21.0 % 06/25/18 22:21 Sodium 139 mmol/L (132-148) 06/29/18 05:30 Potassium 3.7 mmol/L (3.6-5.0) 06/29/18 05:30 Chloride 103 mmol/L (98-107) 06/29/18 05:30 Carbon Dioxide 29 mmol/L (21-33) 06/29/18 05:30 Anion Gap 11 (10-20) 06/29/18 05:30 BUN 7 mg/dL (7-21) 06/29/18 05:30 Creatinine 0.5 mg/dl (0.8-1.5) L 06/29/18 05:30 Est GFR ( Amer) > 60 06/29/18 05:30 Est GFR (Non-Af Amer) > 60 06/29/18 05:30 Random Glucose 91 mg/dL (70-110) 06/29/18 05:30 Calcium 8.4 mg/dL (8.4-10.5) 06/29/18 05:30 Phosphorus 3.4 mg/dL (2.5-4.5) 06/26/18 07:00 Magnesium 2.0 mg/dL (1.7-2.2) 06/26/18 07:00 Total Bilirubin 0.3 mg/dL (0.2-1.3) 06/29/18 05:30 AST 31 U/L (17-59) 06/29/18 05:30 ALT 26 U/L (7-56) 06/29/18 05:30 Alkaline Phosphatase 48 U/L (38-126) 06/29/18 05:30 Total Protein 6.3 g/dL (5.8-8.3) 06/29/18 05:30 Albumin 3.1 g/dL (3.0-4.8) 06/29/18 05:30 Globulin 3.1 gm/dL 06/29/18 05:30 Albumin/Globulin Ratio 1.0 (1.1-1.8) L 06/29/18 05:30 Procalcitonin 0.23 NG/ML (0.19-0.49) 06/25/18 18:15 Free T4 1.17 ng/dL (0.78-2.19) 06/27/18 06:15 TSH 3rd Generation 6.85 mIU/mL (0.46-4.68) H 06/27/18 06:15 Venous Blood Potassium 4.1 mmol/L (3.6-5.2) 06/25/18 22:21 Urine Color Yellow (YELLOW) 06/25/18 21:18 Urine Appearance Clear (CLEAR) 06/25/18 21:18 Urine pH 6.0 (4.7-8.0) 06/25/18 21:18 Ur Specific [place] 1.025 (1.005-1.035) 06/25/18 21:18 Urine Protein 30 mg/dL (<30 mg/dL) H 06/25/18 21:18 Urine Glucose (UA) Negative mg/dL (NEGATIVE) 06/25/18 21:18 Urine Ketones Trace mg/dL (NEGATIVE) H 06/25/18 21:18 Urine Blood Trace-lysed (NEGATIVE) H 06/25/18 21:18 Urine Nitrate Negative (NEGATIVE) 06/25/18 21:18 Urine Bilirubin Negative (NEGATIVE) 06/25/18 21:18 Urine Urobilinogen 4.0 E.U./dL (<1 E.U./dL) H 06/25/18 21:18 Ur Leukocyte Esterase Negative Renny/uL (NEGATIVE) 06/25/18 21:18 Urine RBC 5 - 10 /hpf (0-2) 06/25/18 21:18 Urine WBC 2 - 5 /hpf (0-6) 06/25/18 21:18 Ur Epithelial Cells 6 - 8 /hpf (0-5) 06/25/18 21:18 Vancomycin Trough 11.9 ug/mL (5.0-10.0) H 06/28/18 06:00 Attending/Attestation - Attestation I have personally seen and examined this patient.: Yes I have fully participated in the care of the patient.: Yes I have reviewed all pertinent clinical information, including history, physical exam and plan: Yes Notes (Text): 06/29/18 73 year old male with past medical history of dementia, hypothyroidism and dyslipidemia who was admitted with left hip cellulitis and sacral decubitus ulcer. H e was started on iv antibiotics with improvement of cellulitis and leukocytosis. He was being followed by ID and antibiotics were discontinued. He also initially had poor po intake as per family which also improved during hospital stay. Patient is discharged home with home services. Follow up with pmd. Continue with wound care. Recommend to repeat TFTs in 4-6 weeks. Jessica Calle MD Hospitalist.
== END 2018-06-29 18:28 | disposition home health service (06) | DRG 872 ==
LOC: ED 17:37 → ERH 22:09 → 3RNO 06-26 01:18
PROVIDERS: ADMIT Hospitalist; ATTEND Internal Medicine
DX: A41.9 Sepsis, unspecified organism (principal); L03.116 Cellulitis of left lower limb; R64 Cachexia; L89.220 Pressure ulcer of left hip, unstageable; L89.152 Pressure ulcer of sacral region, stage 2; R62.7 Adult failure to thrive; Z86.73 Personal history of transient ischemic attack (TIA), and cerebral infarction without residual deficits; G30.9 Alzheimer's disease, unspecified; F02.80 Dementia in other diseases classified elsewhere, unspecified severity, without behavioral disturbance, psychotic disturbance, mood disturbance, and anxiety; E86.0 Dehydration; E78.5 Hyperlipidemia, unspecified; E03.9 Hypothyroidism, unspecified; E78.00 Pure hypercholesterolemia, unspecified; I10 Essential (primary) hypertension; Z51.5 Encounter for palliative care; Z87.891 Personal history of nicotine dependence; B96.5 Pseudomonas (aeruginosa) (mallei) (pseudomallei) as the cause of diseases classified elsewhere; R40.2412 Glasgow coma scale score 13-15, at arrival to emergency department

== ENCOUNTER 2018-08-08 21:26 | Inpatient (IN) | payer MEDICARE, OTHER ==
--- NOTE | 2018-08-08 21:40 | ED PDOC ---
Arrival/HPI - General Time Seen by Provider: 08/08/18 21:37 Historian: Patient - History of Present Illness Narrative History of Present Illness (Text): 08/08/18 21:40 Jem Camilo is a 73 year old male, whose past medical history includes Alzheimer's dementia, CVA, hypothyroidism, and decubitus ulcer, who presents to the Emergency department brought in by EMS accompanied by family complaining of generalized weakness. As per daughter, patient has not been eating today and has been experiencing associated generalized weakness. Daughter notes the patient's visiting nurse advised patient be brought in for further evaluation. Limited HPI and ROS secondary to patient's dementia. PMD: Dr. Wilson Symptom Onset: Gradual Symptom Course: Unchanged Activities at Onset: Light Context: Home Past Medical History - Provider Review Nursing Documentation Reviewed: Yes - Infectious Disease Hx of Infectious Diseases: None - Tetanus Immunization Tetanus Immunization: Unknown - Cardiac Hx Cardiac Disorders: No - Pulmonary Hx Respiratory Disorders: No - Neurological Hx Neurological Disorder: Yes Hx Alzheimer's Disease: Yes - HEENT Hx HEENT Disorder: No - Renal Hx Renal Disorder: No - Endocrine/Metabolic Hx Hypothyroidism: Yes - Hematological/Oncological Hx Blood Disorders: No - Integumentary Hx Dermatological Disorder: No - Musculoskeletal/Rheumatological Hx Musculoskeletal Disorders: Yes Hx Falls: Yes - Gastrointestinal Hx Gastrointestinal Disorders: No - Genitourinary/Gynecological Hx Genitourinary Disorders: No - Psychiatric Hx Psychophysiologic Disorder: No Hx Substance Use: No - Surgical History Hx Amputation: No Hx Appendectomy: No Hx Cardiac Catheterization: No Hx Cholecystectomy: No Hx Coronary Stent: No Hx Gastric Bypass Surgery: No Hx Hysterectomy: No Hx Joint Replacement: No Hx Kidney Transplant: No Hx Liver Transplant: No Hx Mastectomy: No Hx Musculoskeletal Surgery: No Hx Open Heart Surgery: No Hx Orthopedic Surgery: No Hx Splenectomy: No Hx Valve Replacement: No - Anesthesia Hx Anesthesia: No Family/Social History - Physician Review Nursing Documentation Reviewed: Yes Family/Social History: Unknown Family HX Smoking Status: Unknown If Ever Smoked Hx Alcohol Use: No Hx Substance Use: No Allergies/Home Meds Allergies/Adverse Reactions: Allergies No Known Allergies Allergy (Unverified 01/02/18 14:18) Home Medications: Home Meds Medication Instructions Recorded Confirmed Unobtainable 08/09/18 08/09/18 Review of Systems - Review of Systems Systems not reviewed;Unavailable: Dementia Constitutional: Other (+generalized weakness) Gastrointestinal: Appetite Changes (+decreased appetite) Physical Exam Vital Signs Reviewed: Yes Vital Signs Temp Pulse Resp BP Pulse Ox 08/09/18 00:24 106 H 18 112/76 100 08/08/18 21:34 98.6 F 166 H 18 130/89 100 Temperature: Afebrile Blood Pressure: Normal Pulse: Tachycardic Respiratory Rate: Normal Appearance: Positive for: Non-Toxic Mental Status: Positive for: Lethargic - Systems Exam Head: Present: Atraumatic, Normocephalic Pupils: Present: PERRL Extroacular Muscles: Present: EOMI Conjunctiva: Present: Normal Mouth: Present: Moist Mucous Membranes Neck: Present: Normal Range of Motion. No: Meningeal Signs, MIDLINE TENDERNESS , Paraspinal Tenderness Respiratory/Chest: Present: Clear to Auscultation, Good Air Exchange. No: Respiratory Distress, Accessory Muscle Use Cardiovascular: Present: Regular Rate and Rhythm, Normal S1, S2. No: Murmurs Abdomen: No: Tenderness, Distention, Peritoneal Signs Back: Present: Decubitus Ulcer (Decubitus ulcers to bilateral hips and sacrum). No: CVA Tenderness, Midline Tenderness, Paraspinal Tenderness Upper Extremity: Present: Normal Inspection. No: Cyanosis, Edema Lower Extremity: Present: Normal Inspection. No: Edema Neurological: Present: GCS=15, CN II-XII Intact Skin: Present: Warm, Dry, Normal Color. No: Rashes Psychiatric: Present: Lethargic Medical Decision Making ED Course and Treatment: 08/08/18 21:40 Impression: 73 year old male brought in for generalized weakness and decreased appetite. Plan: -- EKG -- Chest X-ray -- Labs, troponin, blood cultures -- Urinalysis, urine cultures -- IV fluids -- Reassess and disposition Prior Visits: Notes and results from previous visits were reviewed. Progress Notes: Reviewed EKG, sinus tachycardia at [address]/T wave changes. 08/08/18 22:29 Chest X-ray reviewed, shows no acute processes. 08/08/18 23:33 Case discussed with medical transport specialist juvenile court liaison, who is aware and agrees with plan. 08/08/18 23:[address] Joy De Dios, house physician, who is aware and agrees with plan. Accepts pt in to hospitalist service. Pt will be admitted to [facility] for sacral decubitus and dehydration. - Lab Interpretations Microbiology Results: Microbiology Results 08/08/18 22:21 Blood-Venous Blood Culture - Preliminary NO GROWTH AFTER 3 DAYS 08/08/18 22:00 Blood-Venous Blood Culture - Preliminary NO GROWTH AFTER 3 DAYS Lab Results: 08/08/18 21:59 08/08/18 21:59 Lab Results 08/08/18 21:59: Sodium 143, Potassium 5.0, Chloride 103, Carbon Dioxide 32, Anion Gap 13, BUN 37 H, Creatinine 0.8, Est GFR ( Amer) > 60, Est GFR ( Non-Af Amer) > 60, Random Glucose 110, Calcium 9.6, Total Bilirubin 0.3, AST 57 , ALT 11, Alkaline Phosphatase 63, Troponin I < 0.01, Total Protein 8.1, Albumin 3.8, Globulin 4.3, Albumin/Globulin Ratio 0.9 L 08/08/18 21:59: WBC 16.2 H D, RBC 4.45, Hgb 10.2 L, Hct 30.9 L, MCV 69.4 L, MCH 22.9 L, MCHC 33.0, RDW 15.5 H, Plt Count 632 H, MPV 9.5, Gran % 79.6 H, Lymph % (Auto) 14.8 L, [place] % (Auto) 5.2, Eos % (Auto) 0.2 L, Baso % (Auto) 0.2, Gran # 12.90 H, Lymph # (Auto) 2.4, [place] # (Auto) 0.8 H, Eos # (Auto) 0.0, Baso # (Auto ) 0.03 08/08/18 21:32: POC Glucose (mg/dL) 95 I have reviewed the lab results: Yes - RAD Interpretation Radiology Orders: 08/08/18 21:51 CHEST PORTABLE [RAD] Stat Senior Case Manager: ED Physician - EKG Interpretation Interpreted by ED Physician: Yes Type: 12 lead EKG - Medication Orders Current Medication Orders: Acetaminophen (Tylenol 325mg Tab) 650 mg PO Q6H PRN PRN Reason: Fever >100.4 F Atorvastatin Calcium (Lipitor) 10 mg PO DIN [facility] Last Admin: 08/12/18 17:41 Dose: 10 mg Collagenase (Santyl) 1 gm TOP BID NALDO Last Admin: 08/12/18 17:42 Dose: 1 gm Donepezil HCl (Aricept) 5 mg PO HS NALDO Last Admin: 08/11/18 21:39 Dose: 5 mg Famotidine (Pepcid) 20 mg PO DAILY [facility] Last Admin: 08/12/18 09:36 Dose: 20 mg Vancomycin HCl (Vancomycin 1gm) 1 gm in 250 mls @ 167 mls/hr IVPB Q12H NALDO PRN Reason: Protocol Last Admin: 08/12/18 10:18 Dose: 167 mls/hr eMAR Start Stop Document 08/12/18 10:18 DL (Rec: 08/12/18 10:19 DL [id number]) Intravenous Solution Start Date 08/12/18 Start Time 10:19 Meropenem (Merrem Iv 1 Gm Premix) 50 mls @ 100 mls/hr IVPB Q8 NALDO PRN Reason: Protocol Stop: 08/16/18 14:01 Last Admin: 08/12/18 13:35 Dose: 100 mls/hr eMAR Start Stop Document 08/12/18 13:35 DL (Rec: 08/12/18 13:35 DL [id number]) Intravenous Solution Start Date 08/12/18 Start Time 13:35 Levothyroxine Sodium (Synthroid) 50 mcg PO DAILY [facility] Last Admin: 08/12/18 09:36 Dose: 50 mcg Memantine (Namenda) 5 mg PO BID [facility] Last Admin: 08/12/18 17:42 Dose: 5 mg Silver Sulfadiazine (Silvadene 1% 25 Gm) 1 gm TP BID [facility] Last Admin: 08/12/18 17:42 Dose: 1 gm Discontinued Medications Sodium Chloride (Sodium Chloride 0.9%) 1,000 mls @ 100 mls/hr IV .Q10H [facility] Last Admin: 08/08/18 22:19 Dose: 100 mls/hr eMAR Start Stop Document 08/08/18 22:19 SS (Rec: 08/08/18 22:19 SS [id number]) Intravenous Solution Start Date 08/08/18 Start Time 22:09 Vancomycin HCl (Vancomycin 1gm) 1 gm in 250 mls @ 167 mls/hr IVPB STAT STA PRN Reason: Protocol Stop: 08/09/18 01:09 Last Admin: 08/09/18 01:05 Dose: 167 mls/hr eMAR Start Stop Document 08/09/18 01:05 DOCUMENT CONTROLLER (Rec: 08/09/18 01:05 DOCUMENT CONTRO[place]ER [facility] [id number] Intravenous Solution Start Date 08/09/18 Start Time 01:05 End Date 08/09/18 Piperacillin Sod/Tazobactam Sod (Zosyn 3.375 In Ns 100ml) 100 mls @ 200 mls/hr IVPB STAT STA PRN Reason: Protocol Stop: 08/09/18 00:10 Last Admin: 08/09/18 00:24 Dose: 200 mls/hr eMAR Start Stop Document 08/09/18 00:24 SS (Rec: 08/09/18 00:24 SS [id number]) Intravenous Solution Start Date 08/09/18 Start Time 00:24 End Date 08/09/18 End time 00:54 Total Infusion Time 30 Lactated Ringer's (Lactated Ringer's) 1,000 mls @ 100 mls/hr IV .Q10H NALDO Last Admin: 08/09/18 21:23 Dose: 100 mls/hr eMAR Start Stop Document 08/09/18 21:23 MAD (Rec: 08/09/18 21:23 MAD [id number]) Intravenous Solution Start Date 08/09/18 Start Time 21:23 Potassium Chloride (Potassium Chloride Oral Soln) 20 meq PO STAT STA Stop: 08/10/18 08:53 Last Admin: 08/10/18 10:40 Dose: 20 meq Comments: Barcode not scanning Potassium Chloride (Klor-Con 10) 10 meq PO BRK NALDO Potassium Chloride (Klor-Con 10) 10 meq PO BRK NALDO Last Admin: 08/12/18 08:22 Dose: 10 meq Potassium Chloride (Klor-Con 10) 10 meq PO ONCE ONE Stop: 08/11/18 09:03 Last Admin: 08/11/18 10:43 Dose: 10 meq Potassium Chloride (Potassium Chloride Oral Soln) 40 meq PO ONCE ONE Stop: 08/11/18 10:37 Last Admin: 08/11/18 10:42 Dose: 40 meq - Scribe Statement The provider has reviewed the documentation as recorded by the Scribe Bridget Sheets Provider Scribe Attestation: All medical record entries made by the Scribe were at my direction and personally dictated by me. I have reviewed the chart and agree that the record accurately reflects my personal performance of the history, physical exam, medical decision making, and the department course for this patient. I have also personally directed, reviewed, and agree with the discharge instructions and disposition. Disposition/Present on Arrival - Present on Arrival Any Indicators Present on Arrival: No History of DVT/PE: No History of Uncontrolled Diabetes: No Urinary Catheter: No History Surgical Site Infection Following: None - Disposition Have Diagnosis and Disposition been Completed?: Yes Diagnosis: Dementia, Dehydration Disposition: HOSPITALIZED Disposition Time: 23:40 Condition: FAIR
[2018-08-08] MEDS ORDERED: Sodium Chloride 0.9% 1,000 ML IV SCH (22:00)
[2018-08-08 22:29] LABS: BASO # 0.03 K/mm3 (0.0-2.0); BASO % 0.2 % (0.0-3.0); EOS % 0.2 % (1.5-5.0); GRAN # 12.9 (1.4-6.5); GRAN % 79.6 % (50.0-68.0); HEMOGLOBIN 10.2 g/dL (14.0-18.0); LYMPH # 2.4 (1.2-3.4); LYMPH % 14.8 % (22.0-35.0); MEAN CELL VOLUME 69.4 fl (80.0-105.0); MEAN CORPUSCULAR HEMOGLOBIN 22.9 pg (25.0-35.0); MEAN PLATELET VOLUME 9.5 fl (7.0-11.0); MONO # 0.8 (0.1-0.6); MONO % 5.2 % (1.0-6.0); RBC 4.45 10^6/uL (3.5-6.1); RED CELL DISTRIBUTION WIDTH 15.5 % (11.5-14.5); WHITE BLOOD COUNT 16.2 10^3/ul (4.5-11.0)
[2018-08-08 22:37] LABS: ALB/GLOB RATIO 0.9 (1.1-1.8); ALBUMIN 3.8 g/dL (3.0-4.8); ALT/SGPT 11 U/L (7-56); AST/SGOT 57 U/L (17-59); BLOOD UREA NITROGEN 37 mg/dL (7-21); CALCIUM 9.6 mg/dL (8.4-10.5); GFR NON-AFRICAN AMERICAN > 60
[2018-08-08 22:53] LABS: TROPONIN I < 0.01 ng/mL
[2018-08-08] MEDS ORDERED: Vancomycin 1gm in NS 250ml 1 GM/250 ML BAG IVPB STA (23:40)
[2018-08-08] MEDS ORDERED: Piperacillin/Tazobact 3.375 gm 100 ML IVPB STA (23:41)
[2018-08-09 00:17] LABS: VENOUS BLOOD GAS BASE EXCESS 5.7 mmol/L (0.0-2.0); VENOUS BLOOD GAS PO2 36 mm/Hg (30-55); VENOUS BLOOD PH 7.39 (7.32-7.43)
[2018-08-09 00:22] LABS: URINE BILIRUBIN NEGATIVE (NEGATIVE); URINE BLOOD NEGATIVE (NEGATIVE); URINE GLUCOSE (UA) NEGATIVE (NEGATIVE); URINE LEUKOCYTE ESTERASE NEGATIVE Leu/uL (NEGATIVE); URINE PROTEIN 30 mg/dL (<30 mg/dL)
[2018-08-09 00:24] LABS: URINE APPEARANCE SL CLOUDY (CLEAR); URINE COLOR YELLOW (YELLOW)
[2018-08-09 00:37] LABS: URINE RBC 0 - 2 /hpf (0-2)
[2018-08-09 00:38] LABS: URINE BACTERIA RARE (NEG)
--- NOTE | 2018-08-09 00:52 | CP.PCM.HP ---
History of Present Illness - History of Present Illness History of Present Illness: Katie Michelle, PGY-1 H&P for Hospitalist Service This is a 73 year old male with PMH of 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 Patient has severe dementia and is poor historian at this time. Family not at bedside. ROS limited due to patient status. In the ED, CXR was negative for acute disease (interpreted by me), EKG showed sinus tachycardia at 132bpm with no ST changes and leukocytosis of 16. Patient started on NS @ 100cc/hr and given vancomycin and zosyn. Of note, patient admitted to the hospital on 04/29/18 and 06/26/18 for similar complaints of generalized weakness. Patient will be admitted for failure to thrive and leukocytosis. PMD: Dr. 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 Lives at home with and two grandchildren. Wears diapers and cannot perform ADL's independently Sx: per chart review, negative EGD one year ago and negative colonoscopy five years ago All: none FH: per chart review, sister has leukemia Meds: per MAR Present on Admission - Present on Admission Any Indicators Present on Admission: Yes Decubitus Ulcer Present: Yes Decubitus Ulcer Location: left hip, right hip and sacrum Decubitus Ulcer Stage: IV Past Patient History - Infectious Disease Hx of Infectious Diseases: None - Tetanus Immunizations Tetanus Immunization: Unknown - Past Medical History & Family History Past Medical History?: No - Past Social History Smoking Status: Unknown If Ever Smoked - CARDIAC Hx Cardiac Disorders: No - PULMONARY Hx Respiratory Disorders: No - NEUROLOGICAL Hx Neurological Disorder: Yes Hx Alzheimer's Disease: Yes - HEENT Hx HEENT Problems: No - RENAL Hx Chronic Kidney Disease: No - ENDOCRINE/METABOLIC Hx Hypothyroidism: Yes - HEMATOLOGICAL/ONCOLOGICAL Hx Blood Disorders: No - INTEGUMENTARY Hx Dermatological Problems: No - MUSCULOSKELETAL/RHEUMATOLOGICAL Hx Musculoskeletal Disorders: Yes Hx Falls: Yes - GASTROINTESTINAL Hx Gastrointestinal Disorders: No - GENITOURINARY/GYNECOLOGICAL Hx Genitourinary Disorders: No - PSYCHIATRIC Hx Psychophysiologic Disorder: No Hx Substance Use: No - SURGICAL HISTORY Hx Amputation: No Hx Appendectomy: No Hx Cardiac Catheterization: No Hx Cholecystectomy: No Hx Coronary Stent: No Hx Gastric Bypass Surgery: No Hx Hysterectomy: No Hx Joint Replacement: No Hx Kidney Transplant: No Hx Liver Transplant: No Hx Mastectomy: No Hx Musculoskeletal Surgery: No Hx Open Heart Surgery: No Hx Orthopedic Surgery: No Hx Splenectomy: No Hx Valve Replacement: No - ANESTHESIA Hx Anesthesia: No Meds Allergies/Adverse Reactions: Allergies Allergy/AdvReac Type Severity Reaction Status Date / Time No Known Allergies Allergy Unverified 01/02/18 14:18 Physical Exam - Constitutional Appears: No Acute Distress, Cachectic - Head Exam Head Exam: ATRAUMATIC, NORMAL INSPECTION - Eye Exam Eye Exam: EOMI Pupil Exam: PERRL - ENT Exam ENT Exam: Mucous Membranes Dry - Neck Exam Neck exam: Positive for: Normal Inspection - Respiratory Exam Respiratory Exam: Clear to Auscultation Bilateral. absent: Accessory Muscle Use , Respiratory Distress - Cardiovascular Exam Cardiovascular Exam: Tachycardia, REGULAR RHYTHM, +S1, +S2 - GI/Abdominal Exam GI & Abdominal Exam: Normal Bowel Sounds. absent: Firm, Guarding - Extremities Exam Extremities exam: Positive for: normal inspection, pedal pulses present. Negative for: calf tenderness - Back Exam Back exam: NORMAL INSPECTION - Neurological Exam Neurological exam: Alert, Altered Additional comments: Alert to name, not place or time - Skin Skin Exam: Dry, Normal Color, Warm Additional comments: Left hip decubitus ulcer stage 4 measuring 3 x 4 cm that is draining pus with necrotic central tissue noted and erythematous margins. Right hip decubitus ulcer stage 2 that is not bleeding/draining. Results - Vital Signs Recent Vital Signs: Last Vital Signs Temp 98.6 F 08/08/18 21:34 Pulse 106 H 08/09/18 00:24 Resp 18 08/09/18 00:24 BP 112/76 08/09/18 00:24 Pulse Ox 100 08/09/18 00:24 - Labs Result Diagrams: 08/08/18 21:59 08/08/18 21:59 Labs: Laboratory Results - last 24 hr 08/08/18 08/09/18 23:44 00:14 pO2 36 VBG pH 7.39 VBG pCO2 53.0 VBG HCO3 32.1 H VBG Total CO2 33.7 H VBG O2 Sat (Calc) 69.2 H VBG Base Excess 5.7 H VBG Potassium 4.3 Sodium 142.0 Chloride 106.0 Glucose 111 H Lactate 1.3 FiO2 21.0 Venous Blood Potassium 4.3 Urine Color Yellow Urine Appearance Sl cloudy Urine pH 6.0 Ur Specific [place] 1.025 Urine Protein 30 H Urine Glucose (UA) Negative Urine Ketones Trace H Urine Blood Negative Urine Nitrate Negative Urine Bilirubin Negative Urine Urobilinogen 1.0 H Ur Leukocyte Esterase Negative Urine RBC 0 - 2 Urine WBC 1 - 3 Ur Epithelial Cells 1 - 3 Urine Bacteria Rare Urine Other Mucus Assessment & Plan - Assessment and Plan (Free Text) Assessment: This is a 73 year old male with PMH of chronic non-healing stage 4 left hip decubitus ulcer, alzheimer's dementia, hypothyroidism, CVA and failure to thrive presenting to the hospital for management of generalized weakness likely 2/2 poor oral intake and failure to thrive. Plan: Failure to thrive -multiple recent admissions for generalized weakness and poor oral intake -VBG shows pH/pCO2/HCO3 7.39/53/32 indicating chronic primary respiratory acidosis -social service consult -palliative care consult -swallow eval -PT for deconditioning -Mg, phosphorous pending -sewer inspector referral, liquid diet for now -fall and aspiration precautions Leukocytosis likely 2/2 left hip decubitus ulcer stage 4 -elevated WBC on admission, afebrile -CXR shows no active disease (interpreted by me) -U/A shows trace ketones, otherwise unremarkable -chronic stage 4 ulcer on left hip that is draining -blood culture, urine culture, wound culture pending -currently on vanc -General surgery on consult, Dr. Hopper -ID on consult, Dr. Stewart Microcytic anemia -low hemoglobin on admission with low MCV and elevated RDW -concerning for anemia of chronic disease vs iron deficiency -Iron studies, B12, folate pending -peripheral smear pending -retic count pending Dehydration -normotensive, tachycardic -elevated BUN -NS @ 100cc/hr Alzheimer's dementia -continue home aricept, namenda Hypothyroidism -TSH, T4 pending -continue home synthroid PPX with pepcid. Holding DVT ppx at this time due to possibility of surgery. Patient seen and case discussed with attending, Dr. Anjum Michelle, PGY-1
--- NOTE | 2018-08-09 02:00 | CP.PCM.CON ---
<Caity Ayala - Last Filed: 08/09/18 02:13> History of Present Illness - History of Present Illness History of Present Illness: General surgery consult for Dr. Hopper Consulted for: BL hip and sacral pressure ulcer Pt unable to communicate. HPI taken from chart and via phone Pt is a 73 y/o bed bound M with PMH including chronic left hip ulcer, alzheimers dementia, and CVA on ASA at home who presented to the ER from home for a few days of decreased appetite and increased somnolence and worsened left hip ulcer. Patient has been admitted to [facility] 2 times in 3 months for failure to thrive, dehydration, and left hip wound. 2 months ago patient was discharged to home with home nursing visits. Patient's was contacted via telephone and stated she has been performing daily dressing changes with santyl, but it is difficult for her to tend to the wounds and clean him d/t her own physical ailments. She reports patient has been hot to the touch, but did not take temperature, states that patient appears to be in pain during dressing changes and has had a nocturnal cough, but denies any SOB, diarrhea, or any other symptoms. Patient is non-verbal but appears comfortable. PMH: chronic left hip ulcer, alzheimers dementia, CVA, HLD PSH: none ALL: NKDA Social: remote history of 2-3 years of 1PPD cigarette use, remote history of drinking >2servings of beer or liquor/day for 10 years, no illicit drugs Review of Systems - Review of Systems All systems: reviewed and no additional remarkable complaints except (as per hpi ) Past Patient History - Infectious Disease Hx of Infectious Diseases: None - Tetanus Immunizations Tetanus Immunization: Unknown - Past Medical History & Family History Past Medical History?: No Past Family History: Reviewed and not pertinent - Past Social History Smoking Status: Former Smoker Alcohol: Other (former heavy drinker) Drugs: Denies Home Situation {Lives}: With Family - CARDIAC Hx Cardiac Disorders: No - PULMONARY Hx Respiratory Disorders: No - NEUROLOGICAL Hx Neurological Disorder: Yes Hx Alzheimer's Disease: Yes - HEENT Hx HEENT Problems: No - RENAL Hx Chronic Kidney Disease: No - ENDOCRINE/METABOLIC Hx Hypothyroidism: Yes - HEMATOLOGICAL/ONCOLOGICAL Hx Blood Disorders: No - INTEGUMENTARY Hx Dermatological Problems: No - MUSCULOSKELETAL/RHEUMATOLOGICAL Hx Musculoskeletal Disorders: Yes Hx Falls: Yes - GASTROINTESTINAL Hx Gastrointestinal Disorders: No - GENITOURINARY/GYNECOLOGICAL Hx Genitourinary Disorders: No - PSYCHIATRIC Hx Psychophysiologic Disorder: No Hx Substance Use: No - SURGICAL HISTORY Hx Amputation: No Hx Appendectomy: No Hx Cardiac Catheterization: No Hx Cholecystectomy: No Hx Coronary Stent: No Hx Gastric Bypass Surgery: No Hx Hysterectomy: No Hx Joint Replacement: No Hx Kidney Transplant: No Hx Liver Transplant: No Hx Mastectomy: No Hx Musculoskeletal Surgery: No Hx Open Heart Surgery: No Hx Orthopedic Surgery: No Hx Splenectomy: No Hx Valve Replacement: No - ANESTHESIA Hx Anesthesia: No Meds Allergies/Adverse Reactions: Allergies Allergy/AdvReac Type Severity Reaction Status Date / Time No Known Allergies Allergy Unverified 01/02/18 14:18 - Medications Medications: Current Medications Aspirin (Ecotrin) 81 mg PO DAILY [facility] Atorvastatin Calcium (Lipitor) 10 mg PO DIN [facility] Collagenase (Santyl) 1 gm TOP BID [facility] Donepezil HCl (Aricept) 5 mg PO HS [facility] Famotidine (Pepcid) 20 mg PO DAILY [facility] Heparin Sodium (Porcine) (Heparin) 5,000 units SC Q12 [facility] PRN Reason: Protocol Vancomycin HCl (Vancomycin 1gm) 1 gm in 250 mls @ 167 mls/hr IVPB Q12H [facility] PRN Reason: Protocol Lactated Ringer's (Lactated Ringer's) 1,000 mls @ 100 mls/hr IV .Q10H [facility] Levothyroxine Sodium (Synthroid) 50 mcg PO DAILY [facility] Memantine (Namenda) 5 mg PO BID [facility] Silver Sulfadiazine (Silvadene 1% 25 Gm) 1 gm TP BID [facility] Physical Exam - Constitutional Appears: Well, Non-toxic, No Acute Distress - Head Exam Head Exam: ATRAUMATIC, NORMOCEPHALIC - Eye Exam Eye Exam: Normal appearance. absent: Conjunctival injection, Scleral icterus - ENT Exam ENT Exam: Mucous Membranes Dry - Respiratory Exam Respiratory Exam: NORMAL BREATHING PATTERN. absent: Accessory Muscle Use, Respiratory Distress - Cardiovascular Exam Cardiovascular Exam: Tachycardia, REGULAR RHYTHM - GI/Abdominal Exam GI & Abdominal Exam: Soft. absent: Distended, Tenderness - Extremities Exam Extremities exam: Negative for: calf tenderness, pedal edema Additional comments: no pedal wounds, feet normal color and temperature Left hip with inferior ulcer stage 4 with necrotic tissue present, foul smell, approximately 2cm in diameter, with undermining in the superior aspect. Second unstageable ulcer approximately 4cm superior on the left hip. Purulent drainage expressed into the inferior ulcer when pressure applied to intact tissue between the ulcers, Minimal surrounding erythema, no palpable crepitus. right hip with 2 stage two pressure ulcers with no crepitus, surrounding erythema, or palpable fluctuance - Back Exam Back exam: absent: CVA tenderness (L), CVA tenderness (R) Additional comments: 6cm x 3cm stage 3 sacral ulcer with no erythema, drainage, or fluctuance - Neurological Exam Neurological exam: Alert, Altered - Psychiatric Exam Psychiatric exam: Normal Affect, Normal Mood - Skin Skin Exam: Dry, Normal Color, Warm Results - Vital Signs Recent Vital Signs: Last Vital Signs Temp 98.6 F 08/08/18 21:34 Pulse 106 H 08/09/18 00:24 Resp 18 08/09/18 00:24 BP 112/76 08/09/18 00:24 Pulse Ox 99 08/09/18 00:49 - Labs Result Diagrams: 08/08/18 21:59 08/08/18 21:59 Labs: Laboratory Results - last 24 hr 08/08/18 08/09/18 23:44 00:14 pO2 36 VBG pH 7.39 VBG pCO2 53.0 VBG HCO3 32.1 H VBG Total CO2 33.7 H VBG O2 Sat (Calc) 69.2 H VBG Base Excess 5.7 H VBG Potassium 4.3 Sodium 142.0 Chloride 106.0 Glucose 111 H Lactate 1.3 FiO2 21.0 Venous Blood Potassium 4.3 Urine Color Yellow Urine Appearance Sl cloudy Urine pH 6.0 Ur Specific [place] 1.025 Urine Protein 30 H Urine Glucose (UA) Negative Urine Ketones Trace H Urine Blood Negative Urine Nitrate Negative Urine Bilirubin Negative Urine Urobilinogen 1.0 H Ur Leukocyte Esterase Negative Urine RBC 0 - 2 Urine WBC 1 - 3 Ur Epithelial Cells 1 - 3 Urine Bacteria Rare Urine Other Mucus Assessment & Plan - Assessment and Plan (Free Text) Assessment: 73M with leukocytosis, dehydration, Stage 4 and unstageable ulcer of the left hip, stage 3 sacral ulcer, and stage 2 right hip ulcer x2. Plan: Trend CBC, CMP, mag, and phos F/U wound culture F/U ID recs Left hip stage 4 ulcer packed with gauze at bedside: BID dressing change with santyl left hip, silvadene right hip and sacral ulcers Possible OR or further bedside debridement in the AM Continue IV antibiotics Continue IVF Air mattress, turn Q2, nutritional consult NPO pending further surgical planning Will discuss with Dr. Hopper, further recommendations per him Caity Ayala, PYG2 <Minh Hopper - Last Filed: 08/09/18 17:18> Meds - Medications Medications: Current Medications Atorvastatin Calcium (Lipitor) 10 mg PO DIN [facility] Collagenase (Santyl) 1 gm TOP BID [facility] Last Admin: 08/09/18 11:13 Dose: Not Given Donepezil HCl (Aricept) 5 mg PO HS [facility] Famotidine (Pepcid) 20 mg PO DAILY [facility] Last Admin: 08/09/18 11:12 Dose: Not Given Vancomycin HCl (Vancomycin 1gm) 1 gm in 250 mls @ 167 mls/hr IVPB Q12H [facility] PRN Reason: Protocol Last Admin: 08/09/18 11:22 Dose: 167 mls/hr Lactated Ringer's (Lactated Ringer's) 1,000 mls @ 100 mls/hr IV .Q10H [facility] Last Admin: 08/09/18 02:09 Dose: 100 mls/hr Meropenem (Merrem Iv 1 Gm Premix) 50 mls @ 100 mls/hr IVPB Q8 [facility] PRN Reason: Protocol Stop: 08/16/18 14:01 Last Admin: 08/09/18 14:04 Dose: 100 mls/hr Levothyroxine Sodium (Synthroid) 50 mcg PO DAILY [facility] Last Admin: 08/09/18 11:18 Dose: Not Given Memantine (Namenda) 5 mg PO BID [facility] Last Admin: 08/09/18 11:12 Dose: Not Given Silver Sulfadiazine (Silvadene 1% 25 Gm) 1 gm TP BID [facility] Last Admin: 08/09/18 11:18 Dose: Not Given Results - Vital Signs Recent Vital Signs: Last Vital Signs Temp 98.4 F 08/09/18 14:00 Pulse 76 08/09/18 14:00 Resp 16 08/09/18 14:00 BP 108/71 08/09/18 14:00 Pulse Ox 94 L 08/09/18 14:00 - Labs Result Diagrams: 08/09/18 06:15 08/09/18 06:15 Labs: Laboratory Results - last 24 hr 08/08/18 08/09/18 08/09/18 23:44 00:14 06:15 WBC 15.7 H RBC 3.80 Hgb 8.5 L Hct 26.1 L MCV 68.7 L MCH 22.4 L MCHC 32.6 RDW 15.5 H Plt Count 531 H MPV 9.3 Gran % 79.8 H Lymph % (Auto) 11.2 L Ector % (Auto) 7.9 H Eos % (Auto) 0.8 L Baso % (Auto) 0.3 Gran # 12.50 H Lymph # (Auto) 1.8 Ector # (Auto) 1.2 H Eos # (Auto) 0.1 Baso # (Auto) 0.04 Differential Comment Cancelled ESR Retic Count 1.01 PT INR APTT pO2 36 VBG pH 7.39 VBG pCO2 53.0 VBG HCO3 32.1 H VBG Total CO2 33.7 H VBG O2 Sat (Calc) 69.2 H VBG Base Excess 5.7 H VBG Potassium 4.3 Sodium 142.0 Chloride 106.0 Glucose 111 H Lactate 1.3 FiO2 21.0 Potassium Carbon Dioxide Anion Gap BUN Creatinine Est GFR ( Amer) Est GFR (Non-Af Amer) Random Glucose Calcium Phosphorus Magnesium Iron TIBC % Saturation Total Bilirubin AST ALT Alkaline Phosphatase C-Reactive Protein Total Protein Albumin Globulin Albumin/Globulin Ratio Prealbumin Vitamin B12 Folate Free T4 Thyroxine (T4) TSH 3rd Generation Venous Blood Potassium 4.3 Urine Color Yellow Urine Appearance Sl cloudy Urine pH 6.0 Ur Specific [place] 1.025 Urine Protein 30 H Urine Glucose (UA) Negative Urine Ketones Trace H Urine Blood Negative Urine Nitrate Negative Urine Bilirubin Negative Urine Urobilinogen 1.0 H Ur Leukocyte Esterase Negative Urine RBC 0 - 2 Urine WBC 1 - 3 Ur Epithelial Cells 1 - 3 Urine Bacteria Rare Urine Other Mucus 08/09/18 08/09/18 08/09/18 06:15 06:15 06:15 WBC RBC Hgb Hct MCV MCH MCHC RDW Plt Count MPV Gran % Lymph % (Auto) Ector % (Auto) Eos % (Auto) Baso % (Auto) Gran # Lymph # (Auto) Ector # (Auto) Eos # (Auto) Baso # (Auto) Differential Comment ESR Retic Count PT INR APTT pO2 VBG pH VBG pCO2 VBG HCO3 VBG Total CO2 VBG O2 Sat (Calc) VBG Base Excess VBG Potassium Sodium 141 Chloride 107 Glucose Lactate FiO2 Potassium 3.8 Carbon Dioxide 29 Anion Gap 9 L BUN 32 H Creatinine 0.6 L Est GFR ( Amer) > 60 Est GFR (Non-Af Amer) > 60 Random Glucose 102 Calcium 9.1 Phosphorus 4.7 H Magnesium 2.3 H Iron 24 L TIBC 193 L % Saturation 13 L Total Bilirubin 0.3 AST 31 ALT 16 Alkaline Phosphatase 53 C-Reactive Protein Total Protein 6.9 Albumin 3.2 Globulin 3.7 Albumin/Globulin Ratio 0.9 L Prealbumin 8.4 L Vitamin B12 860 Folate 6.0 Free T4 Thyroxine (T4) 5.6 TSH 3rd Generation 5.09 H Venous Blood Potassium Urine Color Urine Appearance Urine pH Ur Specific [place] Urine Protein Urine Glucose (UA) Urine Ketones Urine Blood Urine Nitrate Urine Bilirubin Urine Urobilinogen Ur Leukocyte Esterase Urine RBC Urine WBC Ur Epithelial Cells Urine Bacteria Urine Other 08/09/18 08/09/18 08/09/18 06:15 08:00 08:00 WBC RBC Hgb Hct MCV MCH MCHC RDW Plt Count MPV Gran % Lymph % (Auto) Ector % (Auto) Eos % (Auto) Baso % (Auto) Gran # Lymph # (Auto) Ector # (Auto) Eos # (Auto) Baso # (Auto) Differential Comment ESR 70 H Retic Count PT 16.5 H INR 1.42 APTT 25.4 pO2 VBG pH VBG pCO2 VBG HCO3 VBG Total CO2 VBG O2 Sat (Calc) VBG Base Excess VBG Potassium Sodium Chloride Glucose Lactate FiO2 Potassium Carbon Dioxide Anion Gap BUN Creatinine Est GFR ( Amer) Est GFR (Non-Af Amer) Random Glucose Calcium Phosphorus Magnesium Iron TIBC % Saturation Total Bilirubin AST ALT Alkaline Phosphatase C-Reactive Protein 154.10 H Total Protein Albumin Globulin Albumin/Globulin Ratio Prealbumin Vitamin B12 Folate Free T4 Thyroxine (T4) TSH 3rd Generation Venous Blood Potassium Urine Color Urine Appearance Urine pH Ur Specific [place] Urine Protein Urine Glucose (UA) Urine Ketones Urine Blood Urine Nitrate Urine Bilirubin Urine Urobilinogen Ur Leukocyte Esterase Urine RBC Urine WBC Ur Epithelial Cells Urine Bacteria Urine Other 08/09/18 12:00 WBC RBC Hgb Hct MCV MCH MCHC RDW Plt Count MPV Gran % Lymph % (Auto) Ector % (Auto) Eos % (Auto) Baso % (Auto) Gran # Lymph # (Auto) Ector # (Auto) Eos # (Auto) Baso # (Auto) Differential Comment ESR Retic Count PT INR APTT pO2 VBG pH VBG pCO2 VBG HCO3 VBG Total CO2 VBG O2 Sat (Calc) VBG Base Excess VBG Potassium Sodium Chloride Glucose Lactate FiO2 Potassium Carbon Dioxide Anion Gap BUN Creatinine Est GFR ( Amer) Est GFR (Non-Af Amer) Random Glucose Calcium Phosphorus Magnesium Iron TIBC % Saturation Total Bilirubin AST ALT Alkaline Phosphatase C-Reactive Protein Total Protein Albumin Globulin Albumin/Globulin Ratio Prealbumin Vitamin B12 Folate Free T4 1.40 Thyroxine (T4) TSH 3rd Generation Venous Blood Potassium Urine Color Urine Appearance Urine pH Ur Specific [place] Urine Protein Urine Glucose (UA) Urine Ketones Urine Blood Urine Nitrate Urine Bilirubin Urine Urobilinogen Ur Leukocyte Esterase Urine RBC Urine WBC Ur Epithelial Cells Urine Bacteria Urine Other Assessment & Plan - Assessment and Plan (Free Text) Plan: I personally saw and examined the patient with the resident staff, reviewed the available diagnostic CT images and imaging reports and agree with the above.73 male progressive dementia, bed bound, admitted with bilateral trochanteric and sacral decubitus ulcers, stages 2-3/4. Left hip debridement at bedside with eschar removal, f/u tissue cultures. Collegenase to other sites. Wound care therapist consult for local wound care. Continue Vanc.Zosyn. Nutrition - Date & Time Date: 08/09/18 Time: 09:00
[2018-08-09 02:03] VITALS: BMI 18.6
[2018-08-09] MEDS: Lactated Ringer's 1,000 ML IV SCH ×2 (02:09→21:23)
[2018-08-09 06:46] LABS: BASO # 0.04 K/mm3 (0.0-2.0); BASO % 0.3 % (0.0-3.0); EOS # 0.1 (0.0-0.7); EOS % 0.8 % (1.5-5.0); GRAN % 79.8 % (50.0-68.0); HEMOGLOBIN 8.5 g/dL (14.0-18.0); LYMPH # 1.8 (1.2-3.4); LYMPH % 11.2 % (22.0-35.0); MEAN CELL VOLUME 68.7 fl (80.0-105.0); MEAN CORPUSCULAR HEMOGLOBIN 22.4 pg (25.0-35.0); MEAN CORPUSCULAR HGB CONC 32.6 g/dl (31.0-37.0); MEAN PLATELET VOLUME 9.3 fl (7.0-11.0); MONO # 1.2 (0.1-0.6); MONO % 7.9 % (1.0-6.0); PLATELET COUNT 531 10^3/uL (120.0-450.0); RED CELL DISTRIBUTION WIDTH 15.5 % (11.5-14.5); WHITE BLOOD COUNT 15.7 10^3/ul (4.5-11.0)
[2018-08-09 06:49] LABS: INR 1.42; PARTIAL THROMBOPLASTIN TIME 25.4 Seconds (25.1-36.5); PROTHROMBIN TIME 16.5 SECONDS (9.4-12.5)
[2018-08-09 06:57] LABS: IRON 24 ug/dL (45-180)
[2018-08-09 07:06] LABS: % IRON SATURATION 13 % (20-55); TOTAL IRON BINDING CAPACITY 193 ug/dL (261-462)
[2018-08-09 07:13] LABS: T4 5.6 ug/dL (5.5-11.0)
[2018-08-09 07:16] LABS: ALB/GLOB RATIO 0.9 (1.1-1.8); ALBUMIN 3.2 g/dL (3.0-4.8); ALT/SGPT 16 U/L (7-56); AST/SGOT 31 U/L (17-59); BLOOD UREA NITROGEN 32 mg/dL (7-21); CALCIUM 9.1 mg/dL (8.4-10.5); GFR NON-AFRICAN AMERICAN > 60
[2018-08-09] MEDS ORDERED: Iohexol 350 MG/100 ML VIAL ONE (07:23)
--- NOTE | 2018-08-09 08:58 | CT ---
Date of service: 08/09/2018 PROCEDURE: CT Pelvis with PO contrast HISTORY: multiple pressure ulcer COMPARISON: None available. TECHNIQUE: Contiguous axial images of the pelvis following administration of Oral contrast. No intravenous contrast given. Coronal and sagittal reformats generated. Radiation dose: Total exam DLP = 158 mGy-cm. This CT exam was performed using one or more of the following dose reduction techniques: Automated exposure control, adjustment of the mA and/or kV according to patient size, and/or use of iterative reconstruction technique. FINDINGS: BLADDER: Unremarkable. No mass. REPRODUCTIVE ORGANS: Unremarkable. VISUALIZED BOWEL: Unremarkable. PERITONEUM: Unremarkable, as visualized. No free fluid. No free air. LYMPH NODES: Unremarkable. No enlarged lymph nodes. BONES: No fracture or focal lesion. No evidence of osteomyelitis VASCULATURE: Unremarkable. OTHER FINDINGS: Multiple fluid and air collections are seen consistent with abscess formation. There is diffuse subcutaneous edema There is a fluid and gas collection near the tip of the coccyx measuring 2 cm in diameter There is a 2 x 6 cm fluid and air collection lateral to the left hip. On the right side inferior and posterior to the ischium there is a 2.3 x 5.7 cm collection with an enhancing rim. There is no air in this collection. There is a smaller collection in a similar location on the left side measuring 1.8 x 2.5 cm. IMPRESSION: Multiple subcutaneous fluid and air collections consistent with abscess. No evidence of osteomyelitis
--- NOTE | 2018-08-09 09:22 | RAD ---
Date of service: 08/08/2018 HISTORY: weakness COMPARISON: Portable chest 06/25/2018. FINDINGS: LUNGS: No active pulmonary disease. PLEURA: No significant pleural effusion identified, no pneumothorax apparent. CARDIOVASCULAR: Normal. OSSEOUS STRUCTURES: No significant abnormalities. VISUALIZED UPPER ABDOMEN: Normal. OTHER FINDINGS: None. IMPRESSION: No interval acute cardiopulmonary disease appreciated.
--- NOTE | 2018-08-09 09:46 | CARD ---
APPROVED REPORT Date of service: 08/08/2018 EKG Measurement Heart [id number] <Conclusion> Sinus tachycardia with premature atrial complexes Otherwise normal ECG
[2018-08-09] MEDS: Collagenase 250 Units/gm Ointment(30 gm) TOP SCH ×2 (11:13→17:57)
[2018-08-09] MEDS: Silver Sulfadiazine 1% Cream (25 gm) TP SCH ×2 (11:18→17:57)
[2018-08-09] MEDS: Levothyroxine 50 MCG TAB PO SCH (11:18)
[2018-08-09] MEDS: Vancomycin 1gm in NS 250ml 1 GM/250 ML BAG IVPB SCH ×2 (11:22→22:48)
--- NOTE | 2018-08-09 11:40 | PCM.SURG1 ---
Surgeon's Initial Post Op Note - Surgeon's Notes Surgeon: Dr. Hopper Ciaio Counter Molder: Dr. Swanson PGY3 Type of Anesthesia: Local Pre-Operative Diagnosis: Left Hip/Gluteal Infected Decubitus Ulcer Operative Findings: Necrotic tissue and purulence Post-Operative Diagnosis: Infected Left hip decubitus ulcer Operation Performed: Debridment of left hip decubitus ulcer with 15 blade Specimen/Specimens Removed: Necrotic tissue Estimated Blood Loss: EBL {In ML}: 1 Blood Products Given: N/A Drains Used: No Drains Post-Op Condition: Good Date of Surgery/Procedure: 08/09/18 Time of Surgery/Procedure: 11:40
[2018-08-09 12:15] LABS: PREALBUMIN 8.4 mg/dL (17.6-36.0)
[2018-08-09] MEDS ORDERED: Piperacillin/Tazobact 3.375 gm 100 ML IVPB SCH (12:22)
[2018-08-09] MEDS: Meropenem IV 1 gm in NS 50 ML IVPB SCH ×2 (14:04→21:24)
--- NOTE | 2018-08-09 21:23 | CON ---
DATE: 08/09/2018 LOCATION: The patient is seen earlier today in 567, bed 2. CHIEF COMPLAINT: Wound infection times several days. HISTORY OF PRESENT ILLNESS: This is a 73-year-old male who appears much older than stated age with Alzheimer's dementia, thyroid disease, cerebrovascular accident, had recently been in the hospital had Pseudomonas from the wound infection, now is readmitted with tachycardia, leukocytosis and drainage from the wound in purulent odor. REVIEW OF SYSTEMS: Reveals the patient has no fevers and no chills. No abdominal pain, diarrhea or constipation. No bright red blood per rectum. No melena. No dysuria or frequency. No headaches and blurred vision. A 12-point review of systems was performed. PAST MEDICAL HISTORY: Significant for Alzheimer's dementia, thyroid disease, cerebrovascular accident and recent Pseudomonas colonizer in his wound. PAST SURGICAL HISTORY: Noncontributory. ALLERGIES: THE PATIENT HAS NO KNOWN ALLERGIES. PHYSICAL EXAMINATION: VITAL SIGNS: The patient's temperature is 98, heart rate of 110, respiratory rate of 18, blood pressure 112/63. HEENT: Unremarkable. NECK: Supple. LUNGS: Have decreased breath sounds. HEART: Normal S1, S2. ABDOMEN: Soft, nontender. SKIN: Examination of the sacrum exam with the surgical team had necrotic tissue foul odorous, purulent material. LABORATORY EXAMINATION: Reveals a white count of 16,200. Chemistries are noted to have negative urinalysis. Chemistries reveals a BUN of 32, creatinine 0.6. The LFTs are normal. No bandemia. However, 79% granulocytosis. ASSESSMENT AND PLAN: This is a 73-year-old male who is cachectic and chronically ill with a body mass index of 18, presenting with sepsis with a left decubitus cellulitis and necrotic tissue foul odorous. We will start the patient on vancomycin, meropenem, local wound cultures, blood cultures. The patient is to be taken to the OR for debridement. We will check on a debridement cultures and we will make further recommendation, must rule out underlying osteomyelitis. We will follow with you. Raul Mo MD
[2018-08-10] MEDS: Meropenem IV 1 gm in NS 50 ML IVPB SCH ×3 (06:03→22:01)
--- NOTE | 2018-08-10 06:21 | CP.PCM.PN ---
<Susana Rush - Last Filed: 08/10/18 17:41> Subjective - Date & Time of Evaluation Date of Evaluation: 08/10/18 Time of Evaluation: 07:40 - Subjective Subjective: PGY-1 Susana Rush D.O. Medicine progress note for Dr. Hopper's service: Patient is seen and examined this morning. Patient had some urinary retention yesterday (bladder scan 480cc), and Madrigal cath was inserted. Patient is now on air mattress for his pressure ulcers. He is eating and drinking fairly well. He denies pain. Rest of speech is soft and unintelligible. Objective - Vital Signs/Intake and Output Vital Signs (last 24 hours): Temp Pulse Resp BP Pulse Ox 99.4 F 115 H 2 L 108/66 98 08/09/18 22:35 08/09/18 22:35 08/09/18 22:35 08/09/18 22:35 08/09/18 22:35 - Medications Medications: Current Medications Atorvastatin Calcium (Lipitor) 10 mg PO DIN [facility] Last Admin: 08/09/18 17:57 Dose: 10 mg Collagenase (Santyl) 1 gm TOP BID [facility] Last Admin: 08/09/18 17:57 Dose: 1 gm Donepezil HCl (Aricept) 5 mg PO HS [facility] Last Admin: 08/09/18 21:24 Dose: 5 mg Famotidine (Pepcid) 20 mg PO DAILY [facility] Last Admin: 08/09/18 11:12 Dose: Not Given Vancomycin HCl (Vancomycin 1gm) 1 gm in 250 mls @ 167 mls/hr IVPB Q12H [facility] PRN Reason: Protocol Last Admin: 08/09/18 22:48 Dose: 167 mls/hr Lactated Ringer's (Lactated Ringer's) 1,000 mls @ 100 mls/hr IV .Q10H [facility] Last Admin: 08/09/18 21:23 Dose: 100 mls/hr Meropenem (Merrem Iv 1 Gm Premix) 50 mls @ 100 mls/hr IVPB Q8 [facility] PRN Reason: Protocol Stop: 08/16/18 14:01 Last Admin: 08/10/18 06:03 Dose: 100 mls/hr Levothyroxine Sodium (Synthroid) 50 mcg PO DAILY [facility] Last Admin: 08/09/18 11:18 Dose: Not Given Memantine (Namenda) 5 mg PO BID [facility] Last Admin: 08/09/18 17:57 Dose: 5 mg Silver Sulfadiazine (Silvadene 1% 25 Gm) 1 gm TP BID [facility] Last Admin: 08/09/18 17:57 Dose: 1 gm - Labs Labs: 08/09/18 06:15 08/09/18 06:15 PT 16.5 SECONDS (9.4-12.5) H 08/09/18 06:15 INR 1.42 08/09/18 06:15 APTT 25.4 Seconds (25.1-36.5) 08/09/18 06:15 - Constitutional Appears: No Acute Distress, Older Than Stated Age, Cachectic, Chronically Ill - Head Exam Head Exam: ATRAUMATIC, NORMAL INSPECTION, NORMOCEPHALIC - Eye Exam Eye Exam: EOMI, Normal appearance, PERRL - ENT Exam ENT Exam: Mucous Membranes Moist - Neck Exam Neck Exam: Normal Inspection - Respiratory Exam Respiratory Exam: Clear to Ausculation Bilateral, NORMAL BREATHING PATTERN - Cardiovascular Exam Cardiovascular Exam: Tachycardia (120s), REGULAR RHYTHM, +S1, +S2 - GI/Abdominal Exam GI & Abdominal Exam: Soft, Normal Bowel Sounds. absent: Tenderness - Rectal Exam Rectal Exam: Deferred - Exam Additional comments: Madrigal cath in place and draining yellow urine - Extremities Exam Extremities Exam: absent: Pedal Edema - Neurological Exam Neurological Exam: Alert, Awake. absent: Normal Gait (unable to ambulate), Oriented x3 - Psychiatric Exam Psychiatric exam: Flat Affect - Skin Additional comments: Left hip decubitus ulcer stage 4 measuring 3 x 4 cm that is draining pus with necrotic central tissue noted and erythematous margins. Right hip decubitus ulcer stage 2 that is not bleeding/draining. Assessment and Plan - Assessment and Plan (Free Text) Assessment: Patient is a 73 yo male with a history of dementia, CVAs, and hypothyroidism who presented due to decreased oral intake and generalized weakness. He has multiple pressure ulcers. He appears very cachetic. Family would like placement in NH/rehab. 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 Hopper- I&D on 08/09 -ID on consult, Dr. Stewart- probable Pseudomonas Microcytic anemia, worsening-concerning for anemia of chronic disease vs iron deficiency -low hemoglobin on admission with low MCV and elevated RDW -B12 wnl (860), folate wnl (6) -Iron low (24), TIBC low (193), % sat low (13) -peripheral smear- microcytic, hypochronic, mild anisopoikilocytosis, few target cells. few ovalocytes, few schistocytes, large Plts -retic count 1 -FOBT negative Dehydration- normotensive, tachycardic (sinus) -elevated BUN -UA ketones -given IVF (NS) on admission Dementia- previously diagnosed as Alzheimer's -continue home aricept, namenda Hypothyroidism -TSH high (5.09) -T4 wnl (1.4) -continue home synthroid 50 mcg PO daily PPX with pepcid. Holding DVT ppx. PT- ENID IVF: not indicated GI ppx: Pepcid 20 mg PO daily VTE ppx: Diet: pureed diet/nectar thick liquids, 3 Ensure Enlive daily Code status: full code- f/u palliative Case discussed with attending, Dr. Hopper. <Adelaida Hopper R - Last Filed: 08/11/18 18:09> Objective - Vital Signs/Intake and Output Vital Signs (last 24 hours): Temp Pulse Resp BP Pulse Ox 100.4 F H 65 18 105/67 95 08/11/18 14:00 08/11/18 14:00 08/11/18 14:00 08/11/18 14:00 08/11/18 14:00 - Medications Medications: Current Medications Atorvastatin Calcium (Lipitor) 10 mg PO DIN [facility] Last Admin: 08/11/18 17:49 Dose: 10 mg Collagenase (Santyl) 1 gm TOP BID [facility] Last Admin: 08/11/18 17:31 Dose: 1 gm Donepezil HCl (Aricept) 5 mg PO HS [facility] Last Admin: 08/10/18 22:01 Dose: 5 mg Famotidine (Pepcid) 20 mg PO DAILY [facility] Last Admin: 08/11/18 10:42 Dose: 20 mg Vancomycin HCl (Vancomycin 1gm) 1 gm in 250 mls @ 167 mls/hr IVPB Q12H [facility] PRN Reason: Protocol Last Admin: 08/11/18 13:02 Dose: 167 mls/hr Meropenem (Merrem Iv 1 Gm Premix) 50 mls @ 100 mls/hr IVPB Q8 [facility] PRN Reason: Protocol Stop: 08/16/18 14:01 Last Admin: 08/11/18 13:02 Dose: 100 mls/hr Levothyroxine Sodium (Synthroid) 50 mcg PO DAILY [facility] Last Admin: 08/11/18 10:42 Dose: 50 mcg Memantine (Namenda) 5 mg PO BID [facility] Last Admin: 08/11/18 17:49 Dose: 5 mg Potassium Chloride (Klor-Con 10) 10 meq PO BRK [facility] Silver Sulfadiazine (Silvadene 1% 25 Gm) 1 gm TP BID [facility] Last Admin: 08/11/18 17:32 Dose: 1 gm - Labs Labs: 08/11/18 07:00 08/11/18 07:00 PT 16.5 SECONDS (9.4-12.5) H 08/09/18 06:15 INR 1.42 08/09/18 06:15 APTT 25.4 Seconds (25.1-36.5) 08/09/18 06:15 Attending/Attestation - Attestation I have personally seen and examined this patient.: Yes I have fully participated in the care of the patient.: Yes I have reviewed all pertinent clinical information, including history, physical exam and plan: Yes Notes (Text): Patient seen and examined by me at 11:30AM with resident 08/10/18. Case including HPI, physical exam, and assessment and plan discussed with resident. Agree with above with following additions/corrections. Patient is 73-year-old male with past medical history significant for nonhealing stage IV left hip decubitus ulcer, multivitamin dementia, hypothyroidism, CVA, and failure to thrive that presented to emergency room with generalized weakness and decreased appetite. Patient with dementia. Patient is not answering questions appropriately. Unable to obtain any history from patient. No new issues per nurse. Patient is afebrile. Physical exam: General: Awake and alert lying in bed in no acute distress, very cachectic appearing HEENT: Normocephalic atraumatic. Pupils equal reactive. No scleral icterus. Oropharynx is pink. Positive dry mucous membranes. Poor dentition. Neck is supple. Cardiovascular: Normal rhythm. Normal S1, S2. No murmurs, rubs or gallops appreciated Pulmonary: Normal respiratory effort. No rhonchi, rales or wheezing appreciated. Patient does not take in deep breaths when asked to. Gastrointestinal: Soft, nondistended. Nontender. Positive bowel sounds all 4 quadrants, no guarding. Musculoskeletal: Moves all extremities, no calf tenderness. Central nervous system: Awake and alert. Patient not following commands. Dermatologic: Skin warm and dry. Left hip ulcer dressing clean dry and intact. Right hip stage II pressure ulcers with dressing intact Assessment and plan: Patient is 73-year-old male with past medical history significant for nonhealing stage IV left hip decubitus ulcer, multivitamin dementia, hypothyroidism, CVA, and failure to thrive that presented to emergency room with generalized weakness and decreased appetite. 1. Multiple sacral ulcers present on admission. Surgery following, recommendations appreciated. Patient is status post left hip debridement at bedside with a eschar removal. Continue Santyl. ID following, recommendations appreciated. Continue meropenem and vancomycin. Continue silver sulfadiazine. Wound cultures pending. Cultures with no growth. Patient afebrile. Leukocytosis downtrending. Pelvis CT per radiologist shows multiple subcutaneous fluid and air collections consistent with abscess, no evidence of ulcer osteomyelitis. 2. Failure to thrive. PT eval and treat. Dietitian consult. Continue dysphagia diet. Continue aspiration precautions. 3. Microcytic anemia. H&H downtrending. Stool for occult blood negative. May be dilutional. No signs of acute bleeding. Follow up CT abd/pelvis. Continue to monitor CBC 4. Dehydration. Status post IV fluids. BUN improved. Encouarge PO intake. 5. Hypothyroidism. Continue Synthroid. 6. Dementia. Continue Aricept and Namenda 7. Code status. Unsure. Palliative care consulted.
[2018-08-10 07:14] LABS: BASO # 0.07 K/mm3 (0.0-2.0); BASO % 0.5 % (0.0-3.0); EOS # 0.3 (0.0-0.7); EOS % 2.1 % (1.5-5.0); GRAN # 11.84 (1.4-6.5); GRAN % 78.9 % (50.0-68.0); HEMOGLOBIN 7.8 g/dL (14.0-18.0); LYMPH # 1.9 (1.2-3.4); LYMPH % 12.3 % (22.0-35.0); MEAN CELL VOLUME 69.4 fl (80.0-105.0); MEAN CORPUSCULAR HEMOGLOBIN 22.1 pg (25.0-35.0); MEAN CORPUSCULAR HGB CONC 31.8 g/dl (31.0-37.0); MONO # 0.9 (0.1-0.6); MONO % 6.2 % (1.0-6.0); RBC 3.53 10^6/uL (3.5-6.1); RED CELL DISTRIBUTION WIDTH 15.4 % (11.5-14.5)
[2018-08-10 07:42] LABS: ALB/GLOB RATIO 0.8 (1.1-1.8); ALBUMIN 2.8 g/dL (3.0-4.8); ALT/SGPT 16 U/L (7-56); AST/SGOT 38 U/L (17-59); BLOOD UREA NITROGEN 22 mg/dL (7-21); CALCIUM 8.7 mg/dL (8.4-10.5); GFR NON-AFRICAN AMERICAN > 60
--- NOTE | 2018-08-10 08:09 | CP.PCM.PN ---
Subjective - Date & Time of Evaluation Date of Evaluation: 08/10/18 Time of Evaluation: 06:50 - Subjective Subjective: Evangelist Higginbotham DO, PGY-1 Surgery Progress Note for Dr. Hopper Patient was seen and examined at bedside with surgery team. No acute events overnight. He is mostly non-verbal but was able to acknowledge that he is not in significant pain. He appeared uncomfortable during wound dressing changes. Objective - Vital Signs/Intake and Output Vital Signs (last 24 hours): Temp Pulse Resp BP Pulse Ox 99.4 F 115 H 2 L 108/66 98 08/09/18 22:35 08/09/18 22:35 08/09/18 22:35 08/09/18 22:35 08/09/18 22:35 - Medications Medications: Current Medications Atorvastatin Calcium (Lipitor) 10 mg PO DIN [facility] Last Admin: 08/09/18 17:57 Dose: 10 mg Collagenase (Santyl) 1 gm TOP BID [facility] Last Admin: 08/09/18 17:57 Dose: 1 gm Donepezil HCl (Aricept) 5 mg PO HS [facility] Last Admin: 08/09/18 21:24 Dose: 5 mg Famotidine (Pepcid) 20 mg PO DAILY [facility] Last Admin: 08/09/18 11:12 Dose: Not Given Vancomycin HCl (Vancomycin 1gm) 1 gm in 250 mls @ 167 mls/hr IVPB Q12H [facility] PRN Reason: Protocol Last Admin: 08/09/18 22:48 Dose: 167 mls/hr Lactated Ringer's (Lactated Ringer's) 1,000 mls @ 100 mls/hr IV .Q10H [facility] Last Admin: 08/09/18 21:23 Dose: 100 mls/hr Meropenem (Merrem Iv 1 Gm Premix) 50 mls @ 100 mls/hr IVPB Q8 [facility] PRN Reason: Protocol Stop: 08/16/18 14:01 Last Admin: 08/10/18 06:03 Dose: 100 mls/hr Levothyroxine Sodium (Synthroid) 50 mcg PO DAILY [facility] Last Admin: 08/09/18 11:18 Dose: Not Given Memantine (Namenda) 5 mg PO BID [facility] Last Admin: 08/09/18 17:57 Dose: 5 mg Silver Sulfadiazine (Silvadene 1% 25 Gm) 1 gm TP BID [facility] Last Admin: 08/09/18 17:57 Dose: 1 gm - Labs Labs: 08/10/18 06:45 08/10/18 06:45 PT 16.5 SECONDS (9.4-12.5) H 08/09/18 06:15 INR 1.42 08/09/18 06:15 APTT 25.4 Seconds (25.1-36.5) 08/09/18 06:15 - Constitutional Appears: Cachectic, Chronically Ill - Head Exam Head Exam: ATRAUMATIC, NORMAL INSPECTION - Eye Exam Eye Exam: Normal appearance - ENT Exam ENT Exam: Mucous Membranes Dry - Neck Exam Neck Exam: Full ROM - Respiratory Exam Respiratory Exam: absent: Accessory Muscle Use, Respiratory Distress - Cardiovascular Exam Cardiovascular Exam: +S1, +S2 - GI/Abdominal Exam GI & Abdominal Exam: absent: Distended, Firm, Guarding, Rebound - Extremities Exam Additional comments: Stage 4, 2cm diameter, inferior ulcer on left hip with less necrotic tissue than yesterday s/p debridement. Second, stage 4 ulcer located approximately 4 cm superior to other ulcer on L hip s/p debridement. Both ulcers still with minimal surrounding erythema and no palpable crepitus. Subcutaneous tracking between the two ulcers. - Neurological Exam Neurological Exam: Altered, Awake - Psychiatric Exam Psychiatric exam: Flat Affect - Skin Skin Exam: Dry, Warm Assessment and Plan - Assessment and Plan (Free Text) Assessment: 73M with multiple decubitus ulcers including two Stage 4 ulcers of the left hip , stage 3 sacral ulcer, and stage 2 right hip ulcer x2. Plan: S/p debridement at bedside yesterday morning at 1140 Wounds appear improved from yesterday with less necrotic tissue Electrolytes including Mg and phos stable Trend CBC, BMP Replete electrolytes as needed F/u final result of cultures No further surgical intervention indicated at this time Will continue to monitor wounds Left hip stage 4 ulcer packed with gauze at bedside: continue BID dressing change with santyl left hip, silvadene right hip and santyl on sacral ulcer Continue IV antibiotics per ID Air mattress obtained, continue Q2 turns Case and plan discussed with Dr. Ward Higginbotham, DO IM Resident PGY-1
[2018-08-10] MEDS ORDERED: Potassium Chloride 20 mEq/15 ml LIQ UD PO STA (08:52)
[2018-08-10] MEDS ORDERED: Barium Sulfate Susp 2.1% w/v, 2.0% w/w 450 mL Bottle PO ONE (09:40)
[2018-08-10] MEDS ORDERED: Iohexol 350 MG/100 ML VIAL ONE (09:43)
[2018-08-10] MEDS: Levothyroxine 50 MCG TAB PO SCH (10:31)
[2018-08-10] MEDS: Silver Sulfadiazine 1% Cream (25 gm) TP SCH ×2 (10:58→17:32)
[2018-08-10] MEDS: Collagenase 250 Units/gm Ointment(30 gm) TOP SCH ×2 (11:00→17:31)
[2018-08-10] MEDS: Vancomycin 1gm in NS 250ml 1 GM/250 ML BAG IVPB SCH ×2 (12:00→23:17)
--- NOTE | 2018-08-10 14:46 | CT ---
Date of service: 08/10/2018 PROCEDURE: CT Abdomen and Pelvis with contrast HISTORY: r/o abd mass COMPARISON: None. TECHNIQUE: Contrast dose: 100 mL Omnipaque 350. Axial and reformatted coronal and sagittal CT images of the abdomen and pelvis were obtained after IV and oral contrast administration. Radiation dose: Total exam DLP = 262.9 mGy-cm. This CT exam was performed using one or more of the following dose reduction techniques: Automated exposure control, adjustment of the mA and/or kV according to patient size, and/or use of iterative reconstruction technique. FINDINGS: LOWER THORAX: Unremarkable. LIVER: No evidence of enhancing mass lesion in the liver. The portal vein is patent. GALLBLADDER AND BILE DUCTS: Unremarkable. PANCREAS: Unremarkable. No gross lesion or ductal dilatation. SPLEEN: Unremarkable. ADRENALS: Unremarkable. No mass. KIDNEYS AND URETERS: Slightly heterogeneous enhancement of the renal cortex noted. No evidence of enhancing mass lesion. No evidence of hydronephrosis. VASCULATURE: Unremarkable. No aortic aneurysm. BOWEL: [id number] constipation. . No obstruction. No gross mural thickening. APPENDIX: No evidence of appendicitis. PERITONEUM: Unremarkable. No free fluid. No free air. LYMPH NODES: Unremarkable. No enlarged lymph nodes. BLADDER: Madrigal catheter in the bladder. REPRODUCTIVE: The prostate and seminal vesicles are normal in size. BONES: No acute fracture. OTHER FINDINGS: There is large decubitus ulcer noted at the left posterior buttocks and left posterior or pelvic wall. IMPRESSION: Slightly heterogeneous enhancement of the kidneys noted. Correlate clinically for possible pyelonephritis. Otherwise no CT evidence of mass lesion or acute pathology in the abdomen and pelvis. Large left posterior buttock decubitus ulcer.
--- NOTE | 2018-08-10 16:51 | CP.PCM.PN ---
Subjective - Date & Time of Evaluation Date of Evaluation: 08/10/18 Time of Evaluation: 13:55 - Subjective Subjective: No fevers, not in distress, no diarrhea. Objective - Vital Signs/Intake and Output Vital Signs (last 24 hours): Temp Pulse Resp BP Pulse Ox 98.2 F 100 H 18 100/61 98 08/10/18 06:00 08/10/18 06:00 08/10/18 06:00 08/10/18 06:00 08/10/18 06:00 - Medications Medications: Current Medications Atorvastatin Calcium (Lipitor) 10 mg PO DIN [facility] Last Admin: 08/09/18 17:57 Dose: 10 mg Collagenase (Santyl) 1 gm TOP BID [facility] Last Admin: 08/09/18 17:57 Dose: 1 gm Donepezil HCl (Aricept) 5 mg PO HS [facility] Last Admin: 08/09/18 21:24 Dose: 5 mg Famotidine (Pepcid) 20 mg PO DAILY [facility] Last Admin: 08/10/18 10:31 Dose: 20 mg Vancomycin HCl (Vancomycin 1gm) 1 gm in 250 mls @ 167 mls/hr IVPB Q12H [facility] PRN Reason: Protocol Last Admin: 08/09/18 22:48 Dose: 167 mls/hr Meropenem (Merrem Iv 1 Gm Premix) 50 mls @ 100 mls/hr IVPB Q8 [facility] PRN Reason: Protocol Stop: 08/16/18 14:01 Last Admin: 08/10/18 06:03 Dose: 100 mls/hr Levothyroxine Sodium (Synthroid) 50 mcg PO DAILY [facility] Last Admin: 08/10/18 10:31 Dose: 50 mcg Memantine (Namenda) 5 mg PO BID [facility] Last Admin: 08/10/18 10:31 Dose: 5 mg Silver Sulfadiazine (Silvadene 1% 25 Gm) 1 gm TP BID [facility] Last Admin: 08/10/18 10:58 Dose: 1 gm - Labs Labs: 08/10/18 06:45 08/10/18 06:45 PT 16.5 SECONDS (9.4-12.5) H 08/09/18 06:15 INR 1.42 08/09/18 06:15 APTT 25.4 Seconds (25.1-36.5) 08/09/18 06:15 - Constitutional Appears: Chronically Ill - Head Exam Head Exam: NORMAL INSPECTION - ENT Exam ENT Exam: Mucous Membranes Moist - Respiratory Exam Respiratory Exam: Decreased Breath Sounds - Cardiovascular Exam Cardiovascular Exam: +S1, +S2 - GI/Abdominal Exam GI & Abdominal Exam: Soft. absent: Tenderness Assessment and Plan - Assessment and Plan (Free Text) Plan: Assessment sepsis due to left hip infected decubitus ulcer with skin and skin structure infection S/P debridement history of treatment for left hip area cellulitis, with Pseudomonas as a probable colonizer on the wound dementia CVA thyroid disease Plan Continue Vancomycin and Merrem day 2 pending wound cultures and will continue to monitor clinically
[2018-08-11] MEDS: Meropenem IV 1 gm in NS 50 ML IVPB SCH ×3 (05:48→21:40)
--- NOTE | 2018-08-11 06:36 | CP.PCM.PN ---
<Susana Rush - Last Filed: 08/11/18 16:50> Subjective - Date & Time of Evaluation Date of Evaluation: 08/11/18 Time of Evaluation: 07:20 - Subjective Subjective: PGY-1 Susana Rush D.O. Medicine progress note for Dr. Hopper's service: Patient is seen and examined this morning. No events reported over night. Patient is on air mattress for his pressure ulcers. He is eating and drinking fairly well. He denies pain. Rest of speech is soft and unintelligible. Objective - Vital Signs/Intake and Output Vital Signs (last 24 hours): Temp Pulse Resp BP Pulse Ox 98.8 F 111 H 16 103/72 98 08/10/18 23:19 08/10/18 23:19 08/10/18 23:19 08/10/18 23:19 08/10/18 23:19 - Medications Medications: Current Medications Atorvastatin Calcium (Lipitor) 10 mg PO DIN [facility] Last Admin: 08/10/18 17:32 Dose: 10 mg Collagenase (Santyl) 1 gm TOP BID [facility] Last Admin: 08/10/18 17:31 Dose: 1 gm Donepezil HCl (Aricept) 5 mg PO HS [facility] Last Admin: 08/10/18 22:01 Dose: 5 mg Famotidine (Pepcid) 20 mg PO DAILY [facility] Last Admin: 08/10/18 10:31 Dose: 20 mg Vancomycin HCl (Vancomycin 1gm) 1 gm in 250 mls @ 167 mls/hr IVPB Q12H [facility] PRN Reason: Protocol Last Admin: 08/10/18 23:17 Dose: 167 mls/hr Meropenem (Merrem Iv 1 Gm Premix) 50 mls @ 100 mls/hr IVPB Q8 [facility] PRN Reason: Protocol Stop: 08/16/18 14:01 Last Admin: 08/11/18 05:48 Dose: 100 mls/hr Levothyroxine Sodium (Synthroid) 50 mcg PO DAILY [facility] Last Admin: 08/10/18 10:31 Dose: 50 mcg Memantine (Namenda) 5 mg PO BID [facility] Last Admin: 08/10/18 17:32 Dose: 5 mg Silver Sulfadiazine (Silvadene 1% 25 Gm) 1 gm TP BID [facility] Last Admin: 08/10/18 17:32 Dose: 1 gm - Labs Labs: 08/10/18 06:45 08/10/18 06:45 PT 16.5 SECONDS (9.4-12.5) H 08/09/18 06:15 INR 1.42 08/09/18 06:15 APTT 25.4 Seconds (25.1-36.5) 08/09/18 06:15 - Constitutional Appears: No Acute Distress, Older Than Stated Age, Cachectic, Chronically Ill - Head Exam Head Exam: ATRAUMATIC, NORMAL INSPECTION, NORMOCEPHALIC - Eye Exam Eye Exam: EOMI, Normal appearance - ENT Exam ENT Exam: Mucous Membranes Moist - Neck Exam Neck Exam: Normal Inspection - Respiratory Exam Respiratory Exam: Clear to Ausculation Bilateral, NORMAL BREATHING PATTERN - Cardiovascular Exam Cardiovascular Exam: Tachycardia, +S1, +S2 - GI/Abdominal Exam GI & Abdominal Exam: Soft, Normal Bowel Sounds. absent: Tenderness - Rectal Exam Rectal Exam: Deferred - Extremities Exam Extremities Exam: Normal Inspection. absent: Pedal Edema - Back Exam Back Exam: NORMAL INSPECTION - Neurological Exam Neurological Exam: Abnormal Gait (unable to ambulate), Alert, Awake - Psychiatric Exam Psychiatric exam: Flat Affect - Skin Additional comments: Left hip decubitus ulcer stage 4 measuring 3 x 4 cm that is draining pus with necrotic central tissue noted and erythematous margins. Right hip decubitus ulcer stage 2 that is not bleeding/draining. Assessment and Plan - Assessment and Plan (Free Text) Assessment: Patient is a 73 yo male with a history of dementia, CVAs, and hypothyroidism who presented due to decreased oral intake and generalized weakness. He has multiple pressure ulcers. He appears very cachetic. Family would like placement in NH/rehab. Case management is working on insurance issues. Plan: Failure to thrive- multiple recent admissions for generalized weakness and poor oral intake -VBG shows pH/pCO2/HCO3 7.39/53/32 indicating chronic primary respiratory acidosis -social service consult -palliative care consult -PT for deconditioning -rust proofer referral -fall and aspiration precautions -CT A/P with PO contrast: negative Leukocytosis- likely 2/2 left hip and sacral decubitus ulcers stage 4 -elevated WBC persistent, afebrile -HIV negative -CXR: no active disease -UA: trace ketones, otherwise unremarkable -chronic stage 4 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 sacrum that is draining -blood culture no growth >48hrs -urine culture negative -wound culture (L hip): Proteus, Klebsiella, Enterococcus -currently on vanc, lina (started 08/09) -air mattress -turns q2hrs -General surgery on consult, Dr. Hopper- I&D on 08/09 -ID on consult, Dr. Stewart Microcytic anemia, worsening-concerning for anemia of chronic disease vs iron deficiency -low hemoglobin on admission with low MCV and elevated RDW -B12 wnl (860), folate wnl (6) -Iron low (24), TIBC low (193), % sat low (13) -peripheral smear- microcytic, hypochronic, mild anisopoikilocytosis, few target cells. few ovalocytes, few schistocytes, large Plts -retic count 1 -FOBT negative Dehydration- normotensive, tachycardic (sinus) -elevated BUN -UA ketones -given IVF (NS) on admission Dementia- previously diagnosed as Alzheimer's -continue home aricept, namenda Hypothyroidism -TSH high (5.09) -T4 wnl (1.4) -continue home synthroid 50 mcg PO daily PT- ENID IVF: not indicated GI ppx: Pepcid 20 mg PO daily VTE ppx: SCDs Diet: pureed diet/nectar thick liquids, 3 Ensure Enlive daily Code status: full code- f/u palliative Case discussed with attending, Dr. Hopper. <Adelaida Hopper R - Last Filed: 08/11/18 18:15> Objective - Vital Signs/Intake and Output Vital Signs (last 24 hours): Temp Pulse Resp BP Pulse Ox 100.4 F H 65 18 105/67 95 08/11/18 14:00 08/11/18 14:00 08/11/18 14:00 08/11/18 14:00 08/11/18 14:00 - Medications Medications: Current Medications Atorvastatin Calcium (Lipitor) 10 mg PO DIN [facility] Last Admin: 08/11/18 17:49 Dose: 10 mg Collagenase (Santyl) 1 gm TOP BID [facility] Last Admin: 08/11/18 17:31 Dose: 1 gm Donepezil HCl (Aricept) 5 mg PO HS [facility] Last Admin: 08/10/18 22:01 Dose: 5 mg Famotidine (Pepcid) 20 mg PO DAILY [facility] Last Admin: 08/11/18 10:42 Dose: 20 mg Vancomycin HCl (Vancomycin 1gm) 1 gm in 250 mls @ 167 mls/hr IVPB Q12H [facility] PRN Reason: Protocol Last Admin: 08/11/18 13:02 Dose: 167 mls/hr Meropenem (Merrem Iv 1 Gm Premix) 50 mls @ 100 mls/hr IVPB Q8 [facility] PRN Reason: Protocol Stop: 08/16/18 14:01 Last Admin: 08/11/18 13:02 Dose: 100 mls/hr Levothyroxine Sodium (Synthroid) 50 mcg PO DAILY [facility] Last Admin: 08/11/18 10:42 Dose: 50 mcg Memantine (Namenda) 5 mg PO BID [facility] Last Admin: 08/11/18 17:49 Dose: 5 mg Potassium Chloride (Klor-Con 10) 10 meq PO BRK [facility] Silver Sulfadiazine (Silvadene 1% 25 Gm) 1 gm TP BID [facility] Last Admin: 08/11/18 17:32 Dose: 1 gm - Labs Labs: 08/11/18 07:00 08/11/18 07:00 PT 16.5 SECONDS (9.4-12.5) H 08/09/18 06:15 INR 1.42 08/09/18 06:15 APTT 25.4 Seconds (25.1-36.5) 08/09/18 06:15 Attending/Attestation - Attestation I have personally seen and examined this patient.: Yes I have fully participated in the care of the patient.: Yes I have reviewed all pertinent clinical information, including history, physical exam and plan: Yes Notes (Text): Patient seen and examined by me at 10:40AM with resident. Case including HPI, physical exam, and assessment and plan discussed with resident. Agree with above with following additions/corrections. Patient is 73-year-old male with past medical history significant for nonhealing stage IV left hip decubitus ulcer, multivitamin dementia, hypothyroidism, CVA, and failure to thrive that presented to emergency room with generalized weakness and decreased appetite. Patient with dementia. Unable to obtain review of systems from patient. Patient not answering questions appropriately. No new issues overnight per nurse. Patient is afebrile. Physical exam: General: Awake and alert sitting up in bed in no acute distress, cachectic appearing HEENT: Normocephalic atraumatic. Pupils equal reactive. No scleral icterus. Oropharynx is pink. Positive dry mucous membranes. Poor dentition. Neck is supple. Cardiovascular: Normal rhythm. Normal S1, S2. No murmurs, rubs or gallops appreciated Pulmonary: Normal respiratory effort. No rhonchi, rales or wheezing appreciated. Patient does not take in deep breaths when asked to. Gastrointestinal: Soft, nondistended. Nontender. Positive bowel sounds all 4 quadrants, no guarding. Musculoskeletal: Moves all extremities, no calf tenderness. Central nervous system: Awake and alert. Patient not following commands. Dermatologic: Skin warm and dry. Left hip ulcer dressing clean dry and intact. Right hip stage II pressure ulcers with dressing intact Assessment and plan: Patient is 73-year-old male with past medical history significant for nonhealing stage IV left hip decubitus ulcer, multivitamin dementia, hypothyroidism, CVA, and failure to thrive that presented to emergency room with generalized weakness and decreased appetite. 1. Multiple sacral ulcers present on admission. Surgery following, recommendations appreciated. Patient is status post left hip debridement at bedside with a eschar removal. Continue Santyl. ID following, recommendations appreciated. Continue meropenem and vancomycin. Continue silver sulfadiazine. Wound cultures positive for Proteus, Klebsiella pneumoniae, Enterococcus faecalis. Blood cultures with no growth. Patient afebrile. Leukocytosis uptrending today. Pelvis CT per radiologist shows multiple subcutaneous fluid and air collections consistent with abscess, no evidence of ulcer osteomyelitis. 2. Failure to thrive. Moderate to severe malnutrition. PT eval and treat. Dietitian consulted Continue dysphagia diet. Continue aspiration precautions. Continue oral supplements 3. Microcytic anemia. H&H stable today. Stool for occult blood negative. May be dilutional. No signs of acute bleeding. CT abdomen and pelvis per radiologist shows slightly heterogeneous enhancement of the kidneys noted, possible pyelonephritis, large left posterior buttock decubitus ulcer. Continue to monitor CBC 4. Possible pyelonephritis on CT abdomen and pelvis. ID following, recommendations appreciated. Continue meropenem and vancomycin. Urine culture no growth. 5. Dehydration. Status post IV fluids. BUN improved. Encouarge PO intake. 6. Hypothyroidism. Continue Synthroid. 7. Dementia. Continue Aricept and Namenda 8. Code status. Unsure. Palliative care consulted.
[2018-08-11 08:08] LABS: BASO # 0.04 K/mm3 (0.0-2.0); BASO % 0.2 % (0.0-3.0); EOS # 0.1 (0.0-0.7); EOS % 0.7 % (1.5-5.0); GRAN # 15.59 (1.4-6.5); GRAN % 85.1 % (50.0-68.0); HEMOGLOBIN 7.6 g/dL (14.0-18.0); LYMPH # 1.5 (1.2-3.4); LYMPH % 8.1 % (22.0-35.0); MEAN CORPUSCULAR HEMOGLOBIN 21.8 pg (25.0-35.0); MEAN CORPUSCULAR HGB CONC 31.7 g/dl (31.0-37.0); MEAN PLATELET VOLUME 9.3 fl (7.0-11.0); MONO # 1.1 (0.1-0.6); MONO % 5.9 % (1.0-6.0); RBC 3.48 10^6/uL (3.5-6.1); RED CELL DISTRIBUTION WIDTH 15.3 % (11.5-14.5); WHITE BLOOD COUNT 18.3 10^3/ul (4.5-11.0)
[2018-08-11 08:22] LABS: ALB/GLOB RATIO 0.9 (1.1-1.8); ALBUMIN 2.8 g/dL (3.0-4.8); ALT/SGPT 21 U/L (7-56); AST/SGOT 29 U/L (17-59); BLOOD UREA NITROGEN 16 mg/dL (7-21); CALCIUM 8.3 mg/dL (8.4-10.5); GFR NON-AFRICAN AMERICAN > 60
[2018-08-11] MEDS ORDERED: Potassium Chloride 10 mEq ER Tab PO ONE (09:02)
[2018-08-11] MEDS ORDERED: Potassium Chloride 10 mEq ER Tab PO SCH (09:15)
--- NOTE | 2018-08-11 09:35 | CP.PCM.PN ---
Subjective - Date & Time of Evaluation Date of Evaluation: 08/11/18 Time of Evaluation: 09:32 - Subjective Subjective: General Surgery Dr. Hopper Pt S&E @bedside. no acute events overnight. pt w/ dementia, nonverbal. ROS unobtainable. Objective - Vital Signs/Intake and Output Vital Signs (last 24 hours): Temp Pulse Resp BP Pulse Ox 97.9 F 100 H 18 108/67 99 08/11/18 06:00 08/11/18 06:00 08/11/18 06:00 08/11/18 06:00 08/11/18 06:00 - Medications Medications: Current Medications Atorvastatin Calcium (Lipitor) 10 mg PO DIN [facility] Last Admin: 08/10/18 17:32 Dose: 10 mg Collagenase (Santyl) 1 gm TOP BID [facility] Last Admin: 08/10/18 17:31 Dose: 1 gm Donepezil HCl (Aricept) 5 mg PO HS [facility] Last Admin: 08/10/18 22:01 Dose: 5 mg Famotidine (Pepcid) 20 mg PO DAILY [facility] Last Admin: 08/10/18 10:31 Dose: 20 mg Vancomycin HCl (Vancomycin 1gm) 1 gm in 250 mls @ 167 mls/hr IVPB Q12H [facility] PRN Reason: Protocol Last Admin: 08/10/18 23:17 Dose: 167 mls/hr Meropenem (Merrem Iv 1 Gm Premix) 50 mls @ 100 mls/hr IVPB Q8 [facility] PRN Reason: Protocol Stop: 08/16/18 14:01 Last Admin: 08/11/18 05:48 Dose: 100 mls/hr Levothyroxine Sodium (Synthroid) 50 mcg PO DAILY [facility] Last Admin: 08/10/18 10:31 Dose: 50 mcg Memantine (Namenda) 5 mg PO BID [facility] Last Admin: 08/10/18 17:32 Dose: 5 mg Potassium Chloride (Klor-Con 10) 10 meq PO BRK [facility] Silver Sulfadiazine (Silvadene 1% 25 Gm) 1 gm TP BID [facility] Last Admin: 08/10/18 17:32 Dose: 1 gm - Labs Labs: 08/11/18 07:00 08/11/18 07:00 PT 16.5 SECONDS (9.4-12.5) H 08/09/18 06:15 INR 1.42 08/09/18 06:15 APTT 25.4 Seconds (25.1-36.5) 08/09/18 06:15 - Constitutional Appears: Non-toxic, No Acute Distress, Chronically Ill - Head Exam Head Exam: NORMAL INSPECTION - Eye Exam Eye Exam: Normal appearance - ENT Exam ENT Exam: Mucous Membranes Moist - Respiratory Exam Respiratory Exam: NORMAL BREATHING PATTERN. absent: Accessory Muscle Use, Respiratory Distress - Cardiovascular Exam Cardiovascular Exam: absent: Bradycardia, Tachycardia - GI/Abdominal Exam GI & Abdominal Exam: Soft. absent: Distended, Tenderness - Back Exam Additional comments: Stage 4, 2cm diameter, inferior ulcer on left hip w/ less necrotic tissue than yesterday s/p debridement. Stage 4, ulcer located approx 4 cm superior to other ulcer on L hip s/p debridement. Both ulcers still with minimal surrounding erythema and no palpable crepitus. Subcutaneous tracking between the two ulcers. - Neurological Exam Neurological Exam: Awake - Psychiatric Exam Psychiatric exam: Normal Affect, Normal Mood - Skin Skin Exam: Dry, Warm Assessment and Plan - Assessment and Plan (Free Text) Assessment: 73 y/o M w/ multiple decubitus ulcers including two Stage 4 ulcers of the left hip, stage 3 sacral ulcer, and stage 2 right hip ulcer x2. - s/p debridement @bedside - Replete electrolytes as needed - F/u final result of cultures - No further surgical intervention indicated at this time - Left hip stage 4 ulcer packed w/ gauze at bedside; cont BID dressing change w / santyl left hip, silvadene right hip and santyl on sacral ulcer - Cont IV antibiotics per ID - Air mattress obtained - cont Q2 turns Will discuss w/ Dr. Ward Felton DO PGY3
[2018-08-11] MEDS: Collagenase 250 Units/gm Ointment(30 gm) TOP SCH ×2 (10:00→17:31)
[2018-08-11] MEDS: Silver Sulfadiazine 1% Cream (25 gm) TP SCH ×2 (10:00→17:32)
[2018-08-11] MEDS ORDERED: Potassium Chloride 40 mEq/30 ml LIQ UD PO ONE (10:36)
[2018-08-11] MEDS: Levothyroxine 50 MCG TAB PO SCH (10:42)
[2018-08-11] MEDS: Vancomycin 1gm in NS 250ml 1 GM/250 ML BAG IVPB SCH ×2 (13:02→22:18)
--- NOTE | 2018-08-11 18:09 | PN ---
DATE: 08/11/2018 SUBJECTIVE: The patient is in bed, in no acute distress, nontoxic. PHYSICAL EXAMINATION: VITAL SIGNS: Temperature is 98, blood pressure is 103/70, respiratory rate of 16. HEENT: Unremarkable. NECK: Supple. LUNGS: Have decreased breath sounds. HEART: Normal S1, S2. ABDOMEN: Soft, nontender. No rebound or guarding. LABORATORY EXAMINATION: Reveals a white count of 18,000. Chemistries are noted and urinalysis is noted and serology is negative and cultures are noted, Proteus, Klebsiella, and Enterococcus. Sensitivity is reviewed for sensitive Proteus, sensitive Enterobacter, and ampicillin sensitive Klebsiella. Review of orders reveals the patient to be on meropenem and vancomycin. The patient had a CAT scan of the abdomen and pelvis, which has noted large decubitus. ASSESSMENT AND PLAN: He is a 73-year-old with sepsis due to left hip decubitus ulcers with skin and skin structure. Wound debridement, and with Pseudomonas as the probable colonizer, on vancomycin and meropenem. Continue local wound care. We will follow up with you. Raul Mo MD
[2018-08-12] MEDS: Meropenem IV 1 gm in NS 50 ML IVPB SCH ×3 (05:40→21:28)
--- NOTE | 2018-08-12 06:41 | CP.PCM.PN ---
<Susana Rush - Last Filed: 08/12/18 13:27> Subjective - Date & Time of Evaluation Date of Evaluation: 08/12/18 Time of Evaluation: 09:50 - Subjective Subjective: PGY-1 Susana Rush D.O. Medicine progress note for Dr. Hopper's service: Patient is seen and examined this morning. He had a temperature of 100.4 yesterday afternoon. He is presently afebrile. Patient is on air mattress for his pressure ulcers. He does not appear in acute distress. His speech is very soft and unintelligible. Objective - Vital Signs/Intake and Output Vital Signs (last 24 hours): Temp Pulse Resp BP Pulse Ox 98.8 F 111 H 16 103/72 98 08/11/18 21:04 08/11/18 21:04 08/11/18 21:04 08/11/18 21:04 08/11/18 21:04 Intake and Output: 08/11/18 08/12/18 18:59 06:59 Intake Total 920 Output Total 400 Balance 520 - Medications Medications: Current Medications Atorvastatin Calcium (Lipitor) 10 mg PO DIN [facility] Last Admin: 08/11/18 17:49 Dose: 10 mg Collagenase (Santyl) 1 gm TOP BID [facility] Last Admin: 08/11/18 17:31 Dose: 1 gm Donepezil HCl (Aricept) 5 mg PO HS [facility] Last Admin: 08/11/18 21:39 Dose: 5 mg Famotidine (Pepcid) 20 mg PO DAILY [facility] Last Admin: 08/11/18 10:42 Dose: 20 mg Vancomycin HCl (Vancomycin 1gm) 1 gm in 250 mls @ 167 mls/hr IVPB Q12H [facility] PRN Reason: Protocol Last Admin: 08/11/18 22:18 Dose: 167 mls/hr Meropenem (Merrem Iv 1 Gm Premix) 50 mls @ 100 mls/hr IVPB Q8 [facility] PRN Reason: Protocol Stop: 08/16/18 14:01 Last Admin: 08/12/18 05:40 Dose: 100 mls/hr Levothyroxine Sodium (Synthroid) 50 mcg PO DAILY [facility] Last Admin: 08/11/18 10:42 Dose: 50 mcg Memantine (Namenda) 5 mg PO BID [facility] Last Admin: 08/11/18 17:49 Dose: 5 mg Potassium Chloride (Klor-Con 10) 10 meq PO BRK [facility] Silver Sulfadiazine (Silvadene 1% 25 Gm) 1 gm TP BID [facility] Last Admin: 08/11/18 17:32 Dose: 1 gm - Labs Labs: 08/11/18 07:00 08/11/18 07:00 PT 16.5 SECONDS (9.4-12.5) H 08/09/18 06:15 INR 1.42 08/09/18 06:15 APTT 25.4 Seconds (25.1-36.5) 08/09/18 06:15 - Constitutional Appears: No Acute Distress, Older Than Stated Age, Cachectic, Chronically Ill - Head Exam Head Exam: ATRAUMATIC, NORMAL INSPECTION - Eye Exam Eye Exam: EOMI, Normal appearance, PERRL - ENT Exam ENT Exam: Mucous Membranes Moist, Normal Exam - Neck Exam Neck Exam: Normal Inspection - Respiratory Exam Respiratory Exam: Clear to Ausculation Bilateral, NORMAL BREATHING PATTERN - Cardiovascular Exam Cardiovascular Exam: REGULAR RHYTHM, +S1, +S2 - GI/Abdominal Exam GI & Abdominal Exam: Soft, Normal Bowel Sounds. absent: Tenderness - Rectal Exam Rectal Exam: Deferred - Extremities Exam Extremities Exam: absent: Pedal Edema Additional comments: thin - Back Exam Back Exam: NORMAL INSPECTION - Neurological Exam Neurological Exam: Alert, Awake. absent: Normal Gait (unable to ambulate), Oriented x3 - Psychiatric Exam Psychiatric exam: Flat Affect - Skin Additional comments: 3 sacral ulcers with clean and dry bandages- sacrum, b/l hips Assessment and Plan - Assessment and Plan (Free Text) Assessment: Patient is a 73 yo male with a history of dementia, CVAs, and hypothyroidism who presented due to decreased oral intake and generalized weakness. He has multiple pressure ulcers. He appears very cachetic. Family would like placement in NH/rehab. Case management is working on insurance issues. Plan: Failure to thrive- multiple recent admissions for generalized weakness and poor oral intake - VBG shows pH/pCO2/HCO3 7.39/53/32 indicating chronic primary respiratory acidosis - Fall and aspiration precautions - CT A/P with PO contrast: negative - PT for deconditioning - Social work consult - Palliative care consult - Risk Intern referral Left hip and sacral decubitus ulcers- stage 4 and Right hip- stage 2 - Leukocytosis worsening (16.2-20.1) - 100.4 F 08/11 - Tylenol 650 mg PO q6hrs PRN - HIV negative - CXR: no active disease - UA: trace ketones, otherwise unremarkable - Chronic stage 4 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 sacrum- I&D 08/09 - Blood culture no growth >48hrs - Urine culture negative - Wound culture (L hip): Proteus, Klebsiella, Enterococcus - Vancomycin 1g IV q12hrs (started 08/09) - Meropenem 1g IV q8hrs (started 08/09) - Air mattress - Turns q2hrs - Wound care - Daily packing changes - Collagenase 1g topical BID to L hip and sacrum - Silver sulfadiazine 1g topical BID to R hip - General surgery consulted (Ward)- I&D on 08/09, further debridement L hip - ID consulted (Terry) Microcytic anemia, worsening-concerning for anemia of chronic disease vs iron deficiency - Hgb (10.2->8.6) with low MCV and elevated RDW - B12 wnl (860), folate wnl (6) - Iron low (24), TIBC low (193), % sat low (13) - Peripheral smear- microcytic, hypochronic, mild anisopoikilocytosis, few target cells. few ovalocytes, few schistocytes, large Plts - Reticulocyte count 1 - FOBT negative Dehydration- normotensive, tachycardic (sinus) - Elevated BUN - UA ketones - Given IVF (NS) on admission Dementia- previously diagnosed as Alzheimer's - Aricept 5 mg PO QHS - Namenda 5 mg PO BID Hypothyroidism - TSH high (5.09) - T4 wnl (1.4) - Synthroid 50 mcg PO daily Hyperlipidemia - Lipitor 10 mg PO QHS PT- ENID IVF: not indicated GI ppx: Pepcid 20 mg PO daily VTE ppx: SCDs Diet: pureed diet/nectar thick liquids, 3 Ensure Enlive daily Code status: full code- f/u palliative Case discussed with attending, Dr. Hopper. <Adelaida Hopper - Last Filed: 08/12/18 16:27> Objective - Vital Signs/Intake and Output Vital Signs (last 24 hours): Temp Pulse Resp BP Pulse Ox 98.0 F 84 18 106/69 100 08/12/18 14:00 08/12/18 14:00 08/12/18 14:00 08/12/18 14:00 08/12/18 14:00 Intake and Output: 08/12/18 08/12/18 06:59 18:59 Intake Total 920 Output Total 400 Balance 520 - Medications Medications: Current Medications Acetaminophen (Tylenol 325mg Tab) 650 mg PO Q6H PRN PRN Reason: Fever >100.4 F Atorvastatin Calcium (Lipitor) 10 mg PO DIN [facility] Last Admin: 08/11/18 17:49 Dose: 10 mg Collagenase (Santyl) 1 gm TOP BID [facility] Last Admin: 08/12/18 09:31 Dose: Not Given Donepezil HCl (Aricept) 5 mg PO HS [facility] Last Admin: 08/11/18 21:39 Dose: 5 mg Famotidine (Pepcid) 20 mg PO DAILY [facility] Last Admin: 08/12/18 09:36 Dose: 20 mg Vancomycin HCl (Vancomycin 1gm) 1 gm in 250 mls @ 167 mls/hr IVPB Q12H [facility] PRN Reason: Protocol Last Admin: 08/12/18 10:18 Dose: 167 mls/hr Meropenem (Merrem Iv 1 Gm Premix) 50 mls @ 100 mls/hr IVPB Q8 [facility] PRN Reason: Protocol Stop: 08/16/18 14:01 Last Admin: 08/12/18 13:35 Dose: 100 mls/hr Levothyroxine Sodium (Synthroid) 50 mcg PO DAILY [facility] Last Admin: 08/12/18 09:36 Dose: 50 mcg Memantine (Namenda) 5 mg PO BID [facility] Last Admin: 08/12/18 09:36 Dose: 5 mg Silver Sulfadiazine (Silvadene 1% 25 Gm) 1 gm TP BID [facility] Last Admin: 08/12/18 09:36 Dose: 1 gm - Labs Labs: 08/12/18 06:30 08/12/18 06:30 PT 16.5 SECONDS (9.4-12.5) H 08/09/18 06:15 INR 1.42 08/09/18 06:15 APTT 25.4 Seconds (25.1-36.5) 08/09/18 06:15 Attending/Attestation - Attestation I have personally seen and examined this patient.: Yes I have fully participated in the care of the patient.: Yes I have reviewed all pertinent clinical information, including history, physical exam and plan: Yes Notes (Text): Patient seen and examined by me at 11AM with resident. Case including HPI, physical exam, and assessment and plan discussed with resident. Agree with above with following additions/corrections. Patient is 73-year-old male with past medical history significant for nonhealing stage IV left hip decubitus ulcer, Alzheimer's dementia, hypothyroidism, CVA, and failure to thrive that presented to emergency room with generalized weakness and decreased appetite. Patient with dementia. Not oriented. Not answering questions appropriately. Unable to obtain review of systems from patient. No new issues overnight per nurse. Patient had one episode of low grade fever yesterday. Afebrile today. Physical exam: General: Awake and alert sitting up in bed in no acute distress, cachectic appearing HEENT: Normocephalic atraumatic. Pupils equal reactive. No scleral icterus. Oropharynx is pink. Positive dry mucous membranes. Poor dentition. Neck is supple. Cardiovascular: Normal rhythm. Normal S1, S2. No murmurs, rubs or gallops appreciated Pulmonary: Normal respiratory effort. No rhonchi, rales or wheezing appreciated. Patient does not take in deep breaths when asked to. Gastrointestinal: Soft, nondistended. Nontender. Positive bowel sounds all 4 quadrants, no guarding. Musculoskeletal: Moves all extremities, no calf tenderness. Central nervous system: Awake and alert. Patient not following commands. Dermatologic: Skin warm and dry. Left hip ulcer dressing clean dry and intact. Right hip stage II pressure ulcers with dressing intact Assessment and plan: Patient is 73-year-old male with past medical history significant for nonhealing stage IV left hip decubitus ulcer, Alzheimer's dementia, hypothyroidism, CVA, and failure to thrive that presented to emergency room with generalized weakness and decreased appetite. 1. Multiple sacral ulcers present on admission. Surgery following, recommendations appreciated. Patient is status post left hip debridement at bedside with a eschar removal. Continue Santyl. ID following, recommendations appreciated. Leukocytosis uptrending. One episode of low grade fever yesterday. Continue meropenem and vancomycin. Continue silver sulfadiazine. Wound cultures positive for Proteus, Klebsiella pneumoniae, Enterococcus faecalis. Blood cultures with no growth. Pelvis CT per radiologist shows multiple subcutaneous fluid and air collections consistent with abscess, no evidence of ulcer osteomyelitis. 2. Failure to thrive. Moderate to severe malnutrition. PT eval and treat. Dietitian consulted Continue dysphagia diet. Continue aspiration precautions. Continue oral supplements 3. Microcytic anemia. H&H uptrending. Stool for occult blood negative. May be dilutional. No signs of acute bleeding. CT abdomen and pelvis per radiologist shows slightly heterogeneous enhancement of the kidneys noted, possible pyelonephritis, large left posterior buttock decubitus ulcer. Continue to monitor CBC 4. Possible pyelonephritis on CT abdomen and pelvis. ID following, recommendations appreciated. Continue meropenem and vancomycin. Urine culture no growth. 5. Dehydration. Status post IV fluids. Elevated BUN resolved. Encouarge PO intake. 6. Hypothyroidism. Continue Synthroid. 7. Dementia. Continue Aricept and Namenda 8. Code status. Unsure. Palliative care consulted.
[2018-08-12 06:56] LABS: BASO # 0.04 K/mm3 (0.0-2.0); BASO % 0.2 % (0.0-3.0); EOS # 0.3 (0.0-0.7); EOS % 1.3 % (1.5-5.0); GRAN # 16.74 (1.4-6.5); GRAN % 83.4 % (50.0-68.0); HEMOGLOBIN 8.6 g/dL (14.0-18.0); MEAN CELL VOLUME 69.6 fl (80.0-105.0); MEAN CORPUSCULAR HEMOGLOBIN 22.3 pg (25.0-35.0); MEAN CORPUSCULAR HGB CONC 32.1 g/dl (31.0-37.0); MEAN PLATELET VOLUME 8.9 fl (7.0-11.0); MONO % 5.1 % (1.0-6.0); RBC 3.85 10^6/uL (3.5-6.1); RED CELL DISTRIBUTION WIDTH 15.4 % (11.5-14.5); WHITE BLOOD COUNT 20.1 10^3/ul (4.5-11.0)
[2018-08-12 07:22] LABS: ALB/GLOB RATIO 0.8 (1.1-1.8); ALT/SGPT 22 U/L (7-56); AST/SGOT 30 U/L (17-59); BLOOD UREA NITROGEN 13 mg/dL (7-21); CALCIUM 8.7 mg/dL (8.4-10.5); GFR NON-AFRICAN AMERICAN > 60
[2018-08-12] MEDS ORDERED: Potassium Chloride 10 mEq ER Tab PO SCH (08:00)
--- NOTE | 2018-08-12 09:00 | CP.PCM.PN ---
Subjective - Date & Time of Evaluation Date of Evaluation: 08/12/18 Time of Evaluation: 08:53 - Subjective Subjective: General Surgery Dr. Hopper Pt S&E @bedside. No acute events overnight. Pt has no complaints. pt turned to inspect sacral wound, L hip wound, and R hip wound. pt tolerated well. tolerating dysphagia diet. Objective - Vital Signs/Intake and Output Vital Signs (last 24 hours): Temp Pulse Resp BP Pulse Ox 98.6 F 90 16 118/77 95 08/12/18 06:00 08/12/18 06:00 08/12/18 06:00 08/12/18 06:00 08/12/18 06:00 Intake and Output: 08/12/18 08/12/18 06:59 18:59 Intake Total 920 Output Total 400 Balance 520 - Medications Medications: Current Medications Atorvastatin Calcium (Lipitor) 10 mg PO DIN [facility] Last Admin: 08/11/18 17:49 Dose: 10 mg Collagenase (Santyl) 1 gm TOP BID [facility] Last Admin: 08/11/18 17:31 Dose: 1 gm Donepezil HCl (Aricept) 5 mg PO HS [facility] Last Admin: 08/11/18 21:39 Dose: 5 mg Famotidine (Pepcid) 20 mg PO DAILY [facility] Last Admin: 08/11/18 10:42 Dose: 20 mg Vancomycin HCl (Vancomycin 1gm) 1 gm in 250 mls @ 167 mls/hr IVPB Q12H [facility] PRN Reason: Protocol Last Admin: 08/11/18 22:18 Dose: 167 mls/hr Meropenem (Merrem Iv 1 Gm Premix) 50 mls @ 100 mls/hr IVPB Q8 [facility] PRN Reason: Protocol Stop: 08/16/18 14:01 Last Admin: 08/12/18 05:40 Dose: 100 mls/hr Levothyroxine Sodium (Synthroid) 50 mcg PO DAILY [facility] Last Admin: 08/11/18 10:42 Dose: 50 mcg Memantine (Namenda) 5 mg PO BID [facility] Last Admin: 08/11/18 17:49 Dose: 5 mg Potassium Chloride (Klor-Con 10) 10 meq PO BRK [facility] Last Admin: 08/12/18 08:22 Dose: 10 meq Silver Sulfadiazine (Silvadene 1% 25 Gm) 1 gm TP BID [facility] Last Admin: 08/11/18 17:32 Dose: 1 gm - Labs Labs: 08/12/18 06:30 08/12/18 06:30 PT 16.5 SECONDS (9.4-12.5) H 08/09/18 06:15 INR 1.42 08/09/18 06:15 APTT 25.4 Seconds (25.1-36.5) 08/09/18 06:15 - Constitutional Appears: Non-toxic, No Acute Distress, Cachectic, Chronically Ill - Head Exam Head Exam: NORMAL INSPECTION - Eye Exam Eye Exam: Normal appearance - ENT Exam ENT Exam: Mucous Membranes Moist - Respiratory Exam Respiratory Exam: NORMAL BREATHING PATTERN. absent: Accessory Muscle Use, Respiratory Distress - Cardiovascular Exam Cardiovascular Exam: absent: Bradycardia, Tachycardia - GI/Abdominal Exam GI & Abdominal Exam: Soft. absent: Distended, Tenderness - Extremities Exam Additional comments: L hip stage 4 pressure ulcer w/ purulen drainage noted from 10 o'clock and 1 o' clock of upper wound and 6-7 o'clock of lower wound. TTP. cardoza, fibrinous wound belly w/ stable, small necrotic edges along lower wound Sacral stage 2/3 pressure ulcer. no drainage noted. grossly unchanged from admission R hip skin avulsion w/ no purulent drainage. - Neurological Exam Neurological Exam: Alert, Awake - Psychiatric Exam Psychiatric exam: Normal Affect, Normal Mood - Skin Skin Exam: Dry, Warm Assessment and Plan - Assessment and Plan (Free Text) Assessment: 73 y/o M w/ multiple pressure ulcers of various stages and worsening leukocytosis - L hip wound further debrided this AM at bedside. - daily packing changes to L hip by Surgery Residents - santyl to L hip and sacrum; silvadene to R hip as per PMD - daily labs --> trend leukocytosis and electrolytes - cont IV Abx per ID - f/u Wound care recs - cont air mattress - turn Q2 - off loading - f/u SW/CM for NH placement Pt discussed w/ Dr. Ward Felton DO PGY3
[2018-08-12] MEDS: Collagenase 250 Units/gm Ointment(30 gm) TOP SCH ×2 (09:31→17:42)
[2018-08-12] MEDS: Silver Sulfadiazine 1% Cream (25 gm) TP SCH ×2 (09:36→17:42)
[2018-08-12] MEDS: Levothyroxine 50 MCG TAB PO SCH (09:36)
[2018-08-12] MEDS: Vancomycin 1gm in NS 250ml 1 GM/250 ML BAG IVPB SCH ×2 (10:18→22:03)
--- NOTE | 2018-08-12 15:21 | PN ---
DATE: 08/12/2018 SUBJECTIVE: The patient is in bed, no acute distress. He has been afebrile now for almost 24 hours. PHYSICAL EXAMINATION: VITAL SIGNS: On exam, temperature is 98, blood pressure is 118/70, respiratory rate of 18. HEENT: Examination of HEENT is unremarkable. NECK: Supple. LUNGS: Have decreased breath sounds. HEART: Normal S1, S2. ABDOMEN: Soft. LABORATORY DATA: Laboratory examination reveals a white count of 20,000, hemoglobin of 8. Chemistries are noted. BUN of 14, creatinine of 0.5. Urinalysis is noted. HIV is negative. Microbiology is negative. Blood cultures are no growth. The hip culture, skin culture is noted to have Proteus, Klebsiella and Enterococcus. Another culture from left hip is Proteus mirabilis, Klebsiella pneumoniae and Enterococcus in relatively heavy growth and relatively pansensitive organisms. Currently on meropenem and vancomycin. ASSESSMENT AND PLAN: A 73-year-old male with sepsis, left hip decubitus ulcers, skin and skin structure, wound debridement, Pseudomonas. Now with Proteus, Klebsiella and Enterococcus. On vancomycin, meropenem. Local wound care. We will continue with the antibiotics. Overall prognosis is quite poor. Raul Mo MD
[2018-08-13] MEDS: Meropenem IV 1 gm in NS 50 ML IVPB SCH ×3 (05:25→21:19)
--- NOTE | 2018-08-13 05:46 | CP.PCM.PN ---
<Susana Rush - Last Filed: 08/13/18 15:15> Subjective - Date & Time of Evaluation Date of Evaluation: 08/13/18 Time of Evaluation: 07:30 - Subjective Subjective: PGY-1 Susana Rush D.O. Medicine progress note for Dr. Mchugh's service: Patient is seen and examined this morning. No over night events reported. Patient is more lethargic today. He does not speak/answer questions. He does not appear in acute distress. He now has a wound vac in the L hip ulcer. Objective - Vital Signs/Intake and Output Vital Signs (last 24 hours): Temp Pulse Resp BP Pulse Ox 98.0 F 84 18 106/69 100 08/12/18 14:00 08/12/18 14:00 08/12/18 14:00 08/12/18 14:00 08/12/18 14:00 Intake and Output: 08/12/18 08/13/18 18:59 06:59 Intake Total 500 Output Total 1200 Balance -700 - Medications Medications: Current Medications Acetaminophen (Tylenol 325mg Tab) 650 mg PO Q6H PRN PRN Reason: Fever >100.4 F Atorvastatin Calcium (Lipitor) 10 mg PO DIN [facility] Last Admin: 08/12/18 17:41 Dose: 10 mg Collagenase (Santyl) 1 gm TOP BID [facility] Last Admin: 08/12/18 17:42 Dose: 1 gm Donepezil HCl (Aricept) 5 mg PO HS [facility] Last Admin: 08/12/18 21:28 Dose: 5 mg Famotidine (Pepcid) 20 mg PO DAILY [facility] Last Admin: 08/12/18 09:36 Dose: 20 mg Vancomycin HCl (Vancomycin 1gm) 1 gm in 250 mls @ 167 mls/hr IVPB Q12H [facility] PRN Reason: Protocol Last Admin: 08/12/18 22:03 Dose: 167 mls/hr Meropenem (Merrem Iv 1 Gm Premix) 50 mls @ 100 mls/hr IVPB Q8 [facility] PRN Reason: Protocol Stop: 08/16/18 14:01 Last Admin: 08/13/18 05:25 Dose: 100 mls/hr Levothyroxine Sodium (Synthroid) 50 mcg PO DAILY [facility] Last Admin: 08/12/18 09:36 Dose: 50 mcg Memantine (Namenda) 5 mg PO BID [facility] Last Admin: 08/12/18 17:42 Dose: 5 mg Silver Sulfadiazine (Silvadene 1% 25 Gm) 1 gm TP BID [facility] Last Admin: 08/12/18 17:42 Dose: 1 gm - Labs Labs: 08/12/18 06:30 08/12/18 06:30 PT 16.5 SECONDS (9.4-12.5) H 08/09/18 06:15 INR 1.42 08/09/18 06:15 APTT 25.4 Seconds (25.1-36.5) 08/09/18 06:15 - Constitutional Appears: Non-toxic, No Acute Distress, Cachectic, Chronically Ill - Head Exam Head Exam: ATRAUMATIC, NORMAL INSPECTION, NORMOCEPHALIC - Eye Exam Eye Exam: EOMI, Normal appearance, PERRL - ENT Exam ENT Exam: Mucous Membranes Moist, Normal Exam - Neck Exam Neck Exam: Full ROM, Normal Inspection - Respiratory Exam Respiratory Exam: Clear to Ausculation Bilateral, NORMAL BREATHING PATTERN - Cardiovascular Exam Cardiovascular Exam: REGULAR RHYTHM, +S1, +S2 - GI/Abdominal Exam GI & Abdominal Exam: Soft, Normal Bowel Sounds. absent: Tenderness - Rectal Exam Rectal Exam: Deferred - Extremities Exam Extremities Exam: absent: Pedal Edema Additional comments: thin - Back Exam Back Exam: NORMAL INSPECTION - Neurological Exam Neurological Exam: Alert, Awake. absent: Motor Sensory Deficit, Normal Gait, Oriented x3 - Psychiatric Exam Psychiatric exam: Flat Affect - Skin Skin Exam: Normal Color, Warm Additional comments: 3 sacral ulcers with clean and dry bandages- sacrum, b/l hips Assessment and Plan - Assessment and Plan (Free Text) Assessment: Patient is a 73 yo male with a history of dementia, CVAs, and hypothyroidism who presented due to decreased oral intake and generalized weakness. He has multiple pressure ulcers. He appears very cachetic. Family would like placement in NH/rehab. Case management/social work is working on insurance issues. Plan: Failure to thrive- multiple recent admissions for generalized weakness and poor oral intake - VBG shows pH/pCO2/HCO3 7.39/53/32 indicating chronic primary respiratory acidosis - Fall and aspiration precautions - CT A/P with PO contrast: negative - PT for deconditioning - Social work consult - Palliative care consult - [employer] Specialist referral Left hip and sacral decubitus ulcers- stage 4 and Right hip- stage 2 - Leukocytosis stable (16.2-20.1) - 100.4 F 08/11 - Tylenol 650 mg PO q6hrs PRN - HIV negative - CXR: no active disease - UA: trace ketones, otherwise unremarkable - Chronic stage 4 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 sacrum- I&D 08/09 - Blood culture no growth >4 days - Urine culture negative - Wound culture (L hip): Proteus, Klebsiella, Enterococcus - Vancomycin 1g IV q12hrs (started 08/09) - Meropenem 1g IV q8hrs (started 08/09) - Air mattress - Turns q2hrs - Wound care - Wound vac in L hip 08/13 - Daily packing changes - Collagenase 1g topical BID to L hip - Silver sulfadiazine 1g topical BID to R hip, sacrum - General surgery consulted (Ward)- I&D L hip on 08/09, further debridement L hip 08/12 - ID consulted (Terry) Microcytic anemia, worsening-concerning for anemia of chronic disease vs iron deficiency - Hgb (10.2->8.6) with low MCV and elevated RDW - B12 wnl (860), folate wnl (6) - Iron low (24), TIBC low (193), % sat low (13) - Peripheral smear- microcytic, hypochronic, mild anisopoikilocytosis, few target cells. few ovalocytes, few schistocytes, large Plts - Reticulocyte count 1 - FOBT negative Dehydration, improving- normotensive, tachycardic (sinus) - Elevated BUN on admission (37)- resolved - UA ketones - Given IVF (NS) on admission Dementia- previously diagnosed as Alzheimer's - Aricept 5 mg PO QHS - Namenda 5 mg PO BID Hypothyroidism - TSH high (5.09) - T4 wnl (1.4) - Synthroid 50 mcg PO daily Hyperlipidemia - Lipitor 10 mg PO QHS PT- rec ENID IVF: not indicated GI ppx: Pepcid 20 mg PO daily VTE ppx: SCDs Diet: pureed diet/thin liquids, 3 Ensure Enlive daily Code status: full code- f/u palliative Case discussed with attending, Dr. Mchugh. <Amador Mchugh - Last Filed: 08/16/18 15:39> Objective - Vital Signs/Intake and Output Vital Signs (last 24 hours): Temp Pulse Resp BP Pulse Ox 97.5 F L 104 H 18 119/69 98 08/16/18 14:00 08/16/18 14:00 08/16/18 14:00 08/16/18 14:00 08/16/18 14:00 Intake and Output: 08/16/18 08/16/18 06:59 18:59 Intake Total 800 Output Total 2200 Balance -1400 - Medications Medications: Current Medications Acetaminophen (Tylenol 325mg Tab) 650 mg PO Q6H PRN PRN Reason: Fever >100.4 F Atorvastatin Calcium (Lipitor) 10 mg PO DIN [facility] Last Admin: 08/15/18 17:16 Dose: 10 mg Collagenase (Santyl) 1 gm TOP BID [facility] Last Admin: 08/16/18 10:31 Dose: 1 gm Donepezil HCl (Aricept) 5 mg PO HS [facility] Last Admin: 08/15/18 21:50 Dose: 5 mg Enoxaparin Sodium (Lovenox) 40 mg SC DAILY [facility] PRN Reason: Protocol Last Admin: 08/16/18 10:31 Dose: 40 mg Famotidine (Pepcid) 20 mg PO DAILY [facility] Last Admin: 08/16/18 10:31 Dose: 20 mg Meropenem (Merrem Iv 1 Gm Premix) 50 mls @ 100 mls/hr IVPB Q8 [facility] PRN Reason: Protocol Stop: 08/23/18 14:01 Last Admin: 08/16/18 14:29 Dose: 100 mls/hr Vancomycin HCl (Vancomycin 750 Mg In Ns) 750 mg in 250 mls @ 167 mls/hr IVPB Q12H [facility] PRN Reason: Protocol Last Admin: 08/16/18 11:30 Dose: 167 mls/hr Levothyroxine Sodium (Synthroid) 50 mcg PO DAILY [facility] Last Admin: 08/16/18 10:31 Dose: 50 mcg Memantine (Namenda) 5 mg PO BID [facility] Last Admin: 08/16/18 10:31 Dose: 5 mg Silver Sulfadiazine (Silvadene 1% 25 Gm) 1 gm TP BID [facility] Last Admin: 08/16/18 10:33 Dose: 1 gm - Labs Labs: 08/16/18 06:45 08/16/18 06:45 PT 16.5 SECONDS (9.4-12.5) H 08/09/18 06:15 INR 1.42 08/09/18 06:15 APTT 25.4 Seconds (25.1-36.5) 08/09/18 06:15 Attending/Attestation - Attestation I have personally seen and examined this patient.: Yes I have fully participated in the care of the patient.: Yes I have reviewed all pertinent clinical information, including history, physical exam and plan: Yes Notes (Text): 08/16/18 15:31 Attending note; Patient seen and examined with resident. Patient is alert and awake. History of dementia. Able to follow commands. Has Madrigal catheter. Wound VAC in place. Patient is 73-year-old male with past medical history significant for nonhealing stage IV left hip decubitus ulcer, Alzheimer's dementia, hypothyroidism, CVA, and failure to thrive that presented to emergency room with generalized weakness and decreased appetite. 1. Multiple sacral ulcers; status post wound VAC after debridement . Surgery evaluation appreciated . Patient is afebrile and nontoxic . Continue dressing change for surgery. Continue meropenem and vancomycin. Continue silver sulfadiazine. Wound cultures positive for Proteus, Klebsiella pneumoniae, Enterococcus faecalis. Blood cultures with no growth. Pelvis CT per radiologist shows multiple subcutaneous fluid and air collections consistent with abscess, no evidence of ulcer osteomyelitis. 2. Failure to thrive. Dietitian evaluation appreciated. Continue dysphagia diet. Continue aspiration precautions. 3. Microcytic anemia. H Stool for occult blood negative. CT abdomen and pelvis shows slightly heterogeneous enhancement of the kidneys noted, possible pyelonephritis, large left posterior buttock decubitus ulcer. 4.Hypothyroidism. Continue Synthroid. 5.Dementia. Continue Aricept and Namenda Continue to monitor closely. Palliative care evaluation requested for advanced directive. Case discussed with counter caser in detail for discharge planning. Upon discharge the patient will follow up with PMD .
[2018-08-13 07:14] LABS: BASO # 0.05 K/mm3 (0.0-2.0); BASO % 0.3 % (0.0-3.0); EOS # 0.4 (0.0-0.7); EOS % 2.5 % (1.5-5.0); GRAN # 13.77 (1.4-6.5); GRAN % 78.4 % (50.0-68.0); HEMOGLOBIN 7.9 g/dL (14.0-18.0); LYMPH # 2.1 (1.2-3.4); LYMPH % 11.8 % (22.0-35.0); MEAN CELL VOLUME 69.4 fl (80.0-105.0); MEAN CORPUSCULAR HEMOGLOBIN 21.9 pg (25.0-35.0); MEAN CORPUSCULAR HGB CONC 31.6 g/dl (31.0-37.0); MEAN PLATELET VOLUME 9.2 fl (7.0-11.0); MONO # 1.2 (0.1-0.6); RBC 3.6 10^6/uL (3.5-6.1); RED CELL DISTRIBUTION WIDTH 15.3 % (11.5-14.5); WHITE BLOOD COUNT 17.6 10^3/ul (4.5-11.0)
[2018-08-13 07:53] LABS: ALB/GLOB RATIO 0.8 (1.1-1.8); ALBUMIN 2.8 g/dL (3.0-4.8); ALT/SGPT 17 U/L (7-56); AST/SGOT 45 U/L (17-59); BLOOD UREA NITROGEN 11 mg/dL (7-21); CALCIUM 8.1 mg/dL (8.4-10.5); GFR NON-AFRICAN AMERICAN > 60
--- NOTE | 2018-08-13 08:56 | CP.PCM.PN ---
Subjective - Date & Time of Evaluation Date of Evaluation: 08/13/18 Time of Evaluation: 08:52 - Subjective Subjective: Surgery Note for Dr Hopper Pt seen and examined at bedside. Pt has limited verbal response, baseline dementia. Packing removed and Wound-Vac started today on L side Ischial ulcer. Pt responds non verbally to painful stimuli. vital stable overnight, no acute events per nursing. Objective - Vital Signs/Intake and Output Vital Signs (last 24 hours): Temp Pulse Resp BP Pulse Ox 98.1 F 65 18 118/84 93 L 08/13/18 08:03 08/13/18 08:03 08/13/18 08:03 08/13/18 08:03 08/13/18 08:03 Intake and Output: 08/13/18 08/13/18 06:59 18:59 Intake Total 1300 Output Total 1200 Balance 100 - Medications Medications: Current Medications Acetaminophen (Tylenol 325mg Tab) 650 mg PO Q6H PRN PRN Reason: Fever >100.4 F Atorvastatin Calcium (Lipitor) 10 mg PO DIN [facility] Last Admin: 08/12/18 17:41 Dose: 10 mg Collagenase (Santyl) 1 gm TOP BID [facility] Last Admin: 08/12/18 17:42 Dose: 1 gm Donepezil HCl (Aricept) 5 mg PO HS [facility] Last Admin: 08/12/18 21:28 Dose: 5 mg Famotidine (Pepcid) 20 mg PO DAILY [facility] Last Admin: 08/12/18 09:36 Dose: 20 mg Vancomycin HCl (Vancomycin 1gm) 1 gm in 250 mls @ 167 mls/hr IVPB Q12H [facility] PRN Reason: Protocol Last Admin: 08/12/18 22:03 Dose: 167 mls/hr Meropenem (Merrem Iv 1 Gm Premix) 50 mls @ 100 mls/hr IVPB Q8 [facility] PRN Reason: Protocol Stop: 08/16/18 14:01 Last Admin: 08/13/18 05:25 Dose: 100 mls/hr Levothyroxine Sodium (Synthroid) 50 mcg PO DAILY [facility] Last Admin: 08/12/18 09:36 Dose: 50 mcg Memantine (Namenda) 5 mg PO BID [facility] Last Admin: 08/12/18 17:42 Dose: 5 mg Silver Sulfadiazine (Silvadene 1% 25 Gm) 1 gm TP BID [facility] Last Admin: 08/12/18 17:42 Dose: 1 gm - Labs Labs: 08/13/18 06:45 08/13/18 06:45 PT 16.5 SECONDS (9.4-12.5) H 08/09/18 06:15 INR 1.42 08/09/18 06:15 APTT 25.4 Seconds (25.1-36.5) 08/09/18 06:15 - Additional Findings Additional findings: - Constitutional Appears: Non-toxic, No Acute Distress, Cachectic, Chronically Ill - Head Exam Head Exam: NORMAL INSPECTION - Eye Exam Eye Exam: Normal appearance - ENT Exam ENT Exam: Mucous Membranes Moist - Respiratory Exam Respiratory Exam: NORMAL BREATHING PATTERN. absent: Accessory Muscle Use, Respiratory Distress - Cardiovascular Exam Cardiovascular Exam: absent: Bradycardia, Tachycardia - GI/Abdominal Exam GI & Abdominal Exam: Soft. absent: Distended, Tenderness - Extremities Exam Additional comments: L hip stage 4 pressure ulcer w/ purulent drainage noted from 10 o'clock and 1 o' clock of upper wound and 6-7 o'clock of lower wound. TTP. cardoza, fibrinous wound belly w/ stable, small necrotic edges along lower wound Sacral stage 2/3 pressure ulcer. no drainage noted. grossly unchanged from admission R hip skin avulsion w/ no purulent drainage. - Neurological Exam Neurological Exam: Alert, Awake - Psychiatric Exam Psychiatric exam: Normal Affect, Normal Mood - Skin Skin Exam: Dry, Warm Assessment and Plan - Assessment and Plan (Free Text) Assessment: 73 y/o M w/ multiple pressure ulcers of various stages and worsening leukocytosis Plan: - L ischium woundvac started, further debrided this AM at bedside. - santyl to sacrum; silvadene to R hip as per PMD - daily labs --> trend leukocytosis and electrolytes - cont IV Abx per ID - f/u Wound care recs - cont air mattress - turn Q2 - off loading - f/u SW/CM for NH placement Pt will be discussed w/ Dr. Wrad Eddy PGY1
[2018-08-13] MEDS: Vancomycin 1gm in NS 250ml 1 GM/250 ML BAG IVPB SCH ×2 (10:07→22:01)
[2018-08-13] MEDS: Levothyroxine 50 MCG TAB PO SCH (10:08)
[2018-08-13] MEDS: Silver Sulfadiazine 1% Cream (25 gm) TP SCH ×2 (10:09→18:11)
[2018-08-13] MEDS: Collagenase 250 Units/gm Ointment(30 gm) TOP SCH ×2 (10:09→18:11)
--- NOTE | 2018-08-13 14:28 | CP.PCM.PN ---
Subjective - Date & Time of Evaluation Date of Evaluation: 08/13/18 Time of Evaluation: 13:50 - Subjective Subjective: No fevers, not in distress, comfortable in bed. Objective - Vital Signs/Intake and Output Vital Signs (last 24 hours): Temp Pulse Resp BP Pulse Ox 98.1 F 65 18 118/84 93 L 08/13/18 08:03 08/13/18 08:03 08/13/18 08:03 08/13/18 08:03 08/13/18 08:03 Intake and Output: 08/13/18 08/13/18 06:59 18:59 Intake Total 1300 Output Total 1200 Balance 100 - Medications Medications: Current Medications Acetaminophen (Tylenol 325mg Tab) 650 mg PO Q6H PRN PRN Reason: Fever >100.4 F Atorvastatin Calcium (Lipitor) 10 mg PO DIN [facility] Last Admin: 08/12/18 17:41 Dose: 10 mg Collagenase (Santyl) 1 gm TOP BID [facility] Last Admin: 08/12/18 17:42 Dose: 1 gm Donepezil HCl (Aricept) 5 mg PO HS [facility] Last Admin: 08/12/18 21:28 Dose: 5 mg Famotidine (Pepcid) 20 mg PO DAILY [facility] Last Admin: 08/12/18 09:36 Dose: 20 mg Vancomycin HCl (Vancomycin 1gm) 1 gm in 250 mls @ 167 mls/hr IVPB Q12H [facility] PRN Reason: Protocol Last Admin: 08/12/18 22:03 Dose: 167 mls/hr Meropenem (Merrem Iv 1 Gm Premix) 50 mls @ 100 mls/hr IVPB Q8 [facility] PRN Reason: Protocol Stop: 08/16/18 14:01 Last Admin: 08/13/18 05:25 Dose: 100 mls/hr Levothyroxine Sodium (Synthroid) 50 mcg PO DAILY [facility] Last Admin: 08/12/18 09:36 Dose: 50 mcg Memantine (Namenda) 5 mg PO BID [facility] Last Admin: 08/12/18 17:42 Dose: 5 mg Silver Sulfadiazine (Silvadene 1% 25 Gm) 1 gm TP BID [facility] Last Admin: 08/12/18 17:42 Dose: 1 gm - Labs Labs: 08/13/18 06:45 08/13/18 06:45 PT 16.5 SECONDS (9.4-12.5) H 08/09/18 06:15 INR 1.42 08/09/18 06:15 APTT 25.4 Seconds (25.1-36.5) 08/09/18 06:15 - Constitutional Appears: Chronically Ill - Head Exam Head Exam: NORMAL INSPECTION - Respiratory Exam Respiratory Exam: Decreased Breath Sounds - Cardiovascular Exam Cardiovascular Exam: +S1, +S2 - GI/Abdominal Exam GI & Abdominal Exam: Soft. absent: Tenderness Assessment and Plan - Assessment and Plan (Free Text) Plan: Assessment sepsis due to left hip infected decubitus ulcer with skin and skin structure infection S/P debridement, growing E. faecalis, Klebsiella, Proteus history of treatment for left hip area cellulitis, with Pseudomonas as a probable colonizer on the wound dementia CVA thyroid disease Plan Continue Vancomycin and Merrem day 5 pending wound cultures and will continue to monitor clinically
[2018-08-14] MEDS: Meropenem IV 1 gm in NS 50 ML IVPB SCH ×3 (05:58→22:00)
[2018-08-14 07:26] LABS: BASO # 0.06 K/mm3 (0.0-2.0); BASO % 0.4 % (0.0-3.0); EOS # 0.4 (0.0-0.7); EOS % 2.3 % (1.5-5.0); GRAN # 11.2 (1.4-6.5); HEMOGLOBIN 8.8 g/dL (14.0-18.0); LYMPH # 3.4 (1.2-3.4); LYMPH % 20.7 % (22.0-35.0); MEAN CELL VOLUME 68.3 fl (80.0-105.0); MEAN CORPUSCULAR HEMOGLOBIN 23.2 pg (25.0-35.0); MONO # 1.2 (0.1-0.6); MONO % 7.6 % (1.0-6.0); RBC 3.79 10^6/uL (3.5-6.1); RED CELL DISTRIBUTION WIDTH 15.4 % (11.5-14.5); WHITE BLOOD COUNT 16.2 10^3/ul (4.5-11.0)
[2018-08-14 07:46] LABS: ALB/GLOB RATIO 0.8 (1.1-1.8); ALBUMIN 2.8 g/dL (3.0-4.8); ALT/SGPT 23 U/L (7-56); AST/SGOT 21 U/L (17-59); BLOOD UREA NITROGEN 10 mg/dL (7-21); CALCIUM 8.5 mg/dL (8.4-10.5); GFR NON-AFRICAN AMERICAN > 60
[2018-08-14] MEDS: Levothyroxine 50 MCG TAB PO SCH (10:39)
[2018-08-14] MEDS: Silver Sulfadiazine 1% Cream (25 gm) TP SCH (10:40)
[2018-08-14] MEDS: Collagenase 250 Units/gm Ointment(30 gm) TOP SCH (10:40)
[2018-08-14] MEDS: Vancomycin 1gm in NS 250ml 1 GM/250 ML BAG IVPB SCH ×2 (12:00→22:01)
--- NOTE | 2018-08-14 14:26 | CP.PCM.PN ---
<Susana Rush - Last Filed: 08/14/18 14:23> Subjective - Date & Time of Evaluation Date of Evaluation: 08/14/18 Time of Evaluation: 09:15 - Subjective Subjective: PGY-1 Susana Rush D.O. Medicine progress note for Dr. Mchugh's service: Patient is seen and examined this morning. No over night events reported. Patient denied any pain. He was able to state his name. The rest of of his speech is unintelligible. He is able to nod yes or no. Patient is pointing to the bottle of Ensure and indicated he wanted a drink. He drank the entire bottle of Ensure Enlive. Objective - Vital Signs/Intake and Output Vital Signs (last 24 hours): Temp Pulse Resp BP Pulse Ox 98 F 91 H 18 110/71 100 08/14/18 06:00 08/14/18 06:00 08/14/18 06:00 08/14/18 06:00 08/14/18 06:00 Intake and Output: 08/14/18 08/14/18 06:59 18:59 Intake Total 1160 Output Total 1300 Balance -140 - Medications Medications: Current Medications Acetaminophen (Tylenol 325mg Tab) 650 mg PO Q6H PRN PRN Reason: Fever >100.4 F Atorvastatin Calcium (Lipitor) 10 mg PO DIN [facility] Last Admin: 08/13/18 18:10 Dose: 10 mg Collagenase (Santyl) 1 gm TOP BID [facility] Last Admin: 08/14/18 10:40 Dose: 1 gm Donepezil HCl (Aricept) 5 mg PO HS [facility] Last Admin: 08/13/18 21:18 Dose: 5 mg Famotidine (Pepcid) 20 mg PO DAILY [facility] Last Admin: 08/14/18 10:39 Dose: 20 mg Vancomycin HCl (Vancomycin 1gm) 1 gm in 250 mls @ 167 mls/hr IVPB Q12H [facility] PRN Reason: Protocol Last Admin: 08/13/18 22:01 Dose: 167 mls/hr Meropenem (Merrem Iv 1 Gm Premix) 50 mls @ 100 mls/hr IVPB Q8 [facility] PRN Reason: Protocol Stop: 08/16/18 14:01 Last Admin: 08/14/18 05:58 Dose: 100 mls/hr Levothyroxine Sodium (Synthroid) 50 mcg PO DAILY [facility] Last Admin: 08/14/18 10:39 Dose: 50 mcg Memantine (Namenda) 5 mg PO BID [facility] Last Admin: 08/14/18 10:39 Dose: 5 mg Silver Sulfadiazine (Silvadene 1% 25 Gm) 1 gm TP BID [facility] Last Admin: 08/14/18 10:40 Dose: 1 gm - Labs Labs: 08/14/18 07:00 08/14/18 07:00 PT 16.5 SECONDS (9.4-12.5) H 08/09/18 06:15 INR 1.42 08/09/18 06:15 APTT 25.4 Seconds (25.1-36.5) 08/09/18 06:15 - Constitutional Appears: Non-toxic, No Acute Distress, Older Than Stated Age, Cachectic - Head Exam Head Exam: ATRAUMATIC, NORMAL INSPECTION - Eye Exam Eye Exam: EOMI, Normal appearance - ENT Exam ENT Exam: Mucous Membranes Moist, Normal Exam - Neck Exam Neck Exam: Normal Inspection - Respiratory Exam Respiratory Exam: Clear to Ausculation Bilateral, NORMAL BREATHING PATTERN - Cardiovascular Exam Cardiovascular Exam: REGULAR RHYTHM, +S1, +S2 - GI/Abdominal Exam GI & Abdominal Exam: Soft, Normal Bowel Sounds. absent: Tenderness - Rectal Exam Rectal Exam: Deferred - Extremities Exam Extremities Exam: Normal Inspection. absent: Pedal Edema Additional comments: thin - Back Exam Back Exam: NORMAL INSPECTION - Neurological Exam Neurological Exam: Alert, Awake. absent: Normal Gait, Oriented x3 - Psychiatric Exam Psychiatric exam: Flat Affect - Skin Skin Exam: Normal Color, Warm Additional comments: 3 ulcers with clean and dry bandages- sacrum, b/l hips Assessment and Plan - Assessment and Plan (Free Text) Assessment: Patient is a 73 yo male with a history of dementia, CVAs, and hypothyroidism who presented due to decreased oral intake and generalized weakness. He has multiple pressure ulcers. He appears very cachetic. Family would like placement in NH/rehab. Case management/social work is working on insurance issues- family needs to apply for Medicaid. Plan: Failure to thrive- multiple recent admissions for generalized weakness and poor oral intake - VBG shows pH/pCO2/HCO3 7.39/53/32 indicating chronic primary respiratory acidosis - Fall and aspiration precautions - CT A/P with PO contrast: negative - PT for deconditioning - Social work consult - Case management consult - Palliative care consult - Abrasive Wheel Molder referral Left hip and sacral decubitus ulcers- stage 4 and Right hip- stage 2 - Leukocytosis stable (16.2-20.1) - 100.4 F 08/11 - Tylenol 650 mg PO q6hrs PRN - HIV negative - CXR: no active disease - UA: trace ketones, otherwise unremarkable - Chronic stage 4 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 sacrum- I&D 08/09 - Blood culture no growth >4 days - Urine culture negative - Wound culture (L hip): Proteus, Klebsiella, Enterococcus - Vancomycin 1g IV q12hrs (started 08/09) - Meropenem 1g IV q8hrs (started 08/09) - Air mattress - Turns q2hrs - Wound care - Wound vac in L hip 08/13 - Daily packing changes - Collagenase 1g topical BID to L hip - Silver sulfadiazine 1g topical BID to R hip, sacrum - General surgery consulted (Ward)- I&D L hip on 08/09, further debridement L hip 08/12 - ID consulted (Terry) Microcytic anemia, worsening-concerning for anemia of chronic disease vs iron deficiency - Hgb (10.2->8.6) with low MCV and elevated RDW - B12 wnl (860), folate wnl (6) - Iron low (24), TIBC low (193), % sat low (13) - Peripheral smear- microcytic, hypochronic, mild anisopoikilocytosis, few target cells. few ovalocytes, few schistocytes, large Plts - Reticulocyte count 1 - FOBT negative Dehydration, improving- normotensive, tachycardic (sinus) - Elevated BUN on admission (37)- resolved - UA ketones - Given IVF (NS) on admission Dementia- previously diagnosed as Alzheimer's - Aricept 5 mg PO QHS - Namenda 5 mg PO BID Hypothyroidism - TSH high (5.09) - T4 wnl (1.4) - Synthroid 50 mcg PO daily Hyperlipidemia - Lipitor 10 mg PO QHS PT- rec ENID IVF: not indicated GI ppx: Pepcid 20 mg PO daily VTE ppx: SCDs Diet: pureed diet/thin liquids, 3 Ensure Enlive daily Code status: full code- f/u palliative Case discussed with attending, Dr. Mchugh. <Amador Mchugh - Last Filed: 08/16/18 15:42> Objective - Vital Signs/Intake and Output Vital Signs (last 24 hours): Temp Pulse Resp BP Pulse Ox 97.5 F L 104 H 18 119/69 98 08/16/18 14:00 08/16/18 14:00 08/16/18 14:00 08/16/18 14:00 08/16/18 14:00 Intake and Output: 08/16/18 08/16/18 06:59 18:59 Intake Total 800 Output Total 2200 Balance -1400 - Medications Medications: Current Medications Acetaminophen (Tylenol 325mg Tab) 650 mg PO Q6H PRN PRN Reason: Fever >100.4 F Atorvastatin Calcium (Lipitor) 10 mg PO DIN [facility] Last Admin: 08/15/18 17:16 Dose: 10 mg Collagenase (Santyl) 1 gm TOP BID [facility] Last Admin: 08/16/18 10:31 Dose: 1 gm Donepezil HCl (Aricept) 5 mg PO HS [facility] Last Admin: 08/15/18 21:50 Dose: 5 mg Enoxaparin Sodium (Lovenox) 40 mg SC DAILY [facility] PRN Reason: Protocol Last Admin: 08/16/18 10:31 Dose: 40 mg Famotidine (Pepcid) 20 mg PO DAILY [facility] Last Admin: 08/16/18 10:31 Dose: 20 mg Meropenem (Merrem Iv 1 Gm Premix) 50 mls @ 100 mls/hr IVPB Q8 [facility] PRN Reason: Protocol Stop: 08/23/18 14:01 Last Admin: 08/16/18 14:29 Dose: 100 mls/hr Vancomycin HCl (Vancomycin 750 Mg In Ns) 750 mg in 250 mls @ 167 mls/hr IVPB Q12H [facility] PRN Reason: Protocol Last Admin: 08/16/18 11:30 Dose: 167 mls/hr Levothyroxine Sodium (Synthroid) 50 mcg PO DAILY [facility] Last Admin: 08/16/18 10:31 Dose: 50 mcg Memantine (Namenda) 5 mg PO BID [facility] Last Admin: 08/16/18 10:31 Dose: 5 mg Silver Sulfadiazine (Silvadene 1% 25 Gm) 1 gm TP BID [facility] Last Admin: 08/16/18 10:33 Dose: 1 gm - Labs Labs: 08/16/18 06:45 08/16/18 06:45 PT 16.5 SECONDS (9.4-12.5) H 08/09/18 06:15 INR 1.42 08/09/18 06:15 APTT 25.4 Seconds (25.1-36.5) 08/09/18 06:15 Attending/Attestation - Attestation I have personally seen and examined this patient.: Yes I have fully participated in the care of the patient.: Yes I have reviewed all pertinent clinical information, including history, physical exam and plan: Yes Notes (Text): 08/16/18 15:39 Attending note; Patient seen and examined with resident. Patient is alert and awake. tolerating diet. Patient is 73-year-old male with past medical history significant for non healing stage IV left hip decubitus ulcer, Alzheimer's dementia, hypothyroidism , CVA, and failure to thrive that presented to emergency room with generalized weakness and decreased appetite. 1. Multiple sacral ulcers; status post wound VAC after debridement. Surgery evaluation appreciated . Patient is afebrile and nontoxic . Continue dressing change for surgery. Continue meropenem and vancomycin. Continue silver sulfadiazine. Wound cultures positive for Proteus, Klebsiella pneumoniae, Enterococcus faecalis. Blood cultures with no growth. Pelvis CT per radiologist shows multiple subcutaneous fluid and air collections consistent with abscess, no evidence of ulcer osteomyelitis. Leukocytosis is resolving. 2. Failure to thrive. Dietitian evaluation appreciated. Continue ensure. Patient is tolerating diet now. Continue dysphagia diet. Continue aspiration precautions. 3. Microcytic anemia. Hemoglobin is stable. CT abdomen and pelvis shows slightly heterogeneous enhancement of the kidneys noted, possible pyelonephritis , large left posterior buttock decubitus ulcer. 4.Hypothyroidism. Continue Synthroid. 5.Dementia. Continue Aricept and Namenda Continue to monitor closely. Palliative care evaluation requested for advanced directive. Case discussed with immigration case manager in detail for discharge planning. Upon discharge the patient will follow up with PMD .
--- NOTE | 2018-08-14 18:32 | PN ---
DATE: 08/14/2018 SUBJECTIVE: The patient is seen early this morning in room 567. No fevers, no chills, no nausea, no vomiting. PHYSICAL EXAMINATION: VITAL SIGNS: On exam, temperature is 98, blood pressure is 106/70, respiratory rate of 18. HEENT: Examination of HEENT is unremarkable. NECK: Supple. LUNGS: Have decreased breath sounds. HEART: Normal S1, S2. ABDOMEN: Soft, nontender. SKIN: Examination of sacrum is noted. LABORATORY DATA: Laboratory examination reveals a white count of 16,000, hemoglobin of 8, platelets of 590. Coagulation is noted. Chemistries reveals a BUN of 10, creatinine of 0.4. Urinalysis is noted. Stool occult blood is negative. HIV is negative. Microbiology reveals the blood cultures are negative. The hip cultures, Proteus, Klebsiella, Enterococcus. Another culture is Proteus, Klebsiella and Enterococcus. ASSESSMENT AND PLAN: A 73-year-old male who was seen earlier this morning in 567, bed 2 with sepsis due to a left hip infected decubitus ulcer and skin and skin structure infection, status post debridement, growing Enterococcus, Klebsiella and Proteus in a patient with dementia, cerebrovascular accident, on vancomycin and meropenem day #6 and meropenem was discontinued by pharmacy. We will restart the meropenem. Raul Mo MD
--- NOTE | 2018-08-15 05:40 | CP.PCM.PN ---
<Susana Rush - Last Filed: 08/15/18 17:25> Subjective - Date & Time of Evaluation Date of Evaluation: 08/15/18 Time of Evaluation: 10:00 - Subjective Subjective: PGY-1 Susana Rush D.O. Medicine progress note for Dr. Mchugh's service: Patient is seen and examined this morning. No over night events reported. Patient is resting comfortably in bed. he looks brighter than yesterday. He is sitting upright. He states he is "fine." Denies pain. Objective - Vital Signs/Intake and Output Vital Signs (last 24 hours): Temp Pulse Resp BP Pulse Ox 99.1 F 94 H 20 112/71 100 08/15/18 00:15 08/15/18 00:15 08/15/18 00:15 08/15/18 00:15 08/14/18 22:14 Intake and Output: 08/14/18 08/15/18 18:59 06:59 Intake Total 860 480 Output Total 900 350 Balance -40 130 - Medications Medications: Current Medications Acetaminophen (Tylenol 325mg Tab) 650 mg PO Q6H PRN PRN Reason: Fever >100.4 F Atorvastatin Calcium (Lipitor) 10 mg PO DIN [facility] Last Admin: 08/14/18 17:10 Dose: 10 mg Collagenase (Santyl) 1 gm TOP BID [facility] Last Admin: 08/14/18 10:40 Dose: 1 gm Donepezil HCl (Aricept) 5 mg PO HS [facility] Last Admin: 08/14/18 22:00 Dose: 5 mg Famotidine (Pepcid) 20 mg PO DAILY [facility] Last Admin: 08/14/18 10:39 Dose: 20 mg Vancomycin HCl (Vancomycin 1gm) 1 gm in 250 mls @ 167 mls/hr IVPB Q12H [facility] PRN Reason: Protocol Last Admin: 08/14/18 22:01 Dose: 167 mls/hr Meropenem (Merrem Iv 1 Gm Premix) 50 mls @ 100 mls/hr IVPB Q8 [facility] PRN Reason: Protocol Stop: 08/16/18 14:01 Last Admin: 08/14/18 22:00 Dose: 100 mls/hr Levothyroxine Sodium (Synthroid) 50 mcg PO DAILY [facility] Last Admin: 08/14/18 10:39 Dose: 50 mcg Memantine (Namenda) 5 mg PO BID [facility] Last Admin: 08/14/18 17:10 Dose: 5 mg Silver Sulfadiazine (Silvadene 1% 25 Gm) 1 gm TP BID [facility] Last Admin: 08/14/18 10:40 Dose: 1 gm - Labs Labs: 08/14/18 07:00 08/14/18 07:00 PT 16.5 SECONDS (9.4-12.5) H 08/09/18 06:15 INR 1.42 08/09/18 06:15 APTT 25.4 Seconds (25.1-36.5) 08/09/18 06:15 - Constitutional Appears: Older Than Stated Age, Cachectic, Chronically Ill - Head Exam Head Exam: ATRAUMATIC, NORMAL INSPECTION - Eye Exam Eye Exam: EOMI, Normal appearance, PERRL - ENT Exam ENT Exam: Mucous Membranes Moist, Normal Exam - Neck Exam Neck Exam: Normal Inspection - Respiratory Exam Respiratory Exam: Clear to Ausculation Bilateral, NORMAL BREATHING PATTERN - Cardiovascular Exam Cardiovascular Exam: Tachycardia, REGULAR RHYTHM, +S1, +S2 - GI/Abdominal Exam GI & Abdominal Exam: Soft, Normal Bowel Sounds. absent: Tenderness - Rectal Exam Rectal Exam: Deferred - Extremities Exam Additional comments: thin - Back Exam Back Exam: NORMAL INSPECTION - Neurological Exam Neurological Exam: Alert, Awake. absent: Normal Gait, Oriented x3 - Psychiatric Exam Psychiatric exam: Flat Affect - Skin Skin Exam: Normal Color, Warm Additional comments: 3 ulcers with clean and dry bandages- sacrum, b/l hips wound vac in L hip Assessment and Plan - Assessment and Plan (Free Text) Assessment: Patient is a 73 yo male with a history of dementia, CVAs, and hypothyroidism who presented due to decreased oral intake and generalized weakness. He has multiple pressure ulcers. He appears very cachetic. Family would like placement in NH/rehab. Case management/social work is working on insurance issues- family needs to apply for Medicaid. Patient referred to several facilities. Plan: Failure to thrive- multiple recent admissions for generalized weakness and poor oral intake - VBG shows pH/pCO2/HCO3 7.39/53/32 indicating chronic primary respiratory acidosis - Fall and aspiration precautions - CT A/P with PO contrast: negative - PT for deconditioning - Social work consult - Case management consult - Palliative care consult - Piping Manager referral Left hip and sacral decubitus ulcers- stage 4 and Right hip- stage 2 - Leukocytosis stable (16.2-20.1) - 100.4 F 08/11 - Tylenol 650 mg PO q6hrs PRN - HIV negative - CXR: no active disease - UA: trace ketones, otherwise unremarkable - Chronic stage 4 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 sacrum- I&D 08/09 - Blood culture no growth >4 days - Urine culture negative - Wound culture (L hip): Proteus, Klebsiella, Enterococcus - Vancomycin 1g IV q12hrs (started 08/09) - Meropenem 1g IV q8hrs (started 08/09) - Air mattress - Turns q2hrs - Wound care - Wound vac in L hip 08/13- see surgery notes for details - Daily packing changes - Collagenase 1g topical BID to L hip - Silver sulfadiazine 1g topical BID to R hip, sacrum - Midline placement pending - General surgery consulted (Ward)- I&D L hip on 08/09, further debridement L hip 08/12 - ID consulted (Terry)- will need total of 14-17 days of IV abx Microcytic anemia, worsening-concerning for anemia of chronic disease vs iron deficiency - Hgb (10.2->7.9) with low MCV and elevated RDW - B12 wnl (860), folate wnl (6) - Iron low (24), TIBC low (193), % sat low (13) - Peripheral smear- microcytic, hypochronic, mild anisopoikilocytosis, few target cells. few ovalocytes, few schistocytes, large Plts - Reticulocyte count 1 - FOBT negative Dehydration, improving- normotensive, tachycardic (sinus) - Elevated BUN on admission (37)- resolved - UA ketones - Given IVF (NS) on admission Dementia- previously diagnosed as Alzheimer's - Aricept 5 mg PO QHS - Namenda 5 mg PO BID Hypothyroidism - TSH high (5.09) - T4 wnl (1.4) - Synthroid 50 mcg PO daily Hyperlipidemia - Lipitor 10 mg PO QHS PT- rec [facility] IVF: not indicated GI ppx: Pepcid 20 mg PO daily VTE ppx: SCDs Diet: pureed diet/thin liquids, 3 Ensure Enlive daily Code status: full code- f/u palliative Case discussed with attending, Dr. Mchugh. <Amador Mchugh - Last Filed: 08/16/18 15:44> Objective - Vital Signs/Intake and Output Vital Signs (last 24 hours): Temp Pulse Resp BP Pulse Ox 97.5 F L 104 H 18 119/69 98 08/16/18 14:00 08/16/18 14:00 08/16/18 14:00 08/16/18 14:00 08/16/18 14:00 Intake and Output: 08/16/18 08/16/18 06:59 18:59 Intake Total 800 Output Total 2200 Balance -1400 - Medications Medications: Current Medications Acetaminophen (Tylenol 325mg Tab) 650 mg PO Q6H PRN PRN Reason: Fever >100.4 F Atorvastatin Calcium (Lipitor) 10 mg PO DIN [facility] Last Admin: 08/15/18 17:16 Dose: 10 mg Collagenase (Santyl) 1 gm TOP BID [facility] Last Admin: 08/16/18 10:31 Dose: 1 gm Donepezil HCl (Aricept) 5 mg PO HS [facility] Last Admin: 08/15/18 21:50 Dose: 5 mg Enoxaparin Sodium (Lovenox) 40 mg SC DAILY [facility] PRN Reason: Protocol Last Admin: 08/16/18 10:31 Dose: 40 mg Famotidine (Pepcid) 20 mg PO DAILY [facility] Last Admin: 08/16/18 10:31 Dose: 20 mg Meropenem (Merrem Iv 1 Gm Premix) 50 mls @ 100 mls/hr IVPB Q8 [facility] PRN Reason: Protocol Stop: 08/23/18 14:01 Last Admin: 08/16/18 14:29 Dose: 100 mls/hr Vancomycin HCl (Vancomycin 750 Mg In Ns) 750 mg in 250 mls @ 167 mls/hr IVPB Q12H [facility] PRN Reason: Protocol Last Admin: 08/16/18 11:30 Dose: 167 mls/hr Levothyroxine Sodium (Synthroid) 50 mcg PO DAILY [facility] Last Admin: 08/16/18 10:31 Dose: 50 mcg Memantine (Namenda) 5 mg PO BID [facility] Last Admin: 08/16/18 10:31 Dose: 5 mg Silver Sulfadiazine (Silvadene 1% 25 Gm) 1 gm TP BID [facility] Last Admin: 08/16/18 10:33 Dose: 1 gm - Labs Labs: 08/16/18 06:45 08/16/18 06:45 PT 16.5 SECONDS (9.4-12.5) H 08/09/18 06:15 INR 1.42 08/09/18 06:15 APTT 25.4 Seconds (25.1-36.5) 08/09/18 06:15 Attending/Attestation - Attestation I have personally seen and examined this patient.: Yes I have fully participated in the care of the patient.: Yes I have reviewed all pertinent clinical information, including history, physical exam and plan: Yes Notes (Text): 08/16/18 15:42 Attending note; Patient seen and examined with resident. Patient is alert and awake. tolerating diet. Patient is 73-year-old male with past medical history significant for non healing stage IV left hip decubitus ulcer, Alzheimer's dementia, hypothyroidism , CVA, and failure to thrive that presented to emergency room with generalized weakness and decreased appetite. 1. Multiple sacral ulcers; status post wound VAC after debridement. Surgery evaluation appreciated . Patient is afebrile and nontoxic . Continue dressing change for surgery. Continue meropenem and vancomycin. Continue silver sulfadiazine. Wound cultures positive for Proteus, Klebsiella pneumoniae, Enterococcus faecalis. Blood cultures with no growth. Pelvis CT per radiologist shows multiple subcutaneous fluid and air collections consistent with abscess, no evidence of ulcer osteomyelitis. Leukocytosis is resolving. Case discussed with ID in detail. Needs to complete 7-10 more days of IV antibiotics. We will get midline placement. 2. Failure to thrive. Dietitian evaluation appreciated. Continue ensure. Patient is tolerating diet now. Continue dysphagia diet. Continue aspiration precautions. 3. Microcytic anemia. Hemoglobin is stable. CT abdomen and pelvis shows slightly heterogeneous enhancement of the kidneys noted, possible pyelonephritis , large left posterior buttock decubitus ulcer. 4.Hypothyroidism. Continue Synthroid. 5.Dementia. Continue Aricept and Namenda Case discussed with special education case manager in detail for discharge planning. Upon discharge the patient will follow up with PMD .
[2018-08-15] MEDS: Meropenem IV 1 gm in NS 50 ML IVPB SCH ×3 (06:06→21:50)
[2018-08-15 07:12] LABS: BASO # 0.08 K/mm3 (0.0-2.0); BASO % 0.6 % (0.0-3.0); EOS # 0.2 (0.0-0.7); EOS % 1.7 % (1.5-5.0); GRAN # 8.08 (1.4-6.5); GRAN % 63.9 % (50.0-68.0); HEMOGLOBIN 7.9 g/dL (14.0-18.0); LYMPH # 2.9 (1.2-3.4); LYMPH % 23.1 % (22.0-35.0); MEAN CELL VOLUME 68.8 fl (80.0-105.0); MEAN PLATELET VOLUME 9.1 fl (7.0-11.0); MONO # 1.4 (0.1-0.6); MONO % 10.7 % (1.0-6.0); RBC 3.59 10^6/uL (3.5-6.1); RED CELL DISTRIBUTION WIDTH 15.3 % (11.5-14.5); WHITE BLOOD COUNT 12.7 10^3/ul (4.5-11.0)
[2018-08-15 07:15] LABS: ALB/GLOB RATIO 0.8 (1.1-1.8); ALBUMIN 2.8 g/dL (3.0-4.8); ALT/SGPT 21 U/L (7-56); AST/SGOT 22 U/L (17-59); BLOOD UREA NITROGEN 11 mg/dL (7-21); CALCIUM 8.5 mg/dL (8.4-10.5); GFR NON-AFRICAN AMERICAN > 60
--- NOTE | 2018-08-15 10:22 | CP.PCM.PN ---
<Caity Ayala - Last Filed: 08/15/18 10:42> Subjective - Date & Time of Evaluation Date of Evaluation: 08/15/18 Time of Evaluation: 09:10 - Subjective Subjective: General Surgery progress note for Dr. Hopper Pt seen and examined at bedside this AM. No adverse events overnight, patient is alert and responsive, afebrile, reports some pain at the wound sites. Objective - Vital Signs/Intake and Output Vital Signs (last 24 hours): Temp Pulse Resp BP Pulse Ox 98 F 96 H 19 103/72 98 08/15/18 06:00 08/15/18 06:00 08/15/18 06:00 08/15/18 06:00 08/15/18 06:00 Intake and Output: 08/15/18 08/15/18 06:59 18:59 Intake Total 480 Output Total 350 Balance 130 - Medications Medications: Current Medications Acetaminophen (Tylenol 325mg Tab) 650 mg PO Q6H PRN PRN Reason: Fever >100.4 F Atorvastatin Calcium (Lipitor) 10 mg PO DIN [facility] Last Admin: 08/14/18 17:10 Dose: 10 mg Collagenase (Santyl) 1 gm TOP BID [facility] Last Admin: 08/14/18 10:40 Dose: 1 gm Donepezil HCl (Aricept) 5 mg PO HS [facility] Last Admin: 08/14/18 22:00 Dose: 5 mg Enoxaparin Sodium (Lovenox) 40 mg SC DAILY [facility] PRN Reason: Protocol Famotidine (Pepcid) 20 mg PO DAILY [facility] Last Admin: 08/14/18 10:39 Dose: 20 mg Vancomycin HCl (Vancomycin 1gm) 1 gm in 250 mls @ 167 mls/hr IVPB Q12H [facility] PRN Reason: Protocol Last Admin: 08/14/18 22:01 Dose: 167 mls/hr Meropenem (Merrem Iv 1 Gm Premix) 50 mls @ 100 mls/hr IVPB Q8 [facility] PRN Reason: Protocol Stop: 08/16/18 14:01 Last Admin: 08/15/18 06:06 Dose: 100 mls/hr Levothyroxine Sodium (Synthroid) 50 mcg PO DAILY [facility] Last Admin: 08/14/18 10:39 Dose: 50 mcg Memantine (Namenda) 5 mg PO BID [facility] Last Admin: 08/14/18 17:10 Dose: 5 mg Silver Sulfadiazine (Silvadene 1% 25 Gm) 1 gm TP BID [facility] Last Admin: 08/14/18 10:40 Dose: 1 gm - Labs Labs: 08/15/18 06:30 08/15/18 06:30 PT 16.5 SECONDS (9.4-12.5) H 08/09/18 06:15 INR 1.42 08/09/18 06:15 APTT 25.4 Seconds (25.1-36.5) 08/09/18 06:15 - Constitutional Appears: Well, Non-toxic, No Acute Distress - Head Exam Head Exam: ATRAUMATIC, NORMOCEPHALIC - Eye Exam Eye Exam: Normal appearance. absent: Conjunctival injection, Scleral icterus - ENT Exam ENT Exam: Mucous Membranes Moist, Normal Oropharynx - Respiratory Exam Respiratory Exam: NORMAL BREATHING PATTERN. absent: Accessory Muscle Use, Respiratory Distress - Cardiovascular Exam Cardiovascular Exam: RRR - GI/Abdominal Exam GI & Abdominal Exam: Soft. 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 Transfuse as needed per primary's discretion for any clinical signs of anemia Continue antibiotics per ID Continue to reposition Q2h and continue clinitron bed Continue to encourage PO intake and supplementation per nutrition recs Will follow up with social work regarding disposition--if patient continues to improve may be discharged to [facility] vs SNF with continued wound vac therapy Will continue to monitor Discussed with DR. Ward Ayala, PGY2 <Minh Hopper - Last Filed: 08/15/18 16:24> Objective - Vital Signs/Intake and Output Vital Signs (last 24 hours): Temp Pulse Resp BP Pulse Ox 98 F 109 H 18 95/62 L 99 08/15/18 14:00 08/15/18 14:00 08/15/18 14:00 08/15/18 14:00 08/15/18 14:00 Intake and Output: 08/15/18 08/15/18 06:59 18:59 Intake Total 480 1900 Output Total 350 1000 Balance 130 900 - Medications Medications: Current Medications Acetaminophen (Tylenol 325mg Tab) 650 mg PO Q6H PRN PRN Reason: Fever >100.4 F Atorvastatin Calcium (Lipitor) 10 mg PO DIN [facility] Last Admin: 08/14/18 17:10 Dose: 10 mg Collagenase (Santyl) 1 gm TOP BID [facility] Last Admin: 08/15/18 10:35 Dose: 1 gm Donepezil HCl (Aricept) 5 mg PO HS [facility] Last Admin: 08/14/18 22:00 Dose: 5 mg Enoxaparin Sodium (Lovenox) 40 mg SC DAILY [facility] PRN Reason: Protocol Last Admin: 08/15/18 10:34 Dose: 40 mg Famotidine (Pepcid) 20 mg PO DAILY [facility] Last Admin: 08/15/18 10:34 Dose: 20 mg Vancomycin HCl (Vancomycin 1gm) 1 gm in 250 mls @ 167 mls/hr IVPB Q12H [facility] PRN Reason: Protocol Last Admin: 08/15/18 10:38 Dose: 167 mls/hr Meropenem (Merrem Iv 1 Gm Premix) 50 mls @ 100 mls/hr IVPB Q8 [facility] PRN Reason: Protocol Stop: 08/16/18 14:01 Last Admin: 08/15/18 13:47 Dose: 100 mls/hr Levothyroxine Sodium (Synthroid) 50 mcg PO DAILY [facility] Last Admin: 08/15/18 10:34 Dose: 50 mcg Memantine (Namenda) 5 mg PO BID [facility] Last Admin: 08/15/18 10:34 Dose: 5 mg Silver Sulfadiazine (Silvadene 1% 25 Gm) 1 gm TP BID [facility] Last Admin: 08/15/18 10:36 Dose: 1 gm - Labs Labs: 08/15/18 06:30 08/15/18 06:30 PT 16.5 SECONDS (9.4-12.5) H 08/09/18 06:15 INR 1.42 08/09/18 06:15 APTT 25.4 Seconds (25.1-36.5) 08/09/18 06:15 Assessment and Plan - Assessment and Plan (Free Text) Plan: Clinically improving with local wound care and vac therapy. Continue on discharge and recs as above. Will need vac changes every 72 hours. Can follow up in wound care clinic for serial wound checks.
--- NOTE | 2018-08-15 10:29 | CP.PCM.PN ---
Subjective - Date & Time of Evaluation Date of Evaluation: 08/14/18 Time of Evaluation: 10:36 - Subjective Subjective: Late entry general surgery progress note for Ward--patient evaluated at bedside with wound care nurse on 08/14/18 at 1030 Patient seen and examined at bedside. Wound vac functioning well with good seal for the left hip wound, minimal seropurulent output. Patient denies any pain Objective - Vital Signs/Intake and Output Vital Signs (last 24 hours): Temp Pulse Resp BP Pulse Ox 98 F 96 H 19 103/72 98 08/15/18 06:00 08/15/18 06:00 08/15/18 06:00 08/15/18 06:00 08/15/18 06:00 Intake and Output: 08/15/18 08/15/18 06:59 18:59 Intake Total 480 Output Total 350 Balance 130 - Medications Medications: Current Medications Acetaminophen (Tylenol 325mg Tab) 650 mg PO Q6H PRN PRN Reason: Fever >100.4 F Atorvastatin Calcium (Lipitor) 10 mg PO DIN [facility] Last Admin: 08/14/18 17:10 Dose: 10 mg Collagenase (Santyl) 1 gm TOP BID [facility] Last Admin: 08/14/18 10:40 Dose: 1 gm Donepezil HCl (Aricept) 5 mg PO HS [facility] Last Admin: 08/14/18 22:00 Dose: 5 mg Enoxaparin Sodium (Lovenox) 40 mg SC DAILY [facility] PRN Reason: Protocol Famotidine (Pepcid) 20 mg PO DAILY [facility] Last Admin: 08/14/18 10:39 Dose: 20 mg Vancomycin HCl (Vancomycin 1gm) 1 gm in 250 mls @ 167 mls/hr IVPB Q12H [facility] PRN Reason: Protocol Last Admin: 08/14/18 22:01 Dose: 167 mls/hr Meropenem (Merrem Iv 1 Gm Premix) 50 mls @ 100 mls/hr IVPB Q8 [facility] PRN Reason: Protocol Stop: 08/16/18 14:01 Last Admin: 08/15/18 06:06 Dose: 100 mls/hr Levothyroxine Sodium (Synthroid) 50 mcg PO DAILY [facility] Last Admin: 08/14/18 10:39 Dose: 50 mcg Memantine (Namenda) 5 mg PO BID [facility] Last Admin: 08/14/18 17:10 Dose: 5 mg Silver Sulfadiazine (Silvadene 1% 25 Gm) 1 gm TP BID [facility] Last Admin: 08/14/18 10:40 Dose: 1 gm - Labs Labs: 08/15/18 06:30 08/15/18 06:30 PT 16.5 SECONDS (9.4-12.5) H 08/09/18 06:15 INR 1.42 08/09/18 06:15 APTT 25.4 Seconds (25.1-36.5) 08/09/18 06:15 - Constitutional Appears: Well, Non-toxic, No Acute Distress - Head Exam Head Exam: ATRAUMATIC, NORMOCEPHALIC - Eye Exam Eye Exam: Normal appearance. absent: Conjunctival injection, Scleral icterus - ENT Exam ENT Exam: Mucous Membranes Moist, Normal Oropharynx - Respiratory Exam Respiratory Exam: NORMAL BREATHING PATTERN. absent: Accessory Muscle Use, Respiratory Distress - Cardiovascular Exam Cardiovascular Exam: RRR - GI/Abdominal Exam GI & Abdominal Exam: Soft. absent: Distended - Extremities Exam Extremities Exam: absent: Calf Tenderness, Pedal Edema, Tenderness Additional comments: left hip with 2 stage 4 pressure ulcers both approximately 4cm diameter with wound vac in place, minimal seropurulent drainage. Circumferential undermining approximately 3cm circumferentially right hip with 1 stage one ulcer anteriorly approximately 5mm in diameter, and a stage 2 ulcer posteriorly approximately 3cm in diameter, with healthy granulation tissues - Back Exam Additional comments: Sacral wound approximately 4cm long and 3cm wide with central yellow eschar and peripheral normal granulation tissue. Eschar debrided at bedside with cavity extending to the pre-sacral tissue underneath, with approximately2-3 cm of subcutaneous undermining circumferentially. Small amount of necrotic subcutaneous tissue in the right lateral side of the wound, also debrided. No purulent drainage, foul smell, or surrounding crepitus appreciated - Neurological Exam Neurological Exam: Alert, Altered, Awake - Psychiatric Exam Psychiatric exam: Normal Affect, Normal Mood - Skin Skin Exam: Dry, Normal Color, Warm Assessment and Plan - Assessment and Plan (Free Text) Assessment: 73M with stage 4 sacral pressure ulcer and left hip infected stage 4 pressure ulcer s/p bedside debridements and wound vac placement Plan: Bedside sharp debridement of sacral wound performed at bedside with suture scissors, with assistance of wound care nurse, Francisco Javier. Stage 4 ulcer was revealed, peripheral subcutaneous necrotic tiss was debrided, with tissue over the sacrum that appeared to be intact and healthy--no sign of bone involvement. Wound vac was placed with bridge to left hip wound and had good suction and seal. No bleeding was encountered, patient tolerated the procedure well with no complications. Continue wound vac to continuous 125mmHg suction for the left hip and sacrum Continue antibiotics per ID Continue to reposition Q2h and continue clinitron bed Will follow up with primary regarding disposition--if patient continues to improve may be discharged to [facility] SNF with continued wound vac therapy Will continue to monitor Discussed with DR. Ward Ayala, PGY2
[2018-08-15] MEDS: Levothyroxine 50 MCG TAB PO SCH (10:34)
[2018-08-15] MEDS: Enoxaparin 40 mg Syringe SC SCH (10:34)
[2018-08-15] MEDS: Collagenase 250 Units/gm Ointment(30 gm) TOP SCH ×2 (10:35→17:16)
[2018-08-15] MEDS: Silver Sulfadiazine 1% Cream (25 gm) TP SCH ×2 (10:36→17:17)
[2018-08-15] MEDS: Vancomycin 1gm in NS 250ml 1 GM/250 ML BAG IVPB SCH ×2 (10:38→22:46)
[2018-08-15] MEDS ORDERED: Potassium & Sodium Phosphate PO ONE (10:48)
--- NOTE | 2018-08-15 11:45 | CP.PCM.PCO ---
Physician Communication Note - Physician Communication Note Physician Communication Note: Patient wound care instructions Addendum Addendum: 08/15/18 11:36 Patient should continue wound vac to continuous suction 125mmHg for both left hip stage 4 ulcers (superior 3cm diameter, 2cm deep, with 3cm of circumferential undermining. Inferior 3cm diameter, 2cm deep, with 3cm undermining circumferentially. 2cm subcutanous bridge between) and the stage 4 sacral ulcer (4cm longitudinal and 3cm horizontal, 1cm deep, with 2-3cm undermining circumferentially.) Wound vac should be changed every three days. Apply silvadene BID to the pressure wounds on the right hip (posterior stage2 3cm diameter, anterior stage 1 5mm diameter.) Patient should have a pressure offloading bed and be repositioned at least every 2 hours. Follow up in wound care clinic in 2 weeks or sooner for any concerns
--- NOTE | 2018-08-15 14:13 | CP.PCM.PN ---
Subjective - Date & Time of Evaluation Date of Evaluation: 08/15/18 Time of Evaluation: 10:30 - Subjective Subjective: . Comfortable in bed, no fevers, not in distress. Objective - Vital Signs/Intake and Output Vital Signs (last 24 hours): Temp Pulse Resp BP Pulse Ox 98 F 96 H 19 103/72 98 08/15/18 06:00 08/15/18 06:00 08/15/18 06:00 08/15/18 06:00 08/15/18 06:00 Intake and Output: 08/15/18 08/15/18 06:59 18:59 Intake Total 480 Output Total 350 Balance 130 - Medications Medications: Current Medications Acetaminophen (Tylenol 325mg Tab) 650 mg PO Q6H PRN PRN Reason: Fever >100.4 F Atorvastatin Calcium (Lipitor) 10 mg PO DIN [facility] Last Admin: 08/14/18 17:10 Dose: 10 mg Collagenase (Santyl) 1 gm TOP BID [facility] Last Admin: 08/14/18 10:40 Dose: 1 gm Donepezil HCl (Aricept) 5 mg PO HS [facility] Last Admin: 08/14/18 22:00 Dose: 5 mg Enoxaparin Sodium (Lovenox) 40 mg SC DAILY [facility] PRN Reason: Protocol Famotidine (Pepcid) 20 mg PO DAILY [facility] Last Admin: 08/14/18 10:39 Dose: 20 mg Vancomycin HCl (Vancomycin 1gm) 1 gm in 250 mls @ 167 mls/hr IVPB Q12H [facility] PRN Reason: Protocol Last Admin: 08/14/18 22:01 Dose: 167 mls/hr Meropenem (Merrem Iv 1 Gm Premix) 50 mls @ 100 mls/hr IVPB Q8 [facility] PRN Reason: Protocol Stop: 08/16/18 14:01 Last Admin: 08/15/18 06:06 Dose: 100 mls/hr Levothyroxine Sodium (Synthroid) 50 mcg PO DAILY [facility] Last Admin: 08/14/18 10:39 Dose: 50 mcg Memantine (Namenda) 5 mg PO BID [facility] Last Admin: 08/14/18 17:10 Dose: 5 mg Silver Sulfadiazine (Silvadene 1% 25 Gm) 1 gm TP BID [facility] Last Admin: 08/14/18 10:40 Dose: 1 gm - Labs Labs: 08/15/18 06:30 08/15/18 06:30 PT 16.5 SECONDS (9.4-12.5) H 08/09/18 06:15 INR 1.42 08/09/18 06:15 APTT 25.4 Seconds (25.1-36.5) 08/09/18 06:15 - Constitutional Appears: Chronically Ill - Head Exam Head Exam: NORMAL INSPECTION - Respiratory Exam Respiratory Exam: Decreased Breath Sounds - Cardiovascular Exam Cardiovascular Exam: +S1, +S2 - GI/Abdominal Exam GI & Abdominal Exam: Soft. absent: Tenderness Assessment and Plan - Assessment and Plan (Free Text) Plan: Assessment sepsis due to left hip infected decubitus ulcer with skin and skin structure infection S/P debridement, growing E. faecalis, Klebsiella, Proteus history of treatment for left hip area cellulitis, with Pseudomonas as a probable colonizer on the wound dementia CVA thyroid disease Plan Continue Vancomycin and Merrem day 7 and will continue to monitor clinically - should complete another 7-10 days of antibiotics with outpatient follow up with surgery for wound care, and will need to continue local wound care
[2018-08-16] MEDS: Meropenem IV 1 gm in NS 50 ML IVPB SCH ×3 (05:36→22:17)
[2018-08-16 07:13] LABS: BASO # 0.07 K/mm3 (0.0-2.0); BASO % 0.6 % (0.0-3.0); EOS # 0.3 (0.0-0.7); EOS % 2.1 % (1.5-5.0); GRAN # 8.22 (1.4-6.5); GRAN % 66.2 % (50.0-68.0); HEMOGLOBIN 9.1 g/dL (14.0-18.0); LYMPH # 2.7 (1.2-3.4); LYMPH % 21.8 % (22.0-35.0); MEAN CORPUSCULAR HGB CONC 31.9 g/dl (31.0-37.0); MONO # 1.2 (0.1-0.6); MONO % 9.3 % (1.0-6.0); RBC 4.13 10^6/uL (3.5-6.1); RED CELL DISTRIBUTION WIDTH 15.6 % (11.5-14.5); WHITE BLOOD COUNT 12.4 10^3/ul (4.5-11.0)
[2018-08-16 07:27] LABS: ALB/GLOB RATIO 0.8 (1.1-1.8); ALBUMIN 3.2 g/dL (3.0-4.8); ALT/SGPT 21 U/L (7-56); AST/SGOT 29 U/L (17-59); BLOOD UREA NITROGEN 13 mg/dL (7-21); CALCIUM 8.9 mg/dL (8.4-10.5); GFR NON-AFRICAN AMERICAN > 60
--- NOTE | 2018-08-16 08:07 | CP.PCM.PN ---
Subjective - Date & Time of Evaluation Date of Evaluation: 08/16/18 Time of Evaluation: 07:00 - Subjective Subjective: General Surgery progress note for Dr. Hopper Patient seen and examined at bedside this AM. No adverse events overnight. Patient sleeping comfortably. Wound vac with good seal, minimal serosanguinous output Objective - Vital Signs/Intake and Output Vital Signs (last 24 hours): Temp Pulse Resp BP Pulse Ox 98 F 109 H 18 95/62 L 99 08/15/18 14:00 08/15/18 14:00 08/15/18 14:00 08/15/18 14:00 08/15/18 14:00 Intake and Output: 08/16/18 08/16/18 06:59 18:59 Intake Total 0 Output Total 2200 Balance -2200 - Medications Medications: Current Medications Acetaminophen (Tylenol 325mg Tab) 650 mg PO Q6H PRN PRN Reason: Fever >100.4 F Atorvastatin Calcium (Lipitor) 10 mg PO DIN [facility] Last Admin: 08/15/18 17:16 Dose: 10 mg Collagenase (Santyl) 1 gm TOP BID [facility] Last Admin: 08/15/18 17:16 Dose: 1 gm Donepezil HCl (Aricept) 5 mg PO HS [facility] Last Admin: 08/15/18 21:50 Dose: 5 mg Enoxaparin Sodium (Lovenox) 40 mg SC DAILY [facility] PRN Reason: Protocol Last Admin: 08/15/18 10:34 Dose: 40 mg Famotidine (Pepcid) 20 mg PO DAILY [facility] Last Admin: 08/15/18 10:34 Dose: 20 mg Meropenem (Merrem Iv 1 Gm Premix) 50 mls @ 100 mls/hr IVPB Q8 [facility] PRN Reason: Protocol Stop: 08/23/18 14:01 Last Admin: 08/16/18 05:36 Dose: 100 mls/hr Vancomycin HCl (Vancomycin 750 Mg In Ns) 750 mg in 250 mls @ 167 mls/hr IVPB Q12H [facility] PRN Reason: Protocol Levothyroxine Sodium (Synthroid) 50 mcg PO DAILY [facility] Last Admin: 08/15/18 10:34 Dose: 50 mcg Memantine (Namenda) 5 mg PO BID [facility] Last Admin: 08/15/18 18:12 Dose: 5 mg Silver Sulfadiazine (Silvadene 1% 25 Gm) 1 gm TP BID [facility] Last Admin: 08/15/18 17:17 Dose: 1 gm - Labs Labs: 08/16/18 06:45 08/16/18 06:45 PT 16.5 SECONDS (9.4-12.5) H 08/09/18 06:15 INR 1.42 08/09/18 06:15 APTT 25.4 Seconds (25.1-36.5) 08/09/18 06:15 - Constitutional Appears: Well, Non-toxic, No Acute Distress - Head Exam Head Exam: ATRAUMATIC, NORMOCEPHALIC - Eye Exam Eye Exam: Normal appearance. absent: Conjunctival injection, Scleral icterus - ENT Exam ENT Exam: Mucous Membranes Moist, Normal Oropharynx - Respiratory Exam Respiratory Exam: NORMAL BREATHING PATTERN. absent: Accessory Muscle Use, Respiratory Distress - Cardiovascular Exam Cardiovascular Exam: RRR - GI/Abdominal Exam GI & Abdominal Exam: absent: Distended - Extremities Exam Additional comments: wound vac in place on the left hip - Back Exam Additional comments: wound vac in place on the sacrum - Neurological Exam Neurological Exam: absent: Awake Additional comments: sleeping comfortably - Skin Skin Exam: Dry, Normal Color, Warm Assessment and Plan - Assessment and Plan (Free Text) Assessment: 73M with stage 4 sacral ulcer and 2 stage 4 infected left hip ulcers, and stage 2 right hip ulcer Plan: Will change wound vac at bedside this AM. Patient is clear for discharge to [facility]/SNF with continued wound vac therapy and follow up with the wound clinic in 2 weeks Continue IV antibiotics per ID Continue to trend CBC and bmp while inpatient Discussed with Dr. Ward Ayala, Pgy2
[2018-08-16] MEDS: Collagenase 250 Units/gm Ointment(30 gm) TOP SCH ×2 (10:31→18:02)
[2018-08-16] MEDS: Enoxaparin 40 mg Syringe SC SCH (10:31)
[2018-08-16] MEDS: Levothyroxine 50 MCG TAB PO SCH (10:31)
[2018-08-16] MEDS: Silver Sulfadiazine 1% Cream (25 gm) TP SCH ×3 (10:33→18:03)
[2018-08-16] MEDS: Vancomycin 750mg 750 MG/250 ML BAG IVPB SCH ×2 (11:30→22:52)
--- NOTE | 2018-08-16 14:34 | CP.PCM.PN ---
<Susana Rush - Last Filed: 08/16/18 14:30> Subjective - Date & Time of Evaluation Date of Evaluation: 08/16/18 Time of Evaluation: 07:45 - Subjective Subjective: PGY-1 Susana Rush D.O. Medicine progress note for Dr. Mchugh's service: Patient is seen and examined this morning. No over night events reported. Patient is turned on side so wound vac and ulcers observed. Patient denies any complaints but appears in pain with palpation of left hip. Objective - Vital Signs/Intake and Output Vital Signs (last 24 hours): Temp Pulse Resp BP Pulse Ox 97.6 F 84 18 117/98 H 96 08/16/18 06:00 08/16/18 06:00 08/16/18 06:00 08/16/18 06:00 08/16/18 06:00 Intake and Output: 08/16/18 08/16/18 06:59 18:59 Intake Total 800 Output Total 2200 Balance -1400 - Medications Medications: Current Medications Acetaminophen (Tylenol 325mg Tab) 650 mg PO Q6H PRN PRN Reason: Fever >100.4 F Atorvastatin Calcium (Lipitor) 10 mg PO DIN [facility] Last Admin: 08/15/18 17:16 Dose: 10 mg Collagenase (Santyl) 1 gm TOP BID [facility] Last Admin: 08/16/18 10:31 Dose: 1 gm Donepezil HCl (Aricept) 5 mg PO HS [facility] Last Admin: 08/15/18 21:50 Dose: 5 mg Enoxaparin Sodium (Lovenox) 40 mg SC DAILY [facility] PRN Reason: Protocol Last Admin: 08/16/18 10:31 Dose: 40 mg Famotidine (Pepcid) 20 mg PO DAILY [facility] Last Admin: 08/16/18 10:31 Dose: 20 mg Meropenem (Merrem Iv 1 Gm Premix) 50 mls @ 100 mls/hr IVPB Q8 [facility] PRN Reason: Protocol Stop: 08/23/18 14:01 Last Admin: 08/16/18 05:36 Dose: 100 mls/hr Vancomycin HCl (Vancomycin 750 Mg In Ns) 750 mg in 250 mls @ 167 mls/hr IVPB Q12H [facility] PRN Reason: Protocol Last Admin: 08/16/18 11:30 Dose: 167 mls/hr Levothyroxine Sodium (Synthroid) 50 mcg PO DAILY [facility] Last Admin: 08/16/18 10:31 Dose: 50 mcg Memantine (Namenda) 5 mg PO BID [facility] Last Admin: 08/16/18 10:31 Dose: 5 mg Silver Sulfadiazine (Silvadene 1% 25 Gm) 1 gm TP BID [facility] Last Admin: 08/16/18 10:33 Dose: 1 gm - Labs Labs: 08/16/18 06:45 08/16/18 06:45 PT 16.5 SECONDS (9.4-12.5) H 08/09/18 06:15 INR 1.42 08/09/18 06:15 APTT 25.4 Seconds (25.1-36.5) 08/09/18 06:15 - Constitutional Appears: Non-toxic, No Acute Distress, Older Than Stated Age, Cachectic, Chronically Ill - Head Exam Head Exam: ATRAUMATIC, NORMAL INSPECTION - Eye Exam Eye Exam: EOMI, Normal appearance - ENT Exam ENT Exam: Mucous Membranes Moist - Neck Exam Neck Exam: Normal Inspection - Respiratory Exam Respiratory Exam: Clear to Ausculation Bilateral, NORMAL BREATHING PATTERN - Cardiovascular Exam Cardiovascular Exam: REGULAR RHYTHM, +S1, +S2 - GI/Abdominal Exam GI & Abdominal Exam: Soft, Normal Bowel Sounds. absent: Tenderness - Rectal Exam Rectal Exam: Deferred - Extremities Exam Extremities Exam: absent: Pedal Edema Additional comments: thin - Back Exam Back Exam: NORMAL INSPECTION - Neurological Exam Neurological Exam: Alert, Awake. absent: Normal Gait, Oriented x3 - Psychiatric Exam Psychiatric exam: Flat Affect - Skin Additional comments: R hip and sacral ulcers wound vac in L hip ulcer surgery team currently dressing wounds at time of examination Assessment and Plan - Assessment and Plan (Free Text) Assessment: Patient is a 73 yo male with a history of dementia, CVAs, and hypothyroidism who presented due to decreased oral intake and generalized weakness. He has multiple pressure ulcers. He appears very cachetic. Family would like placement in NH/rehab. Case management/social work is working on insurance issues- currently social security number discrepancy. Patient referred to several facilities. Plan: Failure to thrive- multiple recent admissions for generalized weakness and poor oral intake - VBG shows pH/pCO2/HCO3 7.39/53/32 indicating chronic primary respiratory acidosis - Fall and aspiration precautions - CT A/P with PO contrast: negative - PT for deconditioning - Social work consult - Case management consult - Palliative care consult - Meat Stock Clerk referral Left hip and sacral decubitus ulcers- stage 4 and Right hip- stage 2 - Leukocytosis improving (20.1->12.4) - Tmax 100.4 F 08/11 - Tylenol 650 mg PO q6hrs PRN - HIV negative - CXR: no active disease - UA: trace ketones, otherwise unremarkable - Chronic stage 4 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 sacrum- I&D 08/09 - Blood culture no growth final - Urine culture negative - Wound culture (L hip): Proteus, Klebsiella, Enterococcus - Vancomycin 1g IV q12hrs (started 08/09) - Meropenem 1g IV q8hrs (started 08/09) - Air mattress (Clinitron) - Turns q2hrs - Wound care - Wound vac in L hip 08/13- see surgery notes for details - Daily packing changes - Collagenase 1g topical BID to L hip - Silver sulfadiazine 1g topical BID to R hip, sacrum - Midline placed in R arm - General surgery consulted (Ward)- I&D L hip on 08/09, further debridement L hip 08/12 - ID consulted (Terry)- will need total of 14-17 days of IV abx Microcytic anemia, stable-concerning for anemia of chronic disease vs iron deficiency - Hgb (9.1) with low MCV and elevated RDW - B12 wnl (860), folate wnl (6) - Iron low (24), TIBC low (193), % sat low (13) - Peripheral smear- microcytic, hypochronic, mild anisopoikilocytosis, few target cells. few ovalocytes, few schistocytes, large Plts - Reticulocyte count 1 - FOBT negative Dehydration, improving- normotensive, tachycardic (sinus) - Elevated BUN on admission (37)- resolved - UA ketones - Given IVF (NS) on admission Dementia- previously diagnosed as Alzheimer's - Aricept 5 mg PO QHS - Namenda 5 mg PO BID Hypothyroidism - TSH high (5.09) - T4 wnl (1.4) - Synthroid 50 mcg PO daily Hyperlipidemia - Lipitor 10 mg PO QHS PT- rec ENID IVF: not indicated GI ppx: Pepcid 20 mg PO daily VTE ppx: SCDs, Lovenox 40 mg SC daily Diet: pureed diet/thin liquids, 3 Ensure Enlive daily Code status: full code- f/u palliative Case discussed with attending, Dr. Mchugh. <Amador Mchugh - Last Filed: 08/16/18 15:48> Objective - Vital Signs/Intake and Output Vital Signs (last 24 hours): Temp Pulse Resp BP Pulse Ox 97.5 F L 104 H 18 119/69 98 08/16/18 14:00 08/16/18 14:00 08/16/18 14:00 08/16/18 14:00 08/16/18 14:00 Intake and Output: 08/16/18 08/16/18 06:59 18:59 Intake Total 800 Output Total 2200 Balance -1400 - Medications Medications: Current Medications Acetaminophen (Tylenol 325mg Tab) 650 mg PO Q6H PRN PRN Reason: Fever >100.4 F Atorvastatin Calcium (Lipitor) 10 mg PO DIN [facility] Last Admin: 08/15/18 17:16 Dose: 10 mg Collagenase (Santyl) 1 gm TOP BID [facility] Last Admin: 08/16/18 10:31 Dose: 1 gm Donepezil HCl (Aricept) 5 mg PO HS [facility] Last Admin: 08/15/18 21:50 Dose: 5 mg Enoxaparin Sodium (Lovenox) 40 mg SC DAILY [facility] PRN Reason: Protocol Last Admin: 08/16/18 10:31 Dose: 40 mg Famotidine (Pepcid) 20 mg PO DAILY [facility] Last Admin: 08/16/18 10:31 Dose: 20 mg Meropenem (Merrem Iv 1 Gm Premix) 50 mls @ 100 mls/hr IVPB Q8 [facility] PRN Reason: Protocol Stop: 08/23/18 14:01 Last Admin: 08/16/18 14:29 Dose: 100 mls/hr Vancomycin HCl (Vancomycin 750 Mg In Ns) 750 mg in 250 mls @ 167 mls/hr IVPB Q12H [facility] PRN Reason: Protocol Last Admin: 08/16/18 11:30 Dose: 167 mls/hr Levothyroxine Sodium (Synthroid) 50 mcg PO DAILY [facility] Last Admin: 08/16/18 10:31 Dose: 50 mcg Memantine (Namenda) 5 mg PO BID [facility] Last Admin: 08/16/18 10:31 Dose: 5 mg Silver Sulfadiazine (Silvadene 1% 25 Gm) 1 gm TP BID [facility] Last Admin: 08/16/18 10:33 Dose: 1 gm - Labs Labs: 08/16/18 06:45 08/16/18 06:45 PT 16.5 SECONDS (9.4-12.5) H 08/09/18 06:15 INR 1.42 08/09/18 06:15 APTT 25.4 Seconds (25.1-36.5) 08/09/18 06:15 Attending/Attestation - Attestation I have personally seen and examined this patient.: Yes I have fully participated in the care of the patient.: Yes I have reviewed all pertinent clinical information, including history, physical exam and plan: Yes Notes (Text): 08/16/18 15:46 Attending note; Patient seen and examined with resident. Patient is alert and awake. tolerating diet. Patient is 73-year-old male with past medical history significant for non healing stage IV left hip decubitus ulcer, Alzheimer's dementia, hypothyroidism , CVA, and failure to thrive that presented to emergency room with generalized weakness and decreased appetite. 1. Multiple sacral ulcers; status post wound VAC after debridement. Surgery evaluation appreciated. Wound VAC will be changed today. Needs follow- up with wound care clinic in 2 weeks. Dressing change instructions by surgery appreciated. Patient is afebrile and nontoxic . Continue meropenem and vancomycin. Patient needs to complete 7-10 more days of antibiotics. Status post right upper arm midline placement. Leukocytosis is resolving. 2. Failure to thrive. Dietitian evaluation appreciated. Continue ensure. Patient is tolerating diet now. Continue dysphagia diet. Continue aspiration precautions. 3. Microcytic anemia. Hemoglobin is stable. CT abdomen and pelvis shows slightly heterogeneous enhancement of the kidneys noted, possible pyelonephritis , large left posterior buttock decubitus ulcer. 4.Hypothyroidism. Continue Synthroid. 5.Dementia. Continue Aricept and Namenda Continue to monitor closely. Palliative care evaluation requested for advanced directive. Case discussed with lead case manager in detail for discharge planning. Upon discharge the patient will follow up with PMD .
--- NOTE | 2018-08-16 15:52 | CP.PCM.CON ---
History of Present Illness - History of Present Illness History of Present Illness: Palliative consult requested by Dr Lance Mchugh Reason: Goals of care and advance care planning 73 year old male with history of HTN, CVA and Alzhuemers who presented on with purulent drainage from wound left posterior buttock,tachycardia and leukocytosis. The patient had no fever, chills,diarrhea, constipation. 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 Cultures positive for Klebsiella pneumoniae,Entercoccus Faecalis and Pseudomonas Aeruginosa. PMHx: Alzheimer's dementia, hypothyroidism, CVA, deconditioning dysphagia Social History: Former smoker, no alcohol or drug use. Lives with spouse Family History : Noncontributory Advance Care Planning The patient does not have an Advanced Directive Review of Systems: As per HPI, mateo is altered non verbal unable to obtain Past Patient History - Infectious Disease Hx of Infectious Diseases: None - Tetanus Immunizations Tetanus Immunization: Unknown - Past Medical History & Family History Past Medical History?: No - Past Social History Smoking Status: Unknown If Ever Smoked - CARDIAC Hx Pacemaker: No - PULMONARY Hx Respiratory Disorders: No - NEUROLOGICAL Hx Neurological Disorder: Yes Hx Alzheimer's Disease: Yes - HEENT Hx HEENT Problems: No - RENAL Hx Chronic Kidney Disease: No - ENDOCRINE/METABOLIC Hx Hypothyroidism: Yes - HEMATOLOGICAL/ONCOLOGICAL Hx Cancer: No - INTEGUMENTARY Hx Dermatological Problems: No - MUSCULOSKELETAL/RHEUMATOLOGICAL Hx Musculoskeletal Disorders: Yes Hx Falls: Yes - GASTROINTESTINAL Hx Gastrointestinal Disorders: No - GENITOURINARY/GYNECOLOGICAL Hx Genitourinary Disorders: No - PSYCHIATRIC Hx Psychophysiologic Disorder: No Hx Substance Use: No - SURGICAL HISTORY Hx Mastectomy: No - ANESTHESIA Hx Anesthesia: No Meds Allergies/Adverse Reactions: Allergies Allergy/AdvReac Type Severity Reaction Status Date / Time No Known Allergies Allergy Unverified 01/02/18 14:18 - Medications Medications: Current Medications Acetaminophen (Tylenol 325mg Tab) 650 mg PO Q6H PRN PRN Reason: Fever >100.4 F Atorvastatin Calcium (Lipitor) 10 mg PO DIN [facility] Last Admin: 08/15/18 17:16 Dose: 10 mg Collagenase (Santyl) 1 gm TOP BID [facility] Last Admin: 08/16/18 10:31 Dose: 1 gm Donepezil HCl (Aricept) 5 mg PO HS [facility] Last Admin: 08/15/18 21:50 Dose: 5 mg Enoxaparin Sodium (Lovenox) 40 mg SC DAILY [facility] PRN Reason: Protocol Last Admin: 08/16/18 10:31 Dose: 40 mg Famotidine (Pepcid) 20 mg PO DAILY [facility] Last Admin: 08/16/18 10:31 Dose: 20 mg Meropenem (Merrem Iv 1 Gm Premix) 50 mls @ 100 mls/hr IVPB Q8 [facility] PRN Reason: Protocol Stop: 08/23/18 14:01 Last Admin: 08/16/18 14:29 Dose: 100 mls/hr Vancomycin HCl (Vancomycin 750 Mg In Ns) 750 mg in 250 mls @ 167 mls/hr IVPB Q12H [facility] PRN Reason: Protocol Last Admin: 08/16/18 11:30 Dose: 167 mls/hr Levothyroxine Sodium (Synthroid) 50 mcg PO DAILY [facility] Last Admin: 08/16/18 10:31 Dose: 50 mcg Memantine (Namenda) 5 mg PO BID [facility] Last Admin: 08/16/18 10:31 Dose: 5 mg Silver Sulfadiazine (Silvadene 1% 25 Gm) 1 gm TP BID [facility] Last Admin: 08/16/18 10:33 Dose: 1 gm Physical Exam - Constitutional Appears: Cachectic, Chronically Ill - Head Exam Head Exam: NORMOCEPHALIC - Eye Exam Eye Exam: Normal appearance, PERRL - ENT Exam ENT Exam: Mucous Membranes Dry, Normal Oropharynx - Neck Exam Neck exam: Positive for: Normal Inspection - Respiratory Exam Respiratory Exam: Decreased Breath Sounds, NORMAL BREATHING PATTERN - Cardiovascular Exam Cardiovascular Exam: REGULAR RHYTHM, +S1, +S2 - GI/Abdominal Exam GI & Abdominal Exam: Hypoactive Bowel Sounds, Soft - Extremities Exam Extremities exam: Positive for: pedal pulses present - Skin Skin Exam: Dry, Pallor - Additional Findings Additional findings: palliative performance scale rating 30 % Results - Vital Signs Recent Vital Signs: Last Vital Signs Temp 97.5 F L 08/16/18 14:00 Pulse 104 H 08/16/18 14:00 Resp 18 08/16/18 14:00 BP 119/69 08/16/18 14:00 Pulse Ox 98 08/16/18 14:00 - Labs Result Diagrams: 08/16/18 06:45 08/16/18 06:45 Labs: Laboratory Results - last 24 hr 08/16/18 08/16/18 06:45 06:45 WBC 12.4 H RBC 4.13 Hgb 9.1 L Hct 28.5 L MCV 69.0 L MCH 22.0 L MCHC 31.9 RDW 15.6 H Plt Count 625 H MPV 9.0 Gran % 66.2 Lymph % (Auto) 21.8 L Kleberg % (Auto) 9.3 H Eos % (Auto) 2.1 Baso % (Auto) 0.6 Gran # 8.22 H Lymph # (Auto) 2.7 Kleberg # (Auto) 1.2 H Eos # (Auto) 0.3 Baso # (Auto) 0.07 Sodium 138 Potassium 4.3 Chloride 98 Carbon Dioxide 35 H Anion Gap 9 L BUN 13 Creatinine 0.4 L Est GFR ( Amer) > 60 Est GFR (Non-Af Amer) > 60 Random Glucose 91 Calcium 8.9 Phosphorus 2.6 Magnesium 2.5 H Total Bilirubin 0.1 L AST 29 ALT 21 Alkaline Phosphatase 55 Total Protein 7.1 Albumin 3.2 Globulin 3.9 Albumin/Globulin Ratio 0.8 L Assessment & Plan - Assessment and Plan (Free Text) Assessment: 73 year old male with history of CVA, HTN, failure to thrive, sepsis who is admitted with infected decubiti s/p debridement and failure to thrive Patient known to me from previous admission. Advance care planning was discussed at that time family had not reached a decision I spoke with patient's Shayna Marquez and daughter Aviva via conference call today. aware that patients health is declining. Resuscitation status discussed at length. Benefits and burdens of CPR/intubation explained. states that she understands the ramifications these measures and that she does not want patient to be intubated or to have CPR. She is planning on coming to hospital tomorrow to complete POLST directive and for further discussion regarding goals of care Time spent in goals of care and advance care planning discussion, 20 minutes Plan: Advance care planning: DNR/DNI Sepsis: Continue antibiotics Merrem and Vancomycin, ID following Wound: s/p debridement, continue wound care Leak Patcher referral for discharge planning/ placement
--- NOTE | 2018-08-16 16:43 | CP.PCM.PN ---
Subjective - Date & Time of Evaluation Date of Evaluation: 08/16/18 Time of Evaluation: 10:30 - Subjective Subjective: No fevers, non-toxic. Objective - Vital Signs/Intake and Output Vital Signs (last 24 hours): Temp Pulse Resp BP Pulse Ox 98 F 109 H 18 95/62 L 99 08/15/18 14:00 08/15/18 14:00 08/15/18 14:00 08/15/18 14:00 08/15/18 14:00 Intake and Output: 08/16/18 08/16/18 06:59 18:59 Intake Total 0 Output Total 2200 Balance -2200 - Medications Medications: Current Medications Acetaminophen (Tylenol 325mg Tab) 650 mg PO Q6H PRN PRN Reason: Fever >100.4 F Atorvastatin Calcium (Lipitor) 10 mg PO DIN [facility] Last Admin: 08/15/18 17:16 Dose: 10 mg Collagenase (Santyl) 1 gm TOP BID [facility] Last Admin: 08/15/18 17:16 Dose: 1 gm Donepezil HCl (Aricept) 5 mg PO HS [facility] Last Admin: 08/15/18 21:50 Dose: 5 mg Enoxaparin Sodium (Lovenox) 40 mg SC DAILY [facility] PRN Reason: Protocol Last Admin: 08/15/18 10:34 Dose: 40 mg Famotidine (Pepcid) 20 mg PO DAILY [facility] Last Admin: 08/15/18 10:34 Dose: 20 mg Meropenem (Merrem Iv 1 Gm Premix) 50 mls @ 100 mls/hr IVPB Q8 [facility] PRN Reason: Protocol Stop: 08/23/18 14:01 Last Admin: 08/16/18 05:36 Dose: 100 mls/hr Vancomycin HCl (Vancomycin 750 Mg In Ns) 750 mg in 250 mls @ 167 mls/hr IVPB Q12H [facility] PRN Reason: Protocol Levothyroxine Sodium (Synthroid) 50 mcg PO DAILY [facility] Last Admin: 08/15/18 10:34 Dose: 50 mcg Memantine (Namenda) 5 mg PO BID [facility] Last Admin: 08/15/18 18:12 Dose: 5 mg Silver Sulfadiazine (Silvadene 1% 25 Gm) 1 gm TP BID [facility] Last Admin: 08/15/18 17:17 Dose: 1 gm - Labs Labs: 08/16/18 06:45 08/16/18 06:45 PT 16.5 SECONDS (9.4-12.5) H 08/09/18 06:15 INR 1.42 08/09/18 06:15 APTT 25.4 Seconds (25.1-36.5) 08/09/18 06:15 - Constitutional Appears: Chronically Ill - Head Exam Head Exam: NORMAL INSPECTION - Neck Exam Neck Exam: absent: Meningismus - Respiratory Exam Respiratory Exam: Decreased Breath Sounds - Cardiovascular Exam Cardiovascular Exam: +S1, +S2 - GI/Abdominal Exam GI & Abdominal Exam: Soft. absent: Tenderness Assessment and Plan - Assessment and Plan (Free Text) Plan: Assessment sepsis due to left hip infected decubitus ulcer with skin and skin structure infection S/P debridement, growing E. faecalis, Klebsiella, Proteus history of treatment for left hip area cellulitis, with Pseudomonas as a probable colonizer on the wound dementia CVA thyroid disease Plan Continue Vancomycin and Merrem day 8 and will continue to monitor clinically - should complete another 7-10 days of antibiotics with outpatient follow up with surgery for wound care, and will need to continue local wound care
[2018-08-17] MEDS: Meropenem IV 1 gm in NS 50 ML IVPB SCH ×3 (05:44→21:52)
[2018-08-17] MEDS: Enoxaparin 40 mg Syringe SC SCH (11:20)
[2018-08-17] MEDS: Vancomycin 750mg 750 MG/250 ML BAG IVPB SCH ×2 (11:21→22:52)
[2018-08-17] MEDS: Collagenase 250 Units/gm Ointment(30 gm) TOP SCH ×3 (11:21→17:21)
[2018-08-17] MEDS: Levothyroxine 50 MCG TAB PO SCH (11:21)
[2018-08-17] MEDS: Silver Sulfadiazine 1% Cream (25 gm) TP SCH ×2 (11:29→17:21)
--- NOTE | 2018-08-17 13:20 | CP.PCM.PN ---
<Susana Rush - Last Filed: 08/17/18 13:17> Subjective - Date & Time of Evaluation Date of Evaluation: 08/17/18 Time of Evaluation: 10:30 - Subjective Subjective: PGY-1 Susana Rush D.O. Medicine progress note for Dr. Mchugh's service: Patient is seen and examined this morning. No over night events reported. Nursing reports patient has a good appetite and finishes nearly all of his meals. Patient does not have any complaints. He denies pain. Objective - Vital Signs/Intake and Output Vital Signs (last 24 hours): Temp Pulse Resp BP Pulse Ox 97.9 F 77 18 123/80 100 08/17/18 06:00 08/17/18 06:00 08/17/18 06:00 08/17/18 06:00 08/17/18 06:00 Intake and Output: 08/17/18 08/17/18 06:59 18:59 Intake Total 800 Balance 800 - Medications Medications: Current Medications Acetaminophen (Tylenol 325mg Tab) 650 mg PO Q6H PRN PRN Reason: Fever >100.4 F Atorvastatin Calcium (Lipitor) 10 mg PO DIN [facility] Last Admin: 08/16/18 18:01 Dose: 10 mg Collagenase (Santyl) 1 gm TOP BID [facility] Last Admin: 08/17/18 11:28 Dose: 1 gm Donepezil HCl (Aricept) 5 mg PO HS [facility] Last Admin: 08/16/18 22:17 Dose: 5 mg Enoxaparin Sodium (Lovenox) 40 mg SC DAILY [facility] PRN Reason: Protocol Last Admin: 08/17/18 11:20 Dose: 40 mg Famotidine (Pepcid) 20 mg PO DAILY [facility] Last Admin: 08/17/18 11:20 Dose: 20 mg Meropenem (Merrem Iv 1 Gm Premix) 50 mls @ 100 mls/hr IVPB Q8 [facility] PRN Reason: Protocol Stop: 08/23/18 14:01 Last Admin: 08/17/18 05:44 Dose: 100 mls/hr Vancomycin HCl (Vancomycin 750 Mg In Ns) 750 mg in 250 mls @ 167 mls/hr IVPB Q12H [facility] PRN Reason: Protocol Last Admin: 08/17/18 11:21 Dose: 167 mls/hr Levothyroxine Sodium (Synthroid) 50 mcg PO DAILY [facility] Last Admin: 08/17/18 11:21 Dose: 50 mcg Memantine (Namenda) 5 mg PO BID [facility] Last Admin: 08/17/18 11:20 Dose: 5 mg Silver Sulfadiazine (Silvadene 1% 25 Gm) 1 gm TP BID [facility] Last Admin: 08/17/18 11:29 Dose: 1 gm - Labs Labs: 08/16/18 06:45 08/16/18 06:45 PT 16.5 SECONDS (9.4-12.5) H 08/09/18 06:15 INR 1.42 08/09/18 06:15 APTT 25.4 Seconds (25.1-36.5) 08/09/18 06:15 - Constitutional Appears: Non-toxic, No Acute Distress, Older Than Stated Age, Cachectic, Chronically Ill - Head Exam Head Exam: ATRAUMATIC, NORMAL INSPECTION - Eye Exam Eye Exam: EOMI, Normal appearance - ENT Exam ENT Exam: Mucous Membranes Moist, Normal Exam - Neck Exam Neck Exam: Normal Inspection - Respiratory Exam Respiratory Exam: Clear to Ausculation Bilateral, NORMAL BREATHING PATTERN - Cardiovascular Exam Cardiovascular Exam: REGULAR RHYTHM, +S1, +S2 - GI/Abdominal Exam GI & Abdominal Exam: Soft, Normal Bowel Sounds. absent: Tenderness - Rectal Exam Rectal Exam: Deferred - Exam Additional comments: Madrigal catheter in place and draining - Extremities Exam Extremities Exam: absent: Pedal Edema, Tenderness Additional comments: midline in place R antecubital fossa very thin - Neurological Exam Neurological Exam: Alert, Awake, CN II-XII Intact. absent: Normal Gait, Oriented x3 - Psychiatric Exam Psychiatric exam: Flat Affect - Skin Skin Exam: Normal Color, Warm Additional comments: wound vac in L hip ulcer bandages over sacral and R hip ulcers Assessment and Plan - Assessment and Plan (Free Text) Assessment: Patient is a 73 yo male with a history of dementia, CVAs, and hypothyroidism who presented due to decreased oral intake and generalized weakness. He has multiple pressure ulcers. He appears very cachetic. Family would like placement in NH/rehab. Case management/social work has referred to several facilities for both [facility] and [facility]. Plan: Failure to thrive- multiple recent admissions for generalized weakness and poor oral intake - VBG on admission: pH/pCO2/HCO3 7.39/53/32 indicating chronic primary respiratory acidosis - Fall and aspiration precautions - CT A/P with PO contrast: negative - PT for deconditioning - Social work consult - Case management consult - Palliative care consult- DNR/DNI - Photographic Engineer consult Left hip and sacral decubitus ulcers- stage 4 and Right hip- stage 2 - Leukocytosis improving (20.1->12.4) - Tmax 100.4 F 08/11 - Tylenol 650 mg PO q6hrs PRN - HIV negative - CXR: no active disease - UA: trace ketones, otherwise unremarkable - Chronic stage 4 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 sacrum- I&D 08/09 - Blood culture no growth final - Urine culture negative - Wound culture (L hip): Proteus, Klebsiella, Enterococcus - Vancomycin 1g IV q12hrs (started 08/09) - Meropenem 1g IV q8hrs (started 08/09) - Air mattress (Clinitron) - Turns q2hrs - Wound care - Wound vac in L hip 08/13- see surgery notes for details - Daily packing changes - Collagenase 1g topical BID to L hip - Silver sulfadiazine 1g topical BID to R hip, sacrum - Midline placed in R arm - General surgery consulted (Ward)- I&D L hip on 08/09, further debridement L hip 08/12 - ID consulted (Terry)- will need total of 14-17 days of IV abx Microcytic anemia, stable-concerning for anemia of chronic disease vs iron deficiency - Hgb (9.1) with low MCV and elevated RDW - B12 wnl (860), folate wnl (6) - Iron low (24), TIBC low (193), % sat low (13) - Peripheral smear- microcytic, hypochronic, mild anisopoikilocytosis, few target cells. few ovalocytes, few schistocytes, large Plts - Reticulocyte count 1 - FOBT negative Dehydration, improving- normotensive, tachycardic (sinus) - Elevated BUN on admission (37)- resolved - UA ketones - Given IVF (NS) on admission Dementia- previously diagnosed as Alzheimer's - Aricept 5 mg PO QHS - Namenda 5 mg PO BID Hypothyroidism - TSH high (5.09) - T4 wnl (1.4) - Synthroid 50 mcg PO daily Hyperlipidemia - Lipitor 10 mg PO QHS PT- rec [facility] IVF: not indicated GI ppx: Pepcid 20 mg PO daily VTE ppx: SCDs, Lovenox 40 mg SC daily Diet: pureed diet/thin liquids, 3 Ensure Enlive daily Code status: DNR/DNI Case discussed with attending, Dr. Mchugh. <Amador Mchugh - Last Filed: 08/18/18 14:24> Objective - Vital Signs/Intake and Output Vital Signs (last 24 hours): Temp Pulse Resp BP Pulse Ox 97.6 F 92 H 16 100/71 96 08/18/18 07:55 08/18/18 07:55 08/18/18 07:55 08/18/18 07:55 08/18/18 07:55 Intake and Output: 08/18/18 08/18/18 06:59 18:59 Intake Total 650 Output Total 1400 Balance 650 -1400 - Medications Medications: Current Medications Acetaminophen (Tylenol 325mg Tab) 650 mg PO Q6H PRN PRN Reason: Fever >100.4 F Atorvastatin Calcium (Lipitor) 10 mg PO DIN [facility] Last Admin: 08/17/18 17:17 Dose: 10 mg Collagenase (Santyl) 1 gm TOP BID [facility] Last Admin: 08/18/18 11:01 Dose: 1 gm Donepezil HCl (Aricept) 5 mg PO HS [facility] Last Admin: 08/17/18 21:52 Dose: 5 mg Enoxaparin Sodium (Lovenox) 40 mg SC DAILY [facility] PRN Reason: Protocol Last Admin: 08/18/18 11:00 Dose: 40 mg Famotidine (Pepcid) 20 mg PO DAILY [facility] Last Admin: 08/18/18 11:01 Dose: 20 mg Meropenem (Merrem Iv 1 Gm Premix) 50 mls @ 100 mls/hr IVPB Q8 [facility] PRN Reason: Protocol Stop: 08/23/18 14:01 Last Admin: 08/18/18 14:02 Dose: 100 mls/hr Vancomycin HCl (Vancomycin 750 Mg In Ns) 750 mg in 250 mls @ 167 mls/hr IVPB Q12H [facility] PRN Reason: Protocol Last Admin: 08/18/18 11:01 Dose: 167 mls/hr Levothyroxine Sodium (Synthroid) 50 mcg PO DAILY [facility] Last Admin: 08/18/18 11:01 Dose: 50 mcg Memantine (Namenda) 5 mg PO BID [facility] Last Admin: 08/18/18 11:01 Dose: 5 mg Silver Sulfadiazine (Silvadene 1% 25 Gm) 1 gm TP BID [facility] Last Admin: 08/18/18 11:01 Dose: 1 gm - Labs Labs: 08/16/18 06:45 08/16/18 06:45 PT 16.5 SECONDS (9.4-12.5) H 08/09/18 06:15 INR 1.42 08/09/18 06:15 APTT 25.4 Seconds (25.1-36.5) 08/09/18 06:15 Attending/Attestation - Attestation I have personally seen and examined this patient.: Yes I have fully participated in the care of the patient.: Yes I have reviewed all pertinent clinical information, including history, physical exam and plan: Yes Notes (Text): 08/18/18 14:22 Attending note; Patient seen and examined with resident. Patient is alert and awake. tolerating diet with assistance. Patient is 73-year-old male with past medical history significant for non healing stage IV left hip decubitus ulcer, Alzheimer's dementia, hypothyroidism , CVA, and failure to thrive that presented to emergency room with generalized weakness and decreased appetite. 1. Multiple sacral ulcers; status post wound VAC after debridement. Surgery evaluation appreciated. Wound VAC changed yeaterday. Needs follow-up with wound care clinic in 2 weeks. Dressing change instructions by surgery appreciated. Patient is afebrile and nontoxic . Continue meropenem and vancomycin. Patient needs to complete 7-10 more days of antibiotics. Status post right upper arm midline placement. Leukocytosis is resolving. 2. Failure to thrive. Dietitian evaluation appreciated. Continue ensure. Patient is tolerating diet with assistance. Continue dysphagia diet. Continue aspiration precautions. 3. Microcytic anemia. Hemoglobin is stable. 4.Hypothyroidism. Continue Synthroid. 5.Dementia. Continue Aricept and Namenda 6. Palliative care evaluation appreciated. Patient is DNI DNR. Case discussed with casework supervisor in detail for discharge planning. Upon discharge the patient will follow up with PMD .
--- NOTE | 2018-08-17 16:00 | CP.PCM.PN ---
Subjective - Date & Time of Evaluation Date of Evaluation: 08/17/18 Time of Evaluation: 11:05 - Subjective Subjective: No fevers, not in distress. Objective - Vital Signs/Intake and Output Vital Signs (last 24 hours): Temp Pulse Resp BP Pulse Ox 98.5 F 100 H 18 118/70 99 08/16/18 23:02 08/16/18 23:02 08/16/18 23:02 08/16/18 23:02 08/16/18 23:02 Intake and Output: 08/17/18 08/17/18 06:59 18:59 Intake Total 800 Balance 800 - Medications Medications: Current Medications Acetaminophen (Tylenol 325mg Tab) 650 mg PO Q6H PRN PRN Reason: Fever >100.4 F Atorvastatin Calcium (Lipitor) 10 mg PO DIN [facility] Last Admin: 08/16/18 18:01 Dose: 10 mg Collagenase (Santyl) 1 gm TOP BID [facility] Last Admin: 08/16/18 18:02 Dose: 1 gm Donepezil HCl (Aricept) 5 mg PO HS [facility] Last Admin: 08/16/18 22:17 Dose: 5 mg Enoxaparin Sodium (Lovenox) 40 mg SC DAILY [facility] PRN Reason: Protocol Last Admin: 08/16/18 10:31 Dose: 40 mg Famotidine (Pepcid) 20 mg PO DAILY [facility] Last Admin: 08/16/18 10:31 Dose: 20 mg Meropenem (Merrem Iv 1 Gm Premix) 50 mls @ 100 mls/hr IVPB Q8 [facility] PRN Reason: Protocol Stop: 08/23/18 14:01 Last Admin: 08/17/18 05:44 Dose: 100 mls/hr Vancomycin HCl (Vancomycin 750 Mg In Ns) 750 mg in 250 mls @ 167 mls/hr IVPB Q12H [facility] PRN Reason: Protocol Last Admin: 08/16/18 22:52 Dose: 167 mls/hr Levothyroxine Sodium (Synthroid) 50 mcg PO DAILY [facility] Last Admin: 08/16/18 10:31 Dose: 50 mcg Memantine (Namenda) 5 mg PO BID [facility] Last Admin: 08/16/18 18:01 Dose: 5 mg Silver Sulfadiazine (Silvadene 1% 25 Gm) 1 gm TP BID [facility] Last Admin: 08/16/18 18:03 Dose: 1 gm - Labs Labs: 08/16/18 06:45 08/16/18 06:45 PT 16.5 SECONDS (9.4-12.5) H 08/09/18 06:15 INR 1.42 08/09/18 06:15 APTT 25.4 Seconds (25.1-36.5) 08/09/18 06:15 - Constitutional Appears: Chronically Ill - Head Exam Head Exam: NORMAL INSPECTION - Respiratory Exam Respiratory Exam: Decreased Breath Sounds - Cardiovascular Exam Cardiovascular Exam: +S1, +S2 - GI/Abdominal Exam GI & Abdominal Exam: Soft. absent: Tenderness - Extremities Exam Additional comments: left hip with wound vacuum in place Assessment and Plan - Assessment and Plan (Free Text) Plan: Assessment sepsis due to left hip infected decubitus ulcer with skin and skin structure infection S/P debridement, growing E. faecalis, Klebsiella, Proteus history of treatment for left hip area cellulitis, with Pseudomonas as a probable colonizer on the wound dementia CVA thyroid disease Plan Continue Vancomycin and Merrem day 9 and will continue to monitor clinically - should complete another 7-10 days of antibiotics with outpatient follow up with surgery for wound care, and will need to continue local wound care
[2018-08-18] MEDS: Meropenem IV 1 gm in NS 50 ML IVPB SCH ×3 (06:25→21:27)
--- NOTE | 2018-08-18 07:16 | CP.PCM.PN ---
<Emily Berrios - Last Filed: 08/18/18 11:50> Subjective - Date & Time of Evaluation Date of Evaluation: 08/18/18 Time of Evaluation: 07:16 - Subjective Subjective: Pgy3 Medicine note for Dr. Mchugh Patient seen and examined at bedside. Nursing reported no acute events overnight. Patient is ao x 1 to self. Nursing reports patient has a good appetite and finishes nearly all of his meals. Wound vac output ~200cc. Patient denied any pain. Complete ROS unobtainable. Objective - Vital Signs/Intake and Output Vital Signs (last 24 hours): Temp Pulse Resp BP Pulse Ox 98.3 F 92 H 16 113/71 100 08/17/18 22:00 08/17/18 22:00 08/17/18 22:00 08/17/18 22:00 08/17/18 22:00 Intake and Output: 08/18/18 08/18/18 06:59 18:59 Intake Total 650 Output Total 1400 Balance 650 -1400 - Medications Medications: Current Medications Acetaminophen (Tylenol 325mg Tab) 650 mg PO Q6H PRN PRN Reason: Fever >100.4 F Atorvastatin Calcium (Lipitor) 10 mg PO DIN [facility] Last Admin: 08/17/18 17:17 Dose: 10 mg Collagenase (Santyl) 1 gm TOP BID [facility] Last Admin: 08/17/18 17:21 Dose: 1 gm Donepezil HCl (Aricept) 5 mg PO HS [facility] Last Admin: 08/17/18 21:52 Dose: 5 mg Enoxaparin Sodium (Lovenox) 40 mg SC DAILY [facility] PRN Reason: Protocol Last Admin: 08/17/18 11:20 Dose: 40 mg Famotidine (Pepcid) 20 mg PO DAILY [facility] Last Admin: 08/17/18 11:20 Dose: 20 mg Meropenem (Merrem Iv 1 Gm Premix) 50 mls @ 100 mls/hr IVPB Q8 [facility] PRN Reason: Protocol Stop: 08/23/18 14:01 Last Admin: 08/18/18 06:25 Dose: 100 mls/hr Vancomycin HCl (Vancomycin 750 Mg In Ns) 750 mg in 250 mls @ 167 mls/hr IVPB Q12H [facility] PRN Reason: Protocol Last Admin: 08/17/18 22:52 Dose: 167 mls/hr Levothyroxine Sodium (Synthroid) 50 mcg PO DAILY [facility] Last Admin: 08/17/18 11:21 Dose: 50 mcg Memantine (Namenda) 5 mg PO BID [facility] Last Admin: 08/17/18 17:17 Dose: 5 mg Silver Sulfadiazine (Silvadene 1% 25 Gm) 1 gm TP BID [facility] Last Admin: 08/17/18 17:21 Dose: 1 gm - Labs Labs: 08/16/18 06:45 08/16/18 06:45 PT 16.5 SECONDS (9.4-12.5) H 08/09/18 06:15 INR 1.42 08/09/18 06:15 APTT 25.4 Seconds (25.1-36.5) 08/09/18 06:15 - Constitutional Appears: No Acute Distress, Cachectic, Chronically Ill - Head Exam Head Exam: ATRAUMATIC, NORMAL INSPECTION, NORMOCEPHALIC - Eye Exam Eye Exam: EOMI, Normal appearance. absent: Conjunctival injection, Scleral icterus - ENT Exam ENT Exam: Mucous Membranes Moist - Respiratory Exam Respiratory Exam: Clear to Ausculation Bilateral, NORMAL BREATHING PATTERN. absent: Accessory Muscle Use, Rales, Rhonchi, Wheezes, Respiratory Distress - Cardiovascular Exam Cardiovascular Exam: REGULAR RHYTHM, RRR, +S1, +S2 - GI/Abdominal Exam GI & Abdominal Exam: Soft, Normal Bowel Sounds. absent: Firm, Guarding, Rigid, Tenderness - Rectal Exam Rectal Exam: Deferred - Extremities Exam Extremities Exam: absent: Pedal Edema Additional comments: cachectic midline in place R antecubital fossa - Neurological Exam Neurological Exam: Alert, Awake - Psychiatric Exam Psychiatric exam: Flat Affect - Skin Skin Exam: Normal Color, Warm Additional comments: wound vac in L hip ulcer bandages over sacral and R hip ulcers Assessment and Plan - Assessment and Plan (Free Text) Assessment: 73yo male PMHx dementia, CVAs, and hypothyroidism presented for decreased PO intake and generalized weakness. Patient found to have multiple pressure ulcers and is very cachetic. Family would like placement in NH/rehab. Case management/ social work has referred to several facilities for both [facility] and [facility]. Plan: Failure to thrive- multiple recent admissions for generalized weakness and poor oral intake - Improving- patient is eating with PCP assistance - VBG on admission: pH/pCO2/HCO3 7.39/53/32 indicating chronic primary respiratory acidosis - Fall and aspiration precautions - CT A/P with PO contrast: negative - PT for deconditioning - Social work consult - Case management consult - Palliative care consult- DNR/DNI - Senior Foreman consult Leukocytosis - likely secondary to sacral decubitus ulcer Stage 4 and Right hip stage 2 - Leukocytosis improving (20.1->12.4) - f/u CBC on Monday 08/20 - Afebrile overnight - HIV: negative - CXR 08/08: no active disease - UA: trace ketones, otherwise unremarkable - Blood culture no growth final - Urine culture negative - Wound culture (L hip): Proteus, Klebsiella, Enterococcus - Vancomycin 1g IV q12hrs (started 08/09) - Meropenem 1g IV q8hrs (started 08/09) - Midline placed in R arm - ID consulted (Terry)- will need total of 14-17 days of IV abx Left hip and sacral decubitus ulcers- stage 4 and Right hip- stage 2 - Chronic stage 4 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 sacrum- I&D 08/09 - Blood culture no growth final - Urine culture negative - Wound culture (L hip): Proteus, Klebsiella, Enterococcus - Vancomycin 1g IV q12hrs (started 08/09) - Meropenem 1g IV q8hrs (started 08/09) - Air mattress (Clinitron) and Turns q2hrs - Wound care - Wound vac in L hip 08/13- see surgery notes for details - Daily packing changes - Collagenase 1g topical BID to L hip - Silver sulfadiazine 1g topical BID to R hip, sacrum - General surgery consulted (Ward)- I&D L hip on 08/09, further debridement L hip 08/12 - ID consulted (Terry)- will need total of 14-17 days of IV abx Microcytic anemia, stable-concerning for anemia of chronic disease vs iron deficiency - Hgb (9.1) with low MCV and elevated RDW - B12 wnl (860), folate wnl (6) - Iron low (24), TIBC low (193), % sat low (13) - Peripheral smear- microcytic, hypochronic, mild anisopoikilocytosis, few target cells. few ovalocytes, few schistocytes, large Plts - Reticulocyte count 1 - FOBT negative - f/u CBC Monday 08/20 Dehydration, improving- normotensive, tachycardic (sinus) - Elevated BUN on admission 37 --> 13 f/u BMP on Monday 08/20 - UA ketones Hypothyroidism - TSH high (5.09) - T4 wnl (1.4) - Synthroid 50 mcg PO daily Hyperlipidemia - Lipitor 10 mg PO QHS Hx of Dementia- previously diagnosed as Alzheimer's - Aricept 5 mg PO QHS - Namenda 5 mg PO BID GI ppx: Pepcid 20 mg PO daily VTE ppx: SCDs, Lovenox 40 mg SC daily Diet: pureed diet/thin liquids, 3 Ensure Enlive daily Code status: DNR/DNI Dispo: PT recommend [facility]- awaiting placement Discussed with Dr. Jeison Berrios PGY3 <Amador Mchugh - Last Filed: 08/18/18 14:25> Objective - Vital Signs/Intake and Output Vital Signs (last 24 hours): Temp Pulse Resp BP Pulse Ox 97.6 F 92 H 16 100/71 96 08/18/18 07:55 08/18/18 07:55 08/18/18 07:55 08/18/18 07:55 08/18/18 07:55 Intake and Output: 08/18/18 08/18/18 06:59 18:59 Intake Total 650 Output Total 1400 Balance 650 -1400 - Medications Medications: Current Medications Acetaminophen (Tylenol 325mg Tab) 650 mg PO Q6H PRN PRN Reason: Fever >100.4 F Atorvastatin Calcium (Lipitor) 10 mg PO DIN [facility] Last Admin: 08/17/18 17:17 Dose: 10 mg Collagenase (Santyl) 1 gm TOP BID [facility] Last Admin: 08/18/18 11:01 Dose: 1 gm Donepezil HCl (Aricept) 5 mg PO HS [facility] Last Admin: 08/17/18 21:52 Dose: 5 mg Enoxaparin Sodium (Lovenox) 40 mg SC DAILY [facility] PRN Reason: Protocol Last Admin: 08/18/18 11:00 Dose: 40 mg Famotidine (Pepcid) 20 mg PO DAILY [facility] Last Admin: 08/18/18 11:01 Dose: 20 mg Meropenem (Merrem Iv 1 Gm Premix) 50 mls @ 100 mls/hr IVPB Q8 [facility] PRN Reason: Protocol Stop: 08/23/18 14:01 Last Admin: 08/18/18 14:02 Dose: 100 mls/hr Vancomycin HCl (Vancomycin 750 Mg In Ns) 750 mg in 250 mls @ 167 mls/hr IVPB Q12H [facility] PRN Reason: Protocol Last Admin: 08/18/18 11:01 Dose: 167 mls/hr Levothyroxine Sodium (Synthroid) 50 mcg PO DAILY [facility] Last Admin: 08/18/18 11:01 Dose: 50 mcg Memantine (Namenda) 5 mg PO BID [facility] Last Admin: 08/18/18 11:01 Dose: 5 mg Silver Sulfadiazine (Silvadene 1% 25 Gm) 1 gm TP BID [facility] Last Admin: 08/18/18 11:01 Dose: 1 gm - Labs Labs: 08/16/18 06:45 08/16/18 06:45 PT 16.5 SECONDS (9.4-12.5) H 08/09/18 06:15 INR 1.42 08/09/18 06:15 APTT 25.4 Seconds (25.1-36.5) 08/09/18 06:15 Attending/Attestation - Attestation I have personally seen and examined this patient.: Yes I have fully participated in the care of the patient.: Yes I have reviewed all pertinent clinical information, including history, physical exam and plan: Yes Notes (Text): 08/18/18 14:24 Attending note; Patient seen and examined with resident. Patient is alert and awake. Having breakfast with assistance. Not in any acute distress. No cough. Patient is 73-year-old male with past medical history significant for non healing stage IV left hip decubitus ulcer, Alzheimer's dementia, hypothyroidism , CVA, and failure to thrive that presented to emergency room with generalized weakness and decreased appetite. 1. Multiple sacral ulcers; status post wound VAC after debridement. Surgery evaluation appreciated. Wound VAC changed. Dressing change instructions by surgery appreciated. Patient is afebrile and nontoxic . Continue meropenem and vancomycin. Patient needs to complete 7-10 more days of antibiotics. Status post right upper arm midline placement. 2. Failure to thrive. Dietitian evaluation appreciated. Continue ensure. Patient is tolerating diet with assistance. Continue dysphagia diet. Continue aspiration precautions. 3. Microcytic anemia. Hemoglobin is stable. 4.Hypothyroidism. Continue Synthroid. 5.Dementia. Continue Aricept and Namenda 6. Palliative care evaluation appreciated. Patient is DNI DNR. pending placement. Upon discharge the patient will follow up with PMD . 08/18/18 14:25
[2018-08-18] MEDS: Enoxaparin 40 mg Syringe SC SCH (11:00)
[2018-08-18] MEDS: Levothyroxine 50 MCG TAB PO SCH (11:01)
[2018-08-18] MEDS: Collagenase 250 Units/gm Ointment(30 gm) TOP SCH ×2 (11:01→17:15)
[2018-08-18] MEDS: Silver Sulfadiazine 1% Cream (25 gm) TP SCH ×2 (11:01→17:16)
[2018-08-18] MEDS: Vancomycin 750mg 750 MG/250 ML BAG IVPB SCH ×2 (11:01→22:02)
--- NOTE | 2018-08-18 17:05 | PN ---
Copied To: Raul Mo MD Attending MD: Raul Mo MD DATE: 08/18/2018 SUBJECTIVE: The patient is in bed, in no acute distress, nontoxic. PHYSICAL EXAMINATION: VITAL SIGNS: Temperature is 98, blood pressure is 120/70, and respiratory rate 16. HEENT: Unremarkable. NECK: Supple. LUNGS: Decreased breath sounds. HEART: Normal S1, S2. ABDOMEN: Soft. LABORATORY EXAMINATION: Reveals white count is down to 12,400 that was from the 20th. Chemistries reveals a creatinine of 0.4. Review of orders reveals the patient to be on meropenem and vancomycin. ASSESSMENT AND PLAN: This is a 73-year-old male with sepsis due to left hip infected decubitus ulcer and skin and skin structure infection, status post debridement growing Enterococcus faecalis, Klebsiella, and Proteus; history of treatment for left hip area cellulitis, on vancomycin and meropenem day #10, should complete another 7 to 10 days of antibiotics as outpatient with surgical wound care. We will follow with you. Raul Mo MD
[2018-08-19] MEDS: Meropenem IV 1 gm in NS 50 ML IVPB SCH ×3 (05:27→21:45)
[2018-08-19] MEDS: Vancomycin 750mg 750 MG/250 ML BAG IVPB SCH ×2 (10:27→23:13)
[2018-08-19] MEDS: Enoxaparin 40 mg Syringe SC SCH (10:28)
[2018-08-19] MEDS: POLYETHYLENE GLYCOL 3350 17 GM/Dose PACKET PO SCH ×2 (10:29→17:18)
[2018-08-19] MEDS: Collagenase 250 Units/gm Ointment(30 gm) TOP SCH ×2 (10:30→18:39)
[2018-08-19] MEDS: Silver Sulfadiazine 1% Cream (25 gm) TP SCH ×2 (10:30→18:39)
[2018-08-19] MEDS: Levothyroxine 50 MCG TAB PO SCH (10:31)
--- NOTE | 2018-08-19 14:48 | CP.PCM.PN ---
<Skip Carolina - Last Filed: 08/19/18 14:45> Subjective - Date & Time of Evaluation Date of Evaluation: 08/19/18 Time of Evaluation: 07:00 - Subjective Subjective: Skip Carolina PGY1 Medicine Progress Note for Dr. Mchugh Patient was seen and examined at bedside this morning. No acute overnight events. Patient is AAOx1. Wound vac continues to drain. A complete ROS was unable to be obtained. Objective - Vital Signs/Intake and Output Vital Signs (last 24 hours): Temp Pulse Resp BP Pulse Ox 98.6 F 102 H 16 98/65 L 100 08/19/18 08:08 08/19/18 08:08 08/19/18 08:08 08/19/18 08:08 08/19/18 08:08 Intake and Output: 08/19/18 08/19/18 06:59 18:59 Intake Total 1670 0 Output Total 1850 1320 Balance -180 -1320 - Medications Medications: Current Medications Acetaminophen (Tylenol 325mg Tab) 650 mg PO Q6H PRN PRN Reason: Fever >100.4 F Atorvastatin Calcium (Lipitor) 10 mg PO DIN PENDING SALE TO [facility] Last Admin: 08/18/18 17:16 Dose: 10 mg Collagenase (Santyl) 1 gm TOP BID PENDING SALE TO [facility] Last Admin: 08/19/18 10:30 Dose: 1 gm Docusate Sodium (Colace Liquid) 100 mg PO TID NALDO Donepezil HCl (Aricept) 5 mg PO HS PENDING SALE TO [facility] Last Admin: 08/18/18 21:26 Dose: 5 mg Enoxaparin Sodium (Lovenox) 40 mg SC DAILY NALDO PRN Reason: Protocol Last Admin: 08/19/18 10:28 Dose: 40 mg Famotidine (Pepcid) 20 mg PO DAILY PENDING SALE TO [facility] Last Admin: 08/19/18 10:30 Dose: 20 mg Meropenem (Merrem Iv 1 Gm Premix) 50 mls @ 100 mls/hr IVPB Q8 NALDO PRN Reason: Protocol Stop: 08/23/18 14:01 Last Admin: 08/19/18 13:22 Dose: 100 mls/hr Vancomycin HCl (Vancomycin 750 Mg In Ns) 750 mg in 250 mls @ 167 mls/hr IVPB Q12H NALDO PRN Reason: Protocol Last Admin: 08/19/18 10:27 Dose: 167 mls/hr Levothyroxine Sodium (Synthroid) 50 mcg PO DAILY PENDING SALE TO [facility] Last Admin: 08/19/18 10:31 Dose: 50 mcg Memantine (Namenda) 5 mg PO BID PENDING SALE TO [facility] Last Admin: 08/19/18 10:29 Dose: 5 mg Polyethylene Glycol (Miralax) 17 gm PO BID PENDING SALE TO [facility] Last Admin: 08/19/18 10:29 Dose: 17 gm Silver Sulfadiazine (Silvadene 1% 25 Gm) 1 gm TP BID PENDING SALE TO [facility] Last Admin: 08/19/18 10:30 Dose: 1 gm - Labs Labs: 08/16/18 06:45 08/16/18 06:45 PT 16.5 SECONDS (9.4-12.5) H 08/09/18 06:15 INR 1.42 08/09/18 06:15 APTT 25.4 Seconds (25.1-36.5) 08/09/18 06:15 - Constitutional Appears: No Acute Distress, Cachectic, Chronically Ill - Head Exam Head Exam: ATRAUMATIC, NORMAL INSPECTION, NORMOCEPHALIC - Eye Exam Eye Exam: EOMI, Normal appearance, PERRL Pupil Exam: NORMAL ACCOMODATION, PERRL - ENT Exam ENT Exam: Mucous Membranes Moist - Neck Exam Neck Exam: Full ROM, Normal Inspection. absent: Lymphadenopathy - Respiratory Exam Respiratory Exam: Clear to Ausculation Bilateral, NORMAL BREATHING PATTERN. absent: Rales, Rhonchi, Wheezes - Cardiovascular Exam Cardiovascular Exam: REGULAR RHYTHM, +S1, +S2. absent: Murmur - GI/Abdominal Exam GI & Abdominal Exam: Soft, Normal Bowel Sounds. absent: Guarding, Rigid, Tenderness - Extremities Exam Extremities Exam: Normal Capillary Refill. absent: Joint Swelling, Pedal Edema - Back Exam Back Exam: NORMAL INSPECTION - Neurological Exam Neurological Exam: Alert, Awake, CN II-XII Intact - Psychiatric Exam Psychiatric exam: Flat Affect Assessment and Plan - Assessment and Plan (Free Text) Assessment: Patient is a 73 y/o male with PMHx dementia, CVAs, and hypothyroidism who presented for decreased PO intake and generalized weakness. Patient found to have multiple pressure ulcers and is very cachetic. Family would like placement in NH/rehab. Case management/social work has referred to several facilities for both [facility] and group home. 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 - ID consulted, recs appreciated. - Midline in place Microcytic anemia likely 2/2 Anemia of Chronic Disease - stable - f/u CBC Monday 08/20 - Hgb (9.1) with low MCV and elevated RDW - Iron low (24), TIBC low (193), % sat low (13) - Peripheral smear- microcytic, hypochronic, mild anisopoikilocytosis, few target cells. - FOBT negative Hypothyroidism - c/w Synthroid 50 mcg PO daily Hyperlipidemia - c/w Lipitor 10 mg PO QHS Hx of Dementia - c/w Namenda 5 mg PO BID GI ppx: Pepcid 20 mg PO daily VTE ppx: SCDs, Lovenox 40 mg SC daily Diet: pureed diet/thin liquids Code status: DNR/DNI Dispo: PT recommend [facility]- awaiting placement Case was discussed and reviewed with Attending Physician, Dr. Mchugh <Amador Mchugh - Last Filed: 08/19/18 17:36> Objective - Vital Signs/Intake and Output Vital Signs (last 24 hours): Temp Pulse Resp BP Pulse Ox 98.4 F 97 H 18 108/73 97 08/19/18 15:59 08/19/18 15:59 08/19/18 15:59 08/19/18 15:59 08/19/18 15:59 Intake and Output: 08/19/18 08/19/18 06:59 18:59 Intake Total 1670 480 Output Total 0812 2620 Balance -180 -2140 - Medications Medications: Current Medications Acetaminophen (Tylenol 325mg Tab) 650 mg PO Q6H PRN PRN Reason: Fever >100.4 F Atorvastatin Calcium (Lipitor) 10 mg PO DIN PENDING SALE TO [facility] Last Admin: 08/19/18 17:18 Dose: 10 mg Collagenase (Santyl) 1 gm TOP BID PENDING SALE TO [facility] Last Admin: 08/19/18 10:30 Dose: 1 gm Docusate Sodium (Colace Liquid) 100 mg PO TID PENDING SALE TO [facility] Last Admin: 08/19/18 17:18 Dose: 100 mg Donepezil HCl (Aricept) 5 mg PO HS PENDING SALE TO [facility] Last Admin: 08/18/18 21:26 Dose: 5 mg Enoxaparin Sodium (Lovenox) 40 mg SC DAILY NALDO PRN Reason: Protocol Last Admin: 08/19/18 10:28 Dose: 40 mg Famotidine (Pepcid) 20 mg PO DAILY PENDING SALE TO [facility] Last Admin: 08/19/18 10:30 Dose: 20 mg Meropenem (Merrem Iv 1 Gm Premix) 50 mls @ 100 mls/hr IVPB Q8 NALDO PRN Reason: Protocol Stop: 08/23/18 14:01 Last Admin: 08/19/18 13:22 Dose: 100 mls/hr Vancomycin HCl (Vancomycin 750 Mg In Ns) 750 mg in 250 mls @ 167 mls/hr IVPB Q12H NALDO PRN Reason: Protocol Last Admin: 08/19/18 10:27 Dose: 167 mls/hr Levothyroxine Sodium (Synthroid) 50 mcg PO DAILY PENDING SALE TO [facility] Last Admin: 08/19/18 10:31 Dose: 50 mcg Memantine (Namenda) 5 mg PO BID PENDING SALE TO [facility] Last Admin: 08/19/18 17:18 Dose: 5 mg Polyethylene Glycol (Miralax) 17 gm PO BID PENDING SALE TO [facility] Last Admin: 08/19/18 17:18 Dose: 17 gm Silver Sulfadiazine (Silvadene 1% 25 Gm) 1 gm TP BID PENDING SALE TO [facility] Last Admin: 08/19/18 10:30 Dose: 1 gm - Labs Labs: 08/16/18 06:45 08/16/18 06:45 PT 16.5 SECONDS (9.4-12.5) H 08/09/18 06:15 INR 1.42 08/09/18 06:15 APTT 25.4 Seconds (25.1-36.5) 08/09/18 06:15 Attending/Attestation - Attestation I have personally seen and examined this patient.: Yes I have fully participated in the care of the patient.: Yes I have reviewed all pertinent clinical information, including history, physical exam and plan: Yes Notes (Text): 08/19/18 17:30 Attending note; Patient seen and examined with resident. Patient is alert and awake. Patient is 73-year-old male with past medical history significant for non healing stage IV left hip decubitus ulcer, Alzheimer's dementia, hypothyroidism , CVA, and failure to thrive that presented to emergency room with generalized weakness and decreased appetite. 1. Multiple sacral ulcers; status post wound VAC after debridement. Surgery evaluation appreciated. Dressing change instructions by surgery appreciated. Patient is afebrile and nontoxic . Continue meropenem and vancomycin. Patient needs to complete 7-10 more days of antibiotics. Status post right upper arm midline placement. 2. Failure to thrive. Dietitian evaluation appreciated. Continue ensure. Patient is tolerating diet with assistance. Continue dysphagia diet. Continue aspiration precautions. 3. Microcytic anemia. Hemoglobin is stable. 4.Hypothyroidism. Continue Synthroid. 5.Dementia. Continue Aricept and Namenda 6. Constipation: started on miralax. 7. Palliative care evaluation appreciated. Patient is DNI DNR. pending placement. Upon discharge the patient will follow up with PMD . 08/19/18 17:35
[2018-08-19 15:15] VITALS: RESP 18
--- NOTE | 2018-08-19 17:47 | PN ---
DATE: 08/19/2018 SUBJECTIVE: The patient is seen earlier today in 567. No fevers, no chills. PHYSICAL EXAMINATION: VITAL SIGNS: On exam, temperature is 98, blood pressure is 120/70, respiratory rate of 18. HEENT: Examination of HEENT is unremarkable. NECK: Supple. LUNGS: Have decreased breath sounds. HEART: Normal S1, S2. ABDOMEN: Soft. LABORATORY DATA: Laboratory examination reveals the white count is 12,400. Coagulation is noted. Chemistries reveals a BUN of 13, creatinine of 0.4. Urinalysis is noted. HIV is negative. Microbiology is noted. ASSESSMENT AND PLAN: A 73-year-old male with sepsis due to left hip infected decubitus ulcer, skin and skin structure infection, status post debridement. Growing Enterococcus faecalis, Klebsiella and Proteus. History of treatment of left hip area cellulitis. On vancomycin and meropenem day number 11. Review of orders confirms the meropenem, vancomycin to be active. We will follow with you. Chemistries are pending. Should have a vancomycin trough level. The patient receives the vancomycin at 11:00 a.m. and 11:00 p.m. We will order a vancomycin trough level for 10:00 a.m. tomorrow and dose. We will follow with you. Raul Mo MD
[2018-08-20] MEDS: Meropenem IV 1 gm in NS 50 ML IVPB SCH ×2 (05:03→13:00)
[2018-08-20 07:00] LABS: BASO # 0.1 K/mm3 (0.0-2.0); BASO % 1.2 % (0.0-3.0); EOS # 0.3 (0.0-0.7); EOS % 3.1 % (1.5-5.0); GRAN # 4.23 (1.4-6.5); GRAN % 50.1 % (50.0-68.0); HEMOGLOBIN 8.7 g/dL (14.0-18.0); LYMPH # 2.8 (1.2-3.4); LYMPH % 33.1 % (22.0-35.0); MEAN CELL VOLUME 68.7 fl (80.0-105.0); MEAN CORPUSCULAR HEMOGLOBIN 22.1 pg (25.0-35.0); MEAN CORPUSCULAR HGB CONC 32.2 g/dl (31.0-37.0); MEAN PLATELET VOLUME 8.9 fl (7.0-11.0); MONO # 1.1 (0.1-0.6); MONO % 12.5 % (1.0-6.0); RBC 3.93 10^6/uL (3.5-6.1); WHITE BLOOD COUNT 8.5 10^3/ul (4.5-11.0)
[2018-08-20 07:13] LABS: ALB/GLOB RATIO 0.8 (1.1-1.8); ALBUMIN 3.2 g/dL (3.0-4.8); ALT/SGPT 24 U/L (7-56); AST/SGOT 30 U/L (17-59); BLOOD UREA NITROGEN 14 mg/dL (7-21); CALCIUM 8.8 mg/dL (8.4-10.5); GFR NON-AFRICAN AMERICAN > 60
[2018-08-20] MEDS: Levothyroxine 50 MCG TAB PO SCH (09:34)
[2018-08-20] MEDS: Enoxaparin 40 mg Syringe SC SCH (09:34)
[2018-08-20] MEDS: POLYETHYLENE GLYCOL 3350 17 GM/Dose PACKET PO SCH (09:34)
[2018-08-20] MEDS: Silver Sulfadiazine 1% Cream (25 gm) TP SCH ×2 (09:36→17:53)
[2018-08-20] MEDS: Collagenase 250 Units/gm Ointment(30 gm) TOP SCH ×2 (09:36→17:53)
[2018-08-20] MEDS: Vancomycin 750mg 750 MG/250 ML BAG IVPB SCH (10:07)
[2018-08-20] MEDS ORDERED: Morphine 2 mg/ml ISec IVP STA (12:03)
[2018-08-20 15:16] VITALS: BP 103/68; PULSE 97; TEMP 98.6; O2SAT 97
--- NOTE | 2018-08-20 16:34 | CP.PCM.DIS ---
<Susana Rush - Last Filed: 08/20/18 19:21> Provider - Provider Date of Admission: 08/08/18 23:41 Attending physician: Amador Mchugh MD Primary care physician: Debra Wilson Consults: surgery ID palliative Time Spent in preparation of Discharge (in minutes): 60 Diagnosis - Discharge Diagnosis (1) Failure to thrive in adult Status: Chronic Priority: High (2) Decubitus ulcers Status: Chronic Priority: High (3) Microcytic anemia Status: Chronic Priority: Medium (4) Dementia Status: Chronic Priority: Medium Hospital Course - Lab Results Lab Results: Micro Results 08/09/18 01:30 Hip - Left Gram Stain - Final 08/09/18 01:30 Hip - Left Wound Culture - Final Proteus Mirabilis Klebsiella Pneumoniae Ssp Pneu Enterococcus Faecalis 08/09/18 11:29 Skin - Hip-Left Gram Stain - Final 08/09/18 11:29 Skin - Hip-Left Tissue Culture - Final Proteus Mirabilis Klebsiella Pneumoniae Ssp Pneu Enterococcus Faecalis 08/09/18 00:14 Urine,Clean Catch Urine Culture - Final No Growth (<1,000 CFU/ML) Most Recent Lab Values WBC 8.5 10^3/ul (4.5-11.0) D 08/20/18 06:30 RBC 3.93 10^6/uL (3.5-6.1) 08/20/18 06:30 Hgb 8.7 g/dL (14.0-18.0) L 08/20/18 06:30 Hct 27.0 % (42.0-52.0) L 08/20/18 06:30 MCV 68.7 fl (80.0-105.0) L 08/20/18 06:30 MCH 22.1 pg (25.0-35.0) L 08/20/18 06:30 MCHC 32.2 g/dl (31.0-37.0) 08/20/18 06:30 RDW 16.0 % (11.5-14.5) H 08/20/18 06:30 Plt Count 625 10^3/uL (120.0-450.0) H 08/20/18 06:30 MPV 8.9 fl (7.0-11.0) 08/20/18 06:30 Gran % 50.1 % (50.0-68.0) 08/20/18 06:30 Lymph % (Auto) 33.1 % (22.0-35.0) 08/20/18 06:30 [place] % (Auto) 12.5 % (1.0-6.0) H 08/20/18 06:30 Eos % (Auto) 3.1 % (1.5-5.0) 08/20/18 06:30 Baso % (Auto) 1.2 % (0.0-3.0) 08/20/18 06:30 Gran # 4.23 (1.4-6.5) 08/20/18 06:30 Lymph # (Auto) 2.8 (1.2-3.4) 08/20/18 06:30 [place] # (Auto) 1.1 (0.1-0.6) H 08/20/18 06:30 Eos # (Auto) 0.3 (0.0-0.7) 08/20/18 06:30 Baso # (Auto) 0.10 K/mm3 (0.0-2.0) 08/20/18 06:30 Differential Comment Cancelled 08/09/18 06:15 ESR 70 mm/hr (0.00-15.0) H 08/09/18 08:00 Retic Count 1.01 % (0.5-1.5) 08/09/18 06:15 PT 16.5 SECONDS (9.4-12.5) H 08/09/18 06:15 INR 1.42 08/09/18 06:15 APTT 25.4 Seconds (25.1-36.5) 08/09/18 06:15 pO2 36 mm/Hg (30-55) 08/08/18 23:44 VBG pH 7.39 (7.32-7.43) 08/08/18 23:44 VBG pCO2 53.0 (40-60) 08/08/18 23:44 VBG HCO3 32.1 mmol/l (21-28) H 08/08/18 23:44 VBG Total CO2 33.7 mmol.L (22-28) H 08/08/18 23:44 VBG O2 Sat (Calc) 69.2 % (40-65) H 08/08/18 23:44 VBG Base Excess 5.7 mmol/L (0.0-2.0) H 08/08/18 23:44 VBG Potassium 4.3 mmol/L (3.6-5.2) 08/08/18 23:44 Sodium 142.0 mmol/L (132-148) 08/08/18 23:44 Chloride 106.0 mmol/L (98-107) 08/08/18 23:44 Glucose 111 mg/dl (75-110) H 08/08/18 23:44 Lactate 1.3 mmol/L (0.7-2.1) 08/08/18 23:44 FiO2 21.0 % 08/08/18 23:44 Sodium 138 mmol/L (132-148) 08/20/18 06:30 Potassium 4.5 mmol/L (3.6-5.0) 08/20/18 06:30 Chloride 100 mmol/L (98-107) 08/20/18 06:30 Carbon Dioxide 33 mmol/L (21-33) 08/20/18 06:30 Anion Gap 10 (10-20) 08/20/18 06:30 BUN 14 mg/dL (7-21) 08/20/18 06:30 Creatinine 0.5 mg/dl (0.8-1.5) L 08/20/18 06:30 Est GFR ( Amer) > 60 08/20/18 06:30 Est GFR (Non-Af Amer) > 60 08/20/18 06:30 POC Glucose (mg/dL) 95 mg/dL (65-110) 08/08/18 21:32 Random Glucose 92 mg/dL (70-110) 08/20/18 06:30 Calcium 8.8 mg/dL (8.4-10.5) 08/20/18 06:30 Phosphorus 2.5 mg/dL (2.5-4.5) 08/20/18 06:30 Magnesium 2.5 mg/dL (1.7-2.2) H 08/20/18 06:30 Iron 24 ug/dL (45-180) L 08/09/18 06:15 TIBC 193 ug/dL (261-462) L 08/09/18 06:15 % Saturation 13 % (20-55) L 08/09/18 06:15 Ferritin 406.0 ng/mL 08/10/18 06:45 Total Bilirubin 0.1 mg/dL (0.2-1.3) L 08/20/18 06:30 AST 30 U/L (17-59) 08/20/18 06:30 ALT 24 U/L (7-56) 08/20/18 06:30 Alkaline Phosphatase 61 U/L (38-126) 08/20/18 06:30 Troponin I < 0.01 ng/mL 08/08/18 21:59 C-Reactive Protein 154.10 mg/L (0.0-9.9) H 08/09/18 08:00 Total Protein 7.1 g/dL (5.8-8.3) 08/20/18 06:30 Albumin 3.2 g/dL (3.0-4.8) 08/20/18 06:30 Globulin 3.9 gm/dL 08/20/18 06:30 Albumin/Globulin Ratio 0.8 (1.1-1.8) L 08/20/18 06:30 Prealbumin 8.4 mg/dL (17.6-36.0) L 08/09/18 06:15 Vitamin B12 860 pg/mL (239-931) 08/09/18 06:15 Folate 6.0 ng/mL 08/09/18 06:15 Free T4 1.40 ng/dL (0.78-2.19) 08/09/18 12:00 Thyroxine (T4) 5.6 ug/dL (5.5-11.0) 08/09/18 06:15 TSH 3rd Generation 5.09 mIU/mL (0.46-4.68) H 08/09/18 06:15 Venous Blood Potassium 4.3 mmol/L (3.6-5.2) 08/08/18 23:44 Urine Color Yellow (YELLOW) 08/09/18 00:14 Urine Appearance Sl cloudy (CLEAR) 08/09/18 00:14 Urine pH 6.0 (4.7-8.0) 08/09/18 00:14 Ur Specific [place] 1.025 (1.005-1.035) 08/09/18 00:14 Urine Protein 30 mg/dL (<30 mg/dL) H 08/09/18 00:14 Urine Glucose (UA) Negative mg/dL (NEGATIVE) 08/09/18 00:14 Urine Ketones Trace mg/dL (NEGATIVE) H 08/09/18 00:14 Urine Blood Negative (NEGATIVE) 08/09/18 00:14 Urine Nitrate Negative (NEGATIVE) 08/09/18 00:14 Urine Bilirubin Negative (NEGATIVE) 08/09/18 00:14 Urine Urobilinogen 1.0 E.U./dL (<1 E.U./dL) H 08/09/18 00:14 Ur Leukocyte Esterase Negative Renny/uL (NEGATIVE) 08/09/18 00:14 Urine RBC 0 - 2 /hpf (0-2) 08/09/18 00:14 Urine WBC 1 - 3 /hpf (0-6) 08/09/18 00:14 Ur Epithelial Cells 1 - 3 /hpf (0-5) 08/09/18 00:14 Urine Bacteria Rare (NEG) 08/09/18 00:14 Urine Other Mucus 08/09/18 00:14 Stool Occult Blood Negative (NEGATIVE) 08/10/18 10:00 Vancomycin Trough 18.1 ug/mL (5.0-10.0) H* 08/20/18 10:00 HIV 1&2 Ag/Ab, 4th Gen Nonreactive (Nonreactive) 08/09/18 06:00 - Hospital Course Hospital Course: This is a 73 year old male with PMH of 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 Patient merritt s severe dementia and is poor historian at this time. Family not at bedside. ROS limited due to patient status. In the ED, CXR was negative for acute disease (interpreted by me), EKG showed sinus tachycardia at 132bpm with no ST changes and leukocytosis of 16. Patient started on NS @ 100cc/hr and given vancomycin and zosyn. Of note, patient admitted to the hospital on 04/29/18 and 06/26/18 for similar complaints of generalized weakness. During hospitalization, patient's ulcers were debrided. A wound vac was placed in the L hip ulcer. Patient was treated with IV abx and will continue for a t otal of 2 weeks. Wound Cx was positive for Klebsiella, Proteus, and Enterococcus. Blood Cx remained negative. Patient's Hgb initially decreased significantly, but then remained stable around 8. FOBT was negative and there were no physical exam signs of active bleeding. Patient was maintained on an air mattress with frequent turns. Patient had a good appetite and ate nearly all of his meals with assistance. Palliative nurse met with patient's and daughter- they decided to make patient DNR/DNI. Upon discharge, patient was transferred to [facility] for long-term placement. His leukocytosis resolved. He was afebrile and vitals were stable. Patient had pain only when ulcers were examined/debrided; he was comfortable at rest. Discharge Exam - Head Exam Head Exam: ATRAUMATIC, NORMAL INSPECTION, NORMOCEPHALIC - Eye Exam Eye Exam: EOMI, Normal appearance - ENT Exam ENT Exam: Mucous Membranes Moist, Normal Exam - Neck Exam Neck exam: Normal Inspection - Respiratory Exam Respiratory Exam: Clear to PA & Lateral, NORMAL BREATHING PATTERN, UNREMARKABLE - Cardiovascular Exam Cardiovascular Exam: Tachycardia, REGULAR RHYTHM, +S1, +S2 - GI/Abdominal Exam GI & Abdominal Exam: Normal Bowel Sounds, Soft. absent: Tenderness - Rectal Exam Rectal Exam: Deferred - Extremities Exam Extremities exam: pedal pulses present Additional comments: thin midline in R antecubital fossa - Back Exam Back exam: NORMAL INSPECTION - Neurological Exam Neurological exam: Alert Additional comments: only oriented to person speak very soft and usually unintelligible - Psychiatric Exam Psychiatric exam: Flat Affect - Skin Additional comments: wound vac in L hip ulcer bandages over sacral and R hip ulcers Discharge Plan - Discharge Medications Prescriptions: RX: Meropenem IV 1 gm in NS [Merrem IV 1 gm Premix] 1 gm IVPB Q8 3 Days bag Vancomycin/0.9 % Sod Chloride [Vanco 750 mg/250 ml-0.9% NaCl] 750 mg IV Q12 3 Days plast..bag - Follow Up Plan Condition: FAIR Disposition: TRANSF TO SNF Patient education suggested?: Yes Instructions: Preventing Falls in the Older Adult, Wound Care, Dementia (DC), Negative Pressure Wound Therapy, Failure to Thrive, Adult Additional Instructions: Patient is being discharged to [facility]. Continue IV meropenem 1 g Q8H and IV vancomycin 750 mg Q12H via midline until 08/23. Midline should be removed once antibiotics are completed. Patient should continue wound vac to continuous suction 125mmHg for both left hip stage 4 ulcers (superior 3cm diameter, 2cm deep, with 3cm of circumferential undermining. Inferior 3cm diameter, 2cm deep, with 3cm undermining circumferentially. 2cm subcutanous bridge between) and the stage 4 sacral ulcer (4cm longitudinal and 3cm horizontal, 1cm deep, with 2-3cm undermining circumferentially.) Wound vac should be changed every three days. Apply silvadene BID to the pressure wounds on the right hip (posterior stage2 3cm diameter, anterior stage 1 5mm diameter.) Patient should have a pressure offloading bed and be repositioned at least every 2 hours Follow up in wound care clinic in 2 weeks. Follow up with primary care doctor within 3-5 days. Patient will need repeat blood work within 3-5 days to monitor renal function, white cell count, hemoglobin, hematocrit, and vancomycin levels Follow up with surgery Dr. Corrina Hopper within one week of discharge. Referrals: Debra Wilson MD [Primary Care Provider] - Minh Hopper MD [Staff Provider] - <Adelaida Hopper - Last Filed: 08/29/18 17:34> Provider - Provider Date of Admission: 08/08/18 23:41 Attending physician: Adelaida Hopper DO Primary care physician: Debra Wilson [facility] Course - Lab Results Lab Results: Micro Results 08/08/18 22:21 Blood-Venous Blood Culture - Final NO GROWTH AFTER 5 DAYS 08/08/18 22:21 Blood-Venous Gram Stain - Final TEST NOT PERFORMED 08/08/18 22:00 Blood-Venous Blood Culture - Final NO GROWTH AFTER 5 DAYS 08/08/18 22:00 Blood-Venous Gram Stain - Final TEST NOT PERFORMED 08/09/18 01:30 Hip - Left Gram Stain - Final 08/09/18 01:30 Hip - Left Wound Culture - Final Proteus Mirabilis Klebsiella Pneumoniae Ssp Pneu Enterococcus Faecalis 08/09/18 11:29 Skin - Hip-Left Gram Stain - Final 08/09/18 11:29 Skin - Hip-Left Tissue Culture - Final Proteus Mirabilis Klebsiella Pneumoniae Ssp Pneu Enterococcus Faecalis 08/09/18 00:14 Urine,Clean Catch Urine Culture - Final No Growth (<1,000 CFU/ML) Most Recent Lab Values WBC 8.5 10^3/ul (4.5-11.0) D 08/20/18 06:30 RBC 3.93 10^6/uL (3.5-6.1) 08/20/18 06:30 Hgb 8.7 g/dL (14.0-18.0) L 08/20/18 06:30 Hct 27.0 % (42.0-52.0) L 08/20/18 06:30 MCV 68.7 fl (80.0-105.0) L 08/20/18 06:30 MCH 22.1 pg (25.0-35.0) L 08/20/18 06:30 MCHC 32.2 g/dl (31.0-37.0) 08/20/18 06:30 RDW 16.0 % (11.5-14.5) H 08/20/18 06:30 Plt Count 625 10^3/uL (120.0-450.0) H 08/20/18 06:30 MPV 8.9 fl (7.0-11.0) 08/20/18 06:30 Gran % 50.1 % (50.0-68.0) 08/20/18 06:30 Lymph % (Auto) 33.1 % (22.0-35.0) 08/20/18 06:30 [place] % (Auto) 12.5 % (1.0-6.0) H 08/20/18 06:30 Eos % (Auto) 3.1 % (1.5-5.0) 08/20/18 06:30 Baso % (Auto) 1.2 % (0.0-3.0) 08/20/18 06:30 Gran # 4.23 (1.4-6.5) 08/20/18 06:30 Lymph # (Auto) 2.8 (1.2-3.4) 08/20/18 06:30 [place] # (Auto) 1.1 (0.1-0.6) H 08/20/18 06:30 Eos # (Auto) 0.3 (0.0-0.7) 08/20/18 06:30 Baso # (Auto) 0.10 K/mm3 (0.0-2.0) 08/20/18 06:30 Differential Comment Cancelled 08/09/18 06:15 ESR 70 mm/hr (0.00-15.0) H 08/09/18 08:00 Retic Count 1.01 % (0.5-1.5) 08/09/18 06:15 PT 16.5 SECONDS (9.4-12.5) H 08/09/18 06:15 INR 1.42 08/09/18 06:15 APTT 25.4 Seconds (25.1-36.5) 08/09/18 06:15 pO2 36 mm/Hg (30-55) 08/08/18 23:44 VBG pH 7.39 (7.32-7.43) 08/08/18 23:44 VBG pCO2 53.0 (40-60) 08/08/18 23:44 VBG HCO3 32.1 mmol/l (21-28) H 08/08/18 23:44 VBG Total CO2 33.7 mmol.L (22-28) H 08/08/18 23:44 VBG O2 Sat (Calc) 69.2 % (40-65) H 08/08/18 23:44 VBG Base Excess 5.7 mmol/L (0.0-2.0) H 08/08/18 23:44 VBG Potassium 4.3 mmol/L (3.6-5.2) 08/08/18 23:44 Sodium 142.0 mmol/L (132-148) 08/08/18 23:44 Chloride 106.0 mmol/L (98-107) 08/08/18 23:44 Glucose 111 mg/dl (75-110) H 08/08/18 23:44 Lactate 1.3 mmol/L (0.7-2.1) 08/08/18 23:44 FiO2 21.0 % 08/08/18 23:44 Sodium 138 mmol/L (132-148) 08/20/18 06:30 Potassium 4.5 mmol/L (3.6-5.0) 08/20/18 06:30 Chloride 100 mmol/L (98-107) 08/20/18 06:30 Carbon Dioxide 33 mmol/L (21-33) 08/20/18 06:30 Anion Gap 10 (10-20) 08/20/18 06:30 BUN 14 mg/dL (7-21) 08/20/18 06:30 Creatinine 0.5 mg/dl (0.8-1.5) L 08/20/18 06:30 Est GFR ( Amer) > 60 08/20/18 06:30 Est GFR (Non-Af Amer) > 60 08/20/18 06:30 POC Glucose (mg/dL) 95 mg/dL (65-110) 08/08/18 21:32 Random Glucose 92 mg/dL (70-110) 08/20/18 06:30 Calcium 8.8 mg/dL (8.4-10.5) 08/20/18 06:30 Phosphorus 2.5 mg/dL (2.5-4.5) 08/20/18 06:30 Magnesium 2.5 mg/dL (1.7-2.2) H 08/20/18 06:30 Iron 24 ug/dL (45-180) L 08/09/18 06:15 TIBC 193 ug/dL (261-462) L 08/09/18 06:15 % Saturation 13 % (20-55) L 08/09/18 06:15 Ferritin 406.0 ng/mL 08/10/18 06:45 Total Bilirubin 0.1 mg/dL (0.2-1.3) L 08/20/18 06:30 AST 30 U/L (17-59) 08/20/18 06:30 ALT 24 U/L (7-56) 08/20/18 06:30 Alkaline Phosphatase 61 U/L (38-126) 08/20/18 06:30 Troponin I < 0.01 ng/mL 08/08/18 21:59 C-Reactive Protein 154.10 mg/L (0.0-9.9) H 08/09/18 08:00 Total Protein 7.1 g/dL (5.8-8.3) 08/20/18 06:30 Albumin 3.2 g/dL (3.0-4.8) 08/20/18 06:30 Globulin 3.9 gm/dL 08/20/18 06:30 Albumin/Globulin Ratio 0.8 (1.1-1.8) L 08/20/18 06:30 Prealbumin 8.4 mg/dL (17.6-36.0) L 08/09/18 06:15 Vitamin B12 860 pg/mL (239-931) 08/09/18 06:15 Folate 6.0 ng/mL 08/09/18 06:15 Free T4 1.40 ng/dL (0.78-2.19) 08/09/18 12:00 Thyroxine (T4) 5.6 ug/dL (5.5-11.0) 08/09/18 06:15 TSH 3rd Generation 5.09 mIU/mL (0.46-4.68) H 08/09/18 06:15 Venous Blood Potassium 4.3 mmol/L (3.6-5.2) 08/08/18 23:44 Urine Color Yellow (YELLOW) 08/09/18 00:14 Urine Appearance Sl cloudy (CLEAR) 08/09/18 00:14 Urine pH 6.0 (4.7-8.0) 08/09/18 00:14 Ur Specific [place] 1.025 (1.005-1.035) 08/09/18 00:14 Urine Protein 30 mg/dL (<30 mg/dL) H 08/09/18 00:14 Urine Glucose (UA) Negative mg/dL (NEGATIVE) 08/09/18 00:14 Urine Ketones Trace mg/dL (NEGATIVE) H 08/09/18 00:14 Urine Blood Negative (NEGATIVE) 08/09/18 00:14 Urine Nitrate Negative (NEGATIVE) 08/09/18 00:14 Urine Bilirubin Negative (NEGATIVE) 08/09/18 00:14 Urine Urobilinogen 1.0 E.U./dL (<1 E.U./dL) H 08/09/18 00:14 Ur Leukocyte Esterase Negative Renny/uL (NEGATIVE) 08/09/18 00:14 Urine RBC 0 - 2 /hpf (0-2) 08/09/18 00:14 Urine WBC 1 - 3 /hpf (0-6) 08/09/18 00:14 Ur Epithelial Cells 1 - 3 /hpf (0-5) 08/09/18 00:14 Urine Bacteria Rare (NEG) 08/09/18 00:14 Urine Other Mucus 08/09/18 00:14 Stool Occult Blood Negative (NEGATIVE) 08/10/18 10:00 Vancomycin Trough 18.1 ug/mL (5.0-10.0) H* 08/20/18 10:00 HIV 1&2 Ag/Ab, 4th Gen Nonreactive (Nonreactive) 08/09/18 06:00 Attending/Attestation - Attestation I have personally seen and examined this patient.: Yes I have fully participated in the care of the patient.: Yes I have reviewed all pertinent clinical information, including history, physical exam and plan: Yes Notes (Text): Patient seen and examined by me with resident at 11:15AM on 08/20/18. Case including discharge plan discussed with resident. Agree with above with following additions/corrections. Patient is 73-year-old male with past medical history significant for nonhealing stage IV left hip decubitus ulcer, Alzheimer's dementia, hypothyroidism, CVA, and failure to thrive that presented to emergency room with generalized weakness and decreased appetite. Please see H&P for full details. Patient was admitted with failure to thrive, leukocytosis, microcytic anemia, dehydration, Alzheimers dementia, and hypothyroidism. Patient also presented with chronic sacral ulcers. ID was consulted. Surgical team was consulted. Patient was placed on IV fluids and learning design specialist was consulted. Patient had left hip debridement at bedside with eschar removal. Wound cultures positive for Proteus, Klebsiella pneumoniae, Enterococcus faecalis. Blood cultures with no growth. Patient was continued on meropenem and vancomycin. Patient was continued with local wound care. Pelvis CT per radiologist shows multiple subcutaneous fluid and air collections consistent with abscess, no evidence of ulcer osteomyelitis. CT abdomen and pelvis per radiologist shows slightly heterogeneous enhancement of the kidneys noted, possible pyelonephritis, large left posterior buttock decubitus ulcer. Patient had further debridement of ulcers and wound vac was placed. Patient was also found to have anemia likely secondary to chronic disease vs iron deficiency. Patient was also found to have leukocytosis which did resolve. Patient also had episodes of fever which also resolved. Appetite improved with assistance with eating. Dehydration also resolved. Patient was continued on synthroid for hypothyroidism. Patient was continued on Lipitor for hyperlipidemia. Patient was continued on Aricept and Namenda for Alzheimers. Patient was seen by physical therapy. Patient was stable and cleared for discharge by all consultants. Patient was discharged to [facility]. On day of discharge, there were no new issues per nurse. Patient was afebrile. Unable to obtain history from patient secondary to dementia and patient not answering questions appropriately. Physical exam: General: Awake and alert sitting up in bed in no acute distress, cachectic appearing HEENT: Normocephalic atraumatic. Pupils equal reactive. No scleral icterus. Oropharynx is pink and moist. Poor dentition. Neck is supple. Cardiovascular: Normal rhythm. Normal S1, S2. No murmurs, rubs or gallops appreciated Pulmonary: Normal respiratory effort. No rhonchi, rales or wheezing appreciated. Patient does not take in deep breaths when asked to. Gastrointestinal: Soft, nondistended. Nontender. Positive bowel sounds all 4 quadrants, no guarding. Musculoskeletal: Moves all extremities, no calf tenderness. Central nervous system: Awake and alert. Patient not following commands. Dermatologic: Skin warm and dry. Sacral ulcer wound vac in place Please see chart for full details. Follow up instructions: Patient discharged to [facility]. Patient to continue Meropenem and Vancomycin until 08/23/[address] as discussed with ID Dr. Shaver. Wound vac instructions sent to facility. Patient to follow up with primary care doctor within 3-5 days. Patient will need repeat blood work within 3-5 days to monitor labs. Patient to follow up with surgeon within one week of discharge. Written instructions sent with patient. Time spent in discharging the patient including chart review, medication reconciliation, discussion medical translator, consultants, and nursing staff was approximately 40 minutes.
[2018-08-20] MEDS ORDERED: POLYETHYLENE GLYCOL 3350 17 GM/Dose PACKET PO PRN (17:37)
--- NOTE | 2018-08-20 21:07 | CP.PCM.PN ---
Subjective - Date & Time of Evaluation Date of Evaluation: 08/20/18 Time of Evaluation: 13:25 - Subjective Subjective: Comfortable, no fevers. Objective - Vital Signs/Intake and Output Vital Signs (last 24 hours): Temp Pulse Resp BP Pulse Ox 98.6 F 97 H 18 103/68 97 08/20/18 14:00 08/20/18 14:00 08/20/18 14:00 08/20/18 14:00 08/20/18 14:00 Intake and Output: 08/20/18 08/21/18 18:59 06:59 Intake Total 260 Output Total 1200 Balance -940 - Medications Medications: Current Medications Acetaminophen (Tylenol 325mg Tab) 650 mg PO Q6H PRN PRN Reason: Fever >100.4 F Atorvastatin Calcium (Lipitor) 10 mg PO DIN [facility] Last Admin: 08/20/18 17:52 Dose: 10 mg Collagenase (Santyl) 1 gm TOP BID [facility] Last Admin: 08/20/18 17:53 Dose: 1 gm Docusate Sodium (Colace Liquid) 100 mg PO TID PRN PRN Reason: Constipation #1 Donepezil HCl (Aricept) 5 mg PO HS [facility] Last Admin: 08/19/18 21:45 Dose: 5 mg Enoxaparin Sodium (Lovenox) 40 mg SC DAILY [facility] PRN Reason: Protocol Last Admin: 08/20/18 09:34 Dose: 40 mg Famotidine (Pepcid) 20 mg PO DAILY [facility] Last Admin: 08/20/18 09:34 Dose: 20 mg Meropenem (Merrem Iv 1 Gm Premix) 50 mls @ 100 mls/hr IVPB Q8 [facility] PRN Reason: Protocol Stop: 08/23/18 14:01 Last Admin: 08/20/18 13:00 Dose: 100 mls/hr Vancomycin HCl (Vancomycin 750 Mg In Ns) 750 mg in 250 mls @ 167 mls/hr IVPB Q12H [facility] PRN Reason: Protocol Last Admin: 08/20/18 10:07 Dose: 167 mls/hr Levothyroxine Sodium (Synthroid) 50 mcg PO DAILY [facility] Last Admin: 08/20/18 09:34 Dose: 50 mcg Memantine (Namenda) 5 mg PO BID [facility] Last Admin: 08/20/18 17:52 Dose: 5 mg Polyethylene Glycol (Miralax) 17 gm PO BID PRN PRN Reason: Constipation #2 Silver Sulfadiazine (Silvadene 1% 25 Gm) 1 gm TP BID [facility] Last Admin: 08/20/18 17:53 Dose: 1 gm - Labs Labs: 08/20/18 06:30 08/20/18 06:30 PT 16.5 SECONDS (9.4-12.5) H 08/09/18 06:15 INR 1.42 08/09/18 06:15 APTT 25.4 Seconds (25.1-36.5) 08/09/18 06:15 - Constitutional Appears: Chronically Ill - Head Exam Head Exam: NORMAL INSPECTION - Respiratory Exam Respiratory Exam: Decreased Breath Sounds - Cardiovascular Exam Cardiovascular Exam: +S1, +S2 - GI/Abdominal Exam GI & Abdominal Exam: Soft. absent: Tenderness - Extremities Exam Additional comments: left hip with wound vacuum in place Assessment and Plan - Assessment and Plan (Free Text) Plan: Assessment sepsis due to left hip infected decubitus ulcer with skin and skin structure infection S/P debridement, growing E. faecalis, Klebsiella, Proteus history of treatment for left hip area cellulitis, with Pseudomonas as a probable colonizer on the wound dementia CVA thyroid disease Plan Continue Vancomycin and Merrem day 12 and will continue to monitor clinically - should complete total 14-21 days of antibiotics with surgery follow up; Vanco trough is 18 which is within the 15-20 target range for Vanco trough
== END 2018-08-20 21:51 | DRG 853 ==
LOC: ED 21:26 → ERH 23:41 → 5RNO 08-09 00:46
PROVIDERS: ADMIT Internal Medicine; ATTEND Hospitalist
PROC: 0JBC0ZZ Excision of Pelvic Region Subcutaneous Tissue and Fascia, Open Approach (ICD-10-PCS; principal; 2018-08-09)
PROC: 05H533Z Insertion of Infusion Device into Right Subclavian Vein, Percutaneous Approach (ICD-10-PCS; 2018-08-16)
PROC: B546ZZA Ultrasonography of Right Subclavian Vein, Guidance (ICD-10-PCS; 2018-08-16)
DX: A41.9 Sepsis, unspecified organism (principal); L89.224 Pressure ulcer of left hip, stage 4; L89.154 Pressure ulcer of sacral region, stage 4; E43 Unspecified severe protein-calorie malnutrition; R64 Cachexia; Z68.1 Body mass index [BMI] 19.9 or less, adult; L89.212 Pressure ulcer of right hip, stage 2; B96.1 Klebsiella pneumoniae [K. pneumoniae] as the cause of diseases classified elsewhere; B96.5 Pseudomonas (aeruginosa) (mallei) (pseudomallei) as the cause of diseases classified elsewhere; G30.9 Alzheimer's disease, unspecified; F02.80 Dementia in other diseases classified elsewhere, unspecified severity, without behavioral disturbance, psychotic disturbance, mood disturbance, and anxiety; E03.9 Hypothyroidism, unspecified; R62.7 Adult failure to thrive; E86.0 Dehydration; D50.9 Iron deficiency anemia, unspecified; Z66 Do not resuscitate; I10 Essential (primary) hypertension; R33.9 Retention of urine, unspecified; R13.10 Dysphagia, unspecified; K59.00 Constipation, unspecified; Z74.01 Bed confinement status; Z86.73 Personal history of transient ischemic attack (TIA), and cerebral infarction without residual deficits; Z87.891 Personal history of nicotine dependence